=== PATIENT | female | born 1950 | race Caucasian/White ===

== ENCOUNTER → 2017-09-02 07:46 | Outpatient (CLI) | payer MEDICARE, OTHER, SELFPAY ==
[2017-09-02 08:44] LABS: AST(SGOT) 27 U/L (15-37); Alanine Aminotransfer ALT/SGPT 44 U/L (13-56); Albumin, Serum 3.9 g/dL (3.2-5.0); Alkaline Phosphatase 143 U/L (45-117); Bilirubin, Direct 0.14 mg/dL (0.00-0.30); Cholesterol 149 mg/dL (200); Globulin 3.9 g/dL (2.2-4.2); High Density Lipoprotein 41 mg/dL; Protein, Total 7.8 g/dL (6.4-8.2); Triglycerides 133 mg/dL; Very Low Density Lipoprotein 27 mg/dL (5-40)
== END ==
PROVIDERS: Family Provider Family Medicine Geriatric Medicine; PCP Family Medicine Geriatric Medicine; Visit Provider Physician Assistant Medical
DX: I25.10 Atherosclerotic heart disease of native coronary artery without angina pectoris (principal); E78.00 Pure hypercholesterolemia, unspecified
CPT/HCPCS: 36415; 80061; 80076

== ENCOUNTER → 2017-11-13 11:20 | Outpatient (CLI) | payer MEDICARE, OTHER, SELFPAY ==
[2017-11-13 12:46] LABS: Absolute Lymphocyte Count 1.56 X10^3/ul (0.83-4.51); Absolute Neutrophil Count 2.7 X10^3/uL (2.0-7.7); Basophil# 0.06 X10^3/uL; Basophil% 1.2 % (0-1); Eosinophil# 0.16 X10^3/uL; Eosinophils% 3.3 % (0-5); Hematocrit 42.6 % (37-47); Hemoglobin 14.1 g/dl (12.0-15.0); Lymphocyte # 1.56 X10^3/ul (4.0); Lymphocyte % 31.8 % (19-41); Mean Corp Hgb Conc 33.1 g/gl (32-36); Mean Corpuscular Hgb 29.9 pg (27.0-32.0); Mean Corpuscular Volume 90.3 fL (81-99); Mean Platelet Vol. 9.4 fl (6.2-12.0); Monocyte# 0.45 X10^3/uL; Monocyte% 9.2 % (0-10); Neutrophil # 2.67 X10^3/uL (2.7-7.7); Neutrophil % 54.5 % (47-70); Platelet Count 241 K/mm3 (150-450); RBC Distribution Width CV 13.5 % (11.6-14.6); RBC Distribution Width SD 44.4 fl (35.1-43.9); Red Blood Count 4.72 M/mm3 (4.2-5.4); White Blood Count 4.9 K/mm3 (4.4-11.0)
[2017-11-13 12:51] LABS: POSITIVE COUNT NO; POSITIVE DIFFERENTIAL NO; POSITIVE MORPHOLOGY NO
[2017-11-13 12:59] LABS: Vitamin D,25 Hydroxy 40.6 ng/mL (29.95-100.01)
[2017-11-13 13:03] LABS: ALB/GLOB Ratio 1.1 RATIO (0.9-2.4); AST(SGOT) 31 U/L (15-37); Alanine Aminotransfer ALT/SGPT 52 U/L (13-56); Alkaline Phosphatase 132 U/L (45-117); Anion Gap 8 (5-15); BUN 17 mg/dL (7-18); BUN/Creat Ratio 19.1 RATIO (10-20); Calcium,Total 8.8 mg/dL (8.5-10.1); Chloride 103 mmol/L (98-107); Creatinine, Serum 0.89 mg/dL (0.55-1.02); EST Glomerular Filtration Rate 68 mL/min (>60); Est Glom Filt Rate - Afr Amer 82 mL/min (>60); Globulin 3.8 g/dL (2.2-4.2); Glucose 92 mg/dL (74-106); Protein, Total 7.8 g/dL (6.4-8.2); Sodium Level 142 mmol/L (136-145); Thyroid Stim Hormone (TSH) 0.48 uIU/mL (0.358-3.74)
[2017-11-14 08:10] LABS: Hep C Antibodies <0.1 s/co ratio (0.0-0.9)
== END ==
PROVIDERS: Family Provider Family Medicine Geriatric Medicine; PCP Family Medicine Geriatric Medicine; Visit Provider Family Medicine Geriatric Medicine
DX: I10 Essential (primary) hypertension (principal); E55.9 Vitamin D deficiency, unspecified; Z13.89 Encounter for screening for other disorder
CPT/HCPCS: 36415; 80053; 82306; 84443; 85025; 86803

== ENCOUNTER → 2018-03-04 08:24 | Outpatient (CLI) | payer MEDICARE, OTHER, SELFPAY ==
[2018-03-04 09:17] LABS: AST(SGOT) 28 U/L (15-37); Alanine Aminotransfer ALT/SGPT 57 U/L (13-56); Alkaline Phosphatase 142 U/L (45-117); Bilirubin, Direct 0.23 mg/dL (0.00-0.30); Cholesterol 152 mg/dL (200); Globulin 3.7 g/dL (2.2-4.2); High Density Lipoprotein 55 mg/dL; Protein, Total 7.7 g/dL (6.4-8.2); Triglycerides 89 mg/dL; Very Low Density Lipoprotein 18 mg/dL (5-40)
== END ==
PROVIDERS: Family Provider Family Medicine Geriatric Medicine; PCP Family Medicine Geriatric Medicine; Referring Provider Physician Assistant Medical; Visit Provider Physician Assistant Medical
DX: E78.5 Hyperlipidemia, unspecified (principal); Z79.899 Other long term (current) drug therapy
CPT/HCPCS: 36415; 80061; 80076

== ENCOUNTER → 2018-05-14 09:43 | Outpatient (CLI) | payer MEDICARE, OTHER, SELFPAY ==
[2018-04-03 09:50] VITALS: BMI 31.4
[2018-05-14 11:12] LABS: Absolute Lymphocyte Count 1.51 X10^3/ul (0.83-4.51); Absolute Neutrophil Count 4.9 X10^3/uL (2.0-7.7); Basophil# 0.05 X10^3/uL; Basophil% 0.7 % (0-1); Eosinophil# 0.15 X10^3/uL; Eosinophils% 2.1 % (0-5); Hematocrit 42.9 % (37-47); Hemoglobin 14.2 g/dl (12.0-15.0); Lymphocyte # 1.51 X10^3/ul (4.0); Lymphocyte % 20.7 % (19-41); Mean Corp Hgb Conc 33.1 g/gl (32-36); Mean Corpuscular Hgb 30.3 pg (27.0-32.0); Mean Corpuscular Volume 91.7 fL (81-99); Mean Platelet Vol. 9.5 fl (6.2-12.0); Monocyte# 0.68 X10^3/uL; Monocyte% 9.3 % (0-10); Neutrophil # 4.89 X10^3/uL (2.7-7.7); Neutrophil % 66.9 % (47-70); Platelet Count 246 K/mm3 (150-450); RBC Distribution Width CV 13.8 % (11.6-14.6); RBC Distribution Width SD 46.2 fl (35.1-43.9); Red Blood Count 4.68 M/mm3 (4.2-5.4); White Blood Count 7.3 K/mm3 (4.4-11.0)
[2018-05-14 11:15] LABS: POSITIVE COUNT NO; POSITIVE DIFFERENTIAL NO; POSITIVE MORPHOLOGY NO
[2018-05-14 11:45] LABS: ALB/GLOB Ratio 0.9 RATIO (0.9-2.4); AST(SGOT) 18 U/L (15-37); Alanine Aminotransfer ALT/SGPT 46 U/L (13-56); Albumin, Serum 3.6 g/dL (3.2-5.0); Alkaline Phosphatase 157 U/L (45-117); Anion Gap 9 (5-15); BUN 15 mg/dL (7-18); BUN/Creat Ratio 17.7 RATIO (10-20); Chloride 103 mmol/L (98-107); Creatinine, Serum 0.85 mg/dL (0.55-1.02); EST Glomerular Filtration Rate 71 mL/min (>60); Est Glom Filt Rate - Afr Amer 86 mL/min (>60); Glucose 61 mg/dL (74-106); Potassium 3.2 mmol/L (3.5-5.1); Protein, Total 7.6 g/dL (6.4-8.2); Sodium Level 142 mmol/L (136-145)
== END ==
PROVIDERS: Family Provider Family Medicine Geriatric Medicine; PCP Family Medicine Geriatric Medicine; Referring Provider Family Medicine Geriatric Medicine; Visit Provider Family Medicine Geriatric Medicine
DX: I10 Essential (primary) hypertension (principal); E55.9 Vitamin D deficiency, unspecified; R69 Illness, unspecified
CPT/HCPCS: 36415; 80053; 82306; 84443; 85025; 87633

== ENCOUNTER → 2018-05-30 09:15 | Outpatient (CLI) | payer MEDICARE, OTHER, SELFPAY ==
[2018-04-03 09:50] VITALS: BMI 31.4
[2018-05-30 13:09] LABS: Anion Gap 8 (5-15); BUN 19 mg/dL (7-18); BUN/Creat Ratio 20.8 RATIO (10-20); Calcium,Total 8.8 mg/dL (8.5-10.1); Chloride 104 mmol/L (98-107); Creatinine, Serum 0.92 mg/dL (0.55-1.02); EST Glomerular Filtration Rate 65 mL/min (>60); Est Glom Filt Rate - Afr Amer 79 mL/min (>60); Glucose 92 mg/dL (74-106); Sodium Level 139 mmol/L (136-145)
== END ==
PROVIDERS: Family Provider Family Medicine Geriatric Medicine; PCP Family Medicine Geriatric Medicine; Visit Provider Family Medicine Geriatric Medicine
DX: E87.6 Hypokalemia (principal)
CPT/HCPCS: 36415; 80048

== ENCOUNTER → 2018-06-27 10:05 | Outpatient (CLI) | payer MEDICARE, OTHER, SELFPAY ==
[2018-04-03 09:50] VITALS: BMI 31.4
[2018-06-27 12:22] LABS: BUN 17 mg/dL (7-18); Creatinine, Serum 0.82 mg/dL (0.55-1.02); EST Glomerular Filtration Rate 74 mL/min (>60); Est Glom Filt Rate - Afr Amer 90 mL/min (>60)
== END ==
PROVIDERS: Family Provider Family Medicine Geriatric Medicine; PCP Family Medicine Geriatric Medicine; Referring Provider Urology; Visit Provider Urology
DX: R31.0 Gross hematuria (principal)
CPT/HCPCS: 36415; 82565; 84520

== ENCOUNTER → 2018-07-01 06:24 | Outpatient (CLI) | payer MEDICARE, OTHER, SELFPAY ==
[2018-04-03 09:50] VITALS: BMI 31.4
--- NOTE | 2018-07-01 06:29 | CT_ITS ---
STUDY: CT ABDOMEN AND PELVIS WITH AND WITHOUT CONTRAST REASON FOR EXAM: Female, 68 years old. Gross hematuria RADIATION DOSAGE (If Supplied By Facility): CTDIvol = ( 25.09 ) mGy, DLP = ( 2885.35 ) mGycm TECHNIQUE: Transaxial images were obtained from the dome of the diaphragm to the symphysis pubis without oral contrast. Isovue 300 100CC IV was administered. Sagittal and coronal images were reconstructed. Individualized dose optimization techniques were used for this CT. COMPARISON: None. FINDINGS: The lung bases are clear. Fatty infiltration of the liver. No dilated intrahepatic biliary radicles. Previous cholecystectomy. The spleen is normal. The pancreas is normal. Both adrenals are normal. There is a small cyst in the anterior aspect of the right kidney. It is 1.9 cm in size. There is no right-sided hydronephrosis and no calcifications in the right kidneys. A 3.3 cm cyst is in the upper pole of the left kidney and a 2.8 cm cyst from the lower pole of the left kidney. No left-sided hydronephrosis and no calculi in the left kidney The stomach is normal. There is no bowel distention, acute appendicitis or diverticulitis. No constricting lesions are seen in large bowel. The abdominal wall is intact with no hernias. There is no ascites or any free intraperitoneal air. No indication of epiploic appendagitis The vascular structures in the retroperitoneum are normal. There is no retrocrural, retroperitoneal or mesenteric adenopathy. The bones and joints are normal. The urinary bladder is normal.--Previous hysterectomy. There is no inguinal or pelvic adenopathy. There is no inguinal hernia. . . CT/CT Abd/Pelvis W/WO Contrast IMPRESSION: Bilateral benign renal cysts. No hydronephrosis. No calyceal calculi No acute appendicitis or diverticulitis Electronically Signed: Emeka Hendricks MD at 7:58 EST Tel , Service support ,
== END ==
PROVIDERS: Family Provider Family Medicine Geriatric Medicine; PCP Family Medicine Geriatric Medicine; Referring Provider Urology; Visit Provider Urology
DX: R31.0 Gross hematuria (principal)
CPT/HCPCS: 74178; Q9967

== ENCOUNTER → 2018-07-02 11:53 | Outpatient (CLI) | payer MEDICARE, OTHER, SELFPAY ==
[2018-04-03 09:50] VITALS: BMI 31.4
== END ==
PROVIDERS: Family Provider Family Medicine Geriatric Medicine; PCP Family Medicine Geriatric Medicine; Referring Provider Family Medicine Geriatric Medicine; Visit Provider Family Medicine Geriatric Medicine
DX: R68.83 Chills (without fever) (principal)
CPT/HCPCS: 87633

== ENCOUNTER → 2018-09-05 | Outpatient (CLI) | payer MEDICARE, OTHER, SELFPAY ==
[2018-04-03 09:50] VITALS: BMI 31.4
[2018-09-05 09:26] LABS: AST(SGOT) 29 U/L (15-37); Alanine Aminotransfer ALT/SGPT 59 U/L (13-56); Alkaline Phosphatase 128 U/L (45-117); Cholesterol 170 mg/dL (200); Globulin 3.2 g/dL (2.2-4.2); High Density Lipoprotein 51 mg/dL; Protein, Total 7.2 g/dL (6.4-8.2); Triglycerides 109 mg/dL; Very Low Density Lipoprotein 22 mg/dL (5-40)
== END | disposition home or self-care (01) ==
PROVIDERS: Family Provider Family Medicine Geriatric Medicine; PCP Family Medicine Geriatric Medicine; Referring Provider Physician Assistant Medical; Visit Provider Physician Assistant Medical
DX: E78.5 Hyperlipidemia, unspecified (principal)
CPT/HCPCS: 36415; 80061; 80076

== ENCOUNTER → 2018-11-18 | Outpatient (CLI) | payer MEDICARE, OTHER, SELFPAY ==
[2018-04-03 09:50] VITALS: BMI 31.4
[2018-11-18 12:49] LABS: Absolute Lymphocyte Count 1.12 X10^3/uL (0.83-4.51); Absolute Neutrophil Count 3.6 X10^3/uL (2.0-7.7); Basophil# 0.07 X10^3/uL; Basophil% 1.3 % (0-1); Eosinophil# 0.13 X10^3/uL; Eosinophils% 2.5 % (0-5); Hemoglobin 13.9 g/dL (12.0-15.0); Lymphocyte # 1.12 X10^3/ul (4.0); Lymphocyte % 21.2 % (19-41); Mean Corp Hgb Conc 33.9 g/dL (32-36); Mean Corpuscular Hgb 31.4 pg (27.0-32.0); Mean Corpuscular Volume 92.8 fL (81-99); Mean Platelet Vol. 9.7 fl (6.2-12.0); Monocyte# 0.37 X10^3/uL; NRBC Flagged by Analyzer 0 % (0-5); Neutrophil # 3.58 X10^3/uL (2.7-7.7); Neutrophil % 67.8 % (47-70); Platelet Count 258 K/mm3 (150-450); RBC Distribution Width SD 43.9 fl (35.1-43.9); Red Blood Count 4.42 M/mm3 (4.2-5.4); White Blood Count 5.3 K/mm3 (4.4-11.0)
[2018-11-18 13:09] LABS: Vitamin D,25 Hydroxy 45.1 ng/mL (29.95-100.01)
[2018-11-18 13:25] LABS: ALB/GLOB Ratio 1.1 RATIO (0.9-2.4); AST(SGOT) 29 U/L (15-37); Alanine Aminotransfer ALT/SGPT 64 U/L (13-56); Albumin, Serum 3.8 g/dL (3.2-5.0); Alkaline Phosphatase 150 U/L (45-117); Anion Gap 9 (5-15); BUN 17 mg/dL (7-18); BUN/Creat Ratio 19.1 RATIO (10-20); Calcium,Total 8.8 mg/dL (8.5-10.1); Chloride 105 mmol/L (98-107); Creatinine, Serum 0.89 mg/dL (0.55-1.02); EST Glomerular Filtration Rate 67 mL/min (>60); Est Glom Filt Rate - Afr Amer 81 mL/min (>60); Globulin 3.5 g/dL (2.2-4.2); Glucose 87 mg/dL (74-106); Potassium 3.4 mmol/L (3.5-5.1); Protein, Total 7.3 g/dL (6.4-8.2); Sodium Level 141 mmol/L (136-145); Thyroid Stim Hormone (TSH) 1.95 uIU/mL (0.358-3.74)
== END | disposition home or self-care (01) ==
LOC: POLAB3 08:57
PROVIDERS: Family Provider Family Medicine Geriatric Medicine; PCP Family Medicine Geriatric Medicine; Visit Provider Family Medicine Geriatric Medicine
DX: I10 Essential (primary) hypertension (principal); E55.9 Vitamin D deficiency, unspecified
CPT/HCPCS: 36415; 80053; 82306; 84443; 85025

== ENCOUNTER → 2018-11-26 09:03 | Outpatient (CLI) | payer MEDICARE, OTHER, SELFPAY ==
[2018-04-03 09:50] VITALS: BMI 31.4
[2018-11-26 11:40] LABS: Anion Gap 8 (5-15); BUN 20 mg/dL (7-18); BUN/Creat Ratio 19.8 RATIO (10-20); Calcium,Total 9.2 mg/dL (8.5-10.1); Chloride 104 mmol/L (98-107); Creatinine, Serum 1.01 mg/dL (0.55-1.02); EST Glomerular Filtration Rate 58 mL/min (>60); Est Glom Filt Rate - Afr Amer 70 mL/min (>60); Glucose 77 mg/dL (74-106); Potassium 3.5 mmol/L (3.5-5.1); Sodium Level 140 mmol/L (136-145)
== END ==
PROVIDERS: Family Provider Family Medicine Geriatric Medicine; PCP Family Medicine Geriatric Medicine; Visit Provider Family Medicine Geriatric Medicine
DX: E87.6 Hypokalemia (principal)
CPT/HCPCS: 36415; 80048

== ENCOUNTER → 2018-12-18 | Outpatient (CLI) | payer MEDICARE, OTHER, SELFPAY ==
[2018-04-03 09:50] VITALS: BMI 31.4
--- NOTE | 2018-12-18 12:11 | BI_ITS ---
MAMMOGRAPHY - BILATERAL SCREENING REASON FOR EXAM: Female, 68 years old. Routine annual screening examination. PERTINENT HISTORY: Non-contributory. TECHNIQUE: Digital bilateral breast katerina (3D mammographic acquisition) in the CC and MLO projections. 2-D mediolateral oblique (MLO) and craniocaudad (CC) views of both breasts were obtained. CAD: Full Field Digital Mammography with Computer Added Detection was performed. COMPARISON: Comparison is made with prior study dated November 21, 2016 and March 01, 2015. FINDINGS: Breast Composition: There are scattered areas of fibroglandular density. There are no dominant masses or suspicious calcifications. The previously seen nodular density in the inferior medial portion right breast has decreased in size. The previously seen small nodular density in the inferior medial portion of the left breast has decreased in size as well. Stable benign-appearing bilateral axillary No other significant abnormalities are identified. BI/SCREEN MAMM (CAD) W/KATERINA BILAT IMPRESSION: Stable bilateral screening mammogram. Interval decrease in size of the small bilateral nodular densities. Yearly follow-up mammogram recommended. (A) ASSESSMENT CATEGORY: BIRADS Category 2: Benign. A letter regarding these results will be sent to the patient by the facility within 30 days. Approximately 10% of breast cancers are not detected by mammography. A normal mammogram should not delay biopsy of a clinically suspicious abnormality. [id number] Electronically Signed: Moshe Gaffney, at 13:43 EDT , Service support ,
--- NOTE | 2018-12-18 12:15 | BD_ITS ---
STUDY: DUAL ENERGY X-RAY ABSORPTIOMETRY / DXA REASON FOR EXAM: Female, 68 years old. The patient is postmenopausal. Loss of height. TECHNIQUE: Bone Mineral Density (BMD) measurements of lumbar spine and bilateral hips were obtained. COMPARISON: Comparison is made with prior examination dated January 06, 2014. FINDINGS: Lumbar Spine (L1-L4): g/cm2 (1.006) / T-score (-1.4) / Z-score (0.3) Findings are suggestive of osteopenia with a low fracture risk. Left Femur Total: g/cm2 (1.063) / T-score (0.4) / Z-score (1.8) Left Femoral Neck: g/cm2 (0.972) / T-score (-0.5) / Z-score (1.1) Right Femur Total: g/cm2 (1.052) / T-score (0.4) / Z-score (1.7) Right Femoral Neck: g/cm2 (0.951) / T-score (-0.6) / Z-score (0.9) The T-Scores on the most recent prior examination were: Lumbar Spine (L1-L4): There has been worsening of bone density since the previous examination. Left Femur Total: which represents a worsening of 0.4%. Right Femur Total: which represents an improvement of 0.3%. BD/Dexa Bone Density Study IMPRESSION: The patient is considered osteopenic as outlined below according to World Wallace Organization (WHO) criteria with a low fracture risk. There has been worsening of bone density since the previous examination. Reference Information: The T-score is the number of standard deviations above or below the standard which is normal for young adults at their peak bone mineral density. The World Health Organization (WHO) interprets the T-scores as follows: Above -1 Normal bone density Between -1 and -2.5 Osteopenia Equal to / or below -2.5 Osteoporosis As a practical clinical guideline, osteopenia may be graded as follows: Mild -1 through -1.5 Moderate -1.6 through -2.0 Severe -2.1 through -2.4 The Z-score is the number of standard deviations above or below age-matched controls. A Z-score of less than -1.5 would be considered abnormal. References: 1. NIH Osteoporosis and Related Bone Diseases http://www.osteo.org 2. International Society for Clinical Densitometry http://www.iscd.org 3. National Osteoporosis Foundation http://www.nof.org Electronically Signed: Moshe Gaffney, at 14:57 EDT , Service support ,
== END | disposition home or self-care (01) ==
LOC: OPBD 12:08
PROVIDERS: Family Provider Family Medicine Geriatric Medicine; PCP Family Medicine Geriatric Medicine; Referring Provider Family Medicine Geriatric Medicine; Visit Provider Family Medicine Geriatric Medicine
DX: Z78.0 Asymptomatic menopausal state (principal); Z12.31 Encounter for screening mammogram for malignant neoplasm of breast
CPT/HCPCS: 77063; 77067; 77080

== ENCOUNTER → 2019-05-19 11:47 | Outpatient (CLI) | payer MEDICARE, OTHER, SELFPAY ==
[2019-04-09 09:17] VITALS: BMI 31.8
[2019-05-19 12:51] LABS: Absolute Lymphocyte Count 1.75 X10^3/uL (0.83-4.51); Absolute Neutrophil Count 5.6 X10^3/uL (2.0-7.7); Basophil# 0.06 X10^3/uL; Basophil% 0.7 % (0-1); Eosinophil# 0.15 X10^3/uL; Eosinophils% 1.8 % (0-5); Lymphocyte # 1.75 X10^3/ul (4.0); Lymphocyte % 20.8 % (19-41); Mean Corp Hgb Conc 33.3 g/dL (32-36); Mean Corpuscular Hgb 30.2 pg (27.0-32.0); Mean Corpuscular Volume 90.5 fL (81-99); Mean Platelet Vol. 9.4 fl (6.2-12.0); Monocyte# 0.79 X10^3/uL; Monocyte% 9.4 % (0-10); NRBC Flagged by Analyzer 0 % (0-5); Neutrophil # 5.64 X10^3/uL (2.7-7.7); Neutrophil % 67.1 % (47-70); Platelet Count 274 K/mm3 (150-450); RBC Distribution Width CV 13.4 % (11.6-14.6); RBC Distribution Width SD 44.8 fl (35.1-43.9); Red Blood Count 4.97 M/mm3 (4.2-5.4); White Blood Count 8.4 K/mm3 (4.4-11.0)
[2019-05-19 13:00] LABS: Vitamin D,25 Hydroxy 46.2 ng/mL (29.95-100.01)
[2019-05-19 13:01] LABS: ALB/GLOB Ratio 1.1 RATIO (0.9-2.4); AST(SGOT) 41 U/L (15-37); Alanine Aminotransfer ALT/SGPT 125 U/L (13-56); Albumin, Serum 3.9 g/dL (3.2-5.0); Alkaline Phosphatase 149 U/L (45-117); Anion Gap 3 (5-15); BUN 15 mg/dL (7-18); BUN/Creat Ratio 16.3 RATIO (10-20); Calcium,Total 9.2 mg/dL (8.5-10.1); Chloride 102 mmol/L (98-107); Creatinine, Serum 0.92 mg/dL (0.55-1.02); EST Glomerular Filtration Rate 65 mL/min (>60); Est Glom Filt Rate - Afr Amer 78 mL/min (>60); Globulin 3.7 g/dL (2.2-4.2); Glucose 66 mg/dL (74-106); Potassium 3.3 mmol/L (3.5-5.1); Protein, Total 7.6 g/dL (6.4-8.2); Sodium Level 137 mmol/L (136-145); Thyroid Stim Hormone (TSH) 4.48 uIU/mL (0.358-3.74)
== END ==
PROVIDERS: Family Provider Family Medicine Geriatric Medicine; PCP Family Medicine Geriatric Medicine; Visit Provider Family Medicine Geriatric Medicine
DX: I10 Essential (primary) hypertension (principal); E55.9 Vitamin D deficiency, unspecified
CPT/HCPCS: 36415; 80053; 82306; 84443; 85025

== ENCOUNTER → 2019-05-26 10:22 | Outpatient (CLI) | payer MEDICARE, OTHER, SELFPAY ==
[2019-04-09 09:17] VITALS: BMI 31.8
[2019-05-26 12:51] LABS: ALB/GLOB Ratio 1.1 RATIO (0.9-2.4); AST(SGOT) 56 U/L (15-37); Alanine Aminotransfer ALT/SGPT 123 U/L (13-56); Albumin, Serum 3.9 g/dL (3.2-5.0); Alkaline Phosphatase 122 U/L (45-117); Anion Gap 5 (5-15); BUN 17 mg/dL (7-18); BUN/Creat Ratio 17.7 RATIO (10-20); Calcium,Total 8.9 mg/dL (8.5-10.1); Chloride 105 mmol/L (98-107); Creatinine, Serum 0.96 mg/dL (0.55-1.02); EST Glomerular Filtration Rate 62 mL/min (>60); Est Glom Filt Rate - Afr Amer 74 mL/min (>60); Globulin 3.7 g/dL (2.2-4.2); Glucose 87 mg/dL (74-106); Potassium 3.7 mmol/L (3.5-5.1); Protein, Total 7.6 g/dL (6.4-8.2); Sodium Level 137 mmol/L (136-145)
== END ==
PROVIDERS: PCP Family Medicine Geriatric Medicine; Visit Provider Family Medicine Geriatric Medicine
DX: E87.6 Hypokalemia (principal)
CPT/HCPCS: 36415; 80053

== ENCOUNTER → 2019-06-16 08:55 | Outpatient (CLI) | payer MEDICARE, OTHER, SELFPAY ==
[2019-04-09 09:17] VITALS: BMI 31.8
--- NOTE | 2019-06-16 09:04 | US_ITS ---
STUDY: ABDOMINAL ULTRASOUND - RIGHT UPPER QUADRANT REASON FOR VISIT: Female, 68 years old RUQ PAIN TECHNIQUE: Ultrasound evaluation of the right upper quadrant was performed with real-time and static lucia-scale imaging. TECHNICAL QUALITY: Adequate. COMPARISON: CT abdomen and pelvis with IV contrast July 01, 2018 FINDINGS: Liver: The liver measures 18.2 cm. There is increased echogenicity consistent with fatty infiltration. The bile ducts are within normal limits. There is hepatic color flow. The direction of portal flow is hepatopetal. There is no demonstrated mass lesion. Gallbladder: The patient is status post cholecystectomy. Common Bile Duct (C.B.D.): The common bile duct measures 6.7 mm. Pancreas: Normal size of the visualized head, body and tail of the pancreas. There is borderline increased echogenicity of the pancreas. There is no demonstrated pancreatic mass or cyst. Right Kidney: Normal size of the right kidney. The right kidney measures 10.6 x 6.3 x 4.2 cm. Normal renal cortex. The right cortex measures 1.1 cm. Well-defined, mildly lobulated 2.2 x 1.9 x 1.7 cm cortical cyst noted in the anterior midpole. A 9 x 11 x 9 mm cortical cyst is also seen at the upper pole. There is no right hydronephrosis. US/Abdomen Limited IMPRESSION: 1. Prior cholecystectomy. 2. Mild hepatomegaly with steatosis. 3. Two cortical cysts of the right kidney, as described. No hydronephrosis. Electronically Signed: Partha Fallon MD at 19:53 EST , Service support ,
== END ==
PROVIDERS: PCP Family Medicine Geriatric Medicine; Referring Provider Family Medicine Geriatric Medicine; Visit Provider Family Medicine Geriatric Medicine
DX: R10.11 Right upper quadrant pain (principal)
CPT/HCPCS: 76705

== ENCOUNTER → 2019-07-03 10:21 | Outpatient (CLI) | payer MEDICARE, OTHER, SELFPAY ==
[2019-04-09 09:17] VITALS: BMI 31.8
== END ==
PROVIDERS: PCP Family Medicine Geriatric Medicine; Referring Provider Family Medicine Geriatric Medicine; Visit Provider Family Medicine Geriatric Medicine
DX: E03.9 Hypothyroidism, unspecified (principal)
CPT/HCPCS: 36415; 84443

== ENCOUNTER → 2019-08-24 12:58 | Outpatient (CLI) | payer MEDICARE, OTHER, SELFPAY ==
[2019-04-09 09:17] VITALS: BMI 31.8
[2019-08-24 15:16] LABS: Thyroid Stim Hormone (TSH) 0.03 uIU/mL (0.358-3.74)
== END ==
PROVIDERS: PCP Family Medicine Geriatric Medicine; Referring Provider Family Medicine Geriatric Medicine; Visit Provider Family Medicine Geriatric Medicine
DX: E03.9 Hypothyroidism, unspecified (principal)
CPT/HCPCS: 36415; 84443

== ENCOUNTER → 2019-10-06 10:04 | Outpatient (CLI) | payer MEDICARE, OTHER, SELFPAY ==
[2019-04-09 09:17] VITALS: BMI 31.8
[2019-10-06 12:12] LABS: Thyroid Stim Hormone (TSH) 0.44 uIU/mL (0.358-3.74)
== END ==
PROVIDERS: PCP Family Medicine Geriatric Medicine; Visit Provider Family Medicine Geriatric Medicine
DX: E03.9 Hypothyroidism, unspecified (principal)
CPT/HCPCS: 36415; 84443

== ENCOUNTER → 2019-10-28 | Outpatient (CLI) | payer MEDICARE, OTHER, SELFPAY ==
[2019-04-09 09:17] VITALS: BMI 31.8
[2019-10-28 13:00] LABS: AST(SGOT) 18 U/L (15-37); Alanine Aminotransfer ALT/SGPT 37 U/L (13-56); Albumin, Serum 3.7 g/dL (3.2-5.0); Alkaline Phosphatase 126 U/L (45-117); Bilirubin, Direct 0.18 mg/dL (0.00-0.30); GGTP 14 U/L (5-55); Globulin 3.5 g/dL (2.2-4.2); Protein, Total 7.2 g/dL (6.4-8.2)
== END | disposition home or self-care (01) ==
LOC: MTLAB 10:07
PROVIDERS: PCP Family Medicine Geriatric Medicine; Referring Provider Internal Medicine Gastroenterology; Visit Provider Internal Medicine Gastroenterology
DX: K75.9 Inflammatory liver disease, unspecified (principal)
CPT/HCPCS: 36415; 80076; 82977

== ENCOUNTER → 2019-11-24 11:16 | Outpatient (CLI) | payer MEDICARE, OTHER, SELFPAY ==
[2019-04-09 09:17] VITALS: BMI 31.8
[2019-11-24 12:40] LABS: Absolute Neutrophil Count 3.5 X10^3/uL (2.0-7.7); Basophil# 0.05 X10^3/uL; Basophil% 0.9 % (0-1); Eosinophil# 0.16 X10^3/uL; Eosinophils% 2.9 % (0-5); Hematocrit 42.1 % (37-47); Hemoglobin 14.1 g/dL (12.0-15.0); Lymphocyte % 23.6 % (19-41); Mean Corp Hgb Conc 33.5 g/dL (32-36); Mean Corpuscular Hgb 31.6 pg (27.0-32.0); Mean Corpuscular Volume 94.4 fL (81-99); Mean Platelet Vol. 9.9 fl (6.2-12.0); Monocyte# 0.52 X10^3/uL; Monocyte% 9.4 % (0-10); NRBC Flagged by Analyzer 0 % (0-5); Neutrophil # 3.48 X10^3/uL (2.7-7.7); Platelet Count 244 K/mm3 (150-450); RBC Distribution Width CV 12.9 % (11.6-14.6); RBC Distribution Width SD 43.6 fl (35.1-43.9); Red Blood Count 4.46 M/mm3 (4.2-5.4); White Blood Count 5.5 K/mm3 (4.4-11.0)
[2019-11-24 13:04] LABS: ALB/GLOB Ratio 1.1 RATIO (0.9-2.4); AST(SGOT) 18 U/L (15-37); Alanine Aminotransfer ALT/SGPT 28 U/L (13-56); Albumin, Serum 3.8 g/dL (3.2-5.0); Alkaline Phosphatase 121 U/L (45-117); Anion Gap 3 (5-15); BUN 14 mg/dL (7-18); BUN/Creat Ratio 15.7 RATIO (10-20); Calcium,Total 8.6 mg/dL (8.5-10.1); Chloride 103 mmol/L (98-107); Creatinine, Serum 0.89 mg/dL (0.55-1.02); EST Glomerular Filtration Rate 67 mL/min (>60); Est Glom Filt Rate - Afr Amer 81 mL/min (>60); Globulin 3.4 g/dL (2.2-4.2); Glucose 63 mg/dL (74-106); Potassium 3.8 mmol/L (3.5-5.1); Protein, Total 7.2 g/dL (6.4-8.2); Sodium Level 137 mmol/L (136-145); Thyroid Stim Hormone (TSH) 1.95 uIU/mL (0.358-3.74)
[2019-11-25 13:39] LABS: Vitamin D,25 Hydroxy 48.1 ng/mL
== END ==
PROVIDERS: PCP Family Medicine Geriatric Medicine; Visit Provider Family Medicine Geriatric Medicine
DX: E55.9 Vitamin D deficiency, unspecified (principal); I10 Essential (primary) hypertension
CPT/HCPCS: 36415; 80053; 82306; 84443; 85025

== ENCOUNTER → 2020-04-12 11:08 | Outpatient (CLI) | payer MEDICARE, OTHER, SELFPAY ==
[2020-04-12 08:02] VITALS: BMI 33.2
[2020-04-12 12:06] LABS: AST(SGOT) 15 U/L (15-37); Alanine Aminotransfer ALT/SGPT 35 U/L (13-56); Albumin, Serum 4.1 g/dL (3.2-5.0); Alkaline Phosphatase 140 U/L (45-117); Bilirubin, Direct 0.19 mg/dL (0.00-0.30); Cholesterol 148 mg/dL (200); Globulin 3.6 g/dL (2.2-4.2); High Density Lipoprotein 52 mg/dL; Protein, Total 7.7 g/dL (6.4-8.2); Triglycerides 187 mg/dL; Very Low Density Lipoprotein 37 mg/dL (5-40)
== END ==
PROVIDERS: PCP Family Medicine Geriatric Medicine; Visit Provider Internal Medicine Cardiovascular Disease
DX: E78.00 Pure hypercholesterolemia, unspecified (principal)
CPT/HCPCS: 36415; 80061; 80076

== ENCOUNTER → 2020-04-14 05:32 | Outpatient (CLI) | payer MEDICARE, OTHER, SELFPAY ==
[2020-04-12 08:02] VITALS: BMI 33.2
--- NOTE | 2020-04-14 05:34 | ECHOD_ITS ---
Reason For Study: CAD Procedure This was a 2D Doppler, Color Flow transthoracic echocardiogram. Exam performed in department. Left Ventricle Normal LV size. The estimated ejection fraction is 45 %. Mild segmental systolic dysfunction (see wall motion). Mid-Inferior: Severely Hypokinetic. Posterior-Basal: Hypokinetic. [place] : Hypokinetic. Mid-anteroseptal : Hypokinetic. Basal inferoseptal: Akinetic. The rest of the wall segments are normal. Anterior [place] : Hypokinetic. Right Ventricle Normal RV size. Normal systolic function. Atria Normal left atrium. Normal right atrium. Mitral Valve Normal mitral valve. Mild (1+) eccentric mitral valve insufficiency. Tricuspid Valve Normal tricuspid valve. Mild tricuspid valve insufficiency. Aortic Valve Trisinus/trileaflet aortic valve. Mild (1+) aortic valve insufficiency. Great Vessels Normal aortic root. The pulmonary artery is normal size. Normal inferior vena cava. Pericardium/Pleural No pericardial effusion. MMode/2D Measurements & Calculations LVIDd: 3.8 cm IVSd: 1.4 cm Ao root diam: 3.2 cm LVIDs: 2.3 cm LVPWd: 1.3 cm RVDd: 2.8 cm FS: 38.1 % LAV(MOD-bp): 28.2 ml LVAd ap4: 26.4 cm2 SV(MOD-sp4): 37.0 ml LAV(MOD-bp) Indexed: 15.2 ml/m2 EDV(MOD-sp4): 73.0 ml LAV(MOD-sp2): 29.8 ml EDV(sp4-el): 71.4 ml LAV(MOD-sp4): 25.8 ml LVAs ap4: 17.2 cm2 ESV(MOD-sp4): 36.0 ml ESV(sp4-el): 35.6 ml EF(MOD-sp4): 50.7 % EF(sp4-el): 50.1 % SV(sp4-el): 35.8 ml LA dimension(2D): 3.5 cm LA A4 area: 11.8 cm2 RA A4 area: 11.7 cm2 Doppler Measurements & Calculations MV E max robin: 64.8 cm/sec Lat Peak E' Robin: 8.5 cm/sec Med Peak E' Robin: 5.8 cm/sec MV A max robin: 93.6 cm/sec E/E' lat: 7.6 E/E' med: 11.3 MV E/A: 0.69 Ao V2 max: 98.9 cm/sec AI max robin: 373.3 cm/sec LV V1 max: 68.5 cm/sec Ao max P.9 mmHg AI max P.8 mmHg LV V1 max P.9 mmHg AI dec slope: 216.3 cm/sec2 AI P1/2t: 505.6 msec PA V2 max: 64.1 cm/sec Interpretation Summary Normal LV size. The estimated ejection fraction is 45 %. Mild segmental systolic dysfunction (see wall motion). Mild (1+) eccentric mitral valve insufficiency. Mild tricuspid valve insufficiency. Compared to the previous the wall motion abnormalities are new. Ordering Physician: Kodi Nance Referring Physician: Rao Delgado Chi Performed By: Sulema Hoyt RDCS
--- NOTE | 2020-04-14 12:31 | STRESSREP_ITS ---
Stress Test Report Exercise myocardial perfusion stress test. 69-year-old lady with a history of coronary artery disease previous angioplasty and stents. Stress protocol: Resting EKG demonstrates normal sinus rhythm with a rate of 72 bpm left bundle branch block is noted. Resting blood pressure is 1 and 36/80 2 mmHg. The patient exercised according to regular Adrian protocol for total duration of 8 minutes. Patient completed 2 minutes into stage III of the Adrian protocol. The maximum heart rate attained was 148 bpm which was 97% of max impacted heart rate the maximum workload was 10.1 metabolic equivalents. At rest there were no ST or T wave changes noted to suggest ischemia. The patient maintained a left bundle branch block pattern throughout the exercise. The test was terminated due to the target heart rate being achieved. No EKG changes were noted suggest ischemia. The peak blood pressure was 170/70 mmHg rate-pressure/24,400. During recovery the blood pressure dropped with some dizziness noted. Myocardial perfusion protocol. 11.8 mCi of technetium 99m sestamibi was injected at rest. The patient exercised for 8 minutes and at peak exercise 31.7 mCi of technetium 99m sestamibi was injected stress images were obtained stress and rest images were reconstructed and compared in the short axis vertical long and horizontal long a xis. Gated images were also obtained Perfusion SPECT analysis. Review of the stress images demonstrate a medium size area in the mid to distal anterior wall with reduced perfusion. This also involves the apex. Similar flattening is noted on the resting images. The above is suggestive of either a previous infarct or attenuation. No obvious improvement is noted to suggest ischemia. The other mitchell appear to be normally perfused. Gated SPECT analysis: The gated ejection fraction is 58%. Conclusion: Exercise myocardial perfusion stress test with no obvious ischemia noted at a high workload. Distal anterior infarct cannot be excluded. Left bundle branch block pattern could account for some of these findings. Preserved ejection fraction. Good functional capacity.
== END ==
PROVIDERS: PCP Family Medicine Geriatric Medicine; Referring Provider Internal Medicine Cardiovascular Disease; Visit Provider Internal Medicine Cardiovascular Disease
DX: I25.10 Atherosclerotic heart disease of native coronary artery without angina pectoris (principal); Z95.5 Presence of coronary angioplasty implant and graft
CPT/HCPCS: 78452; 93017; 93306; A9500; A4216

== ENCOUNTER → 2020-04-25 14:40 | Outpatient (CLI) | payer MEDICARE, OTHER, SELFPAY ==
[2020-04-12 08:02] VITALS: BMI 33.2
[2020-04-27 16:20] LABS: Anti-Smooth Muscle ABS 8 Units (0-19)
[2020-04-27 16:21] LABS: ANTINUCLEAR ANTIBODIES DIRECT Negative (Negative); Anti-Mitochondrial AB <20.0 Units (0.0-20.0)
== END ==
PROVIDERS: PCP Family Medicine Geriatric Medicine; Referring Provider Internal Medicine Gastroenterology; Visit Provider Internal Medicine Gastroenterology
DX: K75.9 Inflammatory liver disease, unspecified (principal)
CPT/HCPCS: 36415; 83516; 86038

== ENCOUNTER → 2020-05-04 08:48 | Outpatient (CLI) | payer MEDICARE, OTHER, SELFPAY ==
[2020-04-12 08:02] VITALS: BMI 33.2
--- NOTE | 2020-05-04 08:49 | US_ITS ---
STUDY: ABDOMINAL ULTRASOUND - RIGHT UPPER QUADRANT REASON FOR VISIT: Female, 69 years old FATTY LIVER TECHNIQUE: Ultrasound evaluation of the right upper quadrant was performed with real-time and static lucia-scale imaging. TECHNICAL QUALITY: Adequate. COMPARISON: Comparison is made with prior ultrasound examination dated 06/16/2019. FINDINGS: Liver: The liver is mildly enlarged and measures 18.2 cm. There is increased echogenicity consistent with fatty infiltration. The bile ducts are within normal limits. There is hepatic color flow. The direction of portal flow is hepatopetal. There is no demonstrated mass lesion. Gallbladder: The patient is status post cholecystectomy. Common Bile Duct (C.B.D.): The common bile duct measures 6.2 mm. Pancreas: Normal size of the head, body and tail of the pancreas. There is increased echogenicity of the pancreas. There is no demonstrated pancreatic mass or cyst. Right Kidney: Normal size of the right kidney. The right kidney measures 11.4 cm x 6.3 cm x 4.3 cm. Normal renal cortex. The right cortex measures 1.5 cm. 2 renal cysts are seen. The larger measures 2.6 cm by 2.2 cm by 1.7 cm. There is no right hydronephrosis. IMPRESSION: Mild hepatomegaly and fatty infiltration of the liver. Renal cysts. Electronically Signed: Moshe Gaffney, at 8:50 EST , Service support , STUDY: ABDOMINAL ULTRASOUND - ELASTOGRAPHY REASON FOR VISIT: Female, 69 years old. Fatty infiltration of the liver. TECHNIQUE: Liver stiffness measurements were obtained on a Qire 85 ultrasound machine using a CA 1-7 probe following the SRU guidelines. 3 measurements were obtained using a 2-D-SWE method. The IQR/M was 22% suggesting a quality data set. TECHNICAL QUALITY: Adequate. COMPARISON: None. FINDINGS: Liver: Fatty infiltration of the liver. Median liver stiffness measured 5 kPa. US/Elastography Parenchyma/Organ IMPRESSION: Liver stiffness measures 5 kPa compatible with F0 -- F1 Metavir score. Electronically Signed: Moshe Gaffney, at 8:55 EST , Service support ,
--- NOTE | 2020-05-04 08:49 | US_ITS ---
STUDY: ABDOMINAL ULTRASOUND - RIGHT UPPER QUADRANT REASON FOR VISIT: Female, 69 years old FATTY LIVER TECHNIQUE: Ultrasound evaluation of the right upper quadrant was performed with real-time and static lucia-scale imaging. TECHNICAL QUALITY: Adequate. COMPARISON: Comparison is made with prior ultrasound examination dated 06/16/2019. FINDINGS: Liver: The liver is mildly enlarged and measures 18.2 cm. There is increased echogenicity consistent with fatty infiltration. The bile ducts are within normal limits. There is hepatic color flow. The direction of portal flow is hepatopetal. There is no demonstrated mass lesion. Gallbladder: The patient is status post cholecystectomy. Common Bile Duct (C.B.D.): The common bile duct measures 6.2 mm. Pancreas: Normal size of the head, body and tail of the pancreas. There is increased echogenicity of the pancreas. There is no demonstrated pancreatic mass or cyst. Right Kidney: Normal size of the right kidney. The right kidney measures 11.4 cm x 6.3 cm x 4.3 cm. Normal renal cortex. The right cortex measures 1.5 cm. 2 renal cysts are seen. The larger measures 2.6 cm by 2.2 cm by 1.7 cm. There is no right hydronephrosis. IMPRESSION: Mild hepatomegaly and fatty infiltration of the liver. Renal cysts. Electronically Signed: Moshe Gaffney, at 8:50 EST , Service support , STUDY: ABDOMINAL ULTRASOUND - ELASTOGRAPHY REASON FOR VISIT: Female, 69 years old. Fatty infiltration of the liver. TECHNIQUE: Liver stiffness measurements were obtained on a Nexx Studio 85 ultrasound machine using a CA 1-7 probe following the SRU guidelines. 3 measurements were obtained using a 2-D-SWE method. The IQR/M was 22% suggesting a quality data set. TECHNICAL QUALITY: Adequate. COMPARISON: None. FINDINGS: Liver: Fatty infiltration of the liver. Median liver stiffness measured 5 kPa. US/Abdomen Limited IMPRESSION: Liver stiffness measures 5 kPa compatible with F0 -- F1 Metavir score. Electronically Signed: Moshe Gaffney, at 8:55 EST , Service support ,
== END ==
PROVIDERS: PCP Family Medicine Geriatric Medicine; Referring Provider Internal Medicine Gastroenterology; Visit Provider Internal Medicine Gastroenterology
DX: K76.0 Fatty (change of) liver, not elsewhere classified (principal)
CPT/HCPCS: 76705; 76981

== ENCOUNTER 2020-05-12 06:39 | Day surgery (SDC) | payer MEDICARE, OTHER, SELFPAY ==
[2020-04-12 08:02] VITALS: BMI 33.2
--- NOTE | 2020-04-18 09:56 | RAD_ITS ---
STUDY: X-RAY CHEST REASON FOR EXAM: Female, 69 years old. Coronary artery disease. Abnormal stress test. Hypertension. TECHNIQUE: PA and lateral views of the chest. COMPARISON: 09/30/2012. FINDINGS: The lungs are clear and expanded. There is no demonstrated pleural abnormality. Normal size heart. Normal mediastinum and sisi. Normal visualized pulmonary arteries. There is atherosclerotic calcification of the aortic arch with tortuosity. There are mild degenerative changes of the thoracic spine. Normal visualized ribs, clavicles, and shoulders. There is no demonstrated abnormality of the visualized soft tissue structures of the upper abdomen. RAD/Chest PA and Lateral IMPRESSION: No acute cardiopulmonary disease or major interval change. Electronically Signed: Shaq Feliz DO at 22:42 EST Tel [phone], Service support ,
[2020-04-18 10:10] LABS: Absolute Lymphocyte Count 1.38 X10^3/uL (0.83-4.51); Absolute Neutrophil Count 3.2 X10^3/uL (2.0-7.7); Basophil# 0.06 X10^3/uL; Basophil% 1.1 % (0-1); Eosinophil# 0.22 X10^3/uL; Eosinophils% 4.2 % (0-5); Hematocrit 44.1 % (37-47); Lymphocyte # 1.38 X10^3/ul (4.0); Lymphocyte % 26.4 % (19-41); Mean Corpuscular Hgb 31.1 pg (27.0-32.0); Mean Corpuscular Volume 91.3 fL (81-99); Mean Platelet Vol. 9.4 fl (6.2-12.0); Monocyte# 0.32 X10^3/uL; Monocyte% 6.1 % (0-10); NRBC Flagged by Analyzer 0 % (0-5); Neutrophil # 3.23 X10^3/uL (2.7-7.7); Platelet Count 265 K/mm3 (150-450); RBC Distribution Width CV 12.6 % (11.6-14.6); RBC Distribution Width SD 41.7 fl (35.1-43.9); Red Blood Count 4.83 M/mm3 (4.2-5.4); White Blood Count 5.2 K/mm3 (4.4-11.0)
[2020-04-18 10:35] LABS: Anion Gap 5 (5-15); BUN 16 mg/dL (7-18); BUN/Creat Ratio 16.8 RATIO (10-20); Calcium,Total 9.1 mg/dL (8.5-10.1); Chloride 104 mmol/L (98-107); Creatinine, Serum 0.95 mg/dL (0.55-1.02); EST Glomerular Filtration Rate 62 mL/min (>60); Est Glom Filt Rate - Afr Amer 75 mL/min (>60); Glucose 73 mg/dL (74-106); Potassium 3.8 mmol/L (3.5-5.1); Sodium Level 139 mmol/L (136-145)
[2020-05-11 08:12] VITALS: BMI 33.2
[2020-05-12] VITALS (20 sets, daily range): BP systolic 69–138; BP diastolic 30–75; PULSE 50–95; RESP 14–18; TEMP 36.4–36.6; O2SAT 94–99; BMI 33.2
--- NOTE | 2020-05-12 07:27 | HP_ITS ---
HPI HPI History of Present Illness Details: ILAN CANELA, is a 69 F who presents to the office today for a follow-up visit. She is a lady with a history of coronary artery disease status post previous inferior wall myocardial infarction with angioplasty and stenting to her right coronary artery. She returns for routine follow-up visit. She denies any chest pain or shortness breath or paroxysmal nocturnal dyspnea or pedal edema. She has had no neck arm or jaw discomfort to suggest angina. She has been compliant with her medications. You do remember she was taken off the higher dose of statin due to a fatty liver. She tells me that she did increase the dose of her Crestor. Her physical exam today demonstrates clear lung francois regular rate and rhythm and no pedal edema. Her blood pressure is under excellent control. Intake Vital Signs 04/12/20 Height 5 ft 04/12/20 Weight: 170 lb 04/12/20 BMI 33.2 04/12/20 BP 135/81 H 04/12/20 Respiration 16 04/12/20 Pulse 86 04/12/20 Pulse Oximetry (%) 96 Intake Visit Reasons: 1 Y FU Allergies naproxen sodium [From Aleve] Allergy (Verified 04/12/20 08:03) Itching oseltamivir [From Tamiflu] Adverse Reaction (Verified 04/12/20 08:03) Vomitting Medications Aspirin [Aspirin, Baby] 81 mg PO DAILY@0800 02/07/14 [History Confirmed 04/12/20] Nitroglycerin (INPATIENT USE) [Nitrostat] 0.4 mg SUBLINGUAL Q5M PRN 02/07/14 [History Confirmed 04/12/20] ascorbic acid (vitamin C) 500 mg tablet 500 mg PO QDAY 08/20/17 [History Confirmed 04/12/20] cholecalciferol (vitamin D3) 50 mcg (2,000 unit) tablet 2,000 unit PO .3 days a week tab 08/20/17 [History Confirmed 04/12/20] cyanocobalamin (vitamin B-12) 1,000 mcg tablet 1,000 mcg PO QDAY 08/20/17 [History Confirmed 04/12/20] Saccharomyces boulardii 250 mg capsule 250 mg PO QDAY cap 08/22/17 [History Confirmed 04/09/19] calcium citrate 1,000 mg PO QDAY tab 08/22/17 [History Confirmed 04/12/20] folic acid 1 mg tablet 1 mg PO QDAY 08/22/17 [History Confirmed 04/12/20] amlodipine 5 mg tablet 5 mg PO DAILY #90 tab 04/09/19 [Rx Confirmed 04/12/20] cranberry 500 mg capsule 500 mg PO DAILY cap 04/09/19 [History Confirmed 04/12/20] metoprolol succinate 50 mg tablet,extended release 24 hr 50 mg PO QDAY #90 tab 07/02/19 [Rx Confirmed 04/12/20] hydrochlorothiazide 12.5 mg tablet 12.5 mg PO QDAY #90 tab 03/22/20 [Rx Confirmed 04/12/20] losartan 100 mg tablet 100 mg PO DAILY #90 tab 03/22/20 [Rx Confirmed 04/12/20] rosuvastatin 10 mg tablet 10 mg PO DAILY #90 tab 03/22/20 [Rx Confirmed 04/12/20] levothyroxine 75 mcg tablet 75 mcg PO DAILY tab 04/12/20 [History Confirmed 04/12/20] magnesium oxide 500 mg capsule 500 mg PO DAILY 04/12/20 [History Confirmed 04/12/20] omega-3 fatty acids 1,000 mg capsule 1,000 mg PO BID 04/12/20 [History Confirmed 04/12/20] potassium chloride 20 mEq tablet,extended release(part/cryst) 20 meq PO DAILY tab 04/12/20 [History Confirmed 04/12/20] vitamin B complex 1 cap PO DAILY 04/12/20 [History Confirmed 04/12/20] zinc 50 mg tablet 50 mg PO DAILY 04/12/20 [History Confirmed 04/12/20] Ejection fraction %: 55 to 59 [facility] Medical History Atherosclerosis of coronary artery of [place] heart without angina pectoris (Chronic) 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) Left bundle branch block (Chronic) Essential (primary) hypertension (Chronic) Hyperlipidemia (Chronic) Hypothyroidism (Chronic) Obesity (Chronic) Blood in urine (Resolved) Cystitis (Resolved) Surgical History History of coronary artery stent placement (Resolved 03/01/00) H/O: hysterectomy (Resolved) History of left heart catheterization (Resolved 02/13/08) History of thyroidectomy (Resolved) Hx of cholecystectomy (Resolved) Family History (System 07/29/19 @ 11:08 by Amirah Dubon) Brother CAD (coronary artery disease) Sister CAD (coronary artery disease) Father CAD (coronary artery disease) Mother CAD (coronary artery disease) Other CVA (cerebral vascular accident) Social History (Updated 04/12/20 @ 10:[address] Kodi Nance MD) Smoking Status: Never smoker alcohol intake: never substance use type: does not use caffeine: Yes Type: tea Number of servings: 1 what type of physical activity do you participate in: none seatbelt use: always do you feel safe at home: Yes ROS Const Const: Negative for fatigue, weakness, headache(s), frequent falls, difficulty sleeping or excessive sweating Eyes Eyes: Negative for loss of peripheral vision, transient loss of vision, blurry vision, double vision or tunnel vision ENT ENT: Negative for headache(s), dizziness, Nosebleed/epistaxis or balance problems Cardio Chest Pain: No Palpitations: No Edema: None Muscle aches with walking: None Resp Respiratory: Negative for SOB with activity, SOB at rest, SOB orthopnea\SOB lying down, Cough or paroxysmal nocturnal dyspnea GI GI: Negative nausea, vomiting, heartburn or black,tarry stools : Negative for hematuria Musc Musc: Negative for muscle aches/ myalgia, muscle weakness, joint pain or balance problems Skin Skin: Negative non-healing lesions, rash or unusual bruising Neuro Neuro: Negative for dizziness, lightheadedness, near syncope, syncope, orthostatic symptoms, frequent falls, headache(s), weakness, blurry vision, double vision or lack of coordination Rui Hematologic/Lymphatic: Negative for easy bleeding or easy bruising Endo Endo: Negative for fatigue, excessive sweating or increased thirst/drinking Psych Psych: Negative for anxiety or depression Allergy Allergy/Immunology: Negative for hives, Negative for rash Cardiology Exam Const Appearance: cooperative, healthy appearing, no acute distress, well developed and well groomed Nutritional Appearance: average body habitus and well nourished Orientation: alert, awake and oriented x3 Head Head: normal to inspection, normocephalic and atraumatic Ears: hearing grossly normal bilaterally and external ears normal Nose: external nose normal, nares normal, nasal mucous membranes and turbinates normal, septum normal, no nasal discharge Face and Sinus: face symmetric Mouth: oral mucosae normal, tongue normal, oropharynx normal and moist mucous membranes Teeth and gingiva: dentition normal Throat: posterior oropharynx normal, tonsils normal and uvula midline Eyes General: appearance normal, both eyes and all related structures Eyelids: eyelids normal Conjunctivae: conjunctivae normal Pupils: PERRL, normal by confrontation and accommodation normal EOM: EOM intact bilaterally Neck Neck: normal visual inspection, trachea midline and no JVD JVD: +5 Carotids: normal carotid upstroke and bounding pulses Chest Chest inspection: normal inspection of the chest, symmetric chest movement and normal respiratory effort Auscultation: Bilateral: Clear to Auscultation Cardio Palpation: normal PMI Rate: regular rate Rhythm: regular rhythm Heart sounds: S1 normal, S2 normal and normal, physiologic split S2; negative rub, gallop or murmur GI GI: normal to inspection, soft, no hepatosplenomegaly and bowel sounds present Neuro General: alert, awake, oriented x3, gait normal, moves all extremities and no focal sensory deficit Skin Skin: no rashes or lesions noted Extremities Pulses: Normal: Right Femoral Pulse, Left Femoral Pulse, Right Dorsalis Pedis Pulse, Left Dorsalis Pedis Pulse, Right Posterior Tibial Pulse, Left Posterior Tibial Pulse, Right Radial Pulse, Left Radial Pulse Lower Extremity Edema: None: Bilateral Musculoskel Musculoskeletal: No joint tenderness Psych Psychological: normal affect Assessment & Plan 1. History of coronary artery stent placement Z95.5 CNZ-Tnxuge-Dif and Prox LCx w/ 3.0 x 9 mm and 3.0 x 15 mm S760 Stents ; HJL-Zvukwu-Dog and Prox RCA w/ 3.0 x 24 mm, 3.0 x 9 mm and 3.0 x 9 mm S760 Stents 02/27/2000 Plan She is status post previous angioplasty and stenting remotely of her right coronary artery. Her last stress test was 5 years ago. I would like us to obtain an exercise myocardial perfusion stress test and depending on the findings further recommendations will be made. An echocardiogram should also be performed to assess her ventricular function. Orders Orders: Nuclear Stress Test - Treadmil Today 2. Essential (primary) hypertension I10 Plan Her blood pressure appears to be under good control at this particular time I would not suggest that we make any changes. 3. Pure hypercholesterolemia E78.00 Plan She does have a history of hyperlipidemia. She did have a mildly elevated liver function test. I will like us to repeat this and depending on the findings further recommendations will be made. 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
--- NOTE | 2020-05-12 09:24 | CL.D_ITS ---
Patient Name: ILAN CANELA Study Date: 05/12/2020 Performing: Kodi Nance MD Ht: 59.84 inches 152 cm : 1950 Wt: 169.76 lbs 77 kg Age: 69 Gender: female BSA: 1.74 PROCEDURE(S) PERFORMED GN08-AQU/COR [id number], CORONARY OR GRAFT, INITIAL VESSEL CLINICAL PROFILE AND INDICATIONS Indications: Suspected CAD Heart Failure: None Stress/Imaging Date: 04/16/2020Stress Test with SPECT MPI: Positive Low Risk CAD Presentations: No Sxs, no angina. CONCLUSIONS High grade RCA stenosis and moderate mid LAD. RECOMMENDATIONS Staged for FFR Referred for immediate PCI DESCRIPTION OF PROCEDURE The patient arrived to the procedure lab. The risks and benefits of the procedure as well as a full d escription of our services here and current unavailability of surgical backup were fully explained to the patient and/or their significant other prior to the catheterization. The Timeout was completed, verifying the correct patient and procedure. The patient's procedural site was prepped and draped in the usual fashion. Local anesthetic was given subcutaneously to right radial region with Lidocaine 2% . Using a modified Seldinger technique, arterial access was obtained via the right radial artery, a 6 Fr sheath was inserted. Left Coronary Artery selective angiography was performed in multiple views u sing a 5 Fr. 4.0 [place] catheter. Right Coronary Artery selective angiography was then performed in mu ltiple views using a 5 Fr. 4.0 [place] catheter. CORONARY ANGIOGRAPHY DOMINANCE: Right Dominant LEFT HEART ASSESSMENT Left Ventricular Ejection Fraction: by LV Gram 50 % Normal LV wall motion Normal Left Ventricular systolic function LEFT MAIN: Angiographically normal LEFT ANTERIOR DESCENDING ARTERY: MID LAD: Moderate calcification, Moderate luminal irregularities up to 70% RIGHT CORONARY ARTERY: MID RCA: Instent restenosis 90 % COMPLICATIONS PROCEDURE MEDICATIONS Fentanyl 50 mcg IV Versed 1 mg IV Versed 1 mg IV Fentanyl 25 mcg IV Versed 1 mg IV Oxygen: 2 L/min via nasal cannula Heparin diluted in 23cc Heparinized saline. Patient given 10cc IA of this solution. 05/12/2020 08:10:0 3 Heparin 5300 unit(s) IV 05/12/2020 08:33:38 Heparin 2000 unit(s) IV 05/12/2020 08:45:33 Heparin 5000 unit(s) IV 05/12/2020 09:00:17 Heparin 2000unit(s) IV 05/12/2020 09:12:57 Nitro 100 mcg IC 05/12/2020 08:46:38 Verapamil 2.5mg, Ntg 100mcgs, 2000 units of Heparin diluted in 23cc Heparinized saline. Patient give n 10cc IA of this solution. 05/12/2020 08:10:03 SUMMARY OF HEMODYNAMIC DATA Time AIR REST ECG 07:07:50 AO 123/65 (89) SA 08:14:36 AO 151/74 (105) 08:41:55 Signed By Kodi Nance MD On 05/12/2020 09:23:45 Kodi Nance MD
--- NOTE | 2020-05-12 10:15 | EKG12_ITS ---
Test Reason : CHEST PAIN Blood Pressure : / mmHG Vent. Rate : 071 BPM Atrial Rate : 071 BPM P-R Int : 266 ms QRS Dur : 138 ms QT Int : 482 ms P-R-T Axes : 061 -50 052 degrees QTc Int : 523 ms Sinus rhythm with 1st degree A-V block Left axis deviation Non-specific intra-ventricular conduction block Abnormal ECG Confirmed by JAKOB HORTON, DAIANA ([id number]), editorial project manager MARIANNA DANIELSON ([id number]) on 05/16/2020 10:02:38 AM Referred By: Kodi Nance Confirmed By:DAIANA ROBERT MD
--- NOTE | 2020-05-12 10:15 | CL.PCI_ITS ---
PCI Cardiac Cath Report PCI Report: Procedure: IFR of the left anterior descending, IFR of the mid right coronary artery and stenting of the proximal to mid left anterior descending Clinical history: 69-year-old Y female with history of multivessel angioplasty and stenting as well as abnormal nuclear stress test in the territory of the left anterior descending Indication: As stated above Heart failure: None Stress/imaging: Moderate reversibility in the territory of the left anterior descending CAD presentation: Multivessel angioplasty and stenting with abnormal nuclear stress test Summary: #1 successful stenting of the proximal to mid left anterior descending which was heavily calcified. Type C lesion. Pre-PCI stenosis with 70%, post PCI stenosis was 0%. REYNALDO-3 flow was maintained. IFR of the left anterior descending was 0.84 suggestive of hemodynamically significant stenosis #2 IFR of the mid right coronary artery stent with a value of 0.93 suggestive of hemodynamically insignificant stenoses #3 patient will continue aspirin, Plavix, statin, beta-zia and KEM inhibitor Procedure Details The risks, benefits, complications, treatment options, and expected outcomes were discussed with the patient. The patient and/or family concurred with the proposed plan, giving informed consent. Patient was brought to the labor relations consultant after IV hydration . Patient was further sedated with IV conscious sedation. Subject was prepped and draped in the usual manner. Using the modified Seldinger access technique, a 6 [place] sheath was placed in the right radial. Standard diagnostic catheters were used. Exchanges were performed over J-wire. At the end of the procedures, all catheters and sheaths were removed and bleeding was stopped with closure device using TR band Findings: Moderate Sedation: Conscious sedation was administered under my supervision with cardiorespiratory monitoring performed by independent and qualified nursing personnel. Medications and dosages are recorded separately in the electronic medical record. Hemodynamics: BP 150/90 LVEDP HR 70/min Coronary Anatomy: Right dominance Left Main : Normal LAD: Left anterior descending was sized vessel and wraps around the apex for short distance. It was heavily calcified from proximal to the mid segment. There was a long tubular stenosis of the mid left anterior descending measuring 70%. IFR was performed and the value was 0.84 suggestive of hemodynamically significant stenosis Diagonals : Diagonal branches were small tortuous and free of significant disease Right Coronary Artery: Right coronary artery was a large-caliber vessel. There was a mid right coronary artery stent with 30 to 40% short segment in-stent restenosis. Otherwise it was free of significant disease. iFR was performed and the value was 0.93 suggestive of hemodynamically insignificant stenoses IFR was performed in the left anterior descending and the right coronary artery. Resolved was stated as above Intervention Lesion: Stenting of the proximal to mid calcified left anterior descending stenosis Guiding Catheter used 6 [place] left XB 3.5, Guide Wire used: Run-through balloon used: Emerge: 2.5x15, NC 2.75x20, [place] Cutting Balloon: 2.5x10 stents Used: Synergy: 3.0x16, 3.0x12 Procedure in detail: The guidewire had no difficulty passing down the distal left anterior descending. The cutting balloon was used to dilate the mid left anterior descending at 18 roslyn. The 2.5 balloon was then used to dilate at 28 roslyn. This was followed by the 2.75 NC balloon at 20 roslyn. The stent 3.0x16 was then able to deployed at the midportion. Inflated to 16 roslyn. The shorter stent was then deployed proximal to the mid left anterior descending stent at 18 roslyn. Residual stenosis was 0%. REYNALDO-3 flow was maintained. Estimated Blood Loss: Minimal} Complications: None Disposition condition: Stable
--- NOTE | 2020-05-12 11:43 | CRPHASE1_ITS ---
Patient Communication Former Patient:: Phase I, Phase II PHII Cardiac Rehab Discussed with Patient:: Yes Guide to Cardiac Rehab Given to Patient:: Yes Cardiac Rehab Facility Choice List Given to Patient:: Yes Choice Program [facility] PHII:: Communication Given to CR Sales Correspondence Clerk:: Kodi Nance Phase II Cardiac Rehab:: Yes Sessions:: 36 sessions - 3 days/wk, 12 weeks Risk Factors/Lifestyle Smoking Status: Never smoker Second-Hand Smoke:: No Hx Hypertension: Yes Hx Diabetes Mellitus Type 1: No Hx Diabetes Mellitus Type 2: No Hx Metabolic Disorders: No Hx Dyslipidemia: Yes Hx Obesity: No Post-Menopausal: No Stress: Long-standing ETOH: No Caffeine: No Substance Abuse: No Risk Factor for Sedentary Lifestyle: Moderate Risk Family History: Family History (This Medical Record has been edited. Action required.) Brother CAD (coronary artery disease) Sister CAD (coronary artery disease) Father CAD (coronary artery disease) Mother CAD (coronary artery disease) Other CVA (cerebral vascular accident) Past Cardiac Illness: LV Dysfunction, CHF, Coronary Artery Disease, Myocardial Infarction, Previous PCI w/Stent Phase I Education Given On:: Kimberly, Nutrition, Antiplatelet medication Issues Affecting Care:: None Knowledge of Condition:: Yes Learning Preferences: Verbal Cardiac Rehabilitation Info Cardiac Rehabilitation Program Information: Cardiac Rehabilitation is important for patients like you who are recovering from a heart problem. Cardiac rehabilitation programs are recognized as integral to the continued care of the patient with coronary heart disease. The cardiac rehabilitation program is designed to optimize a patient's physical, psychological, and social functioning. Health body care manager work in cardiac rehabilitation programs and assist you with getting the treatments you need to get stronger and healthier - like exercise, healthy eating habits, and medications. Cardiac rehabilitation has been show to help people with heart problems live longer and have better life enjoyment than people who do not go to cardiac rehabilitation. Please contact the Cardiac Rehabilitation Program at [facility] at in two weeks if you have not heard from them.
--- NOTE | 2020-05-12 11:45 | CRPH1.INSTRU ---
General Education CAD and cardiac anatomy and function:: Patient communicates acknowledgment, Needs reinforcement Explanation of diagnoses and procedures:: Patient communicates acknowledgment, Needs reinforcement Sign/Symptoms of RI:: Patient communicates acknowledgment, Needs reinforcement Antiplatelet therapy: Patient communicates acknowledgment, Needs reinforcement Proper use of NTG-SL: Patient communicates acknowledgment, Needs reinforcement Emergency procedures and activation of EMS: Patient communicates acknowledgment, Needs reinforcement Compliance of all prescribed medications: Patient communicates acknowledgment, Needs reinforcement Smoking Patient Nicotine/Smoking Risk Factors Are:: Never smoked Dyslipidemia Patient Dyslipidemia Risk Factors Are:: Total Cholesterol, Triglycerides, HDL, LDL Recommendations Include:: Lipid profile not available, Reviewed NCEP/ATP guidelines, Therapeutic Lifestyle Change dietary guidelines Dyslipidemia Response Code:: Patient communicates acknowledgment Overweight/Obesity Patient Overweight/Obesity Risk Factors Are:: Obesity - > or = 30 Recommendations Include:: Weight loss of 5-10%, Reduced calorie diet, Exercise 5-7 times/week Overweight/Obesity:: Patient communicates acknowledgment, Needs reinforcement Hypertension Recommendations Include:: Maintain BP <130/85, DASH dietary guidelines, Decrease/maintain normal body weight, Moderation of ETOH Hypertension:: Patient communicates acknowledgment, Needs reinforcement Heart Disease Patient Heart Disease Risk Factors Are:: Previous cardiac event Recommendations Include:: Educated family members of their risk, Educated family members of importance of prevention of heart disease Heart Disease Response Code:: Patient communicates acknowledgment, Needs reinforcement Sedentary Patient Sedentary Risk Factors Are:: Lack of regular exercise Recommendations Include:: Aerobic exercise 5-7 times/week for 20-30 minutes continuously, Benefits of regular exercise, Discussed home walking program, Monitored Outpatient Cardiac Rehab Sedentary Response Code:: Patient communicates acknowledgment, Needs reinforcement Stress Patient Stress Risk Factors Are:: Patient denies stress as a risk factor Recommendations Include:: Identification of stressors, and assessment of coping skills, Stress management techniques Stress Response Code:: Patient communicates acknowledgment
--- NOTE | 2020-05-12 12:24 | NURSING ---
This RN called to this room at this time due to patient feeling faint and nauseous while eating. Pt pale and diaphoretic. Placed supine and on right side. VS obtained. Right radial site remains soft.
[2020-05-12] MEDS: 0.9% Normal Saline 500 ML IV.SOLN. IV (12:30)
--- NOTE | 2020-05-12 12:30 | NURSING ---
pt placed in Trendelenburg and started NS @ 999 ml.hr/
--- NOTE | 2020-05-12 12:40 | EKG12_ITS ---
Test Reason : POST PCI Blood Pressure : / mmHG Vent. Rate : 070 BPM Atrial Rate : 070 BPM P-R Int : 262 ms QRS Dur : 142 ms QT Int : 466 ms P-R-T Axes : 064 -73 047 degrees QTc Int : 503 ms Sinus rhythm with 1st degree A-V block Left axis deviation Left bundle branch block Abnormal ECG Confirmed by JAKOB HORTON, DAIANA ([id number]), senior editor MARIANNA DANIELSON ([id number]) on 05/16/2020 10:02:50 AM Referred By: Kodi Nance Confirmed By:DAIANA ROBERT MD
--- NOTE | 2020-05-12 13:30 | NURSING ---
Dr Nance called this RN and updated that patient bradycardic and hypotensive. Orders to continue IVF, and will be up to see patient soon.
[2020-05-12] MEDS: Atorvastatin Calcium 20 MG Tablet PO (21:33)
[2020-05-13] VITALS (7 sets, daily range): BP systolic 113–130; BP diastolic 63–66; PULSE 67–98; RESP 14–18; TEMP 36.4–37.1; O2SAT 94–99
[2020-05-13 06:36] LABS: Hematocrit 40.6 % (37-47); Hemoglobin 13.6 g/dL (12.0-15.0); Mean Corp Hgb Conc 33.5 g/dL (32-36); Mean Corpuscular Hgb 30.1 pg (27.0-32.0); Mean Corpuscular Volume 89.8 fL (81-99); Mean Platelet Vol. 9.4 fl (6.2-12.0); Platelet Count 228 K/mm3 (150-450); RBC Distribution Width CV 12.8 % (11.6-14.6); Red Blood Count 4.52 M/mm3 (4.2-5.4); White Blood Count 4.5 K/mm3 (4.4-11.0)
[2020-05-13 06:59] LABS: ALB/GLOB Ratio 1.1 RATIO (0.9-2.4); AST(SGOT) 34 U/L (15-37); Alanine Aminotransfer ALT/SGPT 38 U/L (13-56); Albumin, Serum 3.7 g/dL (3.2-5.0); Alkaline Phosphatase 120 U/L (45-117); Anion Gap 7 (5-15); BUN 11 mg/dL (7-18); BUN/Creat Ratio 12.5 RATIO (10-20); Calcium,Total 8.4 mg/dL (8.5-10.1); Chloride 107 mmol/L (98-107); Creatinine, Serum 0.88 mg/dL (0.55-1.02); EST Glomerular Filtration Rate 68 mL/min (>60); Est Glom Filt Rate - Afr Amer 82 mL/min (>60); Estimated Creatinine Clearance 43.95 ml/min; Globulin 3.3 g/dL (2.2-4.2); Glucose 94 mg/dL (74-106); Potassium 3.8 mmol/L (3.5-5.1); Sodium Level 139 mmol/L (136-145)
--- NOTE | 2020-05-13 07:48 | PCM.PN.CARD ---
Subjectve: Patient seen and evaluated. Objective: Vital Signs Temp Pulse Resp BP Pulse Ox 97.6 F L 87 14 115/63 94 05/13/20 03:41 05/13/20 07:37 05/13/20 03:41 05/13/20 03:41 05/13/20 03:41 Oxygen Delivery Method Room Air Weight: 169 lb 12.095 oz Body Mass Index (BMI) 33.2 Intake and Output for Last 24 Hours 05/11/20 05/12/20 05/13/20 23:59 23:59 23:59 Intake Total 1100 / 1100 Balance 1100 / 1100 General: Awake, Alert, Oriented x 3 HEENT: PERRL, EOMI, Sclera Non Icteric Neck: Supple, Good ROM, No Lymph Node Enlargement Lungs: Clear to auscultation Cardiovascular: Regular Rhythm, Normal S1, Normal S2, No Murmurs, No Rubs, No Gallops 05/13/20 06:00: WBC 4.5, RBC 4.52, Hgb 13.6, Hct 40.6, MCV 89.8, MCH 30.1, MCHC 33.5, Plt Count 228, MPV 9.4 05/13/20 06:00: Sodium 139, Potassium 3.8, Chloride 107, Carbon Dioxide 25.0, Anion Gap 7, BUN 11, Creatinine 0.88, Est GFR (MDRD) Af Amer 82, Est GFR (MDRD) Non-Af 68, BUN/Creatinine Ratio 12.5, Glucose 94, Calcium 8.4 L, Total Bilirubin 0.80 Rhythm: EKG: ECHO: Stress Test: Cardiac Cath: PCI: CT Surgery: Holter monitor: EPS: PPM: CXR: Chest CT Scan: Medical Necessity - Tobacco Use Smoking Status: Never smoker Assessment/Plan 1. Status post cardiac catheterization with evidence of LAD stenosis as well as right coronary artery stenosis. Patient underwent angioplasty and stenting of the LAD. The right coronary artery was evaluated with IFR and was noted to be nonsignificant. At this time will discharge patient for outpatient evaluation. I would consider bringing him back in 2 months and reperforming a stress test to see the significance of the in-stent stenosis in the right coronary artery. Above discussed with patient who is agreeable. Thank you for allowing me to participate in the care of your patient. Please don't hesitate to call if any issues arise.
--- NOTE | 2020-05-13 07:49 | DCINST_ITS ---
Discharge Diet: Low fat/ Low Cholesterol Lifting Restrictions: 10 pounds and also avoid any pushing or pulling for 3 days after your test. Additional Activity Instructions:: You must have someone drive you home. Do not drive until instructed by your doctor. You must have someone stay with you all night after your test. Rest in bed or on the couch until the next morning. Limit the number of times you go up and down stairs the day of your test. Apply pressure to the puncture site if you sneeze or cough. Call your doctor if your incision/area has: Increased Pain/ Swelling, Increased Redness, Foul Smelling Discharge, Swelling at the incision site Call your doctor if you observe: Fever of 101 or Higher Additional Dressing/Incision Instructions:: Keep the dressing (bandage) on until the next morning. You may then shower, but do not take a tub bath for 5 days after your test. It is normal to have some tenderness and discomfort at the puncture site. Sometimes bruising also occurs. However, if pain, numbness, or coldness occurs below the puncture site (in your leg, toes, arms or fingers) call your doctor at once. You may have a small, marble sized knot at the puncture site. This is normal. Do not rub it. It will go away in 4-6 weeks. Bleeding can occur from the area where the puncture was done. Blood may spurt or drip from the site. If blood spurts, apply pressure right away to stop bleeding and call 911. Although rare, bleeding into the tissue (hematoma) can also occur. If this happens, a large, firm area goose egg under the skin will appear. If any of these occur, lie down as flat as you can and have someone apply firm pressure to the cath site with a gauze pad or a clean washcloth for 10-15 minutes. Call 911 or go to the Emergency Department. Allergies/Adverse Reactions: Allergies naproxen sodium [From Aleve] Allergy (Verified 04/12/20 08:03) Itching oseltamivir [From Tamiflu] Adverse Reaction (Verified 04/12/20 08:03) Vomitting Medications to take at Discharge Aspirin [Aspirin, Baby] 81 mg PO DAILY@0800 02/07/14 Nitroglycerin (INPATIENT USE) [Nitrostat] 0.4 mg SUBLINGUAL Q5M PRN 02/07/14 ascorbic acid (vitamin C) 500 mg tablet 500 mg PO QDAY 08/20/17 cholecalciferol (vitamin D3) 50 mcg (2,000 unit) tablet 2,000 unit PO .3 days a week tab 08/20/17 cyanocobalamin (vitamin B-12) 1,000 mcg tablet 1,000 mcg PO QDAY 08/20/17 Saccharomyces boulardii 250 mg capsule 250 mg PO QDAY cap 08/22/17 calcium citrate 1,000 mg PO QDAY tab 08/22/17 folic acid 1 mg tablet 1 mg PO QDAY 08/22/17 amlodipine 5 mg tablet 5 mg PO DAILY #90 tab 04/09/19 cranberry 500 mg capsule 500 mg PO DAILY cap 04/09/19 metoprolol succinate 50 mg tablet,extended release 24 hr 50 mg PO QDAY #90 tab 07/02/19 hydrochlorothiazide 12.5 mg tablet 12.5 mg PO QDAY #90 tab 03/22/20 losartan 100 mg tablet 100 mg PO DAILY #90 tab 03/22/20 rosuvastatin 10 mg tablet 10 mg PO DAILY #90 tab 03/22/20 levothyroxine 75 mcg tablet 75 mcg PO DAILY tab 04/12/20 magnesium oxide 500 mg capsule 500 mg PO DAILY 04/12/20 omega-3 fatty acids 1,000 mg capsule 1,000 mg PO BID 04/12/20 potassium chloride 20 mEq tablet,extended release(part/cryst) 20 meq PO DAILY tab 04/12/20 vitamin B complex 1 cap PO DAILY 04/12/20 zinc 50 mg tablet 50 mg PO DAILY 04/12/20 clopidogrel 75 mg tablet 75 mg PO DAILY #30 tab 04/18/20 Orders to be completed after discharge: Phase II, Outpatient Cardiac Rehab Location: None Selected Primary Care Physician: Rao Delgado Chi, MD [Primary Care Provider] - Test Results: Test results from this visit will be discussed in further detail at your follow- up appointment, if applicable. major will be called to your pharmacy When: trena Proposed Discharge Date: 05/13/20 Cardiac Rehabilitation Info Cardiac Rehabilitation Program Information: Cardiac Rehabilitation is important for patients like you who are recovering from a heart problem. Cardiac rehabilitation programs are recognized as integral to the continued care of the patient with coronary heart disease. The cardiac rehabilitation program is designed to optimize a patient's physical, psychological, and social functioning. Health director of patient care work in cardiac rehabilitation programs and assist you with getting the treatments you need to get stronger and healthier - like exercise, healthy eating habits, and medications. Cardiac rehabilitation has been show to help people with heart problems live longer and have better life enjoyment than people who do not go to cardiac rehabilitation. Please contact the Cardiac Rehabilitation Program at [facility] at in two weeks if you have not heard from them.
[2020-05-13] MEDS: Aspirin E.C. 81 MG Tablet PO (08:43)
[2020-05-13] MEDS: hydroCHLOROthiazide 12.5mg 12.5 MG PO (08:43)
[2020-05-13] MEDS: amLODIPine 5 MG Tablet PO (08:43)
[2020-05-13] MEDS: Clopidogrel Bisulfate 75 MG Tablet PO (08:43)
[2020-05-13] MEDS: Losartan Potassium 100 MG Tablet PO (08:43)
[2020-05-13] MEDS: Metoprolol(XL)Succ 50 MG Tablet PO (08:44)
--- NOTE | 2020-05-13 11:10 | NURSING ---
Pt discharged home. DC meds sent to [facility] pharmacy. IV dcd and pressure held. NADN VSS. Pt taken off floor to discharge area via wheelchair by [facility] staff.
--- NOTE | 2020-05-13 12:32 | NURSING ---
Pt discharged into the care of family. IV and heart monitor d/cd patient given discharge paperwork and rx sent to [facility] pharmacy. ELIZA at this time. Pt taken to discharge area via wheelchair.
== END 2020-05-13 07:52 | disposition home or self-care (01) ==
LOC: CLSP 06:42 → PCU 12:34
PROVIDERS: Internal Medicine Cardiovascular Disease; PCP Family Medicine Geriatric Medicine; Referring Provider Internal Medicine Cardiovascular Disease; Visit Provider Internal Medicine Cardiovascular Disease
DX: T82.855A Stenosis of coronary artery stent, initial encounter (principal); I25.10 Atherosclerotic heart disease of native coronary artery without angina pectoris; I25.2 Old myocardial infarction; K76.0 Fatty (change of) liver, not elsewhere classified; Z23 Encounter for immunization; E78.5 Hyperlipidemia, unspecified; E03.9 Hypothyroidism, unspecified; E66.9 Obesity, unspecified; Z68.33 Body mass index [BMI] 33.0-33.9, adult; I10 Essential (primary) hypertension; Z95.5 Presence of coronary angioplasty implant and graft; Z79.899 Other long term (current) drug therapy; Z79.82 Long term (current) use of aspirin; Z79.02 Long term (current) use of antithrombotics/antiplatelets; Y71.8 Miscellaneous cardiovascular devices associated with adverse incidents, not elsewhere classified
CPT/HCPCS: 36415; 71046; 80048; 80053; 85025; 85027; 92928; 93005; 93454; 93571; 99152; 99153; C1725; G0008; J0153; J7030; J7040; Q9967; 90686; C1769; C1874; C1887; C1894; C9600

== ENCOUNTER → 2020-05-18 12:54 | Outpatient (CLI) | payer MEDICARE, OTHER, SELFPAY ==
[2020-05-12 10:33] VITALS: BMI 33.2
--- NOTE | 2020-05-18 13:06 | CR.ITP_ITS ---
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 Personal Learning Style:: Audio/Visual, Written Barriers to Learning: Vision Impairment Stage of change r/t lifestyle modifications:: Action Gave educational material for:: Treating Heart Disease, Emotions & Heart Disease, Stress Management & Relaxation, Sleep Disorders & Heart Disease, How The Heart Works, What it means to have Heart Disease, How Coronary Artery Disease is Diagnosed, Heart Procedures, What Heart Medications Do, Risk Factors & Modifications, Living an Active Life, Nutrition - Education/Goals Individual Counseling: Initial Assessment: Abnormal Cholesterol Levels, High Blood Pressure, Overweight/Obesity Cardiac Rehabilitation Goals: 1. Maintain the individual as the primary focus of care. 2. To improve the patient's quality of life. 3. Identification of cardiac risk factors and provide cardiac risk factor management. 4. Enhance the psychosocial status of the patient. 5. Reconditioning enough to allow the patient to resume customary activities. 6. Control symptoms of cardiac disease Personal Goals: Initial Assessment: Improve energy level, Participate in home exercise program, Get back to work, or to resume activities faster, Improve knowledge of cardiac disease, Improve muscle strength and endurance, Improve diet and eating habits (eat healthier), Control risk factors (learn risk factor modification) Scale for measuring improvement of personal goals: Enter appropriate number in Comments. 2 = Unchanged. 3 = Slightly Better. 4 = Moderate Improvement. 5 = Met my Goal - Diagnosis & Disease Process Outcomes/Goals: Pt IDs own risk factors & lifestyle modifications by Session 10, Verbalizes symptoms of angina & response by session 3., Pt independently manages Plan/Interventions: Assist Pt to ID & engage in lifestyle modification to reduce CVD risk, Instruct on individual risk factors, Review symptoms of angina & emergency actions, Review secondary diagnosis & identify educational needs. - Safety Referral to Physical Therapy: No Referral to [facility] Case Management: No Fall Risk Assessed:: Yes Assistive Devices:: None Exercise - Initial Assessment - Visit Date of Eval: 05/18/20 Session #:: 0 - pre-cardiac rehab Mets: Pre-: >7 METS for 30 minutes by discharge - Physician Prescribed Exercise Modalities: Treadmill, Airdyne, NuStep Frequency: 3x/week for 12 weeks [36 sessions] Intensity: 60-80% of age predicted maximum heart rate reserve Current METSs:: 4.5 Target Heart Rate:: 98-129 Maximum Excercise HR:: 144 Resting Blood Pressure: 136/82 Maximum Exercise Blood Pressure: 170/74 EKG Type: NSR w/ left bundle branch block - Outcomes & Goals Goals:: Verbalizes understanding of THR, RPE & goal METS by session 6, Documents in home exercise log/reports 30 min aerobic 5 day/wk by DC, Demonstrates accurate pulse taking by DC - Intervention & Plan Exercise Program Goals: Instruct on personal THR & RPE, Instruct on MET level & personal MET goal, Show patient to take own pulse /validate performance until accurate, Instruct on home exercise - Physical Activity Home Exercise Physical Activity - Home Exercise: Safe Exercise, Warm-up, Self-monitoring, Cool-Down, Home Exercise > 30 min Daily, Sitting Time <3 hours/daily - Outcomes & Goals Outcomes/Goals: Demonstrates correct Warm-up/exercise Cool-Down (S3) if = 2.5 METs, Verbalizes symptoms of exercise intolerance by Session 3 (S3), Demonstrate safe equipment use (S3) & follows exercise prescrition (6) - Intervention & Plan Plan/Intervention: Instruct warm-up & cool-down if exercising at > 2 METs, Inst ruct on symptoms of exercise intolerance & actions to take, Instruct & monitor on saf, Assess intial functional capacity & safety risk Nutrition - Initial Assessment - Program Goals Nutrition Program Goals: LDL <100 optimal. 100 - 129 Near optimal. 130 - 159 Borderline High. 160 - 189 High. Total Cholesterol <200 desirable. 200 - 239 Borderline High. >/= 240 High. HDL < 40 Low >/=60 High. Triglycerides <150 desirable. <199 optimal. VlDL 5 - 40. HgbA1C <7%. BMI <25 Patient has diagnosis of Hyperlipidemia (ICD E78)?: Yes - Visit Date of Assessment:: 05/18/20 Session #:: 0 - Pre-cardiac rehab evaluation - Cholesterol/Lipids Triglycerides (mg/dL): 187 - 04/12/2020 Total Cholesterol (mg/dL): 148 LDL Cholesterol (mg/dL): 59 HDL Cholesterol (mg/dL): 52 Determine presence & major risk factors that modify LDL goal: Hypertension or hypertensive medication, Family history of premature CHD in Male < 55 years: female <65 yearsFa, Age men > 45 years; women >/= 55 years Outcomes/Goals: Pt IDs own risk factors & lifestyle modifications by Session 10, Verbalizes symptoms of angina & response by session 3., Pt independently manages Intervention/Plan: Instruct on personal lipid levels & lipid goals/NCEP guidelines, Instruct on cholesterol Referral to dietitian:: Yes - Medical Nutrition Therapy - Diabetes (Other Core Measures) Diabetes Type: Not Applicable - Weight Mgt (Other Care) Not Applicable: No Height: 5 ft 5 in Weight:: 170 lb BMI: 28.3 Diagnosis Overweight/Obesity BMI> 30% ICD-10 E66: No Diagnosis High BMI/Morbid Obesity BMI> 35% ICD-10 Z68: No Outcomes/Goals: Pt sets, maintains & shows weight loss goal & trend during rehab Intervention/Plan: Instruct on ideal BMI & set weight loss goal w/patient, Assist pt to ID & incorporate diet changes for weight loss by S9 - Healthy Eating Habits Will attend diet classes:: Yes Outcomes/Goals:: Consume diet rich in vegs,fruits,whole grain/high fiber,fish,lean meat, Limit sat/trans fats,cholesterol & added salts & sugars Intervention/Plan:: Assess current eating habits Medical - Initial Assessment - Visit Date of Eval: 05/18/20 Session #:: 0 - pre-cardiac rehab evaluation - Medication Compliance Preventative Medication(s):: Aspirin, Clopidogrel/P2Y12 inhibit, Statin/lipid, Beta zia H/O mental health issues: depression, anxiety, or addiction?: No Doesn?t believe in the benefits of treatment?: No Believes medications are unnecessary or harmful?: No Has a concern about medication side effects?: No Expresses concern over the cost of medications?: No Outcomes/Goals: Verbalizes medications,desired effect & common side effects @ DC, Pt self-reports following medication regimen, Keeps card in wallet w/medications listed by DC Interventions/plans: Instruct on medication effects & side effects, Review medication list w/patient every two weeks, Instruct importance of taking meds as ordered & assist problem solving - Tobacco Use Tobacco Use: Non-smoker - Hypertension Hypertension Diagnosis:: Hypertension ICD-10 I10 Resting Blood Pressure:: 136/80 [place] [employer] Hypertension Guidelines: [place] [employer] Hypertension Guidelines. Normal BP Less than 120/80. Elevated BP 120/80. Hypertension Stage 1: BP 130-139/80-89. Hypertesnion Stage 2: BP 140 or higher/90 or higher. Hypertension Crisis: BP higher than 180/120 Peak Exercise Blood Pressure:: 170/74 - stress test Outcomes/Goals: Able to verbalize/achieve optimal blood pressure <130/80, Incorporates diet changes & exercise for blood pressure control by DC Interventions/plan: Instruct on optimal blood pressure, hypertension & medications, Instruct on effects of sodium, alcohol, stress, exercise &hypertension - Tobacco Cessation Referral Smoking Cessation Referral:: No Individual Education/Counseling:: No Education Schedule Given:: Yes Psychosocial - Initial Assess - VIsit Date of Eval: 05/18/20 Session #:: 0 - pre-cardiac rehab evaluation Not Applicable: Yes History of previous Mental disease:: No - Target Goals Target Goals: Assess presence or absence of depression. Using a valid screening tool, maximizes coping skills. Positive support system - Psychosocial Test Tool Used:: Da Sawyer QOL Cardiac, PHQ-9 Questionnaire phq-9 Severity: Severity. 1-4 Minimal Depression. 5-9 Mild Depression. 10-14 Moderate Depression. 15-19 Moderately Sever Depression. 20-27 Severe Depression. Rule: - Referral to Behavioral Health PS - Interventions: Yes Attend Stress Management Classes, No Referral to Behavioral Health if PHQ-9 score >9:, No Referral to [facility], No Referral to Physician if PHQ-9 if score is 5-9: - Outcomes/Goals: See list Psychosocial Outcomes/Goals:: ID's personal stressors & 2 strategies to manage stress by discharge - Intervention/Plan: See List Interventions/Plan:: Assess stressors,coping strategies & signs of derpression on admission, Instruct/assist pt to develop coping & personal stress Mgt strategies, Instruct patient to recognize signs & symptoms of depression, Instruct patient to recog Patient Health Questionnaire Initial Assessment 1. Little interest or pleasure in doing things: Not at all 2. Feeling down, depressed, or hopeless: Several days 3. Trouble falling or staying asleep, or sleeping too much: Several days 4. Feeling tired or having little energy: Several days 5. Poor appetite or overeating: Several days 6. Feeling bad about yourself -- or that you are a failure or have let yourself or your family down: Not at all 7. Trouble concentrating on things, such as reading the newspaper or watching television: Not at all 8. Moving or speaking so slowly that other people could have noticed. Or the opposite - being so fidgety or restless that you have been moving around a lot more than usual: Not at all 9. Thoughts that you would be better off , or of hurting yourself in some way: Not at all How difficult have these problems made it for you to do your work, take care of things at home, or get along with other people?: Not difficult at all Total Score: 4 MARIE-Q SV Test - Statements CAD is a disease of the arteries in the heart: False Examples of risk factors for heart disease: True Angina is chest pain or discomfort: True The benefits of resistance training include: True Eating more meat and dairy products: False Anti-platelet medications such as aspirin are important: True The only effective way to manage stress: I Don't Know An exercise warm-up slowly increases heart rate: True Prepared, processed foods usually have high sodium: True Depression is common after a heart attack: True The statin medications lower cholesterol: True To control blood pressure, lower the amount of sodium: True If someone gets chest discomfort during walking: False Transfats are partially hydrogenated vegetable oils: True Sleep apnea that is not treated increases the risk: False To control cholesterol, one should become a vegetarian: I Don't Know Someone knows if he/she is exercising at the right level: True Diabetes cannot be prevented with exercise & health eating: I Don't Know Stress is a large risk for heart attack: True A diet that can help lower blood pressure is rich in: True - Total Score Total Correct Responses: 17 Self-Efficacy Initial Assessment We would like to know how confident you are in doing certain activities. Please select your confidence level for:: Select your confidence level for the following using the scale 1-10 where 1 is not at all confident and 10 is totally confident. Your score is the average of all 6 responses. Fatigue: How confident are you that you can keep the fatigue caused by your disease from interfering with the things you want to do? Select Number: 9 Physical Discomfort or Pain: How confident are you that you can keep the physical discomfort or pain of your disease from interfering with the things you want to do? Select Number: 9 Emotional Distress: How confident are you that you can keep the emotional distress caused by your disease from interfering with the things you want to do? Select Number: 8 Other Symptoms or Health Problems: How confident are you that you can keep other symptoms or health problems from interfering with the things you want to do? Select Number: 8 Different Tasks and Activities: How confident are you that you can do the different tasks and activities needed to manage your health condition so as to reduce your need to see a doctor? Select Number: 7 Medication: How confident are you that you can do things other than just taking medication to reduce how much your illness affects your everyday life? Select Number: 7 Total Score:: 8 Nutrition Survey - Nutrition Survey Instructions Scoring Instructions: Scoring is as follows: Yes = 1 points. No = 0 point. Patient score that is >/=12 is considered to be at potential nutritional risk and could benefit from a referral to a registered dietitian. - Nutrition Survey Initial Have you lost >10 lbs over the past 2 months without trying?: No Are you following a special diet at home for diabetes, low fat, or low salt?: No Are you interested in meeting with a dietitian for help understanding your diet?: Yes Do you eat less than 3 meals a day?: No Do you eat fatty meats (ackerman, sausage, ribs, etc), fried foods, desserts, large amounts of salad dressings, margarine, butter, or cheese most days?: Yes Do you have food allergies? [Enter types in comment field]: Yes - Milk/dairy Do you eat in restaurants more than 3 times a week?: No Do you season food with salt, seasoning salt, or garlic salt?: Yes - very little Do you used canned, boxed, frozen meals, or soups, seasoning packets?: No - not much Total Score:: 4
--- NOTE | 2020-05-18 13:07 | PCM.CR.HP2 ---
CR - History & Physical - General Arrival date:: 05/18/20 Arrival time:: 13:07 Date of Referral:: 05/12/20 Date of CR Evaluation:: 05/18/20 Referring Physician: Dr. Nance Primary Diagnosis: PCI w/coronary stenting - History of Present Cardiac Event Onset Date: Enter Onset Date of cardiac illnesses in Comment field below Acute Myocardial Infarction within 12 months:: Yes - 1999 PTCA or coronary stenting:: Yes - 05/12/2020; 1999 @ [facility] Type of Symptoms:: found during routine cardiac testing follow-up. It had been 5 years since the last stress test so Dr. Nance wanted to take a look. Were there any complications?: None - Medications Home Medications: Ambulatory Orders Medication Instructions Recorded Aspirin [Aspirin, Baby] 81 mg PO DAILY@0800 02/07/14 ascorbic acid (vitamin C) 500 mg 500 mg PO QDAY 08/20/17 tablet cholecalciferol (vitamin D3) 50 2,000 unit PO .3 days a week tab 08/20/17 mcg (2,000 unit) tablet cyanocobalamin (vitamin B-12) 1,000 mcg PO QDAY 08/20/17 1,000 mcg tablet Saccharomyces boulardii 250 mg 250 mg PO QDAY cap 08/22/17 capsule calcium citrate 1,000 mg PO QDAY tab 08/22/17 folic acid 1 mg tablet 1 mg PO QDAY 08/22/17 amlodipine 5 mg tablet 5 mg PO DAILY #90 tab 04/09/19 cranberry 500 mg capsule 500 mg PO DAILY cap 04/09/19 metoprolol succinate 50 mg 50 mg PO QDAY #90 tab 07/02/19 tablet,extended release 24 hr hydrochlorothiazide 12.5 mg tablet 12.5 mg PO QDAY #90 tab 03/22/20 losartan 100 mg tablet 100 mg PO DAILY #90 tab 03/22/20 rosuvastatin 10 mg tablet 10 mg PO DAILY #90 tab 03/22/20 levothyroxine 75 mcg tablet 75 mcg PO DAILY tab 04/12/20 magnesium oxide 500 mg capsule 500 mg PO DAILY 04/12/20 omega-3 fatty acids 1,000 mg 1,000 mg PO BID 04/12/20 capsule potassium chloride 20 mEq 20 meq PO DAILY tab 04/12/20 tablet,extended release(part/cryst) vitamin B complex 1 cap PO DAILY 04/12/20 zinc 50 mg tablet 50 mg PO DAILY 04/12/20 clopidogrel 75 mg tablet 75 mg PO DAILY #30 tab 04/18/20 nitroglycerin 0.4 mg sublingual 0.4 mg SUBLINGUAL Q5M PRN #25 tab 05/13/20 tablet - Allergies Allergies/Adverse Reactions: Allergies naproxen sodium [From Aleve] Allergy (Verified 04/12/20 08:03) Itching oseltamivir [From Tamiflu] Adverse Reaction (Verified 04/12/20 08:03) Vomitting - Sleep Disorder Evaluation Hx of Sleep Apnea: Yes Do you snore loudly (louder than talking or can be heard through closed doors)?: No Do you often feel tired/ fatigued/ sleepy during daytime?: Yes - sometimes, not routinley Has anyone observed you stop breathing during sleep?: No History of Hypertension (for STOP score): Yes STOP Results: Positive Advanced Directives - Advanced Directives Power of Clip Wrapper: Yes Living Will: Yes Advance Directives Information Provided: No Advance Directives on File: Yes DNR Order?:: No - MOLST See MOLST form: No Past Medical History - Covid-19 Screening Fever: No Unexplained muscle aches: No Current respiratory symptoms: No Upper respiratory infections symptoms: No Gastro-intestinal symptoms: No Gtj-Jidb-Rkucou symptoms: No Has tested positive for COVID-19 in last 30 days: No Had contact w/person w/symptoms or Covid-19 (+) last 14 days: No Has High Risk Exposures ID'd by Health dept/Inf Control team: No 65 years or older:: Yes Lives in Assisted Living facility:: No Has a chronic lung disease or moderate to severe asthma:: No Has a serious heart condition:: Yes Immunocompromised:: Yes Severely obese (Body Mass Index of 40 or higher):: No Diabetic:: No Has chronic kidney disease undergoing dialysis:: No Has liver disease:: No - Past Medical Illness Medical History: Past Medical History (Last Reviewed 04/12/20 @ 10:[address] Kodi Nance MD) Atherosclerosis of coronary artery of [place] heart without angina pectoris (Chronic) I25.10 Old inferior wall myocardial infarction (Chronic) Onset Date: 02/2000 I25.2 Left bundle branch block (Chronic) I44.7 Essential (primary) hypertension (Chronic) I10 Hyperlipidemia (Chronic) E78.5 Hypothyroidism E03.9 Obesity E66.9 Blood in urine R31.9 Cystitis N30.90 - Past Surgical History Surgical History: Past Surgical History (Last Updated 05/12/20 @ 12:43 by Kassidy Lo) History of coronary artery stent placement (Resolved) Onset Date: 05/12/20 Z95.5 SBM-Jewnnm-Uwn and Prox LCx w/ 3.0 x 9 mm and 3.0 x 15 mm S760 Stents ; JZU-Qhzena-Gvv and Prox RCA w/ 3.0 x 24 mm, 3.0 x 9 mm and 3.0 x 9 mm S760 Stents 02/27/2000; PCI-MARIO-Mid LAD w/ 3.0 x 16 mm Synergy Stent and Prox LAD w/ 3.0 x 12 mm Synergy Stent 05/12/2020 H/O: hysterectomy Z90.710 History of left heart catheterization Onset Date: 02/13/08 Z98.890 History of thyroidectomy E89.0 Hx of cholecystectomy Z90.49 - Family History Summary Family History: Family History (This Medical Record has been edited. Action required.) Brother CAD (coronary artery disease) Sister CAD (coronary artery disease) Father CAD (coronary artery disease) Mother CAD (coronary artery disease) Other CVA (cerebral vascular accident) Social History - Smoking History Smoking Status: Never smoker - Alcohol Use Alcohol Usage: No - Substance Abuse Hx Substance Use: No - Occupation Occupation (List type of work in comments):: Retired - Hobbies, Recreation, Social Activities Hobbies: Sports - Golfing, Sewing, Walking - walking outside, Other Recreational Activities: I am able to engage in all my recreational activities Social Environment - Status Marital Status: - Current Living Arrangements Living Environment:: Alone - Children How many children do you have?: [address] [place] [address] and [place], [place]. Do any of your children live nearby?: Yes - Safety Do you feel safe in your surroundings?: Yes - Assistance Do you need any assistance at home?: None Review of Systems - Review of Systems Hints: Right click = Denies ([place]). Left click = Reports ([place]) Review of Present Symptoms: Reports: Fatigue - sometimes not frequently, Heart Arrhythmia/Irregularities - left bundle branch block, Appetite - Normal - over active, Appetite - Special Diet - low-fatr low sodium diet, no milk or dairy products., Sleep - Normal. Denies: Shortness of Breath at Rest, Shortness of Breath with Exertion, Angina, Dizziness/Lightheadedness, Sexual Changes - Pain Is Patient Pain Free?: Yes Pain Location: none Pain Level: 0/10 Risk Factor Assessment - Chief Complaint Chief Complaint: Lakeshia is a very pleasant [address] Nance who presentst o cardiac rehab today following recent PCI w/coronary stenting. SHe has previous cardiac history and was in for routine follow-up and testing where they found issues and subsequently lead to her recent stent. - Vital Signs Temperature: 97.3 F Respiratory Rate: 14 Pulse Ox: 96 Blood Pressure: 135/80 - Pulse Pulse Rate: 86 Pulse Rhythm: Regular - Hypertension Blood Pressure Sitting - Left Arm: 135/80 - Blood Cholesterol/Lipids Total Cholesterol (mg/dL) Goal = less than 200 mg/dL: 148 - 04/12/2020 HDL Cholesterol (mg/dL) Goal = less than 40 mg/dL: 52 LDL Cholesterol (mg/dL) Goal = less than 70 mg/dL: 59 Triglycerides (mg/dL) Goal = less than 150 mg/dL: 187 - Diabetes Nutrition Referral for Diabetes: No - Obesity Height: 5 ft 5 in Weight:: 170 lb Weight in Pounds: 170.0 lbs Weight Source: Standing Scale Body Mass Index (BMI): 28.3 Nutritional Referral for Obesity: No - Physical Inactivity Physical Inactivity: Reg Exercise 30 min/day, Recreational activity - walking golf - Risk Stratification Risk Guidelines: Lowest Risk: Risk Factor for Smoking, Risk Factor for Dyslipidemia, Risk Factor for Diabetes, Risk Factor for Sedentary Lifestyle, Risk Factor for Depression, Moderate Risk: Risk Factor for Obesity, Risk Factor for Hypertension - For Smoking Smoking Risk Guidelines: Smoking Low Risk: None or quit greater than 6 months ago. Smoking Moderate Risk: Smoker or quit 6 months or less ago. Smoking High Risk: Smoker - For Dyslipidemia Dyslipidemia Risk Guidelines: Low Risk: Moderate Risk: High Risk: 15-25% fat 25.1-29% fat >/= 30% fat. <7% sat fat 7-9% sat fat >9% sat fat. <150 mg chol 150-299 mg chol >/= 300 mg chol. LDL <100 LDL 100-129 LDL >/= 130. Chol/HDL ratio <5.0 Chol/HDL ratio 5.0-6.0 Chol/HDL ratio >6.0. Triglycerides <100 Triglycerides 100-149 Triglycerides >/= 150 - For Diabetes Mellitus Diabetes Risk Guidelines: Diabetes Low Risk: HgA1c <6.5% and/or FBG <120. Diabetes Moderate Risk: HgA1c 6.6-7.9% and/or FBG 120-180. Diabetes High Risk: HgA1c >/= 8% and/or FBG >180 - For Obesity/Overweight Obesity/Overweight Risk Guidelines: Obesity Low Risk: BMI <25.0. Obesity Moderate Risk: BMI 25-29.9. Obesity High Risk: BMI >/= 30.0 - For Hypertension Hypertension Risk Guidelines: Hypertension Low Risk: Systolic <120 and Diastolic <80. Hypertension Moderate Risk: Systolic 120-139 and Diastolic 80-89. Hypertension High Risk: Systolic >/= 140 and Diastolic >/= 90 - For Sedentary Lifestyle Sedentary Lifestyle Risk Guidelines: Sedentary Lifestyle Low Risk: >/= 1,500 kcal/week. Sedentary Lifestyle Moderate Risk: 700-1,499 kcal/week. Sedentary Lifestyle High Risk: < 700 kcal/week - For Depression Depression Risk Guidelines: Depression Low Risk: Not clinically depressed. Depression Moderate Risk: Mildly depressed. Depression High Risk: Clinically depressed - Family History Family History: Family History (This Medical Record has been edited. Action required.) Brother CAD (coronary artery disease) Sister CAD (coronary artery disease) Father CAD (coronary artery disease) Mother CAD (coronary artery disease) Other CVA (cerebral vascular accident) Motivation - Motivation to Participate On a scale of 1 to 10, how prepared are you to commit to attending program?: 7 - hate to exercise, but know the benefits of the CR. What do you see as barriers to successfully being able to complete the program?: wekness in lower back What do you see as the benefits of succesfully completing the program? In other words, what do you hope to get out of participating in the program?: strenghtening and increase energy Are there issues you are dealing with that will interfere with completing the program?: none Do you have a spouse or signficant other, family or friends who will help support you to complete the program?: Yes
[2020-05-18 13:25] VITALS: BP 136/80; BP 136/82; BP 170/74; BMI 28.3
[2020-05-18 13:36] VITALS: BP 135/80; PULSE 86; RESP 14; TEMP 36.3; O2SAT 96; BMI 28.3
== END ==
PROVIDERS: PCP Family Medicine Geriatric Medicine; Referring Provider Internal Medicine Cardiovascular Disease; Visit Provider Internal Medicine Cardiovascular Disease
DX: I10 Essential (primary) hypertension (principal); E78.5 Hyperlipidemia, unspecified; E03.9 Hypothyroidism, unspecified; E66.9 Obesity, unspecified

== ENCOUNTER → 2020-05-26 10:13 | Outpatient (CLI) | payer MEDICARE, OTHER, SELFPAY ==
[2020-05-18 13:25] VITALS: BMI 28.3
[2020-05-18 13:36] VITALS: BMI 28.3
[2020-05-26 12:12] LABS: Absolute Lymphocyte Count 1.24 X10^3/uL (0.83-4.51); Absolute Neutrophil Count 2.7 X10^3/uL (2.0-7.7); Basophil# 0.07 X10^3/uL; Basophil% 1.5 % (0-1); Eosinophils% 4.2 % (0-5); Hematocrit 39.8 % (37-47); Hemoglobin 13.2 g/dL (12.0-15.0); Lymphocyte # 1.24 X10^3/ul (4.0); Lymphocyte % 26.1 % (19-41); Mean Corp Hgb Conc 33.2 g/dL (32-36); Mean Corpuscular Hgb 30.3 pg (27.0-32.0); Mean Corpuscular Volume 91.3 fL (81-99); Mean Platelet Vol. 9.5 fl (6.2-12.0); Monocyte# 0.51 X10^3/uL; Monocyte% 10.7 % (0-10); NRBC Flagged by Analyzer 0 % (0-5); Neutrophil # 2.73 X10^3/uL (2.7-7.7); Neutrophil % 57.3 % (47-70); Platelet Count 275 K/mm3 (150-450); RBC Distribution Width SD 43.8 fl (35.1-43.9); Red Blood Count 4.36 M/mm3 (4.2-5.4); White Blood Count 4.8 K/mm3 (4.4-11.0)
[2020-05-26 12:27] LABS: Vitamin D,25 Hydroxy 50.9 ng/mL
[2020-05-26 12:38] LABS: ALB/GLOB Ratio 1.2 RATIO (0.9-2.4); AST(SGOT) 16 U/L (15-37); Alanine Aminotransfer ALT/SGPT 33 U/L (13-56); Albumin, Serum 3.8 g/dL (3.2-5.0); Alkaline Phosphatase 143 U/L (45-117); Anion Gap 5 (5-15); BUN 14 mg/dL (7-18); BUN/Creat Ratio 14.5 RATIO (10-20); Calcium,Total 8.5 mg/dL (8.5-10.1); Chloride 104 mmol/L (98-107); Creatinine, Serum 0.97 mg/dL (0.55-1.02); EST Glomerular Filtration Rate 61 mL/min (>60); Est Glom Filt Rate - Afr Amer 73 mL/min (>60); Globulin 3.2 g/dL (2.2-4.2); Glucose 76 mg/dL (74-106); Potassium 3.9 mmol/L (3.5-5.1); Sodium Level 138 mmol/L (136-145)
== END ==
PROVIDERS: PCP Family Medicine Geriatric Medicine; Visit Provider Family Medicine Geriatric Medicine
DX: E55.9 Vitamin D deficiency, unspecified (principal); I10 Essential (primary) hypertension
CPT/HCPCS: 36415; 80053; 82306; 84443; 85025

== ENCOUNTER 2020-06-03 10:15 | Outpatient (RCR) | payer MEDICARE, OTHER, SELFPAY ==
[2020-05-18 13:25] VITALS: BMI 28.3
[2020-05-18 13:36] VITALS: BMI 28.3
== END 2020-06-05 23:59 ==
LOC: CR 10:15
PROVIDERS: PCP Family Medicine Geriatric Medicine; Referring Provider Internal Medicine Cardiovascular Disease; Visit Provider Internal Medicine Cardiovascular Disease
DX: I25.10 Atherosclerotic heart disease of native coronary artery without angina pectoris (principal); I44.7 Left bundle-branch block, unspecified; I25.2 Old myocardial infarction; I10 Essential (primary) hypertension; E78.5 Hyperlipidemia, unspecified; Z95.5 Presence of coronary angioplasty implant and graft
CPT/HCPCS: 93798

== ENCOUNTER 2020-07-01 10:15 | Outpatient (RCR) | payer MEDICARE, OTHER, SELFPAY ==
[2020-05-18 13:25] VITALS: BMI 28.3
[2020-05-18 13:36] VITALS: BMI 28.3
--- NOTE | 2020-06-16 05:48 | PCM.CR.ITP ---
Exercise - 30-day Assessment - Visit Date of Eval: 06/16/20 Session #:: 12 - 100% compliance to date - Physician Prescribed Exercise Modalities: Treadmill, Rower, NuStep Intensity: 60-80% of age predicted maximum heart rate reserve Current METSs:: 4.5 increased from 3.5 Target Heart Rate:: 98-129 Current RPE:: 11-14 Maximum Excercise HR:: 129 Resting Blood Pressure: 114/70 - well controlled Maximum Exercise Blood Pressure: 146/84 EKG Type: NSR to sinus tach with rare PVCs - Outcomes & Goals Goals:: Verbalizes understanding of THR, RPE & goal METS by session 6, Documents in home exercise log/reports 30 min aerobic 5 day/wk by DC, Demonstrates accurate pulse taking by DC - Intervention & Plan Exercise Program Goals: Instruct on personal THR & RPE, Instruct on MET level & personal MET goal, Show patient to take own pulse /validate performance until accurate, Instruct on home exercise - 30-day Reassessments 30 day Reassessments:: Progressing - Physical Activity Home Exercise Physical Activity - Home Exercise: Safe Exercise, Warm-up, Self-monitoring, Cool-Down, Home Exercise > 30 min Daily, Sitting Time <3 hours/daily - Outcomes & Goals Outcomes/Goals: Demonstrates correct Warm-up/exercise Cool-Down (S3) if = 2.5 METs, Verbalizes symptoms of exercise intolerance by Session 3 (S3), Demonstrate safe equipment use (S3) & follows exercise prescrition (6) - Intervention & Plan Plan/Intervention: Instruct warm-up & cool-down if exercising at > 2 METs, Instruct on symptoms of exercise intolerance & actions to take, Instruct & monitor on saf, Assess intial functional capacity & safety risk - 30-day Reassessments 30 day Reassessments:: Progressing Nutrition - 30-Day Assessment - Program Goals Nutrition Program Goals: LDL <100 optimal. 100 - 129 Near optimal. 130 - 159 Borderline High. 160 - 189 High. Total Cholesterol <200 desirable. 200 - 239 Borderline High. >/= 240 High. HDL < 40 Low >/=60 High. Triglycerides <150 desirable. <199 optimal. VlDL 5 - 40. HgbA1C <7%. BMI <25 Patient has diagnosis of Hyperlipidemia (ICD E78)?: Yes - Visit Date of Assessment:: 06/16/20 Session #:: 12 - Cholesterol/Lipids Determine presence & major risk factors that modify LDL goal: Hypertension or hypertensive medication, Age men > 45 years; women >/= 55 years Outcomes/Goals: Pt IDs own risk factors & lifestyle modifications by Session 10, Verbalizes symptoms of angina & response by session 3., Pt independently manages Intervention/Plan: Instruct on personal lipid levels & lipid goals/NCEP guidelines, Instruct on cholesterol Referral to dietitian:: Yes - Medical Nutrition Therapy 30-day Reassessments:: Progressing - Diabetes (Other Core Measures) Diabetes Type: Not Applicable - Weight Mgt (Other Care) Not Applicable: Yes Height: 5 ft 5 in Weight:: 174 lb BMI: 28.9 Diagnosis Overweight/Obesity BMI> 30% ICD-10 E66: No Diagnosis High BMI/Morbid Obesity BMI> 35% ICD-10 Z68: No Outcomes/Goals: Pt sets, maintains & shows weight loss goal & trend during rehab Intervention/Plan: Instruct on ideal BMI & set weight loss goal w/patient, Assist pt to ID & incorporate diet changes for weight loss by S9, Encourage goal of using 250-300dcal per session for weight loss 30 day Reassessments:: Met - Healthy Eating Habits Will attend diet classes:: Yes Outcomes/Goals:: Consume diet rich in vegs,fruits,whole grain/high fiber,fish,lean meat, Limit sat/trans fats,cholesterol & added salts & sugars Intervention/Plan:: Assess current eating habits 30-day Reassessments:: Progressing Medical- 30-Day Assessment - Visit Date of Eval: 06/16/20 Session #:: 12 - Medication Compliance Preventative Medication(s):: Aspirin, Clopidogrel/P2Y12 inhibit, Statin/lipid, Beta zia H/O mental health issues: depression, anxiety, or addiction?: No Doesn?t believe in the benefits of treatment?: No Believes medications are unnecessary or harmful?: No Has a concern about medication side effects?: No Expresses concern over the cost of medications?: No Outcomes/Goals: Verbalizes medications,desired effect & common side effects @ DC, Pt self-reports following medication regimen, Keeps card in wallet w/medications listed by DC Interventions/plans: Instruct on medication effects & side effects, Review medication list w/patient every two weeks, Instruct importance of taking meds as ordered & assist problem solving 30-day Reassessments:: Progressing - Tobacco Use Tobacco Use: Non-smoker - Hypertension Hypertension Diagnosis:: Hypertension ICD-10 I10 Resting Blood Pressure:: 114/70 [employer] [employer] Hypertension Guidelines: [place] [employer] Hypertension Guidelines. Normal BP Less than 120/80. Elevated BP 120/80. Hypertension Stage 1: BP 130-139/80-89. Hypertesnion Stage 2: BP 140 or higher/90 or higher. Hypertension Crisis: BP higher than 180/120 Peak Exercise Blood Pressure:: 146/84 Outcomes/Goals: Able to verbalize/achieve optimal blood pressure <130/80, Incorporates diet changes & exercise for blood pressure control by DC Interventions/plan: Instruct on optimal blood pressure, hypertension & medications, Instruct on effects of sodium, alcohol, stress, exercise &hypertension 30 day Reassessments:: Progressing - Tobacco Cessation Referral Smoking Cessation Referral:: No Individual Education/Counseling:: No Education Schedule Given:: Yes Psychosocial - 30-Day Assess - VIsit Date of Eval: 06/16/20 Session #:: 12 Not Applicable: Yes History of previous Mental disease:: No - Target Goals Target Goals: Assess presence or absence of depression. Using a valid screening tool, maximizes coping skills. Positive support system - Psychosocial Test Tool Used:: PHQ-9 Questionnaire phq-9 Severity: Severity. 1-4 Minimal Depression. 5-9 Mild Depression. 10-14 Moderate Depression. 15-19 Moderately Sever Depression. 20-27 Severe Depression. Rule: - Referral to Behavioral Health PS - Interventions: Yes Attend Stress Management Classes, No Referral to Behavioral Health if PHQ-9 score >9:, No Referral to [facility] [place] [facility], No Referral to Physician if PHQ-9 if score is 5-9: - Outcomes/Goals: See list Psychosocial Outcomes/Goals:: ID's personal stressors & 2 strategies to manage stress by discharge - Intervention/Plan: See List Interventions/Plan:: Assess stressors,coping strategies & signs of derpression on admission, Instruct/assist pt to develop coping & personal stress Mgt strategies, Instruct patient to recognize signs & symptoms of depression, Instruct patient to recog - 30-day Reassessments: 30 day Reassessments:: Progressing Patient Health Questionnaire 30-Day Re-eval Assessment 1. Little interest or pleasure in doing things: Not at all 2. Feeling down, depressed, or hopeless: Not at all 3. Trouble falling or staying asleep, or sleeping too much: Not at all 4. Feeling tired or having little energy: Not at all 5. Poor appetite or overeating: Not at all 6. Feeling bad about yourself -- or that you are a failure or have let yourself or your family down: Not at all 7. Trouble concentrating on things, such as reading the newspaper or watching television: Not at all 8. Moving or speaking so slowly that other people could have noticed. Or the opposite - being so fidgety or restless that you have been moving around a lot more than usual: Not at all 9. Thoughts that you would be better off , or of hurting yourself in some way: Not at all How difficult have these problems made it for you to do your work, take care of things at home, or get along with other people?: Not difficult at all Total Score: 0 Self-Efficacy 30-Day Re-eval Assessment We would like to know how confident you are in doing certain activities. Please select your confidence level for:: Select your confidence level for the following using the scale 1-10 where 1 is not at all confident and 10 is totally confident. Your score is the average of all 6 responses. Fatigue: How confident are you that you can keep the fatigue caused by your disease from interfering with the things you want to do? Select Number: 10 Physical Discomfort or Pain: How confident are you that you can keep the physical discomfort or pain of your disease from interfering with the things you want to do? Select Number: 10 Emotional Distress: How confident are you that you can keep the emotional distress caused by your disease from interfering with the things you want to do? Select Number: 9 Other Symptoms or Health Problems: How confident are you that you can keep other symptoms or health problems from interfering with the things you want to do? Select Number: 9 Different Tasks and Activities: How confident are you that you can do the different tasks and activities needed to manage your health condition so as to reduce your need to see a doctor? Select Number: 9 Medication: How confident are you that you can do things other than just taking medication to reduce how much your illness affects your everyday life? Select Number: 9 Total Score:: 9
[2020-06-16 05:54] VITALS: BP 114/70; BP 146/84; BMI 28.9
== END 2020-07-03 23:59 ==
LOC: CR 10:15
PROVIDERS: PCP Family Medicine Geriatric Medicine; Referring Provider Internal Medicine Cardiovascular Disease; Visit Provider Internal Medicine Cardiovascular Disease
DX: I25.10 Atherosclerotic heart disease of native coronary artery without angina pectoris (principal); I44.7 Left bundle-branch block, unspecified; I25.2 Old myocardial infarction; I10 Essential (primary) hypertension; E78.5 Hyperlipidemia, unspecified; Z95.5 Presence of coronary angioplasty implant and graft
CPT/HCPCS: 93798

== ENCOUNTER 2020-08-03 10:15 | Outpatient (RCR) | payer MEDICARE, OTHER, SELFPAY ==
[2020-06-10 14:21] VITALS: BMI 28.6
[2020-06-16 05:54] VITALS: BMI 28.9
[2020-07-04 00:32] VITALS: BP 114/70; BP 146/84
[2020-07-04 13:14] LABS: ALB/GLOB Ratio 1.1 RATIO (0.9-2.4); AST(SGOT) 22 U/L (15-37); Alanine Aminotransfer ALT/SGPT 37 U/L (13-56); Alkaline Phosphatase 123 U/L (45-117); Anion Gap 9 (5-15); BUN 17 mg/dL (7-18); BUN/Creat Ratio 17.9 RATIO (10-20); Calcium,Total 8.9 mg/dL (8.5-10.1); Chloride 105 mmol/L (98-107); Creatinine, Serum 0.95 mg/dL (0.55-1.02); EST Glomerular Filtration Rate 62 mL/min (>60); Est Glom Filt Rate - Afr Amer 75 mL/min (>60); Estimated Creatinine Clearance 50.29 ml/min; Globulin 3.5 g/dL (2.2-4.2); Glucose 93 mg/dL (74-106); Potassium 3.7 mmol/L (3.5-5.1); Protein, Total 7.5 g/dL (6.4-8.2); Sodium Level 138 mmol/L (136-145); Thyroid Stim Hormone (TSH) 2.25 uIU/mL (0.358-3.74)
--- NOTE | 2020-07-15 07:20 | CR.ITP_ITS ---
Exercise - 60-day Assessment - Visit Date of Eval: 07/15/20 Session #:: 24 - Physician Prescribed Exercise Modalities: Treadmill, Rower, NuStep Frequency: 3x/week for 12 weeks [36 sessions] Intensity: 60-80% of age predicted maximum heart rate reserve Current METSs:: 4.5 Target Heart Rate:: 98-129 Current RPE:: 12-13 Maximum Excercise HR:: 141 Resting Blood Pressure: 118/60 Maximum Exercise Blood Pressure: 168/82 EKG Type: NSR to sinus tachy - Outcomes & Goals Goals:: Verbalizes understanding of THR, RPE & goal METS by session 6, Documents in home exercise log/reports 30 min aerobic 5 day/wk by DC, Demonstrates accurate pulse taking by DC, Other additional outcome/goals: see below - Intervention & Plan Exercise Program Goals: Instruct on personal THR & RPE, Instruct on MET level & personal MET goal, Show patient to take own pulse /validate performance until accurate, Instruct on home exercise, Other additional plan/int - 30-day Reassessments 30 day Reassessments:: Progressing - Physical Activity Home Exercise Physical Activity - Home Exercise: Safe Exercise, Warm-up, Self-monitoring, Cool-Down, Home Exercise > 30 min Daily, Sitting Time <3 hours/daily - Outcomes & Goals Outcomes/Goals: Demonstrates correct Warm-up/exercise Cool-Down (S3) if = 2.5 METs, Verbalizes symptoms of exercise intolerance by Session 3 (S3), Demonstrate safe equipment use (S3) & follows exercise prescrition (6), Other: See below - Intervention & Plan Plan/Intervention: Instruct warm-up & cool-down if exercising at > 2 METs, Instruct on symptoms of exercise intolerance & actions to take, Instruct & monitor on saf, Assess intial functional capacity & safety risk, Other See below - 30-day Reassessments 30 day Reassessments:: Progressing Nutrition - 60-Day Assessment - Program Goals Nutrition Program Goals: LDL <100 optimal. 100 - 129 Near optimal. 130 - 159 Borderline High. 160 - 189 High. Total Cholesterol <200 desirable. 200 - 239 Borderline High. >/= 240 High. HDL < 40 Low >/=60 High. Triglycerides <150 desirable. <199 optimal. VlDL 5 - 40. HgbA1C <7%. BMI <25 Patient has diagnosis of Hyperlipidemia (ICD E78)?: Yes - Visit Date of Assessment:: 07/15/20 Session #:: 24 - Cholesterol/Lipids Determine presence & major risk factors that modify LDL goal: Hypertension or hypertensive medication, Family history of premature CHD in Male < 55 years: female <65 yearsFa, Age men > 45 years; women >/= 55 years Outcomes/Goals: Pt IDs own risk factors & lifestyle modifications by Session 10, Verbalizes symptoms of angina & response by session 3., Pt independently manages, Other Additional Outcomes/Goals: Intervention/Plan: Advocate for lipid panel cholesterol medication if applicable, Instruct on personal lipid levels & lipid goals/NCEP guidelines, Instruct on cholesterol, Other additional plan/int Referral to dietitian:: Yes 30-day Reassessments:: Progressing - Weight Mgt (Other Care) Height: 5 ft 5 in Weight:: 79.379 kg BMI: 29.1 Diagnosis Overweight/Obesity BMI> 30% ICD-10 E66: No Diagnosis High BMI/Morbid Obesity BMI> 35% ICD-10 Z68: No Outcomes/Goals: Pt sets, maintains & shows weight loss goal & trend during rehab, Other additional outcomes/goals Intervention/Plan: Instruct on ideal BMI & set weight loss goal w/patient, Assist pt to ID & incorporate diet changes for weight loss by S9, Refer to Structured Weight Loss program as appropriate, Encourage goal of using 250- 300dcal per session for weight loss, Other additional plan/interventions 30 day Reassessments:: Progressing - Healthy Eating Habits Will attend diet classes:: Yes Outcomes/Goals:: Consume diet rich in vegs,fruits,whole grain/high fiber,fish,lean meat, Limit sat/trans fats,cholesterol & added salts & sugars, Other additional outcome/goals: Intervention/Plan:: Assess current eating habits, Other Additional plan/interventions 30-day Reassessments:: Progressing - Education Gave educational materials for:: Signs & symptoms of hypoglycemia, Signs & symptoms of hyperglycemia, Relate diabetes to coronary artery disease, Healthy eating Medical- 60-Day Assessment - Visit Date of Eval: 07/15/20 Session #:: 24 - Medication Compliance Preventative Medication(s):: Aspirin, Clopidogrel/P2Y12 inhibit, Statin/lipid, Beta zia H/O mental health issues: depression, anxiety, or addiction?: No Doesn?t believe in the benefits of treatment?: No Believes medications are unnecessary or harmful?: No Has a concern about medication side effects?: No Expresses concern over the cost of medications?: No Outcomes/Goals: Verbalizes medications,desired effect & common side effects @ DC, Pt self-reports following medication regimen, Keeps card in wallet w/medications listed by DC, Other additional outcome/goals: Interventions/plans: Instruct on medication effects & side effects, Review medication list w/patient every two weeks, Instruct importance of taking meds as ordered & assist problem solving, Other additional 30-day Reassessments:: Progressing - Tobacco Use Tobacco Use: Non-smoker Do you use smokeless tobacco?: No - Hypertension Hypertension Diagnosis:: Hypertension ICD-10 I10 Resting Blood Pressure:: 118/60 [place] [employer] Hypertension Guidelines: [place] [employer] Hypertension Guidelines. Normal BP Less than 120/80. Elevated BP 120/80. Hypertension Stage 1: BP 130-139/80-89. Hypertesnion Stage 2: BP 140 or higher/90 or higher. Hypertension Crisis: BP higher than 180/120 Peak Exercise Blood Pressure:: 168/82 Outcomes/Goals: Able to verbalize/achieve optimal blood pressure <130/80, Incorporates diet changes & exercise for blood pressure control by DC, Other additional outcomes/goals Interventions/plan: Instruct on optimal blood pressure, hypertension & medications, Instruct on effects of sodium, alcohol, stress, exercise &hypertension, Other additional plan/interventions 30 day Reassessments:: Progressing - Tobacco Cessation Referral Smoking Cessation Referral:: No Individual Education/Counseling:: No Education Schedule Given:: Yes Psychosocial - 60-Day Assess - VIsit Date of Eval: 07/15/20 Session #:: 24 History of previous Mental disease:: No - Target Goals Target Goals: Assess presence or absence of depression. Using a valid screening tool, maximizes coping skills. Positive support system - Psychosocial Test phq-9 Severity: Severity. 1-4 Minimal Depression. 5-9 Mild Depression. 10-14 Moderate Depression. 15-19 Moderately Sever Depression. 20-27 Severe Depressio n. Rule: - Outcomes/Goals: See list Psychosocial Outcomes/Goals:: ID's personal stressors & 2 strategies to manage stress by discharge, Other Additional outcome/goals: - Intervention/Plan: See List Interventions/Plan:: Assess stressors,coping strategies & signs of derpression on admission, Instruct/assist pt to develop coping & personal stress Mgt strategies, Refer to Behavioral Health if appropriate, Refer to Physician if appropriate, Instruct patient to recognize signs & symptoms of depression, Instruct patient to recog, Other additional plan/intervention - 30-day Reassessments: 30 day Reassessments:: Progressing Patient Health Questionnaire 60-Day Re-eval Assessment 1. Little interest or pleasure in doing things: Not at all 2. Feeling down, depressed, or hopeless: Not at all 3. Trouble falling or staying asleep, or sleeping too much: Not at all 4. Feeling tired or having little energy: Not at all 5. Poor appetite or overeating: Not at all 6. Feeling bad about yourself -- or that you are a failure or have let yourself or your family down: Not at all 7. Trouble concentrating on things, such as reading the newspaper or watching television: Not at all 8. Moving or speaking so slowly that other people could have noticed. Or the opposite - being so fidgety or restless that you have been moving around a lot more than usual: Not at all 9. Thoughts that you would be better off , or of hurting yourself in some way: Not at all How difficult have these problems made it for you to do your work, take care of things at home, or get along with other people?: Not difficult at all Total Score: 0 Self-Efficacy 60-Day Re-eval Assessment We would like to know how confident you are in doing certain activities. Please select your confidence level for:: Select your confidence level for the following using the scale 1-10 where 1 is not at all confident and 10 is totally confident. Your score is the average of all 6 responses. Fatigue: How confident are you that you can keep the fatigue caused by your disease from interfering with the things you want to do? Select Number: 10 Physical Discomfort or Pain: How confident are you that you can keep the physical discomfort or pain of your disease from interfering with the things you want to do? Select Number: 10 Emotional Distress: How confident are you that you can keep the emotional distress caused by your disease from interfering with the things you want to do? Select Number: 9 Other Symptoms or Health Problems: How confident are you that you can keep other symptoms or health problems from interfering with the things you want to do? Select Number: 9 Different Tasks and Activities: How confident are you that you can do the different tasks and activities needed to manage your health condition so as to reduce your need to see a doctor? Select Number: 9 Medication: How confident are you that you can do things other than just taking medication to reduce how much your illness affects your everyday life? Select Number: 9 Total Score:: 9
[2020-07-15 07:26] VITALS: BP 118/60; BP 168/82; BMI 29.1
== END 2020-08-03 23:59 ==
LOC: CR 10:15
PROVIDERS: PCP Family Medicine Geriatric Medicine; Referring Provider Internal Medicine Cardiovascular Disease; Visit Provider Internal Medicine Cardiovascular Disease
DX: I25.10 Atherosclerotic heart disease of native coronary artery without angina pectoris (principal); I44.7 Left bundle-branch block, unspecified; I25.2 Old myocardial infarction; I10 Essential (primary) hypertension; E78.5 Hyperlipidemia, unspecified; Z95.5 Presence of coronary angioplasty implant and graft
CPT/HCPCS: 36415; 80053; 84443; 93798

== ENCOUNTER 2020-08-10 10:15 | Outpatient (RCR) | payer MEDICARE, OTHER, SELFPAY ==
[2020-07-04 14:43] VITALS: BMI 28.6
[2020-07-15 07:26] VITALS: BMI 29.1
[2020-08-04 00:41] VITALS: BP 118/60; BP 168/82
== END 2020-09-02 23:59 ==
LOC: CR 10:15
PROVIDERS: PCP Family Medicine Geriatric Medicine; Referring Provider Internal Medicine Cardiovascular Disease; Visit Provider Internal Medicine Cardiovascular Disease
DX: I25.10 Atherosclerotic heart disease of native coronary artery without angina pectoris (principal); I25.2 Old myocardial infarction; Z95.5 Presence of coronary angioplasty implant and graft; I44.7 Left bundle-branch block, unspecified; I10 Essential (primary) hypertension; E78.5 Hyperlipidemia, unspecified
CPT/HCPCS: 93798

== ENCOUNTER → 2020-09-07 16:33 | Outpatient (CLI) | payer MEDICARE, OTHER, SELFPAY ==
[2020-07-04 14:43] VITALS: BMI 28.6
[2020-07-15 07:26] VITALS: BMI 29.1
--- NOTE | 2020-09-07 16:43 | RAD_ITS ---
INDICATION: LOW BACK PAIN EXAMINATION/TECHNIQUE: X-RAY - XR Spine Lumbar 2 or 3 Views COMPARISON: None. FINDINGS: VERTEBRAE: Preserved vertebral body height. No fracture. Slight left convex curvature of the lumbar spine. 5 mm anterolisthesis L3 on L4. Preservation of the normal lumbar lordosis. Severe multilevel facet arthropathy. DISCS: Moderate multilevel degenerative disc disease and spondylosis. INCLUDED ABDOMEN: Included bowel gas pattern is non-obstructive. Vascular calcifications. RAD/Lumbar Spine 2 or 3 Views IMPRESSION: Grade 1 anterolisthesis L3 on L4. Moderate multilevel degenerative disc disease and spondylosis of the lumbar spine. Electronically Signed: Juan Gambino MD at 23:33 EDT Tel , Service support ,
== END ==
PROVIDERS: PCP Family Medicine Geriatric Medicine; Referring Provider Family Medicine Geriatric Medicine; Visit Provider Family Medicine Geriatric Medicine
DX: M54.5 Low back pain (principal)
CPT/HCPCS: 72100

== ENCOUNTER → 2020-10-11 07:33 | Outpatient (CLI) | payer MEDICARE, OTHER, SELFPAY ==
[2020-07-04 14:43] VITALS: BMI 28.6
[2020-07-15 07:26] VITALS: BMI 29.1
[2020-10-11 08:13] LABS: AST(SGOT) 13 U/L (15-37); Alanine Aminotransfer ALT/SGPT 24 U/L (13-56); Albumin, Serum 3.8 g/dL (3.2-5.0); Alkaline Phosphatase 133 U/L (45-117); Bilirubin, Direct 0.17 mg/dL (0.00-0.30); Cholesterol 160 mg/dL (200); Globulin 3.2 g/dL (2.2-4.2); High Density Lipoprotein 57 mg/dL; Triglycerides 95 mg/dL; Very Low Density Lipoprotein 19 mg/dL (5-40)
== END ==
PROVIDERS: PCP Family Medicine Geriatric Medicine; Referring Provider Internal Medicine Cardiovascular Disease; Visit Provider Internal Medicine Cardiovascular Disease
DX: E78.00 Pure hypercholesterolemia, unspecified (principal); E78.5 Hyperlipidemia, unspecified
CPT/HCPCS: 36415; 80061; 80076

== ENCOUNTER → 2020-11-24 08:54 | Outpatient (CLI) | payer MEDICARE, OTHER, SELFPAY ==
[2020-07-15 07:26] VITALS: BMI 29.1
[2020-11-18 12:57] VITALS: BMI 28.6
[2020-11-24 12:39] LABS: Absolute Lymphocyte Count 1.16 X10^3/uL (0.83-4.51); Absolute Neutrophil Count 3.3 X10^3/uL (2.0-7.7); Basophil# 0.07 X10^3/uL; Basophil% 1.4 % (0-1); Eosinophil# 0.12 X10^3/uL; Eosinophils% 2.3 % (0-5); Hematocrit 43.6 % (37-47); Hemoglobin 14.3 g/dL (12.0-15.0); Lymphocyte # 1.16 X10^3/ul (0.83-4.51); Lymphocyte % 22.4 % (19-41); Mean Corp Hgb Conc 32.8 g/dL (32-36); Mean Corpuscular Volume 91.6 fL (81-99); Mean Platelet Vol. 9.5 fl (6.2-12.0); Monocyte# 0.52 X10^3/uL; Monocyte% 10.1 % (0-10); NRBC Flagged by Analyzer 0 % (0-5); Neutrophil # 3.29 X10^3/uL (2.7-7.7); Neutrophil % 63.6 % (47-70); Platelet Count 266 K/mm3 (150-450); RBC Distribution Width CV 13.3 % (11.6-14.6); RBC Distribution Width SD 45.1 fl (35.1-43.9); Red Blood Count 4.76 M/mm3 (4.2-5.4); White Blood Count 5.2 K/mm3 (4.4-11.0)
[2020-11-24 13:07] LABS: ALB/GLOB Ratio 1.2 RATIO (0.9-2.4); AST(SGOT) 17 U/L (15-37); Alanine Aminotransfer ALT/SGPT 33 U/L (13-56); Alkaline Phosphatase 143 U/L (45-117); Anion Gap 6 (5-15); BUN 19 mg/dL (7-18); BUN/Creat Ratio 23.2 RATIO (10-20); Calcium,Total 8.5 mg/dL (8.5-10.1); Chloride 103 mmol/L (98-107); Creatinine, Serum 0.82 mg/dL (0.55-1.02); EST Glomerular Filtration Rate 74 mL/min (>60); Est Glom Filt Rate - Afr Amer 89 mL/min (>60); Globulin 3.4 g/dL (2.2-4.2); Glucose 68 mg/dL (74-106); Potassium 3.7 mmol/L (3.5-5.1); Protein, Total 7.4 g/dL (6.4-8.2); Sodium Level 139 mmol/L (136-145); Thyroid Stim Hormone (TSH) 4.09 uIU/mL (0.358-3.74)
[2020-11-24 21:36] LABS: Vitamin D,25 Hydroxy 36.6 ng/mL
== END ==
PROVIDERS: PCP Family Medicine Geriatric Medicine; Visit Provider Family Medicine Geriatric Medicine
DX: E55.9 Vitamin D deficiency, unspecified (principal); I10 Essential (primary) hypertension
CPT/HCPCS: 36415; 80053; 82306; 84443; 85025

== ENCOUNTER → 2020-12-13 11:50 | Outpatient (CLI) | payer MEDICARE, OTHER, SELFPAY ==
[2020-07-15 07:26] VITALS: BMI 29.1
[2020-11-18 12:57] VITALS: BMI 28.6
--- NOTE | 2020-12-13 11:53 | BI_ITS ---
MAMMOGRAPHY - BILATERAL SCREENING REASON FOR EXAM: Female, 70 years old. Routine annual screening examination. PERTINENT HISTORY: Non-contributory. TECHNIQUE: Digital bilateral breast katerina (3D mammographic acquisition) in the CC and MLO projections. 2-D mediolateral oblique (MLO) and craniocaudad (CC) views of both breasts were obtained. CAD: Full Field Digital Mammography with Computer Added Detection was performed. COMPARISON: Comparison is made with prior study dated 12/18/2018 and 11/21/2016. FINDINGS: Breast Composition: There are scattered areas of fibroglandular density. There are no dominant masses or suspicious calcifications. Stable benign-appearing bilateral axillary lymph node. No other significant abnormalities are identified. There has been no significant change since the prior study. BI/SCRN MAMM (CAD)W/KATERINA BILAT IMPRESSION: Stable bilateral screening mammogram. Yearly follow-up mammogram recommended. (A) ASSESSMENT CATEGORY: BIRADS Category 2: Benign. A letter regarding these results will be sent to the patient by the facility within 30 days. Approximately 10% of breast cancers are not detected by mammography. A normal mammogram should not delay biopsy of a clinically suspicious abnormality. [id number] Electronically Signed: Moshe Gaffney MD at 13:02 EDT , Service support ,
== END ==
PROVIDERS: PCP Family Medicine Geriatric Medicine; Referring Provider Family Medicine Geriatric Medicine; Visit Provider Family Medicine Geriatric Medicine
DX: Z12.31 Encounter for screening mammogram for malignant neoplasm of breast (principal)
CPT/HCPCS: 77063; 77067

== ENCOUNTER → 2020-12-30 12:13 | Outpatient (CLI) | payer MEDICARE, OTHER, SELFPAY ==
[2020-07-15 07:26] VITALS: BMI 29.1
== END ==
PROVIDERS: PCP Family Medicine Geriatric Medicine; Referring Provider Family Medicine Geriatric Medicine; Visit Provider Family Medicine Geriatric Medicine
DX: R68.83 Chills (without fever) (principal)
CPT/HCPCS: 87635; 87804; 87807; C9803; U0005; U0003

== ENCOUNTER 2021-01-03 16:48 | Outpatient (CLI) | payer MEDICARE, OTHER, SELFPAY ==
[2020-07-15 07:26] VITALS: BMI 29.1
[2021-01-03 17:05] VITALS: BP 112/64; PULSE 86; RESP 16; TEMP 36.9; O2SAT 95; BMI 28.4
[2021-01-03 17:56] VITALS: BP 125/62; PULSE 84; RESP 16; TEMP 37.7; O2SAT 96
[2021-01-03 18:56] VITALS: BP 123/65; PULSE 77; RESP 16; TEMP 37.4; O2SAT 96
== END 2021-01-03 19:00 | disposition home or self-care (01) ==
LOC: ICUOUT 16:48 → MS2 16:49
PROVIDERS: PCP Family Medicine Geriatric Medicine; Referring Provider Nurse Practitioner Acute Care; Visit Provider Nurse Practitioner Acute Care
DX: Z23 Encounter for immunization (principal); U07.1 COVID-19
CPT/HCPCS: J7050; M0243; Q0244

== ENCOUNTER → 2021-01-18 14:13 | Outpatient (CLI) | payer MEDICARE, OTHER, SELFPAY ==
[2020-07-15 07:26] VITALS: BMI 29.1
[2020-11-18 12:57] VITALS: BMI 28.6
[2021-01-18 16:31] LABS: Thyroid Stim Hormone (TSH) 7.78 uIU/mL (0.358-3.74)
== END ==
PROVIDERS: PCP Family Medicine Geriatric Medicine; Visit Provider Family Medicine Geriatric Medicine
DX: E03.9 Hypothyroidism, unspecified (principal)
CPT/HCPCS: 36415; 84443

== ENCOUNTER → 2021-03-27 09:39 | Outpatient (CLI) | payer MEDICARE, OTHER, SELFPAY ==
[2020-07-15 07:26] VITALS: BMI 29.1
[2021-03-27 12:59] LABS: Thyroid Stim Hormone (TSH) 0.06 uIU/mL (0.358-3.74)
== END ==
PROVIDERS: PCP Family Medicine Geriatric Medicine; Visit Provider Family Medicine Geriatric Medicine
DX: E03.9 Hypothyroidism, unspecified (principal)
CPT/HCPCS: 36415; 84443

== ENCOUNTER → 2021-04-06 08:56 | Outpatient (CLI) | payer MEDICARE, OTHER, SELFPAY ==
[2020-07-15 07:26] VITALS: BMI 29.1
[2021-04-06 10:06] LABS: AST(SGOT) 17 U/L (15-37); Alanine Aminotransfer ALT/SGPT 30 U/L (13-56); Albumin, Serum 3.9 g/dL (3.2-5.0); Alkaline Phosphatase 124 U/L (45-117); Cholesterol 168 mg/dL (200); Globulin 3.5 g/dL (2.2-4.2); High Density Lipoprotein 53 mg/dL; Protein, Total 7.4 g/dL (6.4-8.2); Triglycerides 97 mg/dL; Very Low Density Lipoprotein 19 mg/dL (5-40)
== END ==
PROVIDERS: PCP Family Medicine Geriatric Medicine; Referring Provider Nurse Practitioner Family; Visit Provider Nurse Practitioner Family
DX: E78.00 Pure hypercholesterolemia, unspecified (principal)
CPT/HCPCS: 36415; 80061; 80076

== ENCOUNTER → 2021-04-20 09:35 | Outpatient (CLI) | payer MEDICARE, OTHER, SELFPAY ==
[2020-07-15 07:26] VITALS: BMI 29.1
--- NOTE | 2021-04-20 09:41 | ECHOD_ITS ---
Reason For Study: CAD, LBBB Procedure This was a 2D Doppler, Color Flow transthoracic echocardiogram. Exam performed in department. Left Ventricle Normal LV size. The estimated ejection fraction is 40 %. Mild to moderate segmental systolic dysfunction (see wall motion). Mid-Inferior: Hypokinetic. Infero-Basal: Akinetic. Basal inferoseptal: Akinetic. Mid-Anterior : Hypokinetic. Anterior [place] : Hypokinetic. Right Ventricle Normal RV size. Normal systolic function. Atria Normal left atrium. Normal right atrium. Mitral Valve Normal mitral valve. Mild (1+) mitral valve insufficiency. Tricuspid Valve Normal tricuspid valve. Aortic Valve Trisinus/trileaflet aortic valve. Mild (1+) eccentric aortic valve insufficiency. Pulmonic Valve Normal pulmonic valve. Great Vessels Normal aortic root. The pulmonary artery is normal size. Normal inferior vena cava. Pericardium/Pleural No pericardial effusion. MMode/2D Measurements & Calculations LVIDd: 3.7 cm IVSd: 1.5 cm Ao root diam: 2.6 cm LVIDs: 1.9 cm LVPWd: 1.00 cm RVDd: 2.2 cm FS: 48.0 % LAV(MOD-bp): 29.8 ml LVAd ap4: 31.8 cm2 LVAd ap2: 26.2 cm2 LAV(MOD-bp) Indexed: 16.2 ml/m2 LVLd ap4: 8.7 cm LVLd ap2: 8.3 cm LAV(MOD-sp2): 33.1 ml EDV(MOD-sp4): 99.4 ml EDV(MOD-sp2): 71.1 ml LAV(MOD-sp4): 24.8 ml EDV(sp4-el): 99.2 ml EDV(sp2-el): 70.5 ml LVAs ap4: 22.7 cm2 LVAs ap2: 19.1 cm2 LVLs ap4: 7.8 cm LVLs ap2: 7.6 cm ESV(MOD-sp4): 54.8 ml ESV(MOD-sp2): 40.1 ml ESV(sp4-el): 56.0 ml ESV(sp2-el): 40.5 ml EF(MOD-sp4): 44.9 % EF(MOD-sp2): 43.6 % EF(sp4-el): 43.5 % SV(MOD-sp4): 44.6 ml SV(MOD-sp2): 31.0 ml SV(sp4-el): 43.1 ml LA dimension(2D): 3.2 cm LA A4 area: 11.6 cm2 RA A4 area: 9.1 cm2 Doppler Measurements & Calculations MV E max robin: 106.1 cm/sec Lat Peak E' Robin: 9.6 cm/sec Med Peak E' Robin: 9.6 cm/sec E/E' lat: 11.1 E/E' med: 11.0 Ao V2 max: 130.5 cm/sec AI max robin: 376.3 cm/sec LV V1 max: 69.8 cm/sec Ao max P.8 mmHg AI max P.6 mmHg LV V1 max P.9 mmHg AI dec slope: 209.8 cm/sec2 AI P1/2t: 525.3 msec PA V2 max: 80.7 cm/sec ECHO/Echo Complete Interpretation Summary Normal LV size. The estimated ejection fraction is 40 %. Mild (1+) eccentric aortic valve insufficiency. Mild to moderate segmental systolic dysfunction (see wall motion). Compared to previous study, the left ventricular systolic function is the same. . Ordering Physician: Kodi Nance Referring Physician: Rao Delgado Chi Performed By: Sulema Hoyt RDCS
== END ==
PROVIDERS: PCP Family Medicine Geriatric Medicine; Referring Provider Internal Medicine Cardiovascular Disease; Visit Provider Internal Medicine Cardiovascular Disease
DX: I44.7 Left bundle-branch block, unspecified (principal); I25.10 Atherosclerotic heart disease of native coronary artery without angina pectoris
CPT/HCPCS: 93306

== ENCOUNTER 2021-05-25 10:28 | Outpatient (CLI) | payer MEDICARE, OTHER, SELFPAY ==
[2020-07-15 07:26] VITALS: BMI 29.1
[2021-05-25 12:42] LABS: Absolute Lymphocyte Count 1.09 X10^3/uL (0.83-4.51); Absolute Neutrophil Count 3.7 X10^3/uL (2.0-7.7); Basophil# 0.05 X10^3/uL; Basophil% 0.9 % (0-1); Eosinophil# 0.11 X10^3/uL; Hematocrit 42.6 % (37-47); Hemoglobin 14.1 g/dL (12.0-15.0); Lymphocyte # 1.09 X10^3/ul (0.83-4.51); Lymphocyte % 20.1 % (19-41); Mean Corp Hgb Conc 33.1 g/dL (32-36); Mean Corpuscular Hgb 29.7 pg (27.0-32.0); Mean Corpuscular Volume 89.7 fL (81-99); Mean Platelet Vol. 9.6 fl (6.2-12.0); Monocyte# 0.48 X10^3/uL; Monocyte% 8.9 % (0-10); NRBC Flagged by Analyzer 0 % (0-5); Neutrophil # 3.67 X10^3/uL (2.7-7.7); Neutrophil % 67.9 % (47-70); Platelet Count 272 K/mm3 (150-450); RBC Distribution Width CV 12.4 % (11.6-14.6); Red Blood Count 4.75 M/mm3 (4.2-5.4); White Blood Count 5.4 K/mm3 (4.4-11.0)
[2021-05-25 12:52] LABS: Vitamin D,25 Hydroxy 47.9 ng/mL
[2021-05-25 13:05] LABS: ALB/GLOB Ratio 1.1 RATIO (0.9-2.4); AST(SGOT) 17 U/L (15-37); Alanine Aminotransfer ALT/SGPT 38 U/L (13-56); Albumin, Serum 3.7 g/dL (3.2-5.0); Alkaline Phosphatase 123 U/L (45-117); Anion Gap 5 (5-15); BUN 12 mg/dL (7-18); BUN/Creat Ratio 13.5 RATIO (10-20); Calcium,Total 8.7 mg/dL (8.5-10.1); Chloride 104 mmol/L (98-107); Creatinine, Serum 0.89 mg/dL (0.55-1.02); EST Glomerular Filtration Rate 67 mL/min (>60); Est Glom Filt Rate - Afr Amer 81 mL/min (>60); Globulin 3.4 g/dL (2.2-4.2); Glucose 83 mg/dL (74-106); Potassium 3.7 mmol/L (3.5-5.1); Protein, Total 7.1 g/dL (6.4-8.2); Sodium Level 138 mmol/L (136-145); Thyroid Stim Hormone (TSH) 0.01 uIU/mL (0.358-3.74)
== END 2021-05-25 23:59 | disposition short-term general hospital (02) ==
LOC: POLAB3 10:29
PROVIDERS: PCP Family Medicine Geriatric Medicine; Visit Provider Family Medicine Geriatric Medicine
DX: E55.9 Vitamin D deficiency, unspecified (principal); I10 Essential (primary) hypertension
CPT/HCPCS: 36415; 80053; 82306; 84443; 85025

== ENCOUNTER 2021-06-09 10:32 | Outpatient (CLI) | payer MEDICARE, OTHER, SELFPAY ==
[2020-07-15 07:26] VITALS: BMI 29.1
--- NOTE | 2021-06-09 10:36 | CDU_ITS ---
Reason For Study: Bilateral Carotid Stenosis Rt. Velocities/BP Lt. Velocities/BP Prox CCA 49/13 cm/sec. Prox CCA 68/20 cm/sec. Mid CCA 57/15 cm/sec. Mid CCA 86/26 cm/sec. Dist CCA 70/20 cm/sec. Dist CCA 64/18 cm/sec. Prox ICA 59/16 cm/sec. Prox ICA 179/45 cm/sec. Mid ICA 78/29 cm/sec. Mid ICA 69/26 cm/sec. Dist ICA 65/23 cm/sec. Dist ICA 59/22 cm/sec. Rt. ICA/CCA = 1.4. Lt. ICA/CCA = 2.08. Prox ECA 63/8 cm/sec. Prox ECA 75/13 cm/sec. Rt. Vert. 49/18 cm/sec. Lt. Vert. 33/11 cm/sec. Right Extracranial There is heterogeneous, irregular atherosclerotic plaque noted in the right common carotid artery. There is heterogeneous, irregular atherosclerotic plaque noted in the right internal carotid artery. There is intimal thickening but no significant atherosclerotic plaque noted in the right external carotid artery. Antegrade flow is noted in the right vertebral artery. Left Extracranial There is heterogeneous, irregular atherosclerotic plaque noted in the left common carotid artery. There is heterogeneous, irregular atherosclerotic plaque noted in the left internal carotid artery. There is heterogeneous, irregular atherosclerotic plaque noted in the left external carotid artery. Antegrade flow is noted in the left vertebral artery. Procedure Carotid Duplex [id number]. This is a Carotid Duplex examination using B-mode, color flow and specral Doppler. Exam performed in department. VL/Carotid Duplex Ultrasound Interpretation Summary Irregular calcific plaque at the proximal right internal carotid artery with le ss than 50% stenosis Less than 50% stenosis right external carotid artery Irregular calcific plaque with shadowing at the proximal left internal carotid artery with 50 to 69% stenosis Less than 50% stenosis left external carotid artery Patent antegrade vertebral arteries bilaterally Findings suggest progression of left internal carotid artery stenosis from Octo 2014 Ordering Physician: Christ Galindo Referring Physician: Rao Delgado Chi Performed By: Kristin Marie, RUTH, RVT
== END 2021-06-09 23:59 | disposition short-term general hospital (02) ==
LOC: CVS 10:35
PROVIDERS: PCP Family Medicine Geriatric Medicine; Referring Provider Surgery; Visit Provider Surgery
DX: I65.23 Occlusion and stenosis of bilateral carotid arteries (principal)
CPT/HCPCS: 93880

== ENCOUNTER → 2021-10-05 | Outpatient (CLI) | payer MEDICARE, OTHER, SELFPAY ==
[2020-07-15 07:26] VITALS: BMI 29.1
[2021-10-05 10:02] LABS: AST(SGOT) 21 U/L (15-37); Alanine Aminotransfer ALT/SGPT 39 U/L (13-56); Albumin, Serum 3.7 g/dL (3.2-5.0); Alkaline Phosphatase 114 U/L (45-117); Bilirubin, Direct 0.16 mg/dL (0.00-0.30); Cholesterol 162 mg/dL (200); Globulin 3.2 g/dL (2.2-4.2); High Density Lipoprotein 49 mg/dL; Protein, Total 6.9 g/dL (6.4-8.2); Triglycerides 132 mg/dL; Very Low Density Lipoprotein 26 mg/dL (5-40)
== END | disposition home or self-care (01) ==
LOC: LAB 07:55
PROVIDERS: PCP Family Medicine; Referring Provider Nurse Practitioner Family; Visit Provider Nurse Practitioner Family
DX: E78.00 Pure hypercholesterolemia, unspecified (principal)
CPT/HCPCS: 36415; 80061; 80076

== ENCOUNTER → 2021-11-28 | Outpatient (CLI) | payer MEDICARE, OTHER, SELFPAY ==
[2020-07-15 07:26] VITALS: BMI 29.1
[2021-11-28 15:13] LABS: Absolute Lymphocyte Count 1.52 X10^3/uL (0.83-4.51); Basophil# 0.07 X10^3/uL; Basophil% 1.1 % (0-1); Eosinophil# 0.16 X10^3/uL; Eosinophils% 2.5 % (0-5); Hematocrit 43.6 % (37-47); Hemoglobin 14.9 g/dL (12.0-15.0); Lymphocyte # 1.52 X10^3/ul (0.83-4.51); Lymphocyte % 23.7 % (19-41); Mean Corp Hgb Conc 34.2 g/dL (32-36); Mean Corpuscular Hgb 30.7 pg (27.0-32.0); Mean Corpuscular Volume 89.7 fL (81-99); Mean Platelet Vol. 9.4 fl (6.2-12.0); Monocyte# 0.64 X10^3/uL; NRBC Flagged by Analyzer 0 % (0-5); Neutrophil # 4.01 X10^3/uL (2.7-7.7); Neutrophil % 62.5 % (47-70); Platelet Count 252 K/mm3 (150-450); RBC Distribution Width CV 12.8 % (11.6-14.6); RBC Distribution Width SD 41.7 fl (35.1-43.9); Red Blood Count 4.86 M/mm3 (4.2-5.4); White Blood Count 6.4 K/mm3 (4.4-11.0)
[2021-11-28 15:56] LABS: ALB/GLOB Ratio 1.2 RATIO (0.9-2.4); AST(SGOT) 23 U/L (15-37); Alanine Aminotransfer ALT/SGPT 45 U/L (13-56); Albumin, Serum 3.9 g/dL (3.2-5.0); Alkaline Phosphatase 140 U/L (45-117); Anion Gap 5 (5-15); BUN 18 mg/dL (7-18); BUN/Creat Ratio 20.9 RATIO (10-20); Chloride 106 mmol/L (98-107); Creatinine, Serum 0.86 mg/dL (0.55-1.02); EST Glomerular Filtration Rate 69 mL/min (>60); Est Glom Filt Rate - Afr Amer 84 mL/min (>60); Globulin 3.3 g/dL (2.2-4.2); Glucose 99 mg/dL (74-106); Potassium 3.8 mmol/L (3.5-5.1); Protein, Total 7.2 g/dL (6.4-8.2); Sodium Level 137 mmol/L (136-145); T4 Free Direct 1.47 ng/dL (0.76-1.46); Thyroid Stim Hormone (TSH) 0.01 uIU/mL (0.358-3.74)
== END | disposition home or self-care (01) ==
LOC: LAB 14:42
PROVIDERS: PCP Family Medicine; Referring Provider Family Medicine; Visit Provider Family Medicine
DX: E03.9 Hypothyroidism, unspecified (principal); I25.10 Atherosclerotic heart disease of native coronary artery without angina pectoris; I10 Essential (primary) hypertension
CPT/HCPCS: 36415; 80053; 84439; 84443; 85025

== ENCOUNTER → 2021-12-15 | Outpatient (CLI) | payer MEDICARE, OTHER, SELFPAY ==
[2020-07-15 07:26] VITALS: BMI 29.1
--- NOTE | 2021-12-15 09:55 | BI_ITS ---
MAMMOGRAPHY - BILATERAL SCREENING REASON FOR EXAM: Female, 71 years old. Routine annual screening examination. PERTINENT HISTORY: Non-contributory. TECHNIQUE: Digital bilateral breast katerina (3D mammographic acquisition) in the CC and MLO projections. 2-D mediolateral oblique (MLO) and craniocaudad (CC) views of both breasts were obtained. CAD: Full Field Digital Mammography with Computer Added Detection was performed. COMPARISON: Screening mammogram from 12/13/2020, 12/18/2018, 11/21/2016. FINDINGS: Breast Composition: There are scattered areas of fibroglandular density. There are no dominant masses or suspicious calcifications. Stable benign-appearing bilateral axillary nodes and scattered benign-appearing calcifications. No other significant abnormalities are identified. There has been no significant change since the prior study. BI/SCRN MAMM (CAD)W/KATERINA BILAT IMPRESSION: Stable bilateral screening mammogram. Yearly follow-up mammogram recommended. (A) ASSESSMENT CATEGORY: BIRADS Category 2: Benign. A letter regarding these results will be sent to the patient by the facility within 30 days. Approximately 10% of breast cancers are not detected by mammography. A normal mammogram should not delay biopsy of a clinically suspicious abnormality. Electronically Signed: Viral Burgess, at 14:24 EDT ,
== END | disposition home or self-care (01) ==
LOC: OPBI 09:54
PROVIDERS: PCP Family Medicine; Referring Provider Family Medicine; Visit Provider Family Medicine
DX: Z12.31 Encounter for screening mammogram for malignant neoplasm of breast (principal)
CPT/HCPCS: 77063; 77067

== ENCOUNTER → 2022-04-06 | Outpatient (CLI) | payer MEDICARE, OTHER, SELFPAY ==
[2020-07-15 07:26] VITALS: BMI 29.1
--- NOTE | 2022-04-06 09:34 | CDU_ITS ---
Reason For Study: Carotid Stenosis Rt. Velocities/BP Lt. Velocities/BP Prox CCA 54/14 cm/sec. Prox CCA 67/20 cm/sec. Mid CCA 59/16 cm/sec. Mid CCA 86/29 cm/sec. Dist CCA 66/19 cm/sec. Dist CCA 64/20 cm/sec. Prox ICA 75/28 cm/sec. Prox ICA 192/47 cm/sec. Mid ICA 104/30 cm/sec. Mid ICA 83/28 cm/sec. Dist ICA 103/20 cm/sec. Dist ICA 69/25 cm/sec. Rt. ICA/CCA = 1.8. Lt. ICA/CCA = 2.2. Prox ECA 80/11 cm/sec. Prox ECA 88/20 cm/sec. Rt. Vert. 39/14 cm/sec. Lt. Vert. 36/11 cm/sec. Right Extracranial There is heterogeneous, irregular atherosclerotic plaque noted in the right common carotid artery. There is heterogeneous, irregular atherosclerotic plaque noted in the right internal carotid artery. There is heterogeneous, irregular atherosclerotic plaque noted in the right external carotid artery. Antegrade flow is noted in the right vertebral artery. Left Extracranial There is heterogeneous, irregular atherosclerotic plaque noted in the left common carotid artery. There is heterogeneous, irregular atherosclerotic plaque noted in the left internal carotid artery. There is heterogeneous, irregular atherosclerotic plaque noted in the left external carotid artery. Antegrade flow is noted in the left vertebral artery. Procedure Carotid Duplex [id number]. This is a Carotid Duplex examination using B-mode, color flow and specral Doppler. Exam performed in department. VL/Carotid Duplex Ultrasound Interpretation Summary Irregular calcific plaque with shadowing at the proximal right internal carotid artery with less than 50% stenosis Less than 50% stenosis right external carotid artery Irregular calcific plaque with shadowing at the proximal left internal carotid artery with 50 to 69% stenosis of the left internal carotid artery Less than 50% stenosis left external carotid artery Patent, antegrade vertebrals bilaterally Ordering Physician: Christ Galindo Physician: Cece Aleman Performed By: Kristin Marie, RUTH, RVT
== END | disposition home or self-care (01) ==
PROVIDERS: PCP Family Medicine; Referring Provider Surgery; Visit Provider Surgery
DX: I65.23 Occlusion and stenosis of bilateral carotid arteries (principal)
CPT/HCPCS: 93880

== ENCOUNTER → 2022-04-10 | Outpatient (CLI) | payer MEDICARE, OTHER, SELFPAY ==
[2020-07-15 07:26] VITALS: BMI 29.1
[2022-04-10 11:48] LABS: AST(SGOT) 30 U/L (15-37); Alanine Aminotransfer ALT/SGPT 60 U/L (13-56); Albumin, Serum 3.9 g/dL (3.2-5.0); Alkaline Phosphatase 143 U/L (45-117); Cholesterol 154 mg/dL (200); Globulin 3.4 g/dL (2.2-4.2); High Density Lipoprotein 42 mg/dL; Protein, Total 7.3 g/dL (6.4-8.2); Triglycerides 88 mg/dL; Very Low Density Lipoprotein 18 mg/dL (5-40)
== END | disposition home or self-care (01) ==
LOC: LAB 10:12
PROVIDERS: PCP Family Medicine; Referring Provider Nurse Practitioner Family; Visit Provider Nurse Practitioner Family
DX: E78.5 Hyperlipidemia, unspecified (principal)
CPT/HCPCS: 36415; 80061; 80076

== ENCOUNTER → 2022-05-21 | Outpatient (CLI) | payer MEDICARE, OTHER, SELFPAY ==
[2020-07-15 07:26] VITALS: BMI 29.1
[2022-05-21 10:57] LABS: T4 Free Direct 1.27 ng/dL (0.76-1.46); Thyroid Stim Hormone (TSH) 0.07 uIU/mL (0.358-3.74)
== END | disposition home or self-care (01) ==
LOC: LAB 10:01
PROVIDERS: PCP Family Medicine; Visit Provider Family Medicine
DX: E03.9 Hypothyroidism, unspecified (principal)
CPT/HCPCS: 36415; 84439; 84443

== ENCOUNTER → 2022-11-05 | Outpatient (CLI) | payer MEDICARE, OTHER, SELFPAY ==
[2020-07-15 07:26] VITALS: BMI 29.1
[2022-11-05 09:22] LABS: AST(SGOT) 39 U/L (15-37); Alanine Aminotransfer ALT/SGPT 72 U/L (13-56); Albumin, Serum 3.6 g/dL (3.2-5.0); Alkaline Phosphatase 172 U/L (45-117); Bilirubin, Direct 0.15 mg/dL (0.00-0.30); Cholesterol 162 mg/dL (200); Globulin 3.3 g/dL (2.2-4.2); High Density Lipoprotein 43 mg/dL; Protein, Total 6.9 g/dL (6.4-8.2); Triglycerides 118 mg/dL; Very Low Density Lipoprotein 24 mg/dL (5-40)
== END | disposition home or self-care (01) ==
LOC: LAB 08:12
PROVIDERS: PCP Family Medicine; Referring Provider Nurse Practitioner Family; Visit Provider Nurse Practitioner Family
DX: E78.00 Pure hypercholesterolemia, unspecified (principal)
CPT/HCPCS: 36415; 80061; 80076

== ENCOUNTER → 2022-11-23 | Outpatient (CLI) | payer MEDICARE, OTHER, SELFPAY ==
[2020-07-15 07:26] VITALS: BMI 29.1
--- NOTE | 2022-11-23 06:25 | ECHOD_ITS ---
Reason For Study: OLD MS Procedure This was a 2D Doppler, Color Flow transthoracic echocardiogram. Exam performed in department. Left Ventricle Normal LV size. Mild concentric left ventricular hypertrophy. Mild to moderate segmental systolic dysfunction (see wall motion). The left ventricular ejection fraction is 45 %. Basal inferoseptal: Akinetic. Infero-Basal: Hypokinetic. Inferior [place] : Hypokinetic. Mid-Anterior : Mildly hypokinetic. Mid-Posterior: Normal. Mid-inferoseptal : Hypokinetic. Right Ventricle Normal RV size. Normal systolic function. Atria Normal left atrium. Normal right atrium. Mitral Valve Normal mitral valve. Mild (1+) eccentric mitral valve insufficiency. Tricuspid Valve Normal tricuspid valve. Aortic Valve Trisinus/trileaflet aortic valve. Mild focal aortic valve calcification. Pulmonic Valve Normal pulmonic valve. Great Vessels Normal aortic root. The pulmonary artery is normal size. Normal inferior vena cava. Pericardium/Pleural No pericardial effusion. MMode/2D Measurements & Calculations LVIDd: 5.4 cm IVSd: 1.2 cm Ao root diam: 3.2 cm LVIDs: 4.3 cm LVPWd: 1.2 cm FS: 20.6 % LAV(MOD-bp): 40.4 ml LVAd ap4: 28.1 cm2 SV(MOD-sp4): 30.9 ml LAV(MOD-bp) Indexed: 21.2 ml/m2 LVLd ap4: 8.5 cm LAV(MOD-sp2): 43.4 ml EDV(MOD-sp4): 78.5 ml LAV(MOD-sp4): 28.0 ml EDV(sp4-el): 79.3 ml LVAs ap4: 21.0 cm2 LVLs ap4: 7.9 cm ESV(MOD-sp4): 47.6 ml ESV(sp4-el): 47.4 ml EF(MOD-sp4): 39.4 % EF(sp4-el): 40.3 % SV(sp4-el): 31.9 ml LA A4 area: 11.4 cm2 LA dimension(2D): 3.8 cm RA A4 area: 10.5 cm2 TAPSE: 2.7 cm Doppler Measurements & Calculations MV E max michaela: 116.9 cm/sec MV V2 max: 123.3 cm/sec Ao V2 max: 109.6 cm/sec MV max P.1 mmHg Ao max P.8 mmHg MV V2 mean: 61.7 cm/sec Ao V2 mean: 75.9 cm/sec MV mean P.1 mmHg Ao mean P.7 mmHg MV V2 VTI: 26.5 cm Ao V2 VTI: 24.5 cm AV (velocity ratio): 0.81 LV V1 max: 95.6 cm/sec MR max michaela: 521.9 cm/sec PA V2 max: 63.8 cm/sec LV V1 max P.7 mmHg MR max P.9 mmHg PA V2 mean: 48.4 cm/sec LV V1 mean P.0 mmHg LV V1 mean: 65.5 cm/sec LV V1 VTI: 19.8 cm ECHO/Echo Complete Interpretation Summary Normal LV size. Mild to moderate segmental systolic dysfunction (see wall motion). The left ventricular ejection fraction is 45 %. Mild concentric left ventricular hypertrophy. Compared to previous study, the left ventricular systolic function is the same. . Ordering Physician: Kodi Nance Referring Physician: Kodi Nance Performed By: Tali Kendall RCS
--- NOTE | 2022-11-23 16:05 | STRESSREP ---
Stress Test Report Pharmacologic myocardial perfusion stress test. 72-year-old lady with a history of coronary artery disease Resting EKG demonstrates sinus rhythm with a rate of 70 bpm. Resting blood pressure is 132/80 mmHg. 0.4 mg of regadenoson was infused per usual protocol followed by rapid intravenous saline flush injection. Continuous EKG monitoring was performed. The maximum heart rate was 112 bpm which was 75% of max impacted heart rate the maximum workload was 1 metabolic equivalent. At rest there were no ST or T wave changes noted to suggest ischemia and at peak infusion nonspecific ST changes were noted which did not meet the criteria for ischemia. Left bundle branch block pattern is noted. No clinical angina is noted. The final blood pressure was 134/80 mmHg. Myocardial perfusion protocol. 11.5 mCi of technetium 99m sestamibi was injected at rest. 0.4 mg of regadenoson was infused per usual protocol. At peak infusion 33.7 mCi of technetium 99m sestamibi was injected stress images were obtained stress and rest images were reconstructed and compared in the short axis vertical long and horizontal long axis. Gated images were also obtained. Perfusion SPECT analysis: Review of the stress images demonstrate normal uptake of tracer noted in all areas of the myocardium but there is mild reduction of uptake noted in the anterior septal wall. The resting images similar demonstrated normal uptake of tracer noted in all areas of the myocardium except for the anterior septal wall with reduced perfusion.. No areas of reversibility are noted to suggest ischemia and no previous infarct is noted. Gated SPECT analysis: The gated ejection fraction is 47%. Conclusion: Normal pharmacologic myocardial perfusion stress test. Low normal ejection fraction.
== END | disposition home or self-care (01) ==
PROVIDERS: PCP Family Medicine; Referring Provider Internal Medicine Cardiovascular Disease; Visit Provider Internal Medicine Cardiovascular Disease
DX: I25.2 Old myocardial infarction (principal)
CPT/HCPCS: 78452; 93017; 93306; A9500; A4216; J2785

== ENCOUNTER → 2022-11-29 | Outpatient (CLI) | payer MEDICARE, OTHER, SELFPAY ==
[2020-07-15 07:26] VITALS: BMI 29.1
[2022-11-29 12:02] LABS: Absolute Lymphocyte Count 1.23 X10^3/uL (0.83-4.51); Absolute Neutrophil Count 3.2 X10^3/uL (2.0-7.7); Basophil# 0.06 X10^3/uL; Basophil% 1.2 % (0-1); Eosinophil# 0.15 X10^3/uL; Eosinophils% 2.9 % (0-5); Hematocrit 42.6 % (37-47); Hemoglobin 14.6 g/dL (12.0-15.0); Lymphocyte # 1.23 X10^3/ul (0.83-4.51); Lymphocyte % 23.9 % (19-41); Mean Corp Hgb Conc 34.3 g/dL (32-36); Mean Corpuscular Hgb 31.3 pg (27.0-32.0); Mean Corpuscular Volume 91.4 fL (81-99); Mean Platelet Vol. 9.9 fl (6.2-12.0); Monocyte# 0.53 X10^3/uL; Monocyte% 10.3 % (0-10); NRBC Flagged by Analyzer 0 % (0-5); Neutrophil # 3.16 X10^3/uL (2.7-7.7); Neutrophil % 61.5 % (47-70); Platelet Count 235 K/mm3 (150-450); RBC Distribution Width SD 43.3 fl (35.1-43.9); Red Blood Count 4.66 M/mm3 (4.2-5.4); White Blood Count 5.1 K/mm3 (4.4-11.0)
[2022-11-29 12:23] LABS: ALB/GLOB Ratio 1.1 RATIO (0.9-2.4); AST(SGOT) 60 U/L (15-37); Alanine Aminotransfer ALT/SGPT 130 U/L (13-56); Albumin, Serum 3.7 g/dL (3.2-5.0); Alkaline Phosphatase 172 U/L (45-117); Anion Gap 7 (5-15); BUN 20 mg/dL (7-18); BUN/Creat Ratio 23.3 RATIO (10-20); Calcium,Total 8.8 mg/dL (8.5-10.1); Chloride 106 mmol/L (98-107); Creatinine, Serum 0.86 mg/dL (0.55-1.02); EST Glomerular Filtration Rate 69 mL/min (>60); Est Glom Filt Rate - Afr Amer 84 mL/min (>60); Globulin 3.4 g/dL (2.2-4.2); Glucose 85 mg/dL (74-106); Potassium 3.6 mmol/L (3.5-5.1); Protein, Total 7.1 g/dL (6.4-8.2); Sodium Level 140 mmol/L (136-145); T4 Free Direct 1.18 ng/dL (0.76-1.46); Thyroid Stim Hormone (TSH) 0.12 uIU/mL (0.358-3.74)
== END | disposition home or self-care (01) ==
LOC: BFHLAB 09:12
PROVIDERS: PCP Family Medicine; Referring Provider Family Medicine; Visit Provider Family Medicine
DX: E03.9 Hypothyroidism, unspecified (principal); I10 Essential (primary) hypertension; I25.10 Atherosclerotic heart disease of native coronary artery without angina pectoris; K76.0 Fatty (change of) liver, not elsewhere classified
CPT/HCPCS: 36415; 80053; 84439; 84443; 85025

== ENCOUNTER → 2022-12-17 | Outpatient (CLI) | payer MEDICARE, OTHER, SELFPAY ==
[2020-07-15 07:26] VITALS: BMI 29.1
--- NOTE | 2022-12-17 07:23 | US_ITS ---
STUDY: ABDOMINAL ULTRASOUND - RIGHT UPPER QUADRANT; ELASTOGRAPHY REASON FOR VISIT: Female, 72 years old. Fatty infiltration of the liver. Elevated liver function tests. TECHNIQUE: Ultrasound evaluation of the right upper quadrant was performed with real-time and static lucia-scale imaging. Point quantification shear wave elastography was performed ([place]). TECHNICAL QUALITY: Adequate. COMPARISON: Comparison is made with prior study dated May 04, 2020. FINDINGS: Liver: The liver is enlarged and measures 19 cm. There is increased echogenicity consistent with fatty infiltration. The bile ducts are within normal limits. There is hepatic color flow. The direction of portal flow is hepatopetal. There is no demonstrated mass lesion. Median liver stiffness measured 8.2 kPa. Gallbladder: The patient is status post cholecystectomy. Common Bile Duct (C.B.D.): The common bile duct measures 6.6 mm. Pancreas: There is increased echogenicity of the pancreas. There is no demonstrated pancreatic mass or cyst. Right Kidney: Normal size of the right kidney. The right kidney measures 11.3 cm x 5.4 cm x 4.2 cm. Normal renal cortex. The right cortex measures 1.3 cm. There is no demonstrated renal mass or cyst. There is no right hydronephrosis. US/ABD Limited w/ Elastography IMPRESSION: 1. 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 2. Fatty infiltration of the liver and hepatomegaly. Electronically Signed: Moshe Gaffney MD at 13:30 EDT ,
== END | disposition home or self-care (01) ==
PROVIDERS: PCP Family Medicine; Referring Provider Family Medicine; Visit Provider Family Medicine
DX: K76.0 Fatty (change of) liver, not elsewhere classified (principal)
CPT/HCPCS: 76705; 76981

== ENCOUNTER → 2022-12-18 | Outpatient (CLI) | payer MEDICARE, OTHER, SELFPAY ==
[2020-07-15 07:26] VITALS: BMI 29.1
--- NOTE | 2022-12-18 08:17 | BI_ITS ---
MAMMOGRAPHY - BILATERAL SCREENING REASON FOR EXAM: Female, 72 years old. Routine annual screening examination. PERTINENT HISTORY: Non-contributory. TECHNIQUE: Digital bilateral breast katerina (3D mammographic acquisition) in the CC and MLO projections. 2-D mediolateral oblique (MLO) and craniocaudad (CC) views of both breasts were obtained. CAD: Full Field Digital Mammography with Computer Added Detection was performed. COMPARISON: Comparison is made with prior study December 15, 2021 and December 13, 2020. FINDINGS: Breast Composition: There are scattered areas of fibroglandular density. There are no dominant masses or suspicious calcifications. Stable small benign-appearing bilateral axillary lymph nodes. No other significant abnormalities are identified. There has been no significant change since the prior study. BI/SCRN MAMM (CAD)W/KATERINA BILAT IMPRESSION: Stable bilateral screening mammogram. Yearly follow-up mammogram recommended. (A) ASSESSMENT CATEGORY: BIRADS Category 2: Benign. A letter regarding these results will be sent to the patient by the facility within 30 days. Approximately 10% of breast cancers are not detected by mammography. A normal mammogram should not delay biopsy of a clinically suspicious abnormality. [id number] Electronically Signed: Moshe Gaffney MD at 10:27 EDT ,
== END | disposition home or self-care (01) ==
LOC: OPBI 08:16
PROVIDERS: PCP Family Medicine; Referring Provider Family Medicine; Visit Provider Family Medicine
DX: Z12.31 Encounter for screening mammogram for malignant neoplasm of breast (principal)
CPT/HCPCS: 77063; 77067

== ENCOUNTER 2023-03-20 15:26 | Outpatient (CLI) | payer MEDICARE, OTHER, SELFPAY ==
[2020-07-15 07:26] VITALS: BMI 29.1
[2023-03-20 16:27] LABS: AST(SGOT) 25 U/L (15-37); Alanine Aminotransfer ALT/SGPT 58 U/L (13-56); Albumin, Serum 3.7 g/dL (3.2-5.0); Alkaline Phosphatase 177 U/L (45-117); Bilirubin, Direct 0.12 mg/dL (0.00-0.30); Globulin 3.3 g/dL (2.2-4.2)
[2023-03-22 08:13] LABS: AFP, Tumor Marker 2.6 ng/mL (0.0-9.2)
== END 2023-03-20 23:59 | disposition home or self-care (01) ==
LOC: LAB 15:27
PROVIDERS: PCP Family Medicine; Visit Provider Family Medicine
DX: K76.0 Fatty (change of) liver, not elsewhere classified (principal)
CPT/HCPCS: 36415; 80076; 82105

== ENCOUNTER → 2023-04-23 | Outpatient (CLI) | payer MEDICARE, OTHER, SELFPAY ==
[2020-07-15 07:26] VITALS: BMI 29.1
--- NOTE | 2023-04-23 07:31 | CDU_ITS ---
Reason For Study: Carotid stenosis Rt. Velocities/BP Lt. Velocities/BP Prox CCA 57/12.6 cm/sec. Prox CCA 81.5/23 cm/sec. Mid CCA 60.7/17.3 cm/sec. Mid CCA 100.3/26.7 cm/sec. Dist CCA 67.4/18.2 cm/sec. Dist CCA 89.4/23.4 cm/sec. Prox ICA 82.5/27.7 cm/sec. Prox ICA 157.2/36.4 cm/sec. Mid ICA 63.6/15.4 cm/sec. Mid ICA 71.6/26.2 cm/sec. Dist ICA 58.9/17.3 cm/sec. Dist ICA 75.3/24.9 cm/sec. Rt. ICA/CCA = 1.34. Lt. ICA/CCA = 1.76. Prox ECA 58.9/9.7 cm/sec. Prox ECA 93.8/17.9 cm/sec. Rt. Vert. 43.7/11.6 cm/sec. Lt. Vert. 32.2/8 cm/sec. Right Extracranial There is heterogeneous, irregular atherosclerotic plaque noted in the right common carotid artery. There is heterogeneous, irregular atherosclerotic plaque noted in the right internal carotid artery. There is heterogeneous, irregular atherosclerotic plaque noted in the right external carotid artery. Antegrade flow is noted in the right vertebral artery. Left Extracranial There is heterogeneous, irregular atherosclerotic plaque noted in the left common carotid artery. There is heterogeneous, irregular atherosclerotic plaque noted in the left internal carotid artery. There is heterogeneous, irregular atherosclerotic plaque noted in the left external carotid artery. Antegrade flow is noted in the left vertebral artery. Procedure Carotid Duplex [id number]. This is a Carotid Duplex examination using B-mode, color flow and specral Doppler. Exam performed in department. VL/Carotid Duplex Ultrasound Interpretation Summary Calcific plaque with shadowing at the proximal right internal carotid artery wi th less than 50% stenosis Less than 50% stenosis right external carotid artery Irregular calcific plaque at the proximal left internal carotid artery with 50 to 69% stenosis Less than 50% stenosis left external carotid artery Patent and antegrade vertebral arteries bilaterally No change from the previous examination of April 06, 2022 Ordering Physician: Christ Galindo Referring Physician: Cece Aleman Performed By: Carine Mitchell RVT
== END | disposition home or self-care (01) ==
LOC: CVS 07:30
PROVIDERS: PCP Family Medicine; Referring Provider Surgery; Visit Provider Surgery
DX: I65.22 Occlusion and stenosis of left carotid artery (principal)
CPT/HCPCS: 93880

== ENCOUNTER → 2023-11-18 | Outpatient (CLI) | payer MEDICARE, OTHER, SELFPAY ==
[2020-07-15 07:26] VITALS: BMI 29.1
[2023-11-18 07:50] LABS: Absolute Lymphocyte Count 1.48 X10^3/uL (0.83-4.51); Absolute Neutrophil Count 2.2 X10^3/uL (2.0-7.7); Basophil# 0.07 X10^3/uL; Basophil% 1.5 % (0-1); Eosinophil# 0.33 X10^3/uL; Eosinophils% 7.3 % (0-5); Hematocrit 41.2 % (37-47); Hemoglobin 13.6 g/dL (12.0-15.0); Lymphocyte # 1.48 X10^3/ul (0.83-4.51); Lymphocyte % 32.7 % (19-41); Mean Corpuscular Hgb 29.9 pg (27.0-32.0); Mean Corpuscular Volume 90.5 fL (81-99); Mean Platelet Vol. 9.3 fl (6.2-12.0); Monocyte# 0.43 X10^3/uL; Monocyte% 9.5 % (0-10); NRBC Flagged by Analyzer 0 % (0-5); Neutrophil % 48.8 % (47-70); Platelet Count 233 K/mm3 (150-450); RBC Distribution Width CV 12.4 % (11.6-14.6); Red Blood Count 4.55 M/mm3 (4.2-5.4); White Blood Count 4.5 K/mm3 (4.4-11.0)
[2023-11-18 08:25] LABS: ALB/GLOB Ratio 1.2 RATIO (0.9-2.4); AST(SGOT) 27 U/L (15-37); Alanine Aminotransfer ALT/SGPT 43 U/L (13-56); Albumin, Serum 3.6 g/dL (3.2-5.0); Alkaline Phosphatase 187 U/L (45-117); Anion Gap 3 (5-15); BUN 21 mg/dL (7-18); BUN/Creat Ratio 23.5 RATIO (10-20); Calcium,Total 8.9 mg/dL (8.5-10.1); Chloride 107 mmol/L (98-107); Cholesterol 160 mg/dL (200); Creatinine, Serum 0.89 mg/dL (0.55-1.02); EST Glomerular Filtration Rate 66 mL/min (>60); Est Glom Filt Rate - Afr Amer 80 mL/min (>60); Globulin 3.1 g/dL (2.2-4.2); Glucose 99 mg/dL (74-106); High Density Lipoprotein 42 mg/dL; Potassium 4.3 mmol/L (3.5-5.1); Protein, Total 6.7 g/dL (6.4-8.2); Sodium Level 138 mmol/L (136-145); T4 Free Direct 1.02 ng/dL (0.76-1.46); Thyroid Stim Hormone (TSH) 0.24 uIU/mL (0.358-3.74); Triglycerides 137 mg/dL; Very Low Density Lipoprotein 27 mg/dL (5-40)
== END | disposition home or self-care (01) ==
PROVIDERS: PCP Family Medicine; Referring Provider Family Medicine; Visit Provider Family Medicine
DX: E03.9 Hypothyroidism, unspecified (principal); I10 Essential (primary) hypertension; I25.10 Atherosclerotic heart disease of native coronary artery without angina pectoris; K76.0 Fatty (change of) liver, not elsewhere classified
CPT/HCPCS: 36415; 80053; 80061; 84439; 84443; 85025

== ENCOUNTER → 2023-12-10 | Outpatient (CLI) | payer MEDICARE, OTHER, SELFPAY ==
[2020-07-15 07:26] VITALS: BMI 29.1
[2023-12-10 10:47] LABS: Mucous, Urine 0 SEEN /hpf (<or=2+)
[2023-12-10 10:58] LABS: Color, Urine Yellow (Yellow); Glucose, Dipstick Normal (Normal); Ketone-Dipstick Negative (Negative); Leukocyte Esterase-Dipstick 500 /ul (Negative); Nitrite-Dipstick Negative (Negative); Occult Blood-Urine 250 /ul (Negative); Protein-Dipstick 30 mg/dl (Negative); Urine Bilirubin Dipstick Negative (Negative); Urine Clarity Cloudy (Clear); Urine Urobilinogen Normal (Normal); Urine pH 6.5 (5.0 - 8.0)
[2023-12-10 11:06] LABS: Bacteria 2+ /hpf (None Seen); Red Blood Cells-Urine > 100 SEEN /hpf (0-5); Renal Epithelial Cells 0-5 SEEN /hpf (0-5); Squamous Epithelial Cells - UA 0-5 SEEN /hpf (5-10); Transitional Epithelial - Ur 0-5 SEEN /hpf (0-5); White Blood Cells >100 SEEN /hpf (0-5)
== END | disposition home or self-care (01) ==
LOC: LABSPEC 10:38
PROVIDERS: PCP Family Medicine; Referring Provider Physician Assistant; Visit Provider Physician Assistant
DX: R30.0 Dysuria (principal)
CPT/HCPCS: 81001; 87086; 87088

== ENCOUNTER → 2023-12-23 | Outpatient (CLI) | payer MEDICARE, OTHER, SELFPAY ==
[2020-07-15 07:26] VITALS: BMI 29.1
--- NOTE | 2023-12-23 10:46 | BI_ITS ---
MAMMOGRAPHY - BILATERAL SCREENING REASON FOR EXAM: Female, 73 years old. Routine annual screening examination. PERTINENT HISTORY: Non-contributory. TECHNIQUE: Digital bilateral breast katerina (3D mammographic acquisition) in the CC and MLO projections. 2-D mediolateral oblique (MLO) and craniocaudad (CC) views of both breasts were obtained. CAD: Full Field Digital Mammography with Computer Added Detection was performed. COMPARISON: Comparison is made with prior study December 18, 2022 December 15, 2021. FINDINGS: Breast Composition: There are scattered areas of fibroglandular density. There are no dominant masses or suspicious calcifications. Stable bilateral fat containing axillary lymph nodes. No other significant abnormalities are identified. There has been no significant change since the prior study. BI/SCRN MAMM (CAD)W/KATERINA BILAT IMPRESSION: Stable bilateral screening mammogram. Yearly follow-up mammogram recommended. (A) ASSESSMENT CATEGORY: BIRADS Category 2: Benign. A letter regarding these results will be sent to the patient by the facility within 30 days. Approximately 10% of breast cancers are not detected by mammography. A normal mammogram should not delay biopsy of a clinically suspicious abnormality. [id number] Electronically Signed: Moshe Gaffney MD at 12:41 EDT ,
== END | disposition home or self-care (01) ==
LOC: OPBI 10:45
PROVIDERS: PCP Family Medicine; Referring Provider Family Medicine; Visit Provider Family Medicine
DX: Z12.31 Encounter for screening mammogram for malignant neoplasm of breast (principal)
CPT/HCPCS: 77063; 77067

== ENCOUNTER → 2024-02-28 | Outpatient (CLI) | payer MEDICARE, OTHER, SELFPAY ==
[2020-07-15 07:26] VITALS: BMI 29.1
--- NOTE | 2024-02-28 09:44 | CDU_ITS ---
Reason For Study: Carotid stenosis Rt. Velocities/BP Lt. Velocities/BP Prox CCA 48.5/9.7 cm/sec. Prox CCA 74.9/23.9 cm/sec. Mid CCA 64.5/17.3 cm/sec. Mid CCA 82.5/21.1 cm/sec. Dist CCA 51.3/10.7 cm/sec. Dist CCA 84.4/24.8 cm/sec. Prox ICA 65.5/20.1 cm/sec. Prox ICA 159.5/44.4 cm/sec. Mid ICA 65.5/15.4 cm/sec. Mid ICA 95.5/26.1 cm/sec. Dist ICA 59.8/16.3 cm/sec. Dist ICA 70.2/23 cm/sec. Rt. ICA/CCA = 1.02. Lt. ICA/CCA = 1.93. Prox ECA 73/10.7 cm/sec. Prox ECA 87.2/19.2 cm/sec. Rt. Vert. 52.2/13.5 cm/sec. Lt. Vert. 29.4/7.7 cm/sec. Right Extracranial There is homogeneous, smooth atherosclerotic plaque noted in the right common carotid artery. There is heterogeneous, irregular atherosclerotic plaque noted in the right internal carotid artery. There is heterogeneous, irregular atherosclerotic plaque noted in the right external carotid artery. Antegrade flow is noted in the right vertebral artery. Left Extracranial There is heterogeneous, irregular atherosclerotic plaque noted in the left common carotid artery. There is heterogeneous, irregular atherosclerotic plaque noted in the left internal carotid artery. There is heterogeneous, irregular atherosclerotic plaque noted in the left external carotid artery. Antegrade flow is noted in the left vertebral artery. Procedure Carotid Duplex [id number]. This is a Carotid Duplex examination using B-mode, color flow and specral Doppler. Exam performed in department. VL/Carotid Duplex Ultrasound Interpretation Summary Mild (<50%) stenosis right extracranial internal carotid. Moderate (50-69%) stenosis left extracranial internal carotid. Patent and antegrade vertebrals bilaterally. Ordering Physician: Denver Carlisle Referring Physician: Cece Aleman Performed By: Carine Mitchell RVT
== END | disposition home or self-care (01) ==
LOC: CVS 09:44
PROVIDERS: PCP Family Medicine; Referring Provider Surgery Trauma Surgery; Visit Provider Surgery Trauma Surgery
DX: I65.22 Occlusion and stenosis of left carotid artery (principal)
CPT/HCPCS: 93880

== ENCOUNTER → 2024-06-05 | Outpatient (CLI) | payer MEDICARE, OTHER, SELFPAY ==
[2020-07-15 07:26] VITALS: BMI 29.1
[2024-06-05 14:08] LABS: ALB/GLOB Ratio 1.1 RATIO (0.9-2.4); AST(SGOT) 43 U/L (15-37); Alanine Aminotransfer ALT/SGPT 80 U/L (13-56); Albumin, Serum 3.7 g/dL (3.2-5.0); Alkaline Phosphatase 198 U/L (45-117); Anion Gap 7 (5-15); BUN 14 mg/dL (7-18); BUN/Creat Ratio 18.5 RATIO (10-20); Calcium,Total 8.8 mg/dL (8.5-10.1); Chloride 109 mmol/L (98-107); Creatinine, Serum 0.76 mg/dL (0.55-1.02); EST Glomerular Filtration Rate 80 mL/min (>60); Est Glom Filt Rate - Afr Amer 96 mL/min (>60); Globulin 3.5 g/dL (2.2-4.2); Glucose 87 mg/dL (74-106); Potassium 4.1 mmol/L (3.5-5.1); Protein, Total 7.2 g/dL (6.4-8.2); Sodium Level 140 mmol/L (136-145); T4 Free Direct 1.18 ng/dL (0.76-1.46)
[2024-06-06 08:11] LABS: AFP, Tumor Marker 2.9 ng/mL (0.0-9.2)
== END | disposition home or self-care (01) ==
LOC: BFHLAB 09:35
PROVIDERS: PCP Family Medicine; Visit Provider Family Medicine
DX: K76.0 Fatty (change of) liver, not elsewhere classified (principal); K74.60 Unspecified cirrhosis of liver; E03.2 Hypothyroidism due to medicaments and other exogenous substances; I10 Essential (primary) hypertension
CPT/HCPCS: 36415; 80053; 82105; 84439; 84443

== ENCOUNTER → 2024-06-23 | Outpatient (CLI) | payer MEDICARE, OTHER, SELFPAY ==
[2020-07-15 07:26] VITALS: BMI 29.1
--- NOTE | 2024-06-23 09:24 | US_ITS ---
PROCEDURE: ABD LIMITED W/ ELASTOGRAPHY REASON FOR EXAM: Fatty liver. COMPARISON: December 17, 2022. TECHNIQUE: Right upper quadrant abdominal ultrasound. [employer] Platform ElastQ Imaging shear wave elastography for non-invasive assessment of liver tissue stiffness. Hina EPIQ Elite. FINDINGS: LIVER: Size: Borderline. Length: 17.6 cm Echotexture: Diffusely echogenic suggesting fatty infiltration Contour: Normal Lesions: None identified Elastography: EQI Med: 7.1 kPa EQI Med Robin: 1.5 m/s IQR/Med: 14 %* GALLBLADDER: Surgically absent. COMMON BILE DUCT: Normal it measures 3.1 cm. PANCREAS: Normal Visualized portions of the right kidney are unremarkable. 1.4 cm x 1.7 cm x 1 cm cyst in the midpole of the right kidney. No right upper quadrant ascites. US/ABD Limited w/ Elastography IMPRESSION: NO TO MILD HEPATIC FIBROSIS Reference Values: SRU <1.37 m/s (5.7kPa): No to mild fibrosis 1.37 m/s - 2.2 m/s: Moderate to severe fibrosis >2.2 m/s (15kPa): Significant fibrosis / cirrhosis METAVIR Score F2 or higher: 1.34 m/s (5.7kPa) F3 or higher: 1.55 m/s (7.3kPa) F4: 1.80 m/s (10kPa) * If the IQR/Med is >30%, the variance in the measurements is a large and the a ccuracy of the measurement may be in question. Reading Location: [place] [id number]
== END | disposition home or self-care (01) ==
LOC: US 09:22
PROVIDERS: PCP Family Medicine; Referring Provider Family Medicine; Visit Provider Family Medicine
DX: K76.0 Fatty (change of) liver, not elsewhere classified (principal)
CPT/HCPCS: 76705; 76981

== ENCOUNTER → 2024-12-04 | Outpatient (CLI) | payer MEDICARE, OTHER, SELFPAY ==
[2020-07-15 07:26] VITALS: BMI 29.1
[2024-12-04 12:26] LABS: Hematocrit 42.9 % (37-47); Hemoglobin 14.5 g/dL (12.0-15.0); Immature Granulocytes Count 0.010 X10^3/uL (0.0-0.0); Mean Corp Hgb Conc 33.8 g/dL (32-36); Mean Corpuscular Volume 89.6 fL (81-99); Mean Platelet Vol. 9.8 fl (6.2-12.0); NRBC Flagged by Analyzer 0 % (0-5); Platelet Count 247 K/mm3 (150-450); RBC Distribution Width CV 13.1 % (11.6-14.6); RBC Distribution Width SD 43.0 fl (35.1-43.9); Red Blood Count 4.79 M/mm3 (4.2-5.4); White Blood Count 5.6 K/mm3 (4.4-11.0)
[2024-12-04 12:59] LABS: AST(SGOT) 45 U/L (<=31); Alanine Aminotransfer ALT/SGPT 68 U/L (<=34); Albumin, Serum 4.4 g/dL (3.4-4.8); Alkaline Phosphatase 168 U/L (35-104); Anion Gap 12 (5-15); BUN 15 mg/dL (4-19); BUN/Creat Ratio 18.9 RATIO (10-20); Calcium,Total 9.5 mg/dL (7.6-11.0); Carbon Dioxide 23.7 mmol/L (21.0-32.0); Chloride 105 mmol/L (98-108); Cholesterol 160 mg/dL (<=200); Globulin 2.8 g/dL (2.2-4.2); Glucose 91 mg/dL (70-99); Low Density Lipoprotein Calc. 90 mg/dL; Potassium 4.5 mmol/L (3.3-5.1); Triglycerides 154 mg/dL; Very Low Density Lipoprotein 31 mg/dL (5-40); cholesterol:hdl ratio screen 4.09
== END | disposition home or self-care (01) ==
LOC: BFHLAB 09:37
PROVIDERS: PCP Family Medicine; Visit Provider Family Medicine
DX: E03.9 Hypothyroidism, unspecified (principal); I10 Essential (primary) hypertension; I25.10 Atherosclerotic heart disease of native coronary artery without angina pectoris; K76.0 Fatty (change of) liver, not elsewhere classified
CPT/HCPCS: 36415; 80053; 80061; 84439; 84443; 85025

== ENCOUNTER → 2024-12-23 | Outpatient (CLI) | payer MEDICARE, OTHER, SELFPAY ==
[2020-07-15 07:26] VITALS: BMI 29.1
--- NOTE | 2024-12-23 07:06 | BI_ITS ---
EXAM: SCRN MAMM (CAD)W/KATERINA BILAT DATE: 12/23/2024 CLINICAL HISTORY: F, Age 74 y/o , SCREENING No family history. TECHNIQUE: SCRN MAMM (CAD)W/KATERINA BILAT COMPARISON: Prior exam(s) dated December 23, 2023.. FINDINGS: TISSUE DENSITY: There are scattered areas of fibroglandular density. Bilateral Breast Mammographic Findings: No significant masses, calcifications or other abnormalities are identified. Stable bilateral fat containing axillary lymph nodes. No suspicious masses, areas of developing architectural distortion, or suspicious calcifications. There has been no significant interval change. BI/SCRN MAMM (CAD)W/KATERINA BILAT IMPRESSION: Stable examination. OVERALL FINAL ASSESSMENT BI-RADS 2: BENIGN RECOMMENDATION: Routine annual follow-up in 1 Year A letter with findings and recommendations will be mailed to the patient. Reading Location: [id number]
--- OUTSIDE RECORDS SUMMARY | 2024-12-23 07:09 | XMS RPT_ITS | CCD ---
Author Organization [facility] Inform ion Partnership [facility] Care Team Providers Care Biofuels Processing Technician Name Role Phone Tio Ye Unavailable DeFinis, Harumi Y Unavailable Unavailable DeFinis, Harumi Y Unavailable Unavailable Rita Smith Unavailable MD Lee Ann, [place] S Unavailable ERIC RITCHIE MD Attending Unavailable ERIC RITCHIE MD Primary Care Unavailable ERIC RITCHIE MD Admitting Unavailable Fast DO, Shikha A Unavailable Dr. Ronnie Peterson Unavailable Diboll, Fernanda Unavailable Unavailable Manchak FILTER PRESS PUMPER, Leonora Unavailable Unavailable Unavailable Unavailable Dr. Christ Galindo Attending Provider Dr. Christ Galindo Referring Provider Dr. Cece Aleman Primary Care Provider Dr. Rao Delgado Chi Referring Provider Roof CELL CLEANER, CELL CLEANER-Grazyna Velasquez Attending Provider Dr. Cece Aleman Primary Care Provider Dr. Cece Aleman Primary Care Provider Dr. Cece Aleman Referring Provider NESTOR Camargo Attending Provider Frank CELL CLEANER, LOCO Velasquez Attending Provider Dr. Christ Galindo Attending Provider [phone] Christ Galindo Referring Provider Dr. Cece Aleman Primary Care Provider [phone] Dr. Cece Aleman Referring Provider [phone] Kodi Nance Attending Provider [phone] Dr. Kodi Nance Referring Provider [phone] Sunil COURTNEY, LOCO Brody Attending Provider Dr. Cece Aleman Primary Care Provider [phone] Dr. Christ Galindo Attending Provider [phone] Dr. Cece Aleman MD Primary Care Provider Dr. Cece Aleman MD Attending Provider [phone] Cece Aleman Attending Unavailable Love, Cece Primary Care Unavailable Cece Aleman Attending Unavailable Cece Aleman Referring Unavailable Cajen, [place] Primary Care Unavailable Mijen Cece Attending Unavailable Love Cece Referring Unavailable Love, Cece Primary Care Unavailable Denver Carlisle Referring Unavailable Love, Cece Primary Care Unavailable Denver Carlisle Attending Unavailable Ashley Yan Attending Unavailable Calauro, [place] Primary Care Unavailable LeannbuRemy Beard Referring Unavailable Amador Smart Attending Unavailable Cece Aleman Referring Unavailable Love Cece Primary Care Unavailable Cece Aleman Attending Unavailable Love, [place] Primary Care Unavailable Orestes, Denver Attending Unavailable Orestes Denver Referring Unavailable Love, Cece Primary Care Unavailable Allergies Allergy Classification Reported Allergen(s) Allergy Type Date of Onset Reaction(s) Facility (5 sources) chlorpheniramine Drug Allergy 09-15-19 11 Muscle weakness [facility] Work Phone: (5 sources) phenylpropanolamine Drug Allergy 09-15-19 11 Muscle weakness [facility] Work Phone: (5 sources) NAPROSYN SODIUM drug allergy 09-15-19 11 Intolerance, puritis [facility] Work Phone: (1 source) Naproxen Drug Allergy [facility] (1 source) Oseltamivir Drug Allergy [facility] (1 source) Hydrocortisone; Translations: [Anusol-HC *ANORECTAL AGENTS*] Drug Allergy [facility] Work Phone: Comment on above: severely (1 source) Naproxen; Translations: [Aleve *ANALGESICS - ANTI-INFLAMMATORY*] Drug Allergy [facility]; [facility] Work Phone: Comment on above: ITCH (11 sources) Fluconazole Drug Allergy 06-13-19 22 Rash [facility] (12 sources) Naproxen; Translations: [naproxen sodium] Drug Allergy 06-13-19 22 Itching [facility] (11 sources) Oseltamivir Drug Allergy 06-13-19 22 Vomitting [facility] (1 source) Fluconazole Drug Allergy 04-10-20 24 [facility] (1 source) Oseltamivir Drug Allergy 04-10-20 24 [facility] Medications Current Medications Medication Drug Class(es) Dates Sig (Normalized) Sig (Original) amLODIPine 10 mg oral tablet (20 sources) Dihydropyridine Calcium Channel Denzel Start: 01-14-2023 End: 11-30-2024 take 1 tablet by mouth once daily Amlodipine 10 mg tablet Active 10 mg PO DAILY 90 3 November 30, 2024 7:01am Start: 06-02-2013 End: 01-14-2023 take 1 tablet by mouth once daily Amlodipine 5 mg tablet Discontinued 5 mg PO DAILY 90 June 26, 2022 5:15pm January 14, 2023 11:29am Start: 09-14-2010 take 1 tablet by ellis th once daily NORVASC 10 MG TABS One half tablet by mouth daily AMLODIPINE BESYLATE [id number] Kodi Nance MD ascorbic acid 500 mg oral tablet (17 sources) Start: 08-20-2017 take 1 tablet by mouth once daily Ascorbic Acid (Vitamin C) 500 mg tablet Active 500 mg PO daily August 20, 2017 12:00am Start: 05-02-2012 take 1 tablet by ellis th once daily VITAMIN C 500 MG TABS One tablet by mouth daily ASCORBIC ACID [id number] Kodi Nance MD End: 08-27-2007 VITAMIN C, 100MG (Oral Table t Chewable) for 0 days Refills: 0 Ordered: 12-Sep-2007 Arabella Santiago LPN End : 27-Aug-2007 Discontinued aspirin 81 mg chewable tablet (20 sources) Nonsteroidal Anti-inflammatory Drug Start: 02-07-2014 take 1 tablet by mouth once daily Aspirin 81 MG tablet,chewable Active 81 mg PO DAILY@0800 February 07, 2014 12:00am Start: 09-14-2010 take 1 tablet by ellis th once daily ASPIRIN 81 MG TABS One tablet by mouth daily ASPIRIN [id number] Jade Mcdaniel Start: 09-14-2010 take 1 tablet by ellis th once daily ASPIRIN EC 81 MG TBEC One tablet by mouth daily ASPIRIN [id number] Jenna Moss cholecalciferol 0.125 mg oral tablet (20 sources) Vitamin D Start: 06-10-2020 take 1 tablet by mouth once daily Cholecalciferol (Vitamin D3) 125 mcg (5,000 unit) tablet Active 125 ug PO DAILY June 10, 2020 1:00am Start: 08-20-2017 End: 06-10-2020 Cholecalciferol (Vitamin D3) 2,000 unit tablet Discontinued 2000 U PO .3 days a week August 20, 2017 12:00am June 10, 2020 3:39pm Start: 06-02-2013 VITAMIN D 2000 UNIT TABS 5000 IU by mouth 3 days a week CHOLECALCIFEROL [id number] Kodi Nance MD take 1 capsule by mo [facility] once daily VITAMIN D3, 1000UNIT (Oral Capsule) 1 cap qd (1000 UNIT) Active clopidogrel 75 mg oral tablet (20 sources) [id number] Platelet Inhibitor Start: 04-16-2020 End: 04-06-2024 take 1 tablet by mouth once daily Clopidogrel 75 mg tablet Active 75 mg PO DAILY April 06, 2024 12:28pm Take 1 tablet by mouth once daily Cranberry Extract (20 sources) Non-Standardized Food Allergenic Extract, Non-Standardized Plant Allergenic Extract Start: 10-11-2021 take 1 capsule by mouth once daily Cranberry Extract 425 mg capsule Active 850 mg PO DAILY October 11, 2021 12:00am administer with a meal Start: 10-11-2021 take 850 mg by mouth once jaison y Cranberry Extract Active 850 MG PO DAILY October 10, 2021 11:00pm administer with a meal Start: 10-11-2021 take 850 mg by mouth once jaison y Cranberry Extract Active 850 MG PO DAILY October 11, 2021 12:00am administer with a meal Start: 06-10-2020 End: 10-11-2021 take 1 capsule by mouth once daily Cranberry 500 mg capsule Discontinued 1000 mg PO DAILY June 10, 2020 3:40pm October 11, 2021 10:28am Start: 06-10-2020 End: 10-11-2021 take 1000 mg by mouth once daily Cranberry Discontinued 1000 MG PO DAILY June 10, 2020 2:40pm October 11, 2021 9:28am Start: 06-10-2020 End: 10-11-2021 take 1000 mg by mouth once daily Cranberry Discontinued 1000 MG PO DAILY June 10, 2020 3:40pm October 11, 2021 10:28am Start: 06-10-2020 take 1000 mg by mout h once daily Cranberry Active 1000 MG PO DAILY June 10, 2020 3:40pm Start: 04-09-2019 End: 06-10-2020 take 500 mg by mouth once daily Cranberry Discontinued 500 MG PO DAILY April 09, 2019 11:04am June 10, 2020 3:42pm Start: 04-09-2019 End: 06-10-2020 take 1 capsule by mouth once daily Cranberry 500 mg capsule Discontinued 500 mg PO DAILY April 09, 2019 1:00am June 10, 2020 3:42pm Start: 04-09-2019 End: 06-10-2020 take 500 mg by mouth once daily Cranberry Discontinued 500 MG PO DAILY April 09, 2019 12:00am June 10, 2020 2:42pm Start: 04-09-2019 End: 06-10-2020 take 500 mg by mouth once daily Cranberry Discontinued 500 MG PO DAILY April 09, 2019 1:00am June 10, 2020 3:42pm folic acid 0.8 mg oral tablet (20 sources) Start: 06-10-2020 take 0.8 mg by mouth once daily Folic Acid 800 mcg tablet Active 0.8 mg PO DAILY June 10, 2020 1:00am Start: 06-10-2020 take 0.8 mg by mouth once jaison y Folic Acid Active 0.8 MG PO DAILY June 10, 2020 12:00am Start: 08-22-2017 End: 06-10-2020 take 1 tablet by mouth once daily Folic Acid 1 mg tablet Discontinued 1 mg PO daily August 22, 2017 12:00am June 10, 2020 3:38pm Start: 09-14-2010 take 1 mg by mouth once daily FOLIC ACID 400 MCG TABS (0.4mg) One tablet by mouth daily FOLIC ACID [id number] Jade Mcdaniel take 1 tablet by ellis once daily FOLIC ACID, 800MCG (Oral Tablet) 1 qd for 0 days Refills: 0 Ordered: 15-Feb-2009 Rosalinda Roberts Active losartan potassium 100 mg oral tablet (20 sources) Angiotensin 2 Receptor Denzel Start: 12-04-2022 End: 11-02-2024 take 1 tablet by mouth once daily Losartan 100 mg tablet Active 100 mg PO DAILY 90 November 02, 2024 12:01pm Start: 04-03-2018 End: 11-23-2022 take 1 tablet by mouth once daily Losartan 100 mg tablet Discontinued 100 mg PO DAILY 90 March 12, 2022 1:57pm November 23, 2022 1:09pm magnesium oxide 500 mg oral capsule (11 sources) Start: 04-12-2020 take 1 capsule by mouth once daily Magnesium Oxide 500 mg capsule Active 500 mg PO DAILY April 12, 2020 1:00am 24 hr metoprolol succinate 50 mg extended release oral tablet (20 sources) beta-Adrenergic Denzel Start: 08-22-2017 End: 08-25-2024 take 1 tablet by mouth once daily Metoprolol Succinate 50 mg tablet extended release 24 hr Active 50 mg PO DAILY 90 August 25, 2024 8:06am Start: 06-02-2013 End: 06-04-2014 take 2 tablets by mouth every twenty-four hours in the morning, then take 1 tablet by mouth in the evening TOPROL XL, 25MG (Oral Tablet Extended Release 24 Hour) 2 (two) Tablet ER 24HR am 1 pm for 90 days Quantity: 270 {Tablet} Refills: 3 Ordered: 04-Jun-2014 Rosalinda Roberts Start : 25-May-2014 End : 04-Jun-2014 Discontinued Start: 06-02-2013 METOPROLOL TAR TRATE 25 MG TABS two tablets in the am and 1 tablet in the evening METOPROLOL TARTRATE [id number] Kodi Nance MD Start: 06-02-2013 take 1 tablet by mouth once da saul METOPROLOL SUCCINATE ER 50 MG [id number] One tablet by mouth daily METOPROLOL SUCCINATE [id number] Kodi Nance MD Start: 09-14-2010 End: 08-22-2017 take 1 tablet by mouth twice daily Metoprolol Tartrate 25 MG tablet Discontinued 25 mg PO TWICE A DAY February 07, 2014 12:00am August 22, 2017 10:21am Mk0-Dyt-Fnu-Aty-Uxzq-Dkcx-E (4 sources) Start: 11-13-2022 Xn0-Psc-Okz-Al k-Vqxt-Mgnz-E Active CAP PO November 12, 2022 11:00pm Start: 11-13-2022 Jb5-Cgr-Uah-Al v-Pzfi-Vzmo-E Active CAP PO November 13, 2022 12:00am Af7-Yfw-Zwd-Isd-Otql-Cvjo-E 700-320 mg capsule,delayed release(DR/EC) (2 sources) Start: 11-12-2023 Lq5-Pau-Jwo-Ack-Wvdc-Ffyc-E 700-320 mg capsule,delayed release(DR/EC) Active 1 NMA PO DAILY November 12, 2023 8:41am Start: 11-13-2022 End: 11-12-2023 Mt3-Ftg-Gxl-Ggw-Cslr-Axdz-E 700-320 mg capsule,delayed release(DR/EC) Discontinued NMA PO November 13, 2022 12:00am November 12, 2023 8:42am microencapsulated potassium chloride 20 meq extended release oral tablet (20 sources) Start: 04-12-2020 take 1 tablet by mouth once daily Potassium Chloride 20 mEq tablet,ER particles/crystals Active 20 meq PO DAILY April 12, 2020 1:00am Start: 03-30-2019 End: 04-09-2019 take 1 tablet by mouth once daily Potassium Chloride 20 mEq tablet extended release Discontinued 20 meq PO DAILY 90 3 March 30, 2019 10:27am April 09, 2019 11:21am Start: 02-11-2018 End: 04-03-2018 Potassium Chloride (Klor-Con M20) 20 mEq tablet,ER particles/crystals Discontinued 20 meq PO DAILY 90 3 February 11, 2018 12:00am April 03, 2018 11:33am Start: 05-02-2012 End: 02-19-2017 take 1 tablet by mouth once daily KLOR-CON M20 20 MEQ CR-TABS One tablet by mouth daily POTASSIUM CHLORIDE ERROL CR [id number] Kodi Nance MD Start: 05-02-2012 take 1 tablet by ellis th once daily KLOR-CON M20 20 MEQ CR-TABS One tablet by mouth daily POTASSIUM CHLORIDE ERROL CR [id number] Kodi Nance MD Start: 05-02-2012 End: 02-19-2017 take 1 tablet by mouth once daily KLOR-CON M20 20 MEQ CR-TABS One tablet by mouth daily POTASSIUM CHLORIDE ERROL CR [id number] Kodi Nance MD rosuvastatin calcium 10 mg oral tablet (20 sources) HMG-CoA Reductase Inhibitor Start: 04-09-2019 End: 04-09-2019 take 1 tablet by mouth once daily Rosuvastatin 20 mg tablet Discontinued 20 mg PO DAILY April 09, 2019 1:00am April 09, 2019 11:21am Start: 06-02-2013 End: 04-06-2024 take 1 tablet by mouth once daily Rosuvastatin 10 mg tablet Active 10 mg PO DAILY 90 April 06, 2024 10:15am Start: 09-14-2010 End: 10-28-2012 take 1 tablet by mouth once daily CRESTOR 20 MG TABS One tablet by mouth daily ROSUVASTATIN CALCIUM [id number] Tyra Sears PA-C saccharomyces boulardii 250 mg oral capsule (11 sources) Start: 08-22-2017 take 1 capsule by mouth once daily Saccharomyces Boulardii (Digest Probiotic (S.Boulardii)) 250 mg capsule Active 250 mg PO daily August 22, 2017 12:00am levothyroxine sodium 0.1 mg oral tablet (20 sources) l-Thyrox ine Start: 05-10-2023 Levothyroxine 100 mc g tablet Active 100 ug PO May 10, 2023 1:00am Start: 04-23-2022 End: 05-10-2023 Levothyroxine 112 mcg tablet Discontinued 100 ug PO DAILY April 23, 2022 9:29am May 10, 2023 8:56am Start: 04-23-2022 take 100 ug by mouth once jaison y Levothyroxine Active 100 MCG PO DAILY April 23, 2022 8:29am Start: 10-11-2021 End: 04-23-2022 take 1 tablet by mouth once daily Levothyroxine 112 mcg tablet Discontinued 112 ug PO DAILY October 11, 2021 12:00am April 23, 2022 9:29am Start: 04-11-2021 End: 10-11-2021 take 1 capsule by mouth once daily Levothyroxine 112 mcg capsule Discontinued 112 ug PO DAILY April 11, 2021 1:00am October 11, 2021 10:22am Start: 01-03-2021 End: 04-11-2021 take 1 tablet by mouth once daily Levothyroxine 100 mcg Tablet Discontinued 100 ug PO DAILY January 03, 2021 12:00am April 11, 2021 11:40am Start: 04-12-2020 End: 06-10-2020 take 1 tablet by mouth once daily Levothyroxine 75 mcg tablet Discontinued 75 ug PO DAILY April 12, 2020 1:00am June 10, 2020 3:37pm Start: 05-02-2012 End: 01-03-2021 Levothyroxine 88 mcg tablet Discontinued 88 ug PO .COMPLEX 96 3 July 29, 2018 8:19am April 12, 2020 11:30am 88 mcg PO one tablet by mouth daily except one and one half tablet on Saturday Start: 05-02-2012 take 1 tablet by ellis th once daily, then take 1 tablet by mouth, then take 0.5 tablet by mouth LEVOTHROID 88 MCG TABS One tablet by mouth daily except 1 and 1/2 tablets on Sundays LEVOTHYROXINE SODIUM [place] Edward Nance MD Start: 09-14-2010 take 1 tablet by ellis th once daily LEVOTHROID 88 MCG TABS One tablet by mouth daily LEVOTHYROXINE SODIUM [id number] Jadeabdi Mcdaniel Comment on above: 2 sat and saturday vitamin b12 0.25 mg oral tablet (20 sources) Vitamin B12 Start: 06-10-2020 take 1 tablet by mouth once daily Cyanocobalamin (Vitamin B-12) (Vitamin B-12) 250 mcg tablet Active 250 ug PO DAILY June 10, 2020 1:00am Start: 08-20-2017 End: 06-10-2020 take 1 tablet by mouth once daily Cyanocobalamin (Vitamin B-12) 1,000 mcg tablet Discontinued 1000 ug PO daily August 20, 2017 12:00am June 10, 2020 3:40pm Start: 06-01-2014 take 1 tablet by ellis once daily VITAMIN B-12 1000 MCG TABS One tablet by mouth daily CYANOCOBALAMIN [id number] Kodi Nance MD End: 08-27-2007 take 1 tablet by mouth once daily VITAMIN B 12, 50MCG (PO Tab) 1 tab qd for 0 days Refills: 0 Ordered: 12-Sep-2007 Arabella Santiago LPN End : 27-Aug-2007 Discontinued Vitamin B Complex (10 sources) Start: 04-12-2020 take 1 capsule by mo ut once daily Vitamin B Complex Active 1 CAP PO DAILY April 12, 2020 11:34am Start: 04-12-2020 take 1 capsule by mo ut once daily Vitamin B Complex Active 1 CAP PO DAILY April 12, 2020 12:00am Start: 04-12-2020 take 1 capsule by mo ut once daily Vitamin B Complex Active 1 CAP PO DAILY April 12, 2020 1:00am Vitamin B Complex capsule (1 source) Start: 04-12-2020 Vitamin B Comp carmen capsule Active 1 NMA PO DAILY April 12, 2020 1:00am vitamin e 180 mg oral capsule (16 sources) Start: 11-13-2022 take 1 capsule by mouth once daily Vitamin E 268 mg (400 unit) capsule Active 268 mg PO DAILY November 13, 2022 12:00am Start: 06-10-2020 End: 10-11-2021 Vitamin E (Dl, Acetate) 400 unit capsule Discontinued 400 U PO DAILY June 10, 2020 1:00am October 11, 2021 10:27am Zinc (11 sources) Start: 04-12-2020 take 50 mg by mouth once daily Zinc Active 50 MG PO DAILY April 12, 2020 11:36am Start: 04-12-2020 take 1 tablet by mouth once da saul Zinc 50 mg tablet Active 50 mg PO DAILY April 12, 2020 1:00am Start: 04-12-2020 take 50 mg by mouth once daily Zinc Active 50 MG PO DAILY April 12, 2020 12:00am Start: 04-12-2020 take 50 mg by mouth once daily Zinc Active 50 MG PO DAILY April 12, 2020 1:00am Completed/Discontinued Medications Medication Drug Class(es) Dates Sig (Normalized) Sig (Original) acetaminophen 325 mg / oxyCODONE hydrochloride 5 mg oral tablet (11 sources) Opioid Agonist Start: 02-07-2014 End: 08-22-2017 Oxycodone-Acetamino phen 1 TABLET tablet Discontinued 1 {tbl} PO EVERY 6 HOURS NEEDED as needed for Pain 16 February 07, 2014 12:00am August 22, 2017 10:24am Start: 02-07-2014 End: 08-22-2017 take 1 tablet by mouth every six hours as needed Oxycodone-Acetaminophen Discontinued 1 TABLET PO EVERY 6 HOURS NEEDED February 06, 2014 11:00pm August 22, 2017 9:24am amoxicillin 500 mg oral capsule (9 sources) Penicillin-class Antibacterial Start: 02-05-2022 End: 02-15-2022 take 2 capsules by mouth twice daily Amoxicillin 500 mg capsule Discontinued 1000 mg PO TWICE A DAY 40 10 February 05, 2022 12:00am February 14, 2022 12:00am February 15, 2022 12:04am do not start until 02/09/22, and only if still symptomatic at that time Start: 02-05-2022 End: 02-15-2022 take 1000 mg by mouth twice daily Amoxicillin Discontinued 1000 MG PO TWICE A DAY 40 February 04, 2022 11:00pm February 14, 2022 11:04pm do not start until 02/09/22, and only if still symptomatic at that time amoxicillin 875 mg / clavulanate 125 mg oral tablet (2 sources) Penicillin-class Antibacterial Start: 07-18-2024 End: 07-25-2024 Amoxicillin-Pot Clavulanate 875-125 mg tablet Discontinued 1 {tbl} PO TWICE A DAY 14 7 0 July 18, 2024 12:00am July 24, 2024 12:00am July 25, 2024 12:26am Start: 11-11-2013 End: 05-25-2015 take 1 tablet by mouth twice daily AMOXICILLIN-POT CLAVULANATE, 875-125MG (Oral Tablet) 1 (one) Tablet Tablet bid for 0 days Quantity: 28 {Tablet} Refills: 0 Ordered: 25-May-2015 Leonora Machado CMA Start : 11-Nov-2013 End : 25-May-2015 Inactive azithromycin 250 mg oral tablet (1 source) Macrolide Antimicrobial Start: 09-02-2012 End: 09-30-2012 ZITHROMAX Z-ANAI, 250MG (Oral Tablet) 1 Tablet TAD for 0 days Quantity: 1 {Package(s)} Refills: 0 Ordered: 30-Sep-2012 Jeannette DUANELeonora Start : 02-Sep-2012 End : 30-Sep-2012 Inactive B-C/FOLIC ACID PLUS (PO Tab) (1 source) End: 08-27-2007 take 1 tablet by mouth once daily B-C/FOLIC ACID PLUS (PO Tab) 1 tab qd for 0 days Refills: 0 Ordered: 12-Sep-2007 Arabella Santiago LPN End : 27-Aug-2007 Discontinued benzonatate 200 mg oral capsule (9 sources) Non-narcotic Antitussive Start: 02-10-2022 End: 11-13-2022 take 1 capsule by mouth at bedtime as needed for cough Benzonatate 200 mg capsule Discontinued 200 mg PO AT BEDTIME as needed for cough 10 0 February 10, 2022 12:00am November 13, 2022 10:37am betamethasone 0.5 mg/ml / clotrimazole 10 mg/ml topical cream (2 sources) Azole Antifungal, Corticosteroid Start: 06-10-2012 End: 07-17-2013 CLOTRIMAZOLE-BETA METHASONE, 1-0.05% (External Cream) apply Cream to affected areas bid, prn for 0 days Quantity: 30 {Cream} Refills: 1 Ordered: 17-Jul-2013 PRICILA Lara LPN Start : 10-Jun-2012 End : 17-Jul-2013 Inactive Start: 12-01-2010 End: 04-23-2011 LOTRISONE, 1-0.05% (External Cream) apply to affected area Cream bid for 0 days Quantity: 30 {Gram(s)} Refills: 1 Ordered: 23-Apr-2011 Rosalinda Roberts Start : 01-Dec-2010 End : 23-Apr-2011 Inactive calcium citrate 1040 mg oral tablet (20 sources) Start: 11-13-2022 End: 11-12-2023 take 2 tablets by mouth once daily Calcium Citrate 250 mg calcium tablet Discontinued 500 mg PO DAILY November 13, 2022 12:00am November 12, 2023 8:41am Start: 11-13-2022 take 500 mg by mouth once jaison y Calcium Citrate Active 500 MG PO DAILY November 12, 2022 11:00pm Start: 08-22-2017 End: 10-11-2021 take 4 tablets by mouth once daily Calcium Citrate 250 mg calcium tablet Discontinued 1000 mg PO daily August 22, 2017 12:00am October 11, 2021 10:27am Start: 05-02-2012 take 1 tablet by ellis once daily CALCIUM CITRATE 250 MG TABS One tablet by mouth daily CALCIUM CITRATE [id number] Kodi Nance MD calcium citrate 1500 mg / cholecalciferol 200 unt oral tablet (1 source) Vitamin D CALCIUM CITRATE + D, [id number] 1 qd for 0 days Refills: 0 Ordered: 09-Oct-2010 Rosalinda Roberts Active ciprofloxacin 500 mg oral tablet (3 sources) Quinolone Antimicrobial Start: 013 End: 013 take 1 tablet by mouth twice daily CIPROFLOXACIN HCL, 500MG (Oral Tablet) 1 Tablet bid for 7 days Quantity: 14 {Tablet} Refills: 0 Ordered: 28-May-2012 Gina Zambrano MD Start : 28-May-2012 End : 04-Jun-2012 Inactive Start: 05-24-2009 End: 05-31-2009 take 1 tablet by mouth twice daily CIPRO, 500MG (Oral Tablet) 1 Tablet BID for 7 days Quantity: 14 {Tablet} Refills: 0 Ordered: 24-May-2009 Start : 24-May-2009 End : 31-May-2009 Inactive Start: 03-19-2007 End: 09-12-2007 take 1 tablet by mouth twice daily CIPRO, 500MG (Oral Tablet) 1 (one) Tablet bid for 0 days Quantity: 20 {Tablet} Refills: 0 Ordered: 12-Sep-2007 TarynRosalinda hassan Start : 19-Mar-2007 End : 12-Sep-2007 Discontinued COENZYME Q10 (10 sources) Start: 06-01-2014 End: 07-31-2016 take 1 tablet by mouth once daily CO Q-10 100 MG CAPS One tablet by mouth daily COENZYME Q10 [id number] Kodi Nance MD Start: 06-01-2014 End: 07-31-2016 take 1 tablet by mouth once daily CO Q-10 100 MG CAPS One tablet by mouth daily COENZYME Q10 [id number] Tyra Sears PA-C Start: 06-01-2014 take 1 tablet by ellis th once daily CO Q-10 100 MG CAPS One tablet by mouth daily COENZYME Q10 [id number] Kodi Nance MD DAILY COMBO MULTI VITAMINS (Oral Tablet) (1 source) End: 08-27-2007 take 9 tablets by mouth once daily DAILY COMBO MULTI VITAMINS (Oral Tablet) for 0 days Refills: 0 Ordered: 12-Sep-2007 Jack HOLGUIN Arabella End : 27-Aug-2007 Discontinued dextromethorphan hydrobromide 2 mg/ml / guaiFENesin 20 mg/ml oral suspension (1 source) Uncompetitive I-qtqoum-Z-asparta te Receptor Antagonist, Sigma-1 Agonist Start: 10-31-2012 End: 10-31-2012 ROBITUSSIN DM, 100-10MG/5ML (Oral Syrup) 1 Syrup [id number] for 0 days Quantity: 6 {Syrup} Refills: 0 Ordered: 31-Oct-2012 Fast DO, Shikha A Fast DO, Shikha A Start : 31-Oct-2012 End : 31-Oct-2012 Discontinued diphenhydrAMINE hydrochloride 25 mg oral capsule (1 source) Histamine-1 Receptor Antagonist Start: 01-01-2011 End: 01-08-2011 take 1 capsule by mouth once daily at bedtime as needed BENADRYL ALLERGY, 25MG (Oral Capsule) 1 Capsule qhs prn for 7 days Quantity: 7 {Capsule} Refills: 0 Ordered: 16-Jan-2011 Khushi Joseph Start : 01-Jan-2011 End : 08-Jan-2011 Inactive docosahexaenoic acid 120 mg / eicosapentaenoic acid 180 mg oral capsule (1 source) take 1 capsule by mouth once daily FISH OIL CONCENTRATE, 1000MG (Oral Capsule) 1 cap qd (1000 MG) Inactive econazole nitrate 10 mg/ml topical cream (1 source) Azole Antifungal End: 04-23-2011 SPECTAZOLE, 1% (External Cream) apply to affected area Cream qd/prn for 0 days Quantity: 1 {Cream} Refills: 3 Ordered: 21-Nov-2009 Rosalinda Roberts End : 23-Apr-2011 Discontinued Comments: This order discontinued per [facility]. Comment on above: This order discontin ued per [facility]. escitalopram 10 mg oral tablet (1 source) Serotonin Reuptake Inhibitor Start: 05-25-2015 take 1 tablet by mouth once daily at bedtime ESCITALOPRAM OXALATE, 10MG (Oral Tablet) 1 (one) Tablet qhs for 0 days Quantity: 30 {Tablet} Refills: 2 Ordered: 25-May-2015 Fast DO, Shikha A Fast DO, Shikha A Start : 25-May-2015 Active 24 hr etodolac 400 mg extended release oral tablet (1 source) Nonsteroidal Anti-inflammatory Drug Start: 01-11-2012 End: 01-11-2012 take 2 tablets by mouth once daily at mealtime ETODOLAC CR, 400MG (Oral Tablet Extended Release 24 Hour) 2 (two) Tablet ER 24HR qd with food for 0 days Quantity: 60 {Tablet_ER_24HR} Refills: 0 Ordered: 11-Jan-2012 Rosalinda Roberts Start : 11-Jan-2012 End : 11-Jan-2012 Discontinued ezetimibe 10 mg oral tablet (1 source) Dietary Cholesterol Absorption Inhibitor End: 06-26-2006 take 1 tablet by mouth once daily ZETIA, 10MG (Oral Tablet) 1 Daily for 0 days Refills: 0 Ordered: 12-Sep-2007 Arabella Santiago LPN End : 26-Jun-2006 Discontinued ezetimibe 10 mg / simvastatin 20 mg oral tablet (1 source) HMG-CoA Reductase Inhibitor, Dietary Cholesterol Absorption Inhibitor End: 08-27-2007 take 1 tablet by mouth once daily VYTORIN, 10-20MG (Oral Tablet) 1 tab qd for 0 days Refills: 0 Ordered: 12-Sep-2007 Jack GARIBAYArabella Vora End : 27-Aug-2007 Discontinued famotidine 20 mg oral tablet (1 source) Histamine-2 Receptor Antagonist Start: 01-01-2011 End: 01-08-2011 take 1 tablet by mouth twice daily PEPCID, 20MG (Oral Tablet) 1 Tablet bid for 7 days Quantity: 14 {Tablet} Refills: 0 Ordered: 16-Jan-2011 Khushi Joseph Start : 01-Jan-2011 End : 08-Jan-2011 Inactive fish oil (10 sources) Start: 05-02-2012 take 1 tablet by mouth once daily FISH OIL CAPS One tablet by mouth daily OMEGA-3 FATTY ACIDS CAPS [id number] Kodi Nance MD Start: 05-02-2012 End: 06-02-2013 take 1 tablet by mouth once daily FISH OIL CAPS One tablet by mouth daily OMEGA-3 FATTY ACIDS CAPS [id number] Kodi Nance MD hydroCHLOROthiazide 12.5 mg oral tablet (20 sources) Thiazide Diuretic Start: 04-09-2019 End: 01-14-2023 take 1 tablet by mouth once daily Hydrochlorothiazide 12.5 mg tablet Discontinued 12.5 mg PO daily 90 March 20, 2022 3:08pm January 14, 2023 11:31am Start: 08-20-2017 End: 04-09-2019 take 1 tablet by mouth once daily Hydrochlorothiazide 25 mg tablet Discontinued 25 mg PO daily 90 March 10, 2019 1:30pm April 09, 2019 11:23am Start: 06-28-2015 take 1 tablet by ellis once daily HYDROCHLOROTHIAZIDE 25 MG TABS One tablet by mouth daily HYDROCHLOROTHIAZIDE [id number] Kodi Nance MD hydrocortisone acetate 25 mg rectal suppository (1 source) Corticosteroid Start: 05-25-2014 ANUSOL-HC, 25MG (Rectal Suppository) 1 (one) Suppository Suppository qhs prn for 0 days Quantity: 30 {Suppository} Refills: 0 Ordered: 19-Jan-2015 Rosalinda Roberts Start : 25-May-2014 Active 24 hr isosorbide mononitrate 60 mg extended release oral tablet (1 source) Nitrate Vasodilator End: 01-16-2011 take 1 tablet by mouth once daily ISOSORBIDE MONONITRATE, 60MG (Oral Tablet Extended Release 24 Hour) 1 tab qd for 0 days Refills: 0 Ordered: 16-Jan-2011 Charlotte Mathur RN End : 16-Jan-2011 Discontinued Comments: This order discontinued per [facility]. Comment on above: This order discontin ued per [facility]. lactobacillus acidophilus (5 sources) Start: 06-01-2014 take 1 tablet by mouth once daily ACIDOPHILUS 90-25 MG CHEW One tablet by mouth daily PROBIOTIC PRODUCT [id number] Kodi Nance MD levoFLOXacin 500 mg oral tablet (1 source) Quinolone Antimicrobial Start: 10-31-2012 End: 10-31-2012 take 1 tablet by mouth once daily LEVAQUIN, 500MG (Oral Tablet) 1 Tablet daily for 0 days Quantity: 14 {Tablet} Refills: 0 Ordered: 31-Oct-2012 Fast DO, Shikha A Fast DO, Shikha A Start : 31-Oct-2012 End : 31-Oct-2012 Discontinued linseed oil 1000 mg oral capsule (11 sources) Start: 06-10-2020 End: 10-11-2021 take 1 capsule by mouth once daily Flaxseed Oil 1,000 mg capsule Discontinued 1000 mg PO DAILY June 10, 2020 1:00am October 11, 2021 10:28am administer with a meal loratadine 5 mg disintegrating oral tablet (1 source) Start: 01-01-2011 End: 01-08-2011 take 1 tablet by mouth once daily CLARITIN REDITABS, 5MG (Oral Tablet Dispersible) 1 Tablet Disperse daily for 7 days Quantity: 7 {Tablet_Disperse} Refills: 0 Ordered: 16-Jan-2011 Makaylajaun Khushi Start : 01-Jan-2011 End : 08-Jan-2011 Inactive LORazepam 0.5 mg oral tablet (18 sources) Benzodiazepine Start: 04-09-2019 End: 04-12-2020 Lorazepam 0.5 mg tablet Discontinued 0.5 mg PO 1 to 2 times per day as needed April 09, 2019 1:00am April 12, 2020 11:33am Start: 02-13-2013 End: 04-05-2017 take 1 tablet by mouth once daily as needed LORAZEPAM 0.5 MG TABS One tablet by mouth daily as needed LORAZEPAM [id number] Tio BAEZ Comment on above: ten magnesium gluconate 500 mg oral tablet (6 sources) Start: 09-14-2010 take 1 tablet by mouth twice daily MAGNESIUM GLUCONATE 500 MG TABS One tablet by mouth twice daily MAGNESIUM GLUCONATE [id number] Jade Mcdaniel take 1 tablet by mouth once jaison y MAGNESIUM GLUCONATE, 250MG (Oral Tablet) 1 qd for 0 days Refills: 0 Ordered: 15-Feb-2009 Rosalinda Roberts Active methylsulfonylmethane 1000 mg oral tablet (20 sources) Start: 06-01-2014 End: 02-19-2017 take 1 tablet by mouth once daily EQL MSM 1000 MG TABS One tablet by mouth daily METHYLSULFONYLMETHANE [id number] Kodi Nance MD Start: 05-02-2012 End: 12-02-2013 take 1 tablet by mouth once daily MSM 500 MG CAPS One tablet by mouth jaison y METHYLSULFONYLMETHANE [id number] GEORGIA HernandezC 24 hr niacin 500 mg extended release oral tablet (1 source) Nicotinic Acid End: 08-27-2007 take 1 tablet by mouth once at bedtime NIASPAN, 500MG (Oral Tablet Extended Release) 1 Q HS for 0 days Refills: 0 Ordered: 12-Sep-2007 Arabella Santiago LPN End : 27-Aug-2007 Discontinued nitrofurantoin, macrocrystals 25 mg / nitrofurantoin, monohydrate 75 mg oral capsule (1 source) Nitrofuran Antibacterial Start: 12-10-2023 End: 12-15-2023 take 1 capsule by mouth every twelve hours at mealtime Nitrofurantoin Monohyd/M-Cryst (Macrobid) 100 mg capsule Discontinued 100 mg PO Q12H 10 5 0 December 10, 2023 12:00am December 14, 2023 12:00am December 15, 2023 12:04am must administer with a meal/food nitroglycerin 0.4 mg sublingual tablet (20 sources) Nitrate Vasodilator Start: 09-14-2010 End: 11-21-2022 Nitroglycerin 0.4 mg tablet, sublingual Discontinued 0.4 mg SL Q5M as needed for Chest Pain 25 4 May 13, 2020 9:02am November 21, 2022 9:29pm Start: 09-14-2010 NITROGLYCERIN 0.4 MG/HR PT24 1 tablet under tongue every 5 min up to 3 X NITROGLYCERIN [id number] Temo Toscano MD End: 08-27-2007 NITROGLYCERIN, 50MG (Injecti on Kit) for 0 days Refills: 0 Ordered: 12-Sep-2007 Heron Santiago LPNsie End : 27-Aug-2007 Discontinued olopatadine 2 mg/ml ophthalmic solution (1 source) Histamine-1 Receptor Inhibitor Start: 07-17-2013 PATADAY, 0.2% (Ophthalmic Solution) 1 (one) Solution Solution one gtt in affected eyes daily for 0 days Quantity: 1 {Container} Refills: 2 Ordered: 19-Jan-2015 Rosalinda Roberts Start : 17-Jul-2013 Active Lysite-3 Fatty Acids (10 sources) Start: 04-12-2020 End: 04-11-2021 take 1000 mg by mouth once daily Lysite-3 Fatty Acids Discontinued 1000 MG PO DAILY April 12, 2020 11:35am April 11, 2021 11:41am Start: 04-12-2020 End: 04-11-2021 take 1000 mg by mouth once daily Lysite-3 Fatty Acids Discontinued 1000 MG PO DAILY April 12, 2020 12:00am April 11, 2021 10:41am Start: 04-12-2020 End: 04-11-2021 take 1000 mg by mouth once daily Lysite-3 Fatty Acids Discontinued 1000 MG PO DAILY April 12, 2020 1:00am April 11, 2021 11:41am Lysite-3 Fatty Acids 1,000 mg capsule (1 source) Start: 04-12-2020 End: 04-11-2021 take 1 capsule by mouth once daily Lysite-3 Fatty Acids 1,000 mg capsule Discontinued 1000 mg PO DAILY April 12, 2020 1:00am April 11, 2021 11:41am potassium,chelated 99 mg oral tablet (5 sources) Start: 05-02-2012 take 1 tablet by mouth once daily POTASSIUM 99 MG TABS One tablet by mouth daily POTASSIUM [id number] Kodi Nance MD predniSONE 10 mg oral tablet (13 sources) Start: 07-08-2023 End: 11-12-2023 take 4 tablets by mouth once daily, then take 3 tablets by mouth once daily, then take 2 tablets by mouth once daily, then take 1 tablet by mouth once daily Prednisone 10 mg tablet Discontinued 10 mg PO DAILY 30 0 July 08, 2023 1:00am July 08, 2023 6:33pm 4 tablets daily x3 days, then 3 tablets daily x3 days, then 2 tablets daily x3 days, then 1 tablet daily x3 days Start: 02-07-2014 End: 08-22-2017 take 2 tablets by mouth once daily Prednisone 20 MG tablet Discontinued 40 mg PO DAILY 8 February 07, 2014 12:00am August 22, 2017 10:24am Start: 02-07-2014 End: 08-22-2017 take 40 mg by mouth once daily Prednisone Discontinued 40 MG PO DAILY February 06, 2014 11:00pm August 22, 2017 9:24am ramipril 10 mg oral capsule (20 sources) Angiotensin Converting Enzyme Inhibitor Start: 06-02-2013 End: 04-03-2018 take 1 capsule by mouth twice daily Ramipril 10 MG capsule Discontinued 10 mg PO TWICE A DAY February 07, 2014 12:00am April 03, 2018 11:32am Start: 09-11-2011 take 1 tablet by ellis th once daily ALTACE 10 MG CAPS One tablet by mouth daily RAMIPRIL [id number] Kodi Nance MD Start: 09-14-2010 take 1 tablet by ellis once daily ALTACE 2.5 MG CAPS One tablet by mouth daily RAMIPRIL [id number] [facility] [place] risedronate sodium 35 mg oral tablet (17 sources) Bisphosphonate Start: 09-11-2011 End: 07-31-2016 take 1 tablet by mouth every week ATELVIA, 35MG (Oral Tablet Delayed Release) 1 (one) Tablet DR once a week for 90 days Quantity: 12 {Tablet} Refills: 3 Ordered: 19-Jan-2015 Rosalinda Roberts Start : 08-Jun-2013 Active Start: 09-14-2010 End: 04-23-2011 ACTONEL, 150MG (Oral Tablet) 1 tab Tablet q month for 90 days Quantity: 3 {Tablet} Refills: 3 Ordered: 23-Apr-2011 Fast DO, Shikha A Fast DO, Shikha A Start : 23-Apr-2011 End : 23-Apr-2011 Discontinued sacubitril 49 mg / valsartan 51 mg oral tablet (10 sources) Angiotensin 2 Receptor Denzel Start: 11-23-2022 End: 12-04-2022 Sacubitril-Valsartan (Entresto) 49-51 mg tablet Discontinued 1 {tbl} PO TWICE A DAY 60 November 23, 2022 1:15pm December 04, 2022 1:45pm sertraline 50 mg oral tablet (20 sources) Serotonin Reuptake Inhibitor Start: 08-20-2017 End: 04-09-2019 take 1 tablet by mouth once daily Sertraline 50 mg tablet Discontinued 50 mg PO daily August 20, 2017 12:00am April 09, 2019 11:04am Start: 01-31-2016 ZOLOFT 50 MG T ABS as directed SERTRALINE HCL [id number] Tio BAEZ sulfamethoxazole 800 mg / trimethoprim 160 mg oral tablet (1 source) Dihydrofolate Reductase Inhibitor Antibacterial, Sulfonamide Antimicrobial Start: 04-05-2017 End: 04-10-2017 SULFAMETHOXAZOLE-TRIMETHOPRI M 800-160 MG TABS Take 1 tablet every 12 hours SULFAMETHOXAZOLE-TRIMETHOPRIM [id number] Tio BAEZ UBIQUINOL CAPS (10 sources) Start: 05-02-2012 End: 06-02-2013 take 1 tablet by mouth once daily UBIQUINOL CAPS One tablet by mouth daily UBIQUINOL CAPS [id number] Letty Faulkner RN Start: 05-02-2012 take 1 tablet by ellis th once daily UBIQUINOL CAPS One tablet by mouth daily UBIQUINOL CAPS [id number] Kodi Nance MD vitamin b6 50 mg oral capsule (17 sources) Start: 08-22-2017 End: 04-12-2020 take 1 capsule by mouth once daily Pyridoxine (Vitamin B6) (Vitamin B-6) 50 mg capsule Discontinued 50 mg PO daily August 22, 2017 12:00am April 12, 2020 11:33am Start: 06-02-2013 take 1 tablet by ellis th once daily VITAMIN B-6 100 MG TABS One tablet by mouth daily PYRIDOXINE HCL [id number] Kodi Nance MD End: 08-27-2007 take 1 tablet by mouth once daily VITAMIN B-6, 50MG (Oral Tablet) 1 tab qd for 0 days Refills: 0 Ordered: 12-Sep-2007 Arabella Santiago LPN End : 27-Aug-2007 Discontinued Problems Active Problems Problem Classification Problem Date Documented Da te Episodic/Chronic Acute myocardial infarction (5 sources) Subsequent ST elevation (STEMI) myocardial infarction of inferior wall; Translations: [Subsequent ST elevation (STEMI) myocardial infarction of inferior wall] Onset: 09-14-2010 09-14-2010 Chronic Allergic reactions (1 source) Allergic disorder of skin; Translations: [Allergic contact dermatitis, unspecified cause] 07-08-2023 Episodic Anxiety disorders (5 sources) Anxiety; Translations: [Anxiety] 05-25-2015 Chronic Biliary tract disease (3 sources) Gallstone; Translations: [Gallstones (Renamed from Calculus of gallbladder)] Resolved: 10-31-2012 10-31-2012 Episodic Cancer of thyroid (12 sources) Malignant tumor of thyroid gland; Translations: [Malignant neoplasm of thyroid gland] 06-01-2015 Chronic Conduction disorders (20 sources) Left bundle branch block; Translations: [Left bundle-branch block] Onset: 12-13-2014 12-13-2014 Chronic Coronary atherosclerosis and other heart disease (20 sources) Coronary arteriosclerosis; Translations: [Coronary atherosclerosis] Onset: 02-04-2000 09-14-2010 Chronic Diabetes mellitus without complication (15 sources) Impaired fasting glycemia; Translations: [Impaired fasting glucose (Renamed from Elevated fasting blood sugar)] 05-25-2015 Episodic Comment on above: chronic stable-ina nue present regimen Disorders of lipid metabolism (20 sources) Hyperlipidemia; Translations: [Hypercholesterolemi a] Onset: 06-02-2013 03-09-2016 Chronic Comment on above: diet and ex Essential hypertension (20 sources) Benign hypertension; Translations: [Essential (primary) hypertension] Onset: 06-28-2015 Resolved: 11-21-2009 06-28-2015 Chronic Comment on above: htn Genitourinary symptoms and ill-defined conditions (7 sources) Hematuria syndrome; Translations: [Blood in urine] Onset: 04-05-2017 Resolved: 10-12-2008 04-05-2017 Episodic Comment on above: urine looks like UTI . had MRI 2011 kidney and benign lesion. no pain like kidney stone. Headache; including migraine (3 sources) Headache; Translations: [Headache] 05-25-2015 Episodic Comment on above: improving think mult ifactorial Heart valve disorders (1 source) Mitral and aortic incompetence; Translations: [Mitral valve insufficiency and aortic valve insufficiency] 06-01-2015 Chronic Heart valve disorders (1 source) Heart murmur; Translations: [Heart murmur (Renamed from Cardiac murmur)] 05-25-2015 Episodic Hemorrhoids (2 sources) Hemorrhoids; Translations: [Hemorrhoids, unspecified hemorrhoid type] 05-25-2015 Episodic Immunizations and screening for infectious disease (14 sources) Needs influenza immunization; Translations: [Need for prophylactic vaccination and inoculation against influenza] Resolved: 06-10-2012 02-08-2015 Episodic Inflammation; infection of eye (except that caused by tuberculosis or sexually transmitteddisease) (2 sources) Conjunctivitis; Translations: [Conjunctivitis] Resolved: 02-11-2014 02-11-2014 Episodic Comment on above: seems allergic could be viral mild. antihistamine help will continue add patanol eye drop. if vison change or worsen all. Malaise and fatigue (10 sources) Fatigue; Translations: [Other fatigue] Episodic Menopausal disorders (1 source) Menopausal flushing; Translations: [Hot flashes] 05-25-2015 Chronic Comment on above: she tried amberin an d helped she will continue and let me know how goes Mycoses (1 source) Candidiasis of skin and nails; Translations: [Candidiasis, skin or nails] 06-01-2015 Episodic Nonmalignant breast conditions (2 sources) Breast signs and symptoms; Translations: [Other signs and symptoms in breast] 05-25-2015 Episodic Comment on above: left breast pain Occlusion or stenosis of precerebral arteries (20 sources) Bilateral stenosis of carotid arteries; Translations: [Bilateral carotid artery stenosis] Onset: 04-10-2024 05-26-2015 Chronic Comment on above: chronic stable-ina nue present regimen Other aftercare (1 source) [employer] wireman (current) use of aspirin; Translations: [x ray [employer] wireman (current) use of aspirin] Onset: 01-05-2021 Episodic Other aftercare (11 sources) Long-term current use of drug therapy; Translations: [Other intermediate (current) drug therapy] 04-08-2019 Episodic Other and unspecified benign neoplasm (1 source) Polyp of colon; Translations: [Colon polyp] 05-25-2015 Episodic Other and unspecified benign neoplasm (1 source) Lipoma of skin and subcutaneous tissue of face; Translations: [Lipoma of skin, face] 05-25-2015 Episodic Other bone disease and musculoskeletal deformities (16 sources) Osteopenia; Translations: [Osteopenia] 05-25-2015 Episodic Other connective tissue disease (1 source) Muscle pain; Translations: [Myalgia and myositis] 05-25-2015 Episodic Other connective tissue disease (2 sources) Pain in limb; Translations: [Pain in limb (Renamed from Extremity pain)] 05-25-2015 Episodic Other liver diseases (2 sources) Steatosis of liver; Translations: [Fatty liver] 05-26-2015 Chronic Comment on above: chronic stable-ina nue present regimen Other liver diseases (15 sources) Fatty liver Chronic Other liver diseases (1 source) Fatty (change of) liver, not elsewhere classified; Translations: [Fatty (change of) liver, not elsewhere classified] Onset: 07-04-2024 Chronic Other lower respiratory disease (2 sources) Cough; Translations: [Cough] Onset: 01-05-2021 Episodic Other lower respiratory disease (2 sources) Wheezing; Translations: [Wheezing (Renamed from Asthmatic breathing)] 05-25-2015 Episodic Other lower respiratory disease (15 sources) Cough; Translations: [Cough] Resolved: 10-31-2012 10-31-2012 Episodic Comment on above: think von bentley for PE low will check cxr. and leaquin. if worsen to ER Other non-traumatic joint disorders (1 source) Pain in unspecified knee; Translations: [Knee pain (Renamed from Arthralgia of knee)] 05-25-2015 Episodic Other non-traumatic joint disorders (3 sources) Knee pain Episodic Other nutritional; endocrine; and metabolic disorders (1 source) Body mass index (BMI) 31.0-31.9, adult; Translations: [Body mass index (BMI) 31.0-31.9, adult] Onset: 09-14-2010 06-28-2015 Chronic Other screening for suspected conditions (not mental disorders or infectious disease) (3 sources) Other specified abnormal findings of blood chemistry; Translations: [Elevated LFTs] Onset: 01-11-2012 Resolved: 06-12-2010 05-25-2015 Episodic Other skin disorders (1 source) Sebaceous cyst of skin; Translations: [Sebaceous cyst] 05-25-2015 Episodic Other skin disorders (1 source) Sebaceous cyst Episodic Other upper respiratory infections (1 source) Sinusitis; Translations: [Chronic sinusitis, unspecified] 07-18-2024 Chronic Pneumonia (except that caused by tuberculosis or sexually transmitted disease) (1 source) Pneumonia (except that caused by tuberculosis or sexually transmitted disease); Translations: [PNEUMONIA DUE TO CORONAVIRUS DISEASE 2018] Onset: 01-05-2021 Spondylosis; intervertebral disc disorders; other back problems (3 sources) Low back pain; Translations: [Low back pain potentially associated with radiculopathy] Resolved: 02-14-2009 05-25-2015 Episodic Comment on above: improving with chiro practic treatments Thyroid disorders (11 sources) Hypothyroidism, unspecified; Translations: [Acquired hypothyroidism] Onset: 01-05-2021 05-25-2015 Chronic Unclassified (14 sources) Body mass index (BMI) 30.0-30.9, adult; Translations: [Body mass index (BMI) 31.0-31.9, adult] Onset: 09-14-2010 Resolved: 06-28-2015 06-02-2013 Chronic Unclassified (10 sources) Long-term drug therapy; Translations: [Long-term (current) use of other medications] Onset: 09-08-2013 09-08-2013 Unclassified (3 sources) cyst on kidney with possible nodule right kidney 05-25-2015 Unclassified (3 sources) hyperdense cyst on kidney and adrenal nodule -- followup october 12 05-25-2015 Comment on above: just had full body s can -get results to see if need to still followup adrenal Unclassified (14 sources) screening Resolved: 02-11-2014 05-25-2015 Unclassified (3 sources) abnormal bone scan Resolved: 01-02-2008 01-05-2008 Unclassified (20 sources) Unclassified (1 source) Bilateral carotid artery stenosis Unclassified (1 source) Colon polyp Unclassified (20 sources) Carotid stenosis (433.10) Unclassified (10 sources) Elevated LFT (790.6) Unclassified (1 source) BRONCHITIS, NOT SPECIFIED ACUTE OR CHRONIC (490.) Unclassified (4 sources) CANDIDIASIS, SKIN/NAILS (112.3) Unclassified (1 source) LOW BACK PAIN WITH RADICULOPATHY (724.4) Unclassified (1 source) Hot Flashes (782.62) Unclassified (4 sources) Colon polyp (211.3) Unclassified (2 sources) LEUKOPENIA, NOS (288.0) Unclassified (1 source) NONSPECIFIC FINDINGS ON EXAMINATION OF BLOOD, OTHER NONSPECIFIC ABNORMAL SERUM ENZYME LEVELS Unclassified (2 sources) Abnormal CT of Abdomen(794.9) Unclassified (3 sources) Urinary Urge Incontinence (788.31) Unclassified (2 sources) NONSPECIFIC FINDINGS ON EXAMINATION OF BLOOD, OTHER NONSPECIFIC ABNORMAL SERUM ENZYME LEVELS (790.5) Unclassified (1 source) Cerumen impaction (380.4) Urinary tract infections (2 sources) Urinary tract infections Varicose veins of lower extremity (1 source) Varicose veins of lower extremity with inflammation; Translations: [Varicose veins of lower extremities with inflammation] 06-01-2015 Episodic Viral infection (1 source) COVID-19; Translations: [COVID-19] Onset: 01-05-2021 Past or Other Problems Problem Classification Problem Date Documented Da te Episodic/Chronic Chronic obstructive pulmonary disease and bronchiectasis (1 source) Bronchitis; Translations: [Bronchitis] Resolved: 10-31-2012 02-08-2015 Episodic Coronary atherosclerosis and other heart disease (10 sources) Coronary angioplasty status; Translations: [Presence of coronary angioplasty implant and graft] Onset: 09-14-2010 09-14-2010 Episodic Diseases of white blood cells (1 source) Leukopenia; Translations: [Leukopenia] Resolved: 06-12-2010 06-16-2015 Chronic Genitourinary symptoms and ill-defined conditions (1 source) Urge incontinence of urine; Translations: [Sensory urge incontinence] Resolved: 01-02-2008 03-29-2015 Chronic Nonspecific chest pain (5 sources) Chest pain, unspecified; Translations: [Chest pain, unspecified] Onset: 09-14-2010 09-14-2010 Episodic Other ear and sense organ disorders (1 source) Impacted cerumen; Translations: [Cerumen impaction] Resolved: 10-12-2008 02-08-2015 Episodic Other liver diseases (1 source) Other nonspecific abnormal serum enzyme levels; Translations: [NONSPECIFIC FINDINGS ON EXAMINATION OF BLOOD, OTHER NONSPECIFIC ABNORMAL SERUM ENZYME LEVELS] Resolved: 06-12-2010 06-12-2010 Episodic Other skin disorders (1 source) Eruption; Translations: [Rash (Renamed from Cutaneous eruption)] Resolved: 02-14-2009 02-14-2009 Episodic Comment on above: yeast under breast Other upper respiratory infections (15 sources) Acute sinusitis; Translations: [Acute Sinusitis (Renamed from Acute infection of nasal sinus)] Onset: 07-18-2024 Resolved: 02-11-2014 02-11-2014 Episodic Residual codes; unclassified (1 source) Family history of stroke; Translations: [Family history of stroke] 12-13-2014 Episodic Superficial injury; contusion (1 source) Insect bite to arm - nonvenomous; Translations: [Nonvenomous insect bite to arm] Resolved: 01-22-2014 06-16-2015 Episodic Comment on above: right Unclassified (9 sources) Body mass index (BMI) 28.0-28.9, adult; Translations: [Family history of stroke] Onset: 09-14-2010 07-31-2016 Episodic Unclassified (1 source) CAROTID STENOSIS 05-25-2015 Unclassified (1 source) COLON POLYPS 05-25-2015 Unclassified (1 source) Total hysterectomy; Translations: [Hysterectomy, Total] 05-25-2015 Comment on above: -LAINGE Unclassified (1 source) Pregnancies (); Translations: [Pregnancies ()] 05-25-2015 Comment on above: 0. Unclassified (2 sources) Thyroidectomy; Total; Translations: [Thyroidectomy; Total] 05-25-2015 Unclassified (2 sources) Lipoma of skin, face (214.0) Unclassified (1 source) VARICOSE VEIN, LWR EXTREMITIES W/INFLAMMATION (454.1) Unclassified (1 source) Insect bite, nonvenomous of elbow, forearm, and wrist, without mention of infection (913.4) Unclassified (1 source) Rash (782.1) Unclassified (1 source) Myalgia and myositis, unspecified (729.1) Unclassified (1 source) SYMPTOMS INVOLVING URINARY SYSTEM; URGENCY OF URINATION (788.63) Unclassified (1 source) Well Woman Exam (V72.31) (Pap,Mammo,Routine Female) Urinary tract infections (2 sources) Cystitis; Translations: [Urinary tract infectious disease] Onset: 04-05-2017 Resolved: 02-11-2014 04-05-2017 Episodic Viral infection (20 sources) COVID-19; Translations: [Severe acute respiratory syndrome coronavirus 2 (SARS-CoV-2) detected] Onset: 12-30-2020 04-10-2021 Episodic Results Test Name Value Interpretation Reference Range Facility Absolute lymphocyte countOrd ered By: Cece Aleman on 12-04-2024 Lymphocytes Auto (Unsp spec) [#/Vol] 1.32 10*3/uL 0.83-4.51 [facility] Absolute neutrophil countOrd ered By: Cece Aleman on 12-04-2024 Neutrophils (Bld) [#/Vol] 3.4 10*3/uL 2.0-7.7 [facility] Anion gap in Serum or Plasma Ordered By: Cece Aleman on 12-04-2024 Anion gap [Moles/Vol] 12 mmol/L 5-15 [facility] Automated lymphocyte count a s percentage of total leukocytesOrdered By: Cece Aleman on 12-04-2024 Lymphocytes/100 WBC Auto (Unsp spec) 23.7 % 19-41 [facility] BUN/creatinine ratioOrdered By: Cece Aleman on 12-04-2024 Urea nitrogen/Creatinine [Mass ratio] 18.9 mg/mg 10-20 [facility] Basophil percentageOrdered B y: Cece Aleman on 12-04-2024 Basophils/100 WBC (Bld) 1.4 % High 0-1 [facility] Bilirubin, totalOrdered By: Cece Aleman on 12-04-2024 Bilirubin [Mass/Vol] 0.82 mg/dL 0.00-1.30 [facility] CBC W/Diff, Automatedon Absolute Lymph 1.32 X10 3/uL Normal 0.83-4.51 [facility] Comment on above: Performed By: #### L 506.0400, L501.9520, L100.0100, L500.4050, L500.4100 #### [facility] [address] [place], [address] Absolute Neut 3.4 X10 3/uL Normal 2.0-7.7 [facility] Comment on above: Performed By: #### L 506.0400, L501.9520, L100.0100, L500.4050, L500.4100 #### [facility] [address] [place], [address] Basophils/100 WBC (Bld) 1.4 % High 0-1 [facility] Comment on above: Performed By: #### L 506.0400, L501.9520, L100.0100, L500.4050, L500.4100 #### [facility] [address] [place], [address] Eosinophils/100 WBC (Bld) 3.8 % Normal 0-5 [facility] Comment on above: Performed By: #### L 506.0400, L501.9520, L100.0100, L500.4050, L500.4100 #### [facility] [address] [place], [address] Erythrocyte distribution width (RBC) [Ratio] 13.1 % Normal 11.6-14.6 [facility] Comment on above: Performed By: #### L 506.0400, L501.9520, L100.0100, L500.4050, L500.4100 #### [facility] [address] [place], [address] Hematocrit (Bld) [Volume fraction] 42.9 % Normal 37-47 [facility] Comment on above: Performed By: #### L 506.0400, L501.9520, L100.0100, L500.4050, L500.4100 #### [facility] [address] [place], [address] Hemoglobin (Bld) [Mass/Vol] 14.5 g/dL Normal 12.0-15.0 [facility] Comment on above: Performed By: #### L 506.0400, L501.9520, L100.0100, L500.4050, L500.4100 #### [facility] [address] [place], [address] IG% 0.200 Normal 0.0-0.9 [facility] Comment on above: Result Comment: IG% - Immature Granulocytes (promyelocytes, myelocytes and metamyelocytes) > 1% indicates that a LEFT SHIFT is Present. Performed By: #### L 506.0400, L501.9520, L100.0100, L500.4050, L500.4100 #### [facility] [address] [place], [address] Lymphocytes/100 WBC (Bld) 23.7 % Normal 19-41 [facility] Comment on above: Performed By: #### L 506.0400, L501.9520, L100.0100, L500.4050, L500.4100 #### [facility] [address] [place], [address] MCH (RBC) [Entitic mass] 30.3 pg Normal 27.0-32.0 [facility] Comment on above: Performed By: #### L 506.0400, L501.9520, L100.0100, L500.4050, L500.4100 #### [facility] [address] [place], [address] MCHC (RBC) [Mass/Vol] 33.8 g/dL Normal 32-36 [facility] Comment on above: Performed By: #### L 506.0400, L501.9520, L100.0100, L500.4050, L500.4100 #### [facility] [address] [place], [address] MCV (RBC) [Entitic vol] 89.6 fL Normal 81-99 [facility] Comment on above: Performed By: #### L 506.0400, L501.9520, L100.0100, L500.4050, L500.4100 #### [facility] [address] [place], [address] Monocytes/100 WBC (Bld) 9.4 % Normal 0-10 [facility] Comment on above: Performed By: #### L 506.0400, L501.9520, L100.0100, L500.4050, L500.4100 #### [facility] [address] [place], [address] Neutrophils/100 WBC (Bld) 61.5 % Normal 47-70 [facility] Comment on above: Performed By: #### L 506.0400, L501.9520, L100.0100, L500.4050, L500.4100 #### [facility] [address] [place], [address] Nucleated RBC (Bld) [#/Vol] 0 10*3/uL Normal 0-5 [facility] Comment on above: Performed By: #### L 506.0400, L501.9520, L100.0100, L500.4050, L500.4100 #### [facility] [address] [place], [address] Platelet mean volume (Bld) [Entitic vol] 9.8 fL Normal 6.2-12.0 [facility] Comment on above: Performed By: #### L 506.0400, L501.9520, L100.0100, L500.4050, L500.4100 #### [facility] [address] [place], [address] Platelets (Bld) [#/Vol] 247 10*3/uL Normal 150-450 [facility] Comment on above: Performed By: #### L 506.0400, L501.9520, L100.0100, L500.4050, L500.4100 #### [facility] [address] [place], [address] RBC (Bld) [#/Vol] 4.79 10*6/uL Normal 4.2-5.4 [facility] Comment on above: Performed By: #### L 506.0400, L501.9520, L100.0100, L500.4050, L500.4100 #### [facility] [address] [place], [address] RDW SD 43.0 fl Normal 35.1-43.9 [facility] Comment on above: Performed By: #### L 506.0400, L501.9520, L100.0100, L500.4050, L500.4100 #### [facility] [address] [place], [address] WBC (Bld) [#/Vol] 5.6 10*3/uL Normal 4.4-11.0 [facility] Comment on above: Performed By: #### L 506.0400, L501.9520, L100.0100, L500.4050, L500.4100 #### [facility] [address] [place], [address] Calculated very low density lipoprotein (VLDL) cholesterol measurementOrdered By: Cece Aleman on 12-04-2024 Calculated very low density lipoprotein (VLDL) cholesterol measurement 31 mg/dL 5-40 [facility] Carbon dioxide, total [Moles /volume] in Central venous bloodOrdered By: Cece Aleman on 12-04-2024 CO2 [Moles/Vol] 23.7 mmol/L 21.0-32.0 [facility] Chloride assayOrdered By: Kostas Aleman on 12-04-2024 Chloride [Moles/Vol] 105 mmol/L 98-108 [facility] Comprehensive Metabolic Prof ilon 12-04-2024 Albumin [Mass/Vol] 4.4 g/dL Normal 3.4-4.8 [facility] Comment on above: Performed By: #### L 506.0400, L501.9520, L100.0100, L500.4050, L500.4100 #### [facility] [address] [place], [address] Albumin/Globulin [Mass ratio] 1.6 {ratio} Normal 0.9-2.4 [facility] Comment on above: Performed By: #### L 506.0400, L501.9520, L100.0100, L500.4050, L500.4100 #### [facility] [address] [place], [address] ALK PHOS 168 U/L High 35-104 [facility] Comment on above: Performed By: #### L 506.0400, L501.9520, L100.0100, L500.4050, L500.4100 #### [facility] [address] [place], [address] ALT [Catalytic activity/Vol] 68 U/L High <=34 [facility] Comment on above: Performed By: #### L 506.0400, L501.9520, L100.0100, L500.4050, L500.4100 #### [facility] [address] [place], [address] AST [Catalytic activity/Vol] 45 U/L High <=31 [facility] Comment on above: Performed By: #### L 506.0400, L501.9520, L100.0100, L500.4050, L500.4100 #### [facility] [address] [place], [address] Bilirubin [Mass/Vol] 0.82 mg/dL Normal 0.00-1.30 [facility] Comment on above: Performed By: #### L 506.0400, L501.9520, L100.0100, L500.4050, L500.4100 #### [facility] [address] [place], [address] BUN/CRE 18.9 RATIO Normal 10-20 [facility] Comment on above: Performed By: #### L 506.0400, L501.9520, L100.0100, L500.4050, L500.4100 #### [facility] [address] [place], [address] Calcium [Mass/Vol] 9.5 mg/dL Normal 7.6-11.0 [facility] Comment on above: Performed By: #### L 506.0400, L501.9520, L100.0100, L500.4050, L500.4100 #### [facility] [address] [place], [address] Chloride [Moles/Vol] 105 mmol/L Normal 98-108 [facility] Comment on above: Performed By: #### L 506.0400, L501.9520, L100.0100, L500.4050, L500.4100 #### [facility] [address] [place], [address] CO2 [Moles/Vol] 23.7 mmol/L Normal 21.0-32.0 [facility] Comment on above: Performed By: #### L 506.0400, L501.9520, L100.0100, L500.4050, L500.4100 #### [facility] [address] [place], [address] Creatinine [Mass/Vol] 0.81 mg/dL Normal 0.70-1.20 [facility] Comment on above: Performed By: #### L 506.0400, L501.9520, L100.0100, L500.4050, L500.4100 #### [facility] [address] [place], [address] GAP 12 Normal 5-15 [facility] Comment on above: Performed By: #### L 506.0400, L501.9520, L100.0100, L500.4050, L500.4100 #### [facility] [address] [place], [address] GFR/1.73 sq M.predicted among non-blacks MDRD (S/P/Bld) [Vol rate/Area] 76 mL/min/{1.73_m2} Normal >60 [facility] Comment on above: Result Comment: mL/m in/1.73m2 CKD-EPI Creatinine Equation (2020) Performed By: #### L 506.0400, L501.9520, L100.0100, L500.4050, L500.4100 #### [facility] [address] [place], [address] Globulin (S) [Mass/Vol] 2.8 g/dL Normal 2.2-4.2 [facility] Comment on above: Performed By: #### L 506.0400, L501.9520, L100.0100, L500.4050, L500.4100 #### [facility] [address] [place], [address] Glucose [Mass/Vol] 91 mg/dL Normal 70-99 [facility] Comment on above: Performed By: #### L 506.0400, L501.9520, L100.0100, L500.4050, L500.4100 #### [facility] [address] [place], [address] Potassium [Moles/Vol] 4.5 mmol/L Normal 3.3-5.1 [facility] Comment on above: Performed By: #### L 506.0400, L501.9520, L100.0100, L500.4050, L500.4100 #### [facility] [address] [place], [address] Sodium [Moles/Vol] 140 mmol/L Normal 133-145 [facility] Comment on above: Performed By: #### L 506.0400, L501.9520, L100.0100, L500.4050, L500.4100 #### [facility] [address] [place], [address] T PROT 7.2 g/dL Normal 5.9-8.4 [facility] Comment on above: Performed By: #### L 506.0400, L501.9520, L100.0100, L500.4050, L500.4100 #### [facility] [address] [place], [address] Urea nitrogen [Mass/Vol] 15 mg/dL Normal 4-19 [facility] Comment on above: Performed By: #### L 506.0400, L501.9520, L100.0100, L500.4050, L500.4100 #### [facility] [address] [place], [address] Eosinophil percentageOrdered By: Cece Aleman on 12-04-2024 Eosinophils/100 WBC (Bld) 3.8 % 0-5 [facility] Erythrocyte distribution wid th ratioOrdered By: Cece Aleman on 12-04-2024 Erythrocyte distribution width (RBC) [Ratio] 13.1 % 11.6-14.6 [facility] Erythrocyte distribution wid th standard deviationOrdered By: Cece Aleman on 12-04-2024 Erythrocyte distribution width (RBC) [Ratio] 43.0 fl 35.1-43.9 [facility] Glomerular filtration rate ( GFR) estimation/1.73 sq m using serum, plasma, or whole bOrdered By: Cece Aleman on 12-04-2024 GFR/1.73 sq M.predicted among non-blacks MDRD (S/P/Bld) [Vol rate/Area] 76 mL/min/{1.73_m2} >60 [facility] Comment on above: mL/min/1.73m2 CKD-EP I Creatinine Equation (2020) Hematocrit Auto (Bld) [Volum e fraction]Ordered By: Cece Aleman on 12-04-2024 Hematocrit (Bld) [Volume fraction] 42.9 % 37-47 [facility] Hemoglobin measurementOrdere d By: Cece Aleman on 12-04-2024 Hemoglobin (Bld) [Mass/Vol] 14.5 g/dL 12.0-15.0 [facility] Immature granulocytes/100 WB C Auto (Bld)Ordered By: Cece Aleman on 12-04-2024 Immature granulocytes/100 WBC (Bld) 0.200 % 0.0-0.9 [facility] Comment on above: IG% - Immature Granu locytes (promyelocytes, myelocytes and metamyelocytes) > 1% indicates that a LEFT SHIFT is Present. LDL calc ser/plasOrdered By: Cece Aleman on 12-04-2024 Cholesterol in LDL [Mass/Vol] 90 mg/dL [facility] Comment on above: Pxyjuxlmrt=751-601 m g/dL & Higher Uqnk=632 mg/dL or greaterFriedwald Equation for LDL-C Laboratory - Chemistry and C hemistry - challengeOrdered By: Cece Aleman on 12-04-2024 AST [Catalytic activity/Vol] 45 U/L High <32 [facility] Lipid Profileon 12-04-2024 CHOL:HDL 4.09 Normal [facility] Comment on above: Performed By: #### L 506.0400, L501.9520, L100.0100, L500.4050, L500.4100 #### [facility] [place], [address] Cholesterol [Mass/Vol] 160 mg/dL Normal <=200 [facility] Comment on above: Result Comment: Chol esterol level, Desirable <200 mg/dL Borderline high cholesterol 200-239 mg/dL High cholesterol >=240 mg/dL Recommendations of the NCEP Adult Treatment Panel for the following risk-cutoff thresholds for the [place] population. Performed By: #### L 506.0400, L501.9520, L100.0100, L500.4050, L500.4100 #### [facility] [address] [place], [address] Cholesterol in HDL [Mass/Vol] 39 mg/dL Low [facility] Comment on above: Result Comment: [place] onal Cholesterol Education Program (NCEP) guidelines: <40 mg/dL: Low HDL-cholesterol (major risk factor for CHD) >= 60 mg/dL: High HDL-cholesterol (negative risk factor for CHD) HDL-cholesterol is affected by a number of factors, e.g. smoking, exercise, hormones, sex and age. Performed By: #### L 506.0400, L501.9520, L100.0100, L500.4050, L500.4100 #### [facility] [address] [place], [address] Cholesterol in LDL [Mass/Vol] 90 mg/dL Normal [facility] Comment on above: Result Comment: Bord uqxxuu=843-512 mg/dL Higher Akxe=642 mg/dL or greater Friedwald Equation for LDL-C Performed By: #### L 506.0400, L501.9520, L100.0100, L500.4050, L500.4100 #### [facility] [address] [place], [address] Cholesterol in VLDL [Mass/Vol] 31 mg/dL Normal 5-40 [facility] Comment on above: Performed By: #### L 506.0400, L501.9520, L100.0100, L500.4050, L500.4100 #### [facility] [address] [place], [address] Triglyceride [Mass/Vol] 154 mg/dL Normal [facility] Comment on above: Result Comment: The drugs N-Acetylcysteine and Metamizole may falsely depress this assay. Normal range: <150 mg/dL Borderline High: 150-199 mg/dL High: 200-499 mg/dL Very High: >500 mg/dL Performed By: #### L 506.0400, L501.9520, L100.0100, L500.4050, L500.4100 #### [facility] [address] [place], [address] MCV (mean corpuscular volume ) determinationOrdered By: Cece Aleman on 12-04-2024 MCV (RBC) [Entitic vol] 89.6 fL 81-99 [facility] Mean corpuscular hemoglobin (MCH) determinationOrdered By: Cece Aleman on 12-04-2024 MCH (RBC) [Entitic mass] 30.3 pg 27.0-32.0 [facility] Mean corpuscular hemoglobin concentration (MCHC) determinationOrdered By: Cece Aleman on 12-04-2024 MCHC (RBC) [Mass/Vol] 33.8 g/dL 32-36 [facility] Mean platelet volume determi nationOrdered By: Cece Aleman on 12-04-2024 Platelet mean volume (Bld) [Entitic vol] 9.8 fL 6.2-12.0 [facility] Monocyte percentageOrdered B y: Cece Aleman on 12-04-2024 Monocytes/100 WBC (Bld) 9.4 % 0-10 [facility] Neutrophil percentageOrdered By: Cece Aleman on 12-04-2024 Neutrophils/100 WBC (Bld) 61.5 % 47-70 [facility] Nucleated red blood cell per centageOrdered By: Cece Aleman on 12-04-2024 Nucleated RBC/100 WBC (Bld) [Ratio] 0 % 0-5 [facility] Platelet countOrdered By: Kostas Aleman on 12-04-2024 Platelets (Bld) [#/Vol] 247 10*3/uL 150-450 [facility] Potassium measurement (mass/ volume)Ordered By: Cece Aleman on 12-04-2024 Potassium (Unsp spec) [Mass/Vol] 4.5 mmol/L 3.3-5.1 [facility] RBC Auto (Bld) [#/Vol]Ordere d By: Cece Aleman on 12-04-2024 RBC (Bld) [#/Vol] 4.79 10*6/uL 4.2-5.4 [facility] Screening total cholesterol/ high density lipoprotein (HDL) cholesterol ratioOrdered By: Cece Aleman on 12-04-2024 Cholesterol.total/Cho lesterol in HDL [Mass ratio] 4.09 {ratio} [facility] Serum creatinine measurement (mass/volume)Ordered By: Cece Aleman on 12-04-2024 Creatinine [Mass/Vol] 0.81 mg/dL 0.70-1.20 [facility] Serum globulin measurementOr dered By: Cece Aleman on 12-04-2024 Globulin (S) [Mass/Vol] 2.8 g/dL 2.2-4.2 [facility] Serum glucose measurement (m ass/volume)Ordered By: Cece Aleman on 12-04-2024 Glucose [Mass/Vol] 91 mg/dL 70-99 [facility] Serum or plasma alanine jiang otransferase (ALT) measurementOrdered By: Cece Aleman on 12-04-2024 ALT [Catalytic activity/Vol] 68 U/L High <35 [facility] Serum or plasma albumin pablo urement (mass/volume)Ordered By: Cece Aleman on 12-04-2024 Albumin [Mass/Vol] 4.4 g/dL 3.4-4.8 [facility] Serum or plasma albumin/glob ulin mass ratioOrdered By: Cece Aleman on 12-04-2024 Albumin/Globulin [Mass ratio] 1.6 {ratio} 0.9-2.4 [facility] Serum or plasma alkaline tatyana sphatase measurementOrdered By: Cece Aleman on 12-04-2024 ALP [Catalytic activity/Vol] 168 U/L High 35-104 [facility] Serum or plasma calcium pablo urement (mass/volume)Ordered By: Cece Aleman on 12-04-2024 Calcium [Mass/Vol] 9.5 mg/dL 7.6-11.0 [facility] Serum or plasma cholesterol in HDL measurement (mass/volume)Ordered By: Cece Aleman on 12-04-2024 Cholesterol in HDL [Mass/Vol] 39 mg/dL Low >40 [facility] Comment on above: National Cholesterol Education Program (NCEP) guidelines:<40 mg/dL: Low HDL-cholesterol (major risk factor for CHD)>= 60 mg/dL: High HDL-cholesterol (negative risk factor for CHD)HDL-cholesterol is affected by a number of factors, e.g. smoking, exercise, hormones, sex and age. Serum or plasma cholesterol measurement (mass/volume)Ordered By: Cece Aleman on 12-04-2024 Cholesterol [Mass/Vol] 160 mg/dL <201 [facility] Comment on above: Cholesterol level, D esirable <200 mg/dLBorderline high cholesterol 200-239 mg/dLHigh cholesterol >=240 mg/dLRecommendations of the NCEP Adult Treatment Panel for the following risk-cutoff thresholds for the [place] population. Serum or plasma urea nitroge n measurement (mass/volume)Ordered By: Cece lAeman on 12-04-2024 Urea nitrogen [Mass/Vol] 15 mg/dL 4-19 [facility] Sodium levelOrdered By: Kayleen Aleman on 12-04-2024 Sodium [Moles/Vol] 140 mmol/L 133-145 [facility] T4 Free Directon 12-04-2024 T4 FREE DIRECT 1.40 ng/dL Normal 0.76-1.46 [facility] Comment on above: Performed By: #### L 506.0400, L501.9520, L100.0100, L500.4050, L500.4100 #### [facility] [address] [place], [address] T4 freeOrdered By: Cece li on 12-04-2024 Free T4 [Mass/Vol] 1.40 ng/dL 0.76-1.46 [facility] TSH DL <= 0.005 mIU/L QnOrde red By: Cece Aleman on 12-04-2024 TSH Qn 0.202 uIU/mL Low 0.300-4.20 0 [facility] Thyroid Stim Hormone (TSH)on 12-04-2024 TSH 0.202 uIU/mL Low 0.300-4.20 0 [facility] Comment on above: Performed By: #### L 506.0400, L501.9520, L100.0100, L500.4050, L500.4100 #### [facility] [address] [place], [address] Total proteinOrdered By: Allen Aleman on 12-04-2024 Protein [Mass/Vol] 7.2 g/dL 5.9-8.4 [facility] Triglycerides measurementOrd ered By: Cece Aleman on 12-04-2024 Triglyceride [Mass/Vol] 154 mg/dL <199 [facility] Comment on above: The drugs N-Acetylcy steine and Metamizole may falsely depress this assay. Normal range: <150 mg/dLBorderline High: 150-199 mg/dLHigh: 200-499 mg/dLVery High: >500 mg/dL White blood cell (WBC) count Ordered By: Cece Aleman on 12-04-2024 WBC (Bld) [#/Vol] 5.6 10*3/uL 4.4-11.0 [facility] Urgent Care Visit Reporton 0 07-18-2024 Urgent Care Visit Report [facility] [address] , [address] [place] [address] OFFICE VISIT Date of Service: 07/18/24 MR#: [id number] Acct: [id number] Name: ILAN CANELA Rep #: [id number] : 1950 Provider: NESTOR Delcid Age/Sex: 74/F Location: [facility] Status: Signed Intake Vital Signs 12/10/23 09:30 07/18/24 09:24 Height 5 ft 4 in BP 128/88 H Position Sitting Pulse 87 Temp 97.8 F Temp Source Oral Pulse Oximetry (%) 97 Oxygen Delivery Method room air Intake Visit Reasons: SINUS PRES/COUGH/CONGESTION Accompanied by: Self Allergies fluconazole Allergy (Mild, Verified 04/10/24 09:09) Rash naproxen sodium (From Aleve) Allergy (Verified 04/10/24 09:09) Itching oseltamivir (From Tamiflu) Adverse Reaction (Verified 04/10/24 09:09) Vomitting Medications ???Medication ???Instructions ???Recorded ???Confirmed ???Type aspirin 81 mg chewable tablet 81 mg PO DAILY@0800 02/07/1407/18 History ascorbic acid (vitamin C) 500 mg 500 mg PO QDAY 08/20/17 07/18/24 H istory tablet Saccharomyces boulardii 250 mg 250 mg PO QDAY 08/22/17 07/18/24 H istory capsule (Digest Probiotic (S.boulardii)) magnesium oxide 500 mg capsule 500 mg PO DAILY 04/12/20 07/18/24 History potassium chloride 20 mEq 20 meq PO DAILY 04/12/20 07/18/24 History tablet,extended release(part/cryst) vitamin B complex 1 cap PO DAILY 04/12/20 07/18/24 H istory zinc 50 mg tablet 50 mg PO DAILY 04/12/20 07/18/24 H istory cholecalciferol (vitamin D3) 125 125 mcg PO DAILY 06/10/20 07/18/24 History mcg (5,000 unit) tablet cyanocobalamin (vitamin B-12) 250 250 mcg PO DAILY 06/10/20 5 History mcg tablet (Vitamin B-12) folic acid 800 mcg tablet 0.8 mg PO DAILY 06/10/20 07/18/24 History cranberry extract 425 mg capsule 850 mg PO DAILY 10/11/21 07/18/24 History vitamin E 268 mg (400 unit) capsule 268 mg PO DAILY 11/13/22 History nitroglycerin 0.4 mg sublingual 0.4 mg sublingual Q5M PRN Chest 07/18/24 Rx tablet Pain #25 tabs levothyroxine 100 mcg tablet 100 mcg PO 05/10/23 07/18/24 Histo ry metoprolol succinate 50 mg 50 mg PO DAILY #90 tabs 09/18/23 0 07/18/24 Rx tablet,extended release 24 hr omega-3 700 sy-tnp-ffv-ala-fish 1 cap PO DAILY 11/12/23 07/18/24 H istory oil-flaxseed 320 mg-vit E capsuleDR losartan 100 mg tablet 100 mg PO DAILY #90 TABLETS 07/18/24 Rx amlodipine 10 mg tablet 10 mg PO DAILY This is a dose 12/0507/18/24 Rx increase #90 tabs clopidogrel 75 mg tablet 75 mg PO DAILY #90 tabs 04/06/24 0 07/18/24 Rx rosuvastatin 10 mg tablet 10 mg PO DAILY #90 tabs 04/06/24 0 07/18/24 Rx amoxicillin 875 mg-potassium 1 tab PO BID 7 days #14 tabs 07/1807/18/24 Rx clavulanate 125 mg tablet Have you fallen in the past year?: No Nurse's Note: Patient has sinus pressure that has been going on for a week. Patient has cough, and congestion. Patient feels the left side is clogged. 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) Blood in urine Cystitis Hyperlipidemia Left bundle branch block Surgical History History of bilateral cataract extraction ( 10/2022) History of left heart catheterization (02/13/08) History of coronary artery stent placement (05/12/20) History of thyroidectomy Hx of cholecystectomy H/O: hysterectomy Family History Brother CAD (coronary artery disease) Sister CAD (coronary artery disease) Cancer Father CAD (coronary artery disease) Mother CAD (coronary artery disease) Other CVA (cerebral vascular accident) Social History Smoking Status: Never smoker alcohol intake: never substance use type: does not use caffeine: Yes Type: tea Number of servings: 1 what type of physical activity do you participate in: none seatbelt use: always do you feel safe at home: Yes HPI HPI Details: ILAN CANELA, is a 74 F who presents to the office today for evaluation of sinus congestion and cough present for greater than 1 week. Patient states that she frequently experiences difficulty with sinus congestion and recurrent sinusitis. She notes wor (more content not included)... Normal [facility] ABD Limited w/ Elastographyo n 06-23-2024 ABD Limited w/ Elastography [facility] [facility] Imaging Services [address] [place] [address] ABD Limited w/ Elastography MR#: [id number] Acct: [id number] Name: ILAN CANELA Rep #: [id number] : 1950 F 74 From: Moshe medrano MD PCP: Dr. Cece Aleman MD Status: [facility] CLI Study: ABD Limited w/ Elastography Date of Exam: 06/06 12/28 Exam# [id number] Ordering Dr: Cece Aleman MD PROCEDURE: ABD LIMITED W/ ELASTOGRAPHY REASON FOR EXAM: Fatty liver. COMPARISON: December 17, 2022. TECHNIQUE: Right upper quadrant abdominal ultrasound. Hina ElastQ Imaging shear wave elastography for non- invasive assessment of liver tissue stiffness. Hina EPIQ Elite. FINDINGS: LIVER: Size: Borderline. Length: 17.6 cm Echotexture: Diffusely echogenic suggesting fatty infiltration Contour: Normal Lesions: None identified Elastography: EQI Med: 7.1 kPa EQI Med Michaela: 1.5 m/s IQR/Med: 14 %* GALLBLADDER: Surgically absent. COMMON BILE DUCT: Normal it measures 3.1 cm. PANCREAS: Normal Visualized portions of the right kidney are unremarkable. 1.4 cm x 1.7 cm x 1 cm cyst in the midpole of the right kidney. No right upper quadrant ascites. US/ABD Limited w/ Elastography IMPRESSION: NO TO MILD HEPATIC FIBROSIS Reference Values: SRU <1.37 m/s (5.7kPa): No to mild fibrosis 1.37 m/s - 2.2 m/s: Moderate to severe fibrosis >2.2 m/s (15kPa): Significant fibrosis / cirrhosis METAVIR Score F2 or higher: 1.34 m/s (5.7kPa) F3 or higher: 1.55 m/s (7.3kPa) F4: 1.80 m/s (10kPa) * If the IQR/Med is >30%, the variance in the measurements is a large and the accuracy of the measurement may be in question. Reading Location: [place] [address] CC: Dr. Cece Aleman MD Automated Manufacturing Instructor: Signed [facility] AFP, Tumor Markeron 06-06-19 AFP TUMOR DENNISE 2.9 ng/mL Normal 0.0-9.2 [facility] Comment on above: Order Comment: N Result Comment: [facility] Electrochemiluminescence Immunoassay (ECLIA) Values obtained with different assay methods or kits cannot be used interchangeably. Results cannot be interpreted as absolute evidence of the presence or absence of malignant disease. This test is not interpretable in females. Performed at: [address] [id number] [employer] Crewmember: Ronnie Sal PhD, Phone: [phone] Performed By: #### L 3300.0700, L501.9520, L506.0400, L573.4058 ####[facility] [address] [place], [address] Comprehensive Metabolic Prof ilon 06-05-2024 Albumin [Mass/Vol] 3.7 g/dL Normal 3.2-5.0 [facility] Comment on above: Performed By: #### L 3300.0700, L501.9520, L506.0400, L500.405 #### [facility] [address] [place], [place], [id number] Albumin/Globulin [Mass ratio] 1.1 {ratio} Normal 0.9-2.4 [facility] Comment on above: Performed By: #### L 3300.0700, L501.9520, L506.0400, L500.4050 #### [facility] [address] [place], [address] ALK P 198 U/L High 45-117 [facility] Comment on above: Performed By: #### L 3300.0700, L501.9520, L506.0400, L500.4050 #### [facility] [address] [place], [address] ALT [Catalytic activity/Vol] 80 U/L High 13-56 [facility] Comment on above: Performed By: #### L 3300.0700, L501.9520, L506.0400, L500.4050 #### [facility] [address] [place], [address] AST [Catalytic activity/Vol] 43 U/L High 15-37 [facility] Comment on above: Performed By: #### L 3300.0700, L501.9520, L506.0400, L500.4050 #### [facility] [address] [place], [address] Bilirubin [Mass/Vol] 0.70 mg/dL Normal 0.20-1.00 [facility] Comment on above: Result Comment: For patients on eltrombopag therapy, use of Dimension [place] TBIL is not recommended. Performed By: #### L 3300.0700, L501.9520, L506.0400, L500.4050 #### [facility] [address] [place], [address] BUN/CRE 18.5 RATIO Normal 10-20 [facility] Comment on above: Performed By: #### L 3300.0700, L501.9520, L506.0400, L500.4050 #### [facility] [address] [place], [address] CA,Total 8.8 mg/dL Normal 8.5-10.1 [facility] Comment on above: Performed By: #### L 3300.0700, L501.9520, L506.0400, L500.4050 #### [facility] [address] [place], [address] Chloride [Moles/Vol] 109 mmol/L High 98-107 [facility] Comment on above: Performed By: #### L 3300.0700, L501.9520, L506.0400, L500.4050 #### [facility] [address] [place], [address] CO2 [Moles/Vol] 24.0 mmol/L Normal 21.0-32.0 [facility] Comment on above: Performed By: #### L 3300.0700, L501.9520, L506.0400, L500.4050 #### [facility] [address] [place], [address] Creatinine [Mass/Vol] 0.76 mg/dL Normal 0.55-1.02 [facility] Comment on above: Result Comment: The validity of the calculated GFR GFRAA in patients over 70 years has not been determined. Clinical correlation is essential. Performed By: #### L 3300.0700, L501.9520, L506.0400, L500.4050 #### [facility] [address] [place], [address] EST GFR - AA 96 mL/min Normal >60 [facility] Comment on above: Result Comment: Afri can Beninese GFR Calc Performed By: #### L 3300.0700, L501.9520, L506.0400, L500.4050 #### [facility] [address] [place], [address] GAP 7 Normal 5-15 [facility] Comment on above: Performed By: #### L 3300.0700, L501.9520, L506.0400, L500.4050 #### [facility] [address] [place], [address] GFR/1.73 sq M.predicted among non-blacks MDRD (S/P/Bld) [Vol rate/Area] 80 mL/min/{1.73_m2} Normal >60 [facility] Comment on above: Result Comment: Non- GFR Calc Performed By: #### L 3300.0700, L501.9520, L506.0400, L500.4050 #### [facility] [address] [place], [address] Globulin (S) [Mass/Vol] 3.5 g/dL Normal 2.2-4.2 [facility] Comment on above: Performed By: #### L 3300.0700, L501.9520, L506.0400, L500.4050 #### [facility] [address] [place], [address] Glucose [Mass/Vol] 87 mg/dL Normal 74-106 [facility] Comment on above: Performed By: #### L 3300.0700, L501.9520, L506.0400, L500.4050 #### [facility] [address] [place], [address] Potassium [Moles/Vol] 4.1 mmol/L Normal 3.5-5.1 [facility] Comment on above: Performed By: #### L 3300.0700, L501.9520, L506.0400, L500.4050 #### [facility] [address] [place], [address] Sodium [Moles/Vol] 140 mmol/L Normal 136-145 [facility] Comment on above: Performed By: #### L 3300.0700, L501.9520, L506.0400, L500.4050 #### [facility] [address] [place], [address] T PROT 7.2 g/dL Normal 6.4-8.2 [facility] Comment on above: Performed By: #### L 3300.0700, L501.9520, L506.0400, L500.4050 #### [facility] [address] [place], [address] Urea nitrogen [Mass/Vol] 14 mg/dL Normal 7-18 [facility] Comment on above: Performed By: #### L 3300.0700, L501.9520, L506.0400, L500.4050 #### [facility] [address] [place], [address] T4 Free Directon 06-05-2024 T4 FREE DIRECT 1.18 ng/dL Normal 0.76-1.46 [facility] Comment on above: Performed By: #### L 3300.0700, L501.9520, L506.0400, L500.4050 ####[facility] [address] [place], [address] Thyroid Stim Hormone (TSH)on 06-05-2024 TSH 2.880 uIU/mL Normal 0.358-3.74 0 [facility] Comment on above: Performed By: #### L 3300.0700, L501.9520, L506.0400, L500.4050 ####[facility] [address] [place], [address] /Juanita 04-10-2024 /RUCHI [facility] Vascular Surgery [address] [place] [address] OFFICE VISIT Date of Service: 04/10/24 MR#: [id number] Acct: [id number] Name: ILAN CANELA Rep #: [id number] : 1950 Provider: NESTOR Hubbard Age/Sex: 73/F Location: [facility] Status: Signed Intake Vital Signs 12/10/23 09:30 04/10/24 09:07 Height 5 ft 4 in Weight: 189 lb BP 137/80 H Blood Pressure Location Lt brachial Position Sitting Respiration 16 Pulse 96 Pulse Source Monitor Temp 98.2 F Temp Source Temporal Pulse Oximetry (%) 97 Oxygen Delivery Method room air Intake Visit Reasons: CAROTID ARTERY DISEASE Chief Complaint: ESTABLISH CARE Is patient in pain?: No Allergies fluconazole Allergy (Mild, Verified 04/10/24 09:09) Rash naproxen sodium (From Aleve) Allergy (Verified 04/10/24 09:09) Itching oseltamivir (From Tamiflu) Adverse Reaction (Verified 04/10/24 09:09) Vomitting Medications ???Medication ???Instructions ???Recorded ???Confirmed ???Type aspirin 81 mg chewable tablet 81 mg PO DAILY@0800 02/07/14 04/10/24 History ascorbic acid (vitamin C) 500 mg 500 mg PO QDAY 08/20/17 04/10/24 History tablet Saccharomyces boulardii 250 mg 250 mg PO QDAY 08/22/17 04/10/24 History capsule (Digest Probiotic (S.boulardii)) magnesium oxide 500 mg capsule 500 mg PO DAILY 04/12/20 04/10/24 History potassium chloride 20 mEq 20 meq PO DAILY 04/12/20 04/10/24 History tablet,extended release(part/cryst) vitamin B complex 1 cap PO DAILY 04/12/20 04/10/24 History zinc 50 mg tablet 50 mg PO DAILY 04/12/20 04/10/24 History cholecalciferol (vitamin D3) 125 125 mcg PO DAILY 06/10/20 04/10/24 History mcg (5,000 unit) tablet cyanocobalamin (vitamin B-12) 250 250 mcg PO DAILY 06/10/20 04/10/24 History mcg tablet (Vitamin B-12) folic acid 800 mcg tablet 0.8 mg PO DAILY 06/10/20 04/10/24 History cranberry extract 425 mg capsule 850 mg PO DAILY 10/11/21 04/10/24 History vitamin E 268 mg (400 unit) capsule 268 mg PO DAILY 11/13/22 04/10/24 History nitroglycerin 0.4 mg sublingual 0.4 mg sublingual Q5M PRN Chest 11/21/22 04/10/24 Rx tablet Pain #25 tabs levothyroxine 100 mcg tablet 100 mcg PO 05/10/23 04/10/24 History metoprolol succinate 50 mg 50 mg PO DAILY #90 tabs 09/18/23 04/10/24 Rx tablet,extended release 24 hr omega-3 700 wb-vsw-yqw-ala-fish 1 cap PO DAILY 11/12/23 04/10/24 History oil-flaxseed 320 mg-vit E capsule,DR losartan 100 mg tablet 100 mg PO DAILY #90 TABLETS 11/18/23 04/10/24 Rx amlodipine 10 mg tablet 10 mg PO DAILY This is a dose 12/25/23 04/10/24 Rx increase #90 tabs clopidogrel 75 mg tablet 75 mg PO DAILY #90 tabs 04/06/24 04/10/24 Rx rosuvastatin 10 mg tablet 10 mg PO DAILY #90 tabs 04/06/24 04/10/24 Rx Is last menstrual period known: No Post menopausal: Yes Patient : No Have you fallen in the past year?: No PFSH Medical History Allergic dermatitis Bilateral carotid artery stenosis Contact with and (suspected) exposure to other viral communicable diseases Acute maxillary sinusitis, unspecified Pneumonia due to 2019 novel coronavirus (01/05/21) COVID-19 virus detected (12/30/20) Carotid stenosis, left Obesity Hypothyroidism Essential (primary) hypertension Atherosclerosis of coronary artery of [place] heart without angina pectoris 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) Blood in urine Cystitis Hyperlipidemia Left bundle branch block Surgical History History of bilateral cataract extraction ( 10/2022) History of left heart catheterization (02/13/08) History of coronary artery stent placement (05/12/20) History of thyroidectomy Hx of cholecystectomy H/O: hysterectomy Family History Brother CAD (coronary artery disease) Sister CAD (coronary artery disease) Cancer Father CAD (coronary artery disease) Mother CAD (coronary artery disease) Other CVA (cerebral vascular accident) Social History Smoking Status: Never smoker alcohol intake: never substance use type: does not use caffeine: Yes Type: tea Number of servings: 1 what type of physical activity do you participate in: none seatbelt use: always do you feel safe at home: Yes HPI HPI HPI: ILAN CANELA, is a 73 F who presents to the office today to establish care for ongoing monitoring of her carotid artery disease. She was previously followed by Dr. Galindo. She has moderate L ICA stenosis which was initially identified on a blood flow screening. She does not have any history of prior carotid intervention, CVA, or TIA. She does take D (more content not included)... [facility] Carotid Duplex Ultrasoundon 02-28-2024 Carotid Duplex Ultrasound [facility] Cardiovascular Services [address] [place] [address] Carotid Duplex Ultrasound 02/28/24 0948 MR#: [id number] Acct: [id number] Name: ILAN CANELA Rep #: [id number] : 1950 73 From: Denver Carlisle MD Attending Dr: Dr. Denver Carlisle MD Status: MIQUEL LEE Ordering Dr: Denver Carlisle MD Date: 02/28/24 Location: [facility] Sex: F C Admitted: Reason For Study: Carotid stenosis Rt. Velocities/BP Lt. Velocities/BP Prox CCA 48.5/9.7 cm/sec. Prox CCA 74.9/23.9 cm/sec. Mid CCA 64.5/17.3 cm/sec. Mid CCA 82.5/21.1 cm/sec. Dist CCA 51.3/10.7 cm/sec. Dist CCA 84.4/24.8 cm/sec. Prox ICA 65.5/20.1 cm/sec. Prox ICA 159.5/44.4 cm/sec. Mid ICA 65.5/15.4 cm/sec. Mid ICA 95.5/26.1 cm/sec. Dist ICA 59.8/16.3 cm/sec. Dist ICA 70.2/23 cm/sec. Rt. ICA/CCA = 1.02. Lt. ICA/CCA = 1.93. Prox ECA 73/10.7 cm/sec. Prox ECA 87.2/19.2 cm/sec. Rt. Vert. 52.2/13.5 cm/sec. Lt. Vert. 29.4/7.7 cm/sec. Right Extracranial There is homogeneous, smooth atherosclerotic plaque noted in the right common carotid artery. There is heterogeneous, irregular atherosclerotic plaque noted in the right internal carotid artery. There is heterogeneous, irregular atherosclerotic plaque noted in the right external carotid artery. Antegrade flow is noted in the right vertebral artery. Left Extracranial There is heterogeneous, irregular atherosclerotic plaque noted in the left common carotid artery. There is heterogeneous, irregular atherosclerotic plaque noted in the left internal carotid artery. There is heterogeneous, irregular atherosclerotic plaque noted in the left external carotid artery. Antegrade flow is noted in the left vertebral artery. Procedure Carotid Duplex 53790. This is a Carotid Duplex examination using B-mode, color flow and specral Doppler. Exam performed in department. VL/Carotid Duplex Ultrasound Interpretation Summary Mild (<50%) stenosis right extracranial internal carotid. Moderate (50-69%) stenosis left extracranial internal carotid. Patent and antegrade vertebrals bilaterally. ___ Ordering Physician: Denver Carlisle Referring Physician: Cece Aleman Performed By: Carine Mitchell Judah 03/02/24 1303 Date Denver Carlisle MD CC: Dr. Denver Carlisle MD; Dr. Cece Aleman MD Date Dictated: 02/28/24 0948 Date Transcribed: 03/02/24 1303 [employer]ated [employer] Instructor: Signed [facility] percentageOrdered B y: Cece Aleman on 03-20-2023 Bilirubin [Mass/Vol] 0.50 mg/dL 0.20-1.00 [facility] Comment on above: For patients on eltr ombopag therapy, use of Dimension [place] TBIL is not recommended. Protein [Mass/Vol] 7.0 g/dL 6.4-8.2 [facility] Direct bilirubinOrdered By: Cece Aleman on 03-20-2023 Bilirubin.direct [Mass/Vol] 0.12 mg/dL 0.00-0.30 [facility] - Chemistry and C hemistry - challengeOrdered By: Cece Aleman on 03-20-2023 ALP [Catalytic activity/Vol] 177 U/L 45-117 [facility] ALT [Catalytic activity/Vol] 58 U/L 13-56 [facility] Globulin (S) [Mass/Vol] 3.3 g/dL 2.2-4.2 [facility] Serum or plasma albumin pablo urement (mass/volume)Ordered By: Cece Aleman on 03-20-2023 Albumin [Mass/Vol] 3.7 g/dL 3.2-5.0 [facility] Serum or plasma [id number] protein tumor marker measurement (units/volume)Ordered By: Cece Aleman on 03-20-2023 AFP.tumor marker Qn 2.6 ng/mL 0.0-9.2 [facility] Comment on above: [facility] El ectrochemiluminescence Immunoassay(ECLIA)Values obtained with different assay methods or kits cannotbe used interchangeably. Results cannot be interpreted asabsolute evidence of the presence or absence of malignantdisease.This test is not interpretable in females.Performed at: - [address] [id number] Director: Ronnie Sal PhD, Phone: [phone] Thin prep Papanicolaou smear with manual screeningOrdered By: Cece Aleman on 03-20-2023 Thin prep Papanicolaou smear with manual screening 25 U/L 15-37 [facility] Comment on above: Slight Hemolysis, Re sult may be falsely increased. Absolute lymphocyte countOrd ered By: Cece Aleman on 11-29-2022 Lymphocytes Auto (Unsp spec) [#/Vol] 1.23 10*3/uL 0.83-4.51 [facility] Basophil percentageOrdered B y: Cece Aleman on 11-29-2022 Basophils/100 WBC (Bld) 1.2 % 0-1 [facility] Bilirubin [Mass/Vol] 0.70 mg/dL 0.20-1.00 [facility] Comment on above: For patients on eltr ombopag therapy, use of Dimension [place] TBIL is not recommended. Chloride [Moles/Vol] 106 mmol/L 98-107 [facility] Eosinophils/100 WBC (Bld) 2.9 % 0-5 [facility] Glucose [Mass/Vol] 85 mg/dL 74-106 [facility] Neutrophils (Bld) [#/Vol] 3.2 10*3/uL 2.0-7.7 [facility] Neutrophils/100 WBC (Bld) 61.5 % 47-70 [facility] Potassium [Moles/Vol] 3.6 mmol/L 3.5-5.1 [facility] Protein [Mass/Vol] 7.1 g/dL 6.4-8.2 [facility] Sodium [Moles/Vol] 140 mmol/L 136-145 [facility] WBC (Bld) [#/Vol] 5.1 10*3/uL 4.4-11.0 [facility] Blood erythrocytes count (nu mber/volume)Ordered By: Cece Aleman on 11-29-2022 RBC (Bld) [#/Vol] 4.66 10*6/uL 4.2-5.4 [facility] Blood hemoglobin measurement (mass/volume)Ordered By: Cece Aleman on 11-29-2022 Hemoglobin (Bld) [Mass/Vol] 14.6 g/dL 12.0-15.0 [facility] Blood lymphocytes/100 leukoc ytesOrdered By: Cece Aleman on 11-29-2022 Lymphocytes/100 WBC (Bld) 23.9 % 19-41 [facility] Blood monocytes/100 leukocyt esOrdered By: Cece Aleman on 11-29-2022 Monocytes/100 WBC (Bld) 10.3 % 0-10 [facility] Blood platelet mean volumeOr dered By: Cece Aleman on 11-29-2022 Platelet mean volume (Bld) [Entitic vol] 9.9 fL 6.2-12.0 [facility] Determination of erythrocyte mean corpuscular volume (MCV)Ordered By: Cece Aleman on 11-29-2022 MCV (RBC) [Entitic vol] 91.4 fL 81-99 [facility] Hematocrit Auto (Bld) [Volum e fraction]Ordered By: [facility] on 11-29-2022 Hematocrit (Bld) [Volume fraction] 42.6 % 37-47 [facility] - Chemistry and C hemistry - challengeOrdered By: [facility] on 11-29-2022 ALP [Catalytic activity/Vol] 172 U/L 45-117 [facility] ALT [Catalytic activity/Vol] 130 U/L 13-56 [facility] CO2 [Moles/Vol] 27.0 mmol/L 21.0-32.0 [facility] Free T4 [Mass/Vol] 1.18 ng/dL 0.76-1.46 [facility] Globulin (S) [Mass/Vol] 3.4 g/dL 2.2-4.2 [facility] Urea nitrogen/Creatinine [Mass ratio] 23.3 mg/mg 10-20 [facility] - Hematology and Cell countsOrdered By: Cece Love on 11-29-2022 Erythrocyte distribution width (RBC) [Entitic vol] 43.3 fL 35.1-43.9 [facility] Erythrocyte distribution width (RBC) [Ratio] 13.0 % 11.6-14.6 [facility] Immature granulocytes/100 WBC (Bld) 0.200 % 0.0-0.9 [facility] Comment on above: IG% - Immature Granu locytes (promyelocytes, myelocytes and metamyelocytes) > 1% indicates that a LEFT SHIFT is Present. MCH (RBC) [Entitic mass] 31.3 pg 27.0-32.0 [facility] Nucleated RBC/100 WBC (Bld) [Ratio] 0 % 0-5 [facility] Auto (RBC) [Mass/Vol]Or dered By: Cece Aleman on 11-29-2022 MCHC (RBC) [Mass/Vol] 34.3 g/dL 32-36 [facility] No Panel InformationOrdered By: Cece Aleman on 11-29-2022 Estimated GFR (MDRD) Amer 84 mL/min >60 [facility] Comment on above: GFR Calc Estimated GFR (MDRD) Non-Af Amer 69 mL/min >60 [facility] Comment on above: Non- GFR Calc Thyroid Stimulating Hormone (TSH) 0.12 uIU/mL 0.358-3.74 [facility] Platelets bldOrdered By: Allen Aleman on 11-29-2022 Platelets (Bld) [#/Vol] 235 10*3/uL 150-450 [facility] Serum or plasma albumin pablo urement (mass/volume)Ordered By: Cece Aleman on 11-29-2022 Albumin [Mass/Vol] 3.7 g/dL 3.2-5.0 [facility] Serum or plasma albumin/glob ulin mass ratioOrdered By: Cece Aleman on 11-29-2022 Albumin/Globulin [Mass ratio] 1.1 {ratio} 0.9-2.4 [facility] Serum or plasma calcium pablo urement (mass/volume)Ordered By: Cece Aleman on 11-29-2022 Calcium [Mass/Vol] 8.8 mg/dL 8.5-10.1 [facility] Serum or plasma creatinine m easurement (mass/volume)Ordered By: Cece Aleman on 11-29-2022 Creatinine [Mass/Vol] 0.86 mg/dL 0.55-1.02 [facility] Comment on above: The validity of the calculated GFR & GFRAA in patients over 70 years has not been determined. Clinical correlation is essential. Serum or plasma urea nitroge n measurement (mass/volume)Ordered By: Cece Aleman on 11-29-2022 Urea nitrogen [Mass/Vol] 20 mg/dL 7-18 [facility] Thin prep Papanicolaou smear with manual screeningOrdered By: Cece Aleman on 11-29-2022 Thin prep Papanicolaou smear with manual screening 60 U/L 15-37 [facility] Thin prep Papanicolaou smear with manual screening 7 5-15 [facility] Basophil percentageOrdered B y: Benjamin Marie on 11-05-2022 Bilirubin [Mass/Vol] 0.60 mg/dL 0.20-1.00 [facility] Comment on above: For patients on eltr ombopag therapy, use of Dimension [place] TBIL is not recommended. Cholesterol [Mass/Vol] 162 mg/dL <200 [facility] Comment on above: <200 mg/dL Desirable 200-240 mg/dL Borderline >240 mg/dL High Risk Protein [Mass/Vol] 6.9 g/dL 6.4-8.2 [facility] Triglyceride [Mass/Vol] 118 mg/dL <199 [facility] Comment on above: The drugs N-Acetylcy steine and Metamizole may falsely depress this assay.Serum Triglycerides Reference Interval Normal <150 mg/dL Borderline high 150 - 199 mg/dL High 200 - 499 mg/dL Very High > or = 500 mg/dL Direct bilirubinOrdered By: Benjamin Marie on 11-05-2022 Bilirubin.direct [Mass/Vol] 0.15 mg/dL 0.00-0.30 [facility] - Chemistry and C hemistry - challengeOrdered By: Benjamin Marie on 11-05-2022 ALP [Catalytic activity/Vol] 172 U/L 45-117 [facility] ALT [Catalytic activity/Vol] 72 U/L 13-56 [facility] Globulin (S) [Mass/Vol] 3.3 g/dL 2.2-4.2 [facility] Serum or plasma albumin pablo urement (mass/volume)Ordered By: Benjamin Marie on 11-05-2022 Albumin [Mass/Vol] 3.6 g/dL 3.2-5.0 [facility] Serum or plasma cholesterol in HDL measurement (mass/volume)Ordered By: Benjamin Marie on 11-05-2022 Cholesterol in HDL [Mass/Vol] 43 mg/dL >40 [facility] Comment on above: The drugs N-Acetylcy steine and Metamizole may falsely depress this assay. Reference Range HDL <40 mg/dL Low HDL Cholesterol HDL >or= 60 mg/dL High HDL Cholesterol Serum or plasma cholesterol in VLDL measurement (mass/volume)Ordered By: Benjamin Marie on 11-05-2022 Cholesterol in VLDL [Mass/Vol] 24 mg/dL 5-40 [facility] Serum or plasma low density lipoprotein (LDL) cholesterol measurement (mass/volume)Ordered By: Benjamin Marie on 11-05-2022 Cholesterol in LDL [Mass/Vol] 95 mg/dL 0-130 [facility] Thin prep Papanicolaou smear with manual screeningOrdered By: Benjamin Marie on 11-05-2022 Thin prep Papanicolaou smear with manual screening 39 U/L 15-37 [facility] - Chemistry and C hemistry - challengeOrdered By: Dr. Aleman on 05-21-2022 Free T4 [Mass/Vol] 1.27 ng/dL 0.76-1.46 [facility] No Panel InformationOrdered By: Dr. Aleman on 05-21-2022 Thyroid Stimulating Hormone (TSH) 0.07 uIU/mL 0.358-3.74 [facility] Basophil percentageOrdered B y: Benjamin Marie on 04-10-2022 Bilirubin [Mass/Vol] 0.90 mg/dL 0.20-1.00 [facility] Comment on above: For patients on eltr ombopag therapy, use of Dimension [place] TBIL is not recommended. Cholesterol [Mass/Vol] 154 mg/dL <200 [facility] Comment on above: <200 mg/dL Desirable 200-240 mg/dL Borderline >240 mg/dL High Risk Protein [Mass/Vol] 7.3 g/dL 6.4-8.2 [facility] Triglyceride [Mass/Vol] 88 mg/dL <199 [facility] Comment on above: The drugs N-Acetylcy steine and Metamizole may falsely depress this assay.Serum Triglycerides Reference Interval Normal <150 mg/dL Borderline high 150 - 199 mg/dL High 200 - 499 mg/dL Very High > or = 500 mg/dL Direct bilirubinOrdered By: Benjamin Marie on 04-10-2022 Bilirubin.direct [Mass/Vol] 0.20 mg/dL 0.00-0.30 [facility] - Chemistry and C hemistry - challengeOrdered By: Benjamin Marie on 04-10-2022 ALP [Catalytic activity/Vol] 143 U/L 45-117 [facility] ALT [Catalytic activity/Vol] 60 U/L 13-56 [facility] Globulin (S) [Mass/Vol] 3.4 g/dL 2.2-4.2 [facility] Serum or plasma albumin pablo urement (mass/volume)Ordered By: Benjamin Marie on 04-10-2022 Albumin [Mass/Vol] 3.9 g/dL 3.2-5.0 [facility] Serum or plasma cholesterol in HDL measurement (mass/volume)Ordered By: Benjamin Marie on 04-10-2022 Cholesterol in HDL [Mass/Vol] 42 mg/dL >40 [facility] Comment on above: The drugs N-Acetylcy steine and Metamizole may falsely depress this assay. Reference Range HDL <40 mg/dL Low HDL Cholesterol HDL >or= 60 mg/dL High HDL Cholesterol Serum or plasma cholesterol in VLDL measurement (mass/volume)Ordered By: Benjamin Marie on 04-10-2022 Cholesterol in VLDL [Mass/Vol] 18 mg/dL 5-40 [facility] Serum or plasma low density lipoprotein (LDL) cholesterol measurement (mass/volume)Ordered By: Benjamin Marie on 04-10-2022 Cholesterol in LDL [Mass/Vol] 94 mg/dL 0-130 [facility] Thin prep Papanicolaou smear with manual screeningOrdered By: Benjamin Marie on 04-10-2022 Thin prep Papanicolaou smear with manual screening 30 U/L 15-37 [facility] - Microbiology an d Antimicrobial susceptibilityon 02-10-2022 SARS-CoV-2 (COVID-19) RNA SURJIT+probe Ql (Unsp spec) Not detected [facility] No Panel Informationon 02-10 Influenza Types A,B Rapid (Clinic) Not detected [facility] - Microbiology an d Antimicrobial susceptibilityon 02-05-2022 SARS-CoV-2 (COVID-19) RNA SURJIT+probe Ql (Unsp spec) Not detected [facility] No Panel Informationon 02-05 Influenza Types A,B Rapid (Clinic) Not detected [facility] Absolute lymphocyte counton 11-28-2021 Lymphocytes Auto (Unsp spec) [#/Vol] 1.52 10*3/uL 0.83-4.51 [facility] Work Phone: Basophil percentageon 2021 Basophils/100 WBC (Bld) 1.1 % 0-1 [facility] Work Phone: Bilirubin [Mass/Vol] 0.70 mg/dL 0.20-1.00 [facility] Work Phone: Comment on above: For patients on eltr ombopag therapy, use of Dimension [place] TBIL is not recommended. Chloride [Moles/Vol] 106 mmol/L 98-107 [facility] Work Phone: Eosinophils/100 WBC (Bld) 2.5 % 0-5 [facility] Work Phone: Glucose [Mass/Vol] 99 mg/dL 74-106 [facility] Work Phone: Neutrophils (Bld) [#/Vol] 4.0 10*3/uL 2.0-7.7 [facility] Work Phone: Neutrophils/100 WBC (Bld) 62.5 % 47-70 [facility] Work Phone: Potassium [Moles/Vol] 3.8 mmol/L 3.5-5.1 [facility] Work Phone: Protein [Mass/Vol] 7.2 g/dL 6.4-8.2 [facility] Work Phone: Sodium [Moles/Vol] 137 mmol/L 136-145 [facility] Work Phone: WBC (Bld) [#/Vol] 6.4 10*3/uL 4.4-11.0 [facility] Work Phone: Blood erythrocytes count (nu mber/volume)on 11-28-2021 RBC (Bld) [#/Vol] 4.86 10*6/uL 4.2-5.4 [facility] Work Phone: Blood hemoglobin measurement (mass/volume)on 11-28-2021 Hemoglobin (Bld) [Mass/Vol] 14.9 g/dL 12.0-15.0 [facility] Work Phone: Blood lymphocytes/100 leukoc yteson 11-28-2021 Lymphocytes/100 WBC (Bld) 23.7 % 19-41 [facility] Work Phone: Blood monocytes/100 leukocyt eson 11-28-2021 Monocytes/100 WBC (Bld) 10.0 % 0-10 [facility] Work Phone: Blood platelet mean volumeon 11-28-2021 Platelet mean volume (Bld) [Entitic vol] 9.4 fL 6.2-12.0 [facility] Work Phone: Determination of erythrocyte mean corpuscular volume (MCV)on 11-28-2021 MCV (RBC) [Entitic vol] 89.7 fL 81-99 [facility] Work Phone: Hematocrit Auto (Bld) [Volum e fraction]on 11-28-2021 Hematocrit (Bld) [Volume fraction] 43.6 % 37-47 [facility] Work Phone: Laboratory - Chemistry and C hemistry - challengeon 11-28-2021 ALP [Catalytic activity/Vol] 140 U/L 45-117 [facility] Work Phone: ALT [Catalytic activity/Vol] 45 U/L 13-56 [facility] Work Phone: CO2 [Moles/Vol] 26.0 mmol/L 21.0-32.0 [facility] Work Phone: Free T4 [Mass/Vol] 1.47 ng/dL 0.76-1.46 [facility] Work Phone: Globulin (S) [Mass/Vol] 3.3 g/dL 2.2-4.2 [facility] Work Phone: Urea nitrogen/Creatinine [Mass ratio] 20.9 mg/mg 10-20 [facility] Work Phone: Laboratory - Hematology and Cell countson 11-28-2021 Erythrocyte distribution width (RBC) [Entitic vol] 41.7 fL 35.1-43.9 [facility] Work Phone: Erythrocyte distribution width (RBC) [Ratio] 12.8 % 11.6-14.6 [facility] Work Phone: Immature granulocytes/100 WBC (Bld) 0.200 % 0.0-0.9 [facility] Work Phone: Comment on above: IG% - Immature Granu locytes (promyelocytes, myelocytes and metamyelocytes) > 1% indicates that a LEFT SHIFT is Present. MCH (RBC) [Entitic mass] 30.7 pg 27.0-32.0 [facility] Work Phone: Nucleated RBC/100 WBC (Bld) [Ratio] 0 % 0-5 [facility] Work Phone: MCHC Auto (RBC) [Mass/Vol]on 11-28-2021 MCHC (RBC) [Mass/Vol] 34.2 g/dL 32-36 [facility] Work Phone: No Panel Informationon 11-28 Estimated GFR (MDRD) Amer 84 mL/min >60 [facility] Work Phone: Comment on above: GFR Calc Estimated GFR (MDRD) Non-Af Amer 69 mL/min >60 [facility] Work Phone: Comment on above: Non- GFR Calc Thyroid Stimulating Hormone (TSH) 0.01 uIU/mL 0.358-3.74 [facility] Work Phone: Platelets bldon 11-28-2021 Platelets (Bld) [#/Vol] 252 10*3/uL 150-450 [facility] Work Phone: Serum or plasma albumin pablo urement (mass/volume)on 11-28-2021 Albumin [Mass/Vol] 3.9 g/dL 3.2-5.0 [facility] Work Phone: Serum or plasma albumin/glob ulin mass ratioon 11-28-2021 Albumin/Globulin [Mass ratio] 1.2 {ratio} 0.9-2.4 [facility] Work Phone: Serum or plasma calcium pablo urement (mass/volume)on 11-28-2021 Calcium [Mass/Vol] 9.0 mg/dL 8.5-10.1 [facility] Work Phone: Serum or plasma creatinine m easurement (mass/volume)on 11-28-2021 Creatinine [Mass/Vol] 0.86 mg/dL 0.55-1.02 [facility] Work Phone: Comment on above: The validity of the calculated GFR & GFRAA in patients over 70 years has not been determined. Clinical correlation is essential. Serum or plasma urea nitroge n measurement (mass/volume)on 11-28-2021 Urea nitrogen [Mass/Vol] 18 mg/dL 7-18 [facility] Work Phone: Thin prep Papanicolaou smear with manual screeningon 11-28-2021 Thin prep Papanicolaou smear with manual screening 23 U/L 15-37 [facility] Work Phone: Thin prep Papanicolaou smear with manual screening 5 5-15 [facility] Work Phone: Basophil percentageon 2021 Bilirubin [Mass/Vol] 0.90 mg/dL 0.20-1.00 [facility] Work Phone: Comment on above: For patients on eltr ombopag therapy, use of Dimension [place] TBIL is not recommended. Cholesterol [Mass/Vol] 162 mg/dL <200 [facility] Work Phone: Comment on above: <200 mg/dL Desirable 200-240 mg/dL Borderline >240 mg/dL High Risk Protein [Mass/Vol] 6.9 g/dL 6.4-8.2 [facility] Work Phone: Triglyceride [Mass/Vol] 132 mg/dL <199 [facility] Work Phone: Comment on above: The drugs N-Acetylcy steine and Metamizole may falsely depress this assay.Serum Triglycerides Reference Interval Normal <150 mg/dL Borderline high 150 - 199 mg/dL High 200 - 499 mg/dL Very High > or = 500 mg/dL Direct bilirubinon 2 Bilirubin.direct [Mass/Vol] 0.16 mg/dL 0.00-0.30 [facility] Work Phone: Laboratory - Chemistry and C hemistry - challengeon 10-05-2021 ALP [Catalytic activity/Vol] 114 U/L 45-117 [facility] Work Phone: ALT [Catalytic activity/Vol] 39 U/L 13-56 [facility] Work Phone: Globulin (S) [Mass/Vol] 3.2 g/dL 2.2-4.2 [facility] Work Phone: Serum or plasma albumin pablo urement (mass/volume)on 10-05-2021 Albumin [Mass/Vol] 3.7 g/dL 3.2-5.0 [facility] Work Phone: Serum or plasma cholesterol in HDL measurement (mass/volume)on 10-05-2021 Cholesterol in HDL [Mass/Vol] 49 mg/dL >40 [facility] Work Phone: Comment on above: The drugs N-Acetylcy steine and Metamizole may falsely depress this assay. Reference Range HDL <40 mg/dL Low HDL Cholesterol HDL >or= 60 mg/dL High HDL Cholesterol Serum or plasma cholesterol in VLDL measurement (mass/volume)on 10-05-2021 Cholesterol in VLDL [Mass/Vol] 26 mg/dL 5-40 [facility] Work Phone: Serum or plasma low density lipoprotein (LDL) cholesterol measurement (mass/volume)on 10-05-2021 Cholesterol in LDL [Mass/Vol] 87 mg/dL 0-130 [facility] Work Phone: Thin prep Papanicolaou smear with manual screeningon 10-05-2021 Thin prep Papanicolaou smear with manual screening 21 U/L 15-37 [facility] Work Phone: EMERGENCY REPORTon 1 EMERGENCY REPORT [facility] EMERGENCY ROOM REPORT NAME ACCOUNT SEX AGE ADMIT DISCHARGE PT MED. RECORD# NUMBER DATE DATE TYPE [facility] [id number] F 01/05/21 1 ILAN [id number] ROOM: 301MO DATE OF : 1950 DICTATING PHYSICIAN: Abhinav Dietrich CHIEF COMPLAINT: Weakness and cough. HISTORY OF PRESENT ILLNESS: The patient began with a headache, congestion, and generalized aching a week and a half ago. She had a swab positive for COVID a couple days after that. Basically, she has had increasing weakness, fatigue, and nausea with poor intake. She is having a little bit of cough and shortness of breath that seems to be gradually getting worse. She was seen at [facility], where she had an infusion of REGEN a couple days ago but states it is no better. She lives by herself at home and states that she can hardly get up to move around let alone eat or drink. She has been having loose stools as well. Dictated By: Abhinav Dietrich MD 01/05/21 19:01 JOB #: [id number] Transcribed By: darrel 01/06/21 14:30 Electronically signed by: ELIESER Dietrich M.D. 01/26/21 14:24 Page 1 of 1 [facility] Emergency Room Report [facility]AN Normal [facility] EMERGENCY REPORT [facility] EMERGENCY ROOM REPORT NAME ACCOUNT SEX AGE ADMIT DISCHARGE PT MED. RECORD# NUMBER DATE DATE TYPE [facility] [id number] Ash 01/05/21 01/09/21 1 ILAN [id number] ROOM: 301 DATE OF : 1950 DICTATING PHYSICIAN: Abhinav Dietrich ADDENDUM DIAGNOSTIC DATA: CBC showed a white count of 2900, normal differential, hemoglobin 13.8, and hematocrit 39.3. CMP showed a sodium of 132, potassium 3.7, BUN 24, and creatinine 0.82. CRP was 6.7. Lactate was normal. BNP was 234. Urinalysis was negative. I did proceed to get a chest CT, which showed significant bilateral infiltrates but no PE. EMERGENCY DEPARTMENT COURSE AND TREATMENT: I discussed with Dr. Arce, who will admit for further management. DIAGNOSIS: Severe COVID-19 pneumonia with increasing weakness and mild hypoxemia. Dictated By: Abhinav Dietrich MD 01/05/21 19:04 JOB #: [id number] Transcribed By: darrel 01/06/21 14:26 Electronically signed by: ELIESER Dietrich M.D. 01/26/21 14:24 Page 1 of 1 [facility], Emergency Room Report ILAN Normal [facility] APTT - DAILYon 01-09-2021 aPTT Coag (Bld) [Time] 23.4 s Low 25.4 - 38.4 [facility] Comment on above: Performed By: #### 2 [id number] #### [facility],[address] [place] [address] 74373 C-REACTIVE PROTEIN - DAILYon 01-09-2021 CRP [Mass/Vol] mg/L Normal 0.00 - 0.90 [facility] Comment on above: Performed By: #### 2 77015 #### [facility],[address] [place] [address] 43505 CBC DAILYon 01-09-2021 Baso # 0.00 x10EE3/UL Normal 0.00 - 0.10 [facility] Comment on above: Performed By: #### 2 66263 #### [facility],[address] [place] [address] 65346 Basophils/100 WBC (Bld) 0.3 % Normal 0.0 - 2.0 [facility] Comment on above: Performed By: #### 2 24152 #### [facility],[address] [place] [address] 26270 EO # 0.00 x10EE3/UL Normal 0.00 - 0.50 [facility] Comment on above: Performed By: #### 2 74741 #### [facility],[address] [place] [address] 68859 Eosinophils/100 WBC (Bld) 0.1 % Normal 0.0 - 7.0 [facility] Comment on above: Performed By: #### 2 04633 #### [facility],[address] [place] [address] 74484 Erythrocyte distribution width (RBC) [Ratio] 13.2 % Normal 12.0 - 15.6 [facility] Comment on above: Performed By: #### 2 86685 #### [facility],[address] [place] [address] Hematocrit (Bld) [Volume fraction] 39.8 % Normal 34.0 - 46.0 [facility] Comment on above: Performed By: #### 2 60024 #### [facility],[address] [place] [address] Hemoglobin (Bld) [Mass/Vol] 13.6 g/dL Normal 12.0 - 16.0 [facility] Comment on above: Performed By: #### 2 95152 #### [facility],[address] [place] [address] Lymph # 0.90 x10EE3/UL Normal 0.80 - 2.80 [facility] Comment on above: Performed By: #### 2 60080 #### [facility],[address] [place] [address] Lymphocytes/100 WBC (Bld) 14.6 % Low 20.0 - 45.0 [facility] Comment on above: Performed By: #### 2 20455 #### [facility],[address] [place] [address] MANUAL DIFF N/A Normal [facility] Comment on above: Performed By: #### 2 49802 #### [facility],[address] [place] [address] MCH (RBC) [Entitic mass] 30 pg Normal 27 - 33 [facility] Comment on above: Performed By: #### 2 12029 #### [facility],[address] [place] [address] MCHC 34 X10 3 Normal 32 - 36 [facility] Comment on above: Performed By: #### 2 53838 #### [facility],[address] [place], [place] [id number] MCV (RBC) [Entitic vol] 88 fL Normal 80 - 99 [facility] Comment on above: Performed By: #### 2 86911 #### [facility],[address] [place] [address] 29684 [place] # 0.50 x10EE3/UL Normal 0.20 - 1.00 [facility] Comment on above: Performed By: #### 2 41618 #### [facility],[address] [place] [address] 43486 MONOS % 8.7 % Normal 0.0 - 10.0 [facility] Comment on above: Performed By: #### 2 62299 #### [facility],[address] [place] [address] Morphology Adalid (Bld) [Interp] N/A Normal [facility] Comment on above: Result Comment: {CD] Performed By: #### 2 21142 #### [facility],[address] [place] [address] Neut # 4.60 x10EE3/UL Normal 1.50 - 7.10 [facility] Comment on above: Performed By: #### 2 93178 #### [facility],[address] [place] [address] Neutrophils/100 WBC (Bld) 76.3 % High 46.0 - 76.0 [facility] Comment on above: Performed By: #### 2 66500 #### [facility],[address] [place] [address] PLATELET 242 x10EE3/UL Normal 150 - 450 [facility] Comment on above: Performed By: #### 2 16978 #### [facility],[address] [place] [address] 89462 Platelet mean volume (Bld) [Entitic vol] 7.7 fL Normal 6.6 - 10.5 [facility] Comment on above: Result Comment: AUTO MATED DIFFERENTIAL Performed By: #### 2 80387 #### [facility],[address] [place] [address] 89823 RBC 4.52 x 10EE6/UL Normal 4.10 - 5.30 [facility] Comment on above: Performed By: #### 2 02151 #### [facility],[address] [place] [address] 53778 WBC 6.0 x 10EE3/UL Normal 4.5 - 10.[address] [facility] Comment on above: Performed By: #### 2 55119 #### [facility],[address] [place] [address] 28815 CMP with eGFR - DAILYon - AGE 70 years Normal [facility] Comment on above: Performed By: #### 2 57051 #### [facility],[address] [place] [address] 44070 Albumin [Mass/Vol] 3.1 g/dL Low 3.4 - 5.0 [facility] Comment on above: Performed By: #### 2 16677 #### [facility],[address] [place] [address] 84911 Albumin/Globulin [Mass ratio] 0.9 {ratio} Normal 0.9 - 1.6 [facility] Comment on above: Performed By: #### 2 47031 #### [facility],[address] [place] [address] 26661 ALK PHOS 82 U/L Normal 46 - 116 [facility] Comment on above: Performed By: #### 2 72270 #### [facility],[address] [place] [address] 93645 ALT [Catalytic activity/Vol] 27 U/L Normal 14 - 59 [facility] Comment on above: Performed By: #### 2 39391 #### [facility],[address] [place] [address] 55758 Anion gap [Moles/Vol] 13 mmol/L Normal 10 - 20 [facility] Comment on above: Performed By: #### 2 75290 #### [facility],[address] [place] [address] 70560 AST [Catalytic activity/Vol] 15 U/L Normal 13 - 39 [facility] Comment on above: Performed By: #### 2 06366 #### [facility],[address] [place] [address] 03635 B/C RATIO 24 ratio Normal 0 - 30 [facility] Comment on above: Performed By: #### 2 74812 #### [facility],[address] [place] [address] 62128 Bilirubin [Mass/Vol] 0.7 mg/dL Normal 0.2 - 1.0 [facility] Comment on above: Performed By: #### 2 65865 #### [facility],[address] [place] [address] 59302 Calcium [Mass/Vol] 8.4 mg/dL Low 8.5 - 10.1 [facility] Comment on above: Performed By: #### 2 31490 #### [facility],[address] [place] [address] 91904 Chloride [Moles/Vol] 101 mmol/L Normal 98 - 107 [facility] Comment on above: Performed By: #### 2 12199 #### [facility],[address] [place] [address] 45514 CMP with eGFR - DAILY Normal [facility] Comment on above: Result Comment: COMP REHENSIVE METABOLIC PANEL Performed By: #### 2 91954 #### [facility],[address] [place] [address] 51631 CO2 [Moles/Vol] 24.9 mmol/L Normal 21.0 - 32.0 [facility] Comment on above: Performed By: #### 2 39530 #### [facility],[address] [place] [address] 37880 Creatinine [Mass/Vol] 0.75 mg/dL Normal 0.55 - 1.02 [facility] Comment on above: Performed By: #### 2 76455 #### [facility],[address] [place] [address] 94046 GFR/1.73 sq M.predicted among non-blacks MDRD (S/P/Bld) [Vol rate/Area] mL/min/{1.73_m2} Normal 60 - 999 [facility] Comment on above: Performed By: #### 2 91121 #### [facility],[address] [place], [place] [address] Result Comment: ACCO RDING TO THE NATIONAL KIDNEY DISEASE EDUCATION PROGRAM(NKDE), A NORMAL eGFR IS A VALUE GREATER THAN OR EQUAL TO 60 ML/MIN/1.73 SQ METERS. CHRONIC KIDNEY DISEASE: <60mL/MIN/1.73 SQ METERS KIDNEY FAILURE: <15mL/MIN/1.73 SQ METERS Globulin (S) [Mass/Vol] 3.4 g/dL Normal 1.5 - 3.8 [facility] Comment on above: Performed By: #### 2 44478 #### [facility],[address] [place] [address] 08279 Glucose [Mass/Vol] 95 mg/dL Normal 74 - 106 [facility] Comment on above: Performed By: #### 2 04417 #### [facility],[address] [place] [address] 20756 Potassium [Moles/Vol] 3.4 mmol/L Low 3.5 - 5.1 [facility] Comment on above: Performed By: #### 2 42068 #### [facility],[address] [place] [address] 79794 Protein [Mass/Vol] 6.5 g/dL Normal 6.4 - 8.2 [facility] Comment on above: Performed By: #### 2 90176 #### [facility],[address] [place] [address] 12930 Sodium [Moles/Vol] 135 mmol/L Low 136 - 145 [facility] Comment on above: Performed By: #### 2 06394 #### [facility],[address] [place] [address] 97534 Urea nitrogen [Mass/Vol] 18 mg/dL Normal 7 - 18 [facility] Comment on above: Performed By: #### 2 94966 #### [facility],[address] [place] [address] 20629 CPK - DAILYon 01-09-2021 CPK 21 U/L Low 26 - 192 [facility] Comment on above: Performed By: #### 2 64046 #### [facility],[address] [place] [address] 71424 D-DIMER, QUANTITATIVE - JAISON Yon 01-09-2021 D-DIMER QUANT 236 ng/ml High 0 - 230 [facility] Comment on above: Performed By: #### 2 44705 #### [facility],[address] [place] [address] 09959 D-DIMER, QUANTITATIVE - DAILY Normal [facility] Comment on above: Result Comment: ISABEL T D-DIMER Performed By: #### 2 28797 #### [facility],[address] [place] [address] 49818 LDH - DAILYon 01-09-2021 LDH 272 U/L High 81 - 234 [facility] Comment on above: Performed By: #### 2 71145 #### [facility],[address] [place] [address] 81067 PT/INR DAILY PATIENT ON COUM ADINon 01-09-2021 INR Coag (PPP) [Relative time] 1.1 {INR} Normal 0.8 - 1.2 [facility] Comment on above: Result Comment: T HE HEMOSIL THROMBOPLASTIN REAGENT USED IN THE PROTHROMBIN TIME TEST INTERACTS WITH THE DRUG CUBICIN (DAPTOMYCIN) AND WILL RESULT IN FALSELY ELEVATED PT / INR RESULTS. INR INTERPRETATION INR INDICATION PREVENTION AND TREATMENT OF THROMBOEMBOLISM ASSOCIATED WITH: 2.0 - 3.0 ATRIAL FIBRILLATION, BIOPROSTHETIC HEART VALVES, PULMONARY EMBOLISM, VENOUS THROMBOSIS, SYSTEMIC EMBOLISM POST MYOCARDIAL INFARCTION 2.5 - 3.5 MECHANICAL HEART VALVES Performed By: #### 2 32501 #### [facility],[address] [place] [address] 22408 PT-COUMADIN 12.7 sec Normal 9.3 - 14.1 [facility] Comment on above: Performed By: #### 2 04184 #### [facility],[address] [place] [address] 79065 TROPONIN I, HIGH SENSITIVITY - DAILYon 01-09-2021 HS TROPONIN 6.6 pg/mL Normal 0.0 - 51.4 [facility] Comment on above: Performed By: #### 2 35332 #### [facility],[address] [place] [address] 14210 APTT - DAILYon 01-08-2021 aPTT Coag (Bld) [Time] 23.7 s Low 25.4 - 38.4 [facility] Comment on above: Performed By: #### 2 31453 #### [facility],[address] [place] [address] 76320 C-REACTIVE PROTEIN - DAILYon 01-08-2021 CRP 0.30 mg/dl Normal 0.00 - 0.90 [facility] Comment on above: Performed By: #### 2 47059 #### [facility],[address] [place] [address] 56037 CBC DAILYon 01-08-2021 Baso # 0.00 x10EE3/UL Normal 0.00 - 0.10 [facility] Comment on above: Performed By: #### 2 82012 #### [facility],[address] [place] [address] 95710 Basophils/100 WBC (Bld) 0.3 % Normal 0.0 - 2.0 [facility] Comment on above: Performed By: #### 2 12729 #### [facility],[address] [place] [address] 99691 EO # 0.00 x10EE3/UL Normal 0.00 - 0.50 [facility] Comment on above: Performed By: #### 2 58408 #### [facility],[address] [place], [place] [address] Eosinophils/100 WBC (Bld) 0.1 % Normal 0.0 - 7.0 [facility] Comment on above: Performed By: #### 2 76341 #### [facility],[address] [place] [address] Erythrocyte distribution width (RBC) [Ratio] 13.4 % Normal 12.0 - 15.6 [facility] Comment on above: Performed By: #### 2 62336 #### [facility],[address] [place] [address] Hematocrit (Bld) [Volume fraction] 37.9 % Normal 34.0 - 46.0 [facility] Comment on above: Performed By: #### 2 85491 #### [facility],[address] [place] [address] Hemoglobin (Bld) [Mass/Vol] 13.2 g/dL Normal 12.0 - 16.0 [facility] Comment on above: Performed By: #### 2 83088 #### [facility],[address] [place] [address] Lymph # 0.70 x10EE3/UL Low 0.80 - 2.80 [facility] Comment on above: Performed By: #### 2 63831 #### [facility],[address] [place], [place] [address] Lymphocytes/100 WBC (Bld) 18.5 % Low 20.0 - 45.0 [facility] Comment on above: Performed By: #### 2 61492 #### [facility] [facility] [place], [place] [address] MANUAL DIFF N/A Normal [facility] Comment on above: Performed By: #### 2 02429 #### [facility],[address] [place] [address] MCH (RBC) [Entitic mass] 30 pg Normal 27 - 33 [facility] Comment on above: Performed By: #### 2 80841 #### [facility],[address] [place] [address] MCHC 35 X10 3 Normal 32 - 36 [facility] Comment on above: Performed By: #### 2 73565 #### [facility],[address] [place] [address] MCV (RBC) [Entitic vol] 87 fL Normal 80 - 99 [facility] Comment on above: Performed By: #### 2 64808 #### [facility],[address] [place] [address] [place] # 0.40 x10EE3/UL Normal 0.20 - 1.00 [facility] Comment on above: Performed By: #### 2 81716 #### [facility],[address] [place] [address] MONOS % 9.1 % Normal 0.0 - 10.0 [facility] Comment on above: Performed By: #### 2 10087 #### [facility],[address] [place] [address] Morphology Adalid (Bld) [Interp] N/A Normal [facility] Comment on above: Result Comment: {CD] Performed By: #### 2 02574 #### [facility],[address] [place] [address] Neut # 2.80 x10EE3/UL Normal 1.50 - 7.10 [facility] Comment on above: Performed By: #### 2 58176 #### [place] [address] Neutrophils/100 WBC (Bld) 72.0 % Normal 46.0 - 76.0 [facility] Comment on above: Performed By: #### 2 06319 #### [facility],[address] [place] [address] 11479 PLATELET 239 x10EE3/UL Normal 150 - 450 [facility] Comment on above: Performed By: #### 2 99538 #### [facility],[address] [place] [address] 55192 Platelet mean volume (Bld) [Entitic vol] 7.7 fL Normal 6.6 - 10.5 [facility] Comment on above: Result Comment: AUTO MATED DIFFERENTIAL Performed By: #### 2 90246 #### [facility],[address] [place] [address] 03139 RBC 4.35 x 10EE6/UL Normal 4.10 - 5.30 [facility] Comment on above: Performed By: #### 2 46295 #### [facility],[address] [place] [address] 63842 WBC 3.9 x 10EE3/UL Low 4.5 - 10.[address] [facility] Comment on above: Performed By: #### 2 34966 #### [facility],[address] [place] [address] 55738 CMP with eGFR - DAILYon -0 -2020 AGE 70 years Normal [facility] Comment on above: Performed By: #### 2 51000 #### [facility],[address] [place] [address] 97074 Albumin [Mass/Vol] 3.0 g/dL Low 3.4 - 5.0 [facility] Comment on above: Performed By: #### 2 33174 #### [facility],[address] [place] [address] 02679 Albumin/Globulin [Mass ratio] 0.9 {ratio} Normal 0.9 - 1.6 [facility] Comment on above: Performed By: #### 2 02733 #### [facility],[address] [place] [address] 05943 ALK PHOS 80 U/L Normal 46 - 116 [facility] Comment on above: Performed By: #### 2 28953 #### [facility],[address] [place] [address] 31429 ALT [Catalytic activity/Vol] 28 U/L Normal 14 - 59 [facility] Comment on above: Performed By: #### 2 16193 #### [facility],[address] [place] [address] 05416 Anion gap [Moles/Vol] 12 mmol/L Normal 10 - 20 [facility] Comment on above: Performed By: #### 2 65135 #### [facility],[address] [place] [address] 68316 AST [Catalytic activity/Vol] 18 U/L Normal 13 - 39 [facility] Comment on above: Performed By: #### 2 51982 #### [facility],[address] [place] [address] 56551 B/C RATIO 24 ratio Normal 0 - 30 [facility] Comment on above: Performed By: #### 2 04593 #### [facility],[address] [place] [address] 23975 Bilirubin [Mass/Vol] 0.7 mg/dL Normal 0.2 - 1.0 [facility] Comment on above: Performed By: #### 2 14045 #### [facility],[address] [place] [address] 34796 Calcium [Mass/Vol] 8.3 mg/dL Low 8.5 - 10.1 [facility] Comment on above: Performed By: #### 2 85270 #### [facility],[address] [place] [address] 88594 Chloride [Moles/Vol] 101 mmol/L Normal 98 - 107 [facility] Comment on above: Performed By: #### 2 31054 #### [facility],[address] [place] [address] 25944 CMP with eGFR - DAILY Normal [facility] Comment on above: Result Comment: COMP REHENSIVE METABOLIC PANEL Performed By: #### 2 70556 #### [facility],[address] [place] [address] CO2 [Moles/Vol] 25.6 mmol/L Normal 21.0 - 32.0 [facility] Comment on above: Performed By: #### 2 21990 #### [facility],[address] [place] [address] Creatinine [Mass/Vol] 0.74 mg/dL Normal 0.55 - 1.02 [facility] Comment on above: Performed By: #### 2 16689 #### [facility],[address] [place], [place] [address] GFR/1.73 sq M.predicted among non-blacks MDRD (S/P/Bld) [Vol rate/Area] mL/min/{1.73_m2} Normal 60 - 999 [facility] Comment on above: Performed By: #### 2 54160 #### [facility],[address] [place] [address] Result Comment: ACCO RDING TO THE NATIONAL KIDNEY DISEASE EDUCATION PROGRAM(NKDE), A NORMAL eGFR IS A VALUE GREATER THAN OR EQUAL TO 60 ML/MIN/1.73 SQ METERS. CHRONIC KIDNEY DISEASE: <60mL/MIN/1.73 SQ METERS KIDNEY FAILURE: <15mL/MIN/1.73 SQ METERS Globulin (S) [Mass/Vol] 3.5 g/dL Normal 1.5 - 3.8 [facility] Comment on above: Performed By: #### 2 70439 #### [facility],[address] [place], [place] [address] Glucose [Mass/Vol] 103 mg/dL Normal 74 - 106 [facility] Comment on above: Performed By: #### 2 55057 #### [facility],[address] [place] [address] Potassium [Moles/Vol] 3.5 mmol/L Normal 3.5 - 5.1 [facility] Comment on above: Performed By: #### 2 57188 #### [place] [address],[place] [address] Protein [Mass/Vol] 6.5 g/dL Normal 6.4 - 8.2 [facility] Comment on above: Performed By: #### 2 75743 #### [facility],[address] [place] [address] 66333 Sodium [Moles/Vol] 135 mmol/L Low 136 - 145 [facility] Comment on above: Performed By: #### 2 41598 #### [facility],[address] [place] [address] 96920 Urea nitrogen [Mass/Vol] 18 mg/dL Normal 7 - 18 [facility] Comment on above: Performed By: #### 2 87780 #### [facility],[address] [place] [address] 15993 CPK - DAILYon 01-08-2021 CPK 26 U/L Normal 26 - 192 [facility] Comment on above: Performed By: #### 2 73327 #### [facility],[address] [place] [address] 30597 D-DIMER, QUANTITATIVE - JAISON Yon 01-08-2021 D-DIMER QUANT 254 ng/ml High 0 - 230 [facility] Comment on above: Performed By: #### 2 10582 #### [facility],[address] [place] [address] 81006 D-DIMER, QUANTITATIVE - DAILY Normal [facility] Comment on above: Result Comment: ISABEL T D-DIMER Performed By: #### 2 30879 #### [facility],[address] [place] [address] 17254 LDH - DAILYon 01-08-2021 LDH 261 U/L High 81 - 234 [facility] Comment on above: Performed By: #### 2 11250 #### [facility],[address] [place] [address] 79927 PT/INR DAILY PATIENT ON COUM ADINon 01-08-2021 INR Coag (PPP) [Relative time] 1.1 {INR} Normal 0.8 - 1.2 [facility] Comment on above: Result Comment: T HE HEMOSIL THROMBOPLASTIN REAGENT USED IN THE PROTHROMBIN TIME TEST INTERACTS WITH THE DRUG CUBICIN (DAPTOMYCIN) AND WILL RESULT IN FALSELY ELEVATED PT / INR RESULTS. INR INTERPRETATION INR INDICATION PREVENTION AND TREATMENT OF THROMBOEMBOLISM ASSOCIATED WITH: 2.0 - 3.0 ATRIAL FIBRILLATION, BIOPROSTHETIC HEART VALVES, PULMONARY EMBOLISM, VENOUS THROMBOSIS, SYSTEMIC EMBOLISM POST MYOCARDIAL INFARCTION 2.5 - 3.5 MECHANICAL HEART VALVES Performed By: #### 2 47803 #### [facility],[address] [place] [address] PT-COUMADIN 12.9 sec Normal 9.3 - 14.1 [facility] Comment on above: Performed By: #### 2 23539 #### [facility],[address] [place] [address] TROPONIN I, HIGH SENSITIVITY - DAILYon 01-08-2021 HS TROPONIN 6.7 pg/mL Normal 0.0 - 51.4 [facility] Comment on above: Performed By: #### 2 87176 #### [facility],[address] [place] [address] 45587 APTT - DAILYon 01-07-2021 aPTT Coag (Bld) [Time] 24.7 s Low 25.4 - 38.4 [facility] Comment on above: Performed By: #### 2 85870 #### [facility],[address] [place] [address] 23383 C-REACTIVE PROTEIN - DAILYon 01-07-2021 CRP 1.60 mg/dl High 0.00 - 0.90 [facility] Comment on above: Performed By: #### 2 63605 #### [facility],[address] [place] [address] 48075 CBC DAILYon 01-07-2021 Baso # 0.00 x10EE3/UL Normal 0.00 - 0.10 [facility] Comment on above: Performed By: #### 2 36575 #### [facility],[address] [place] [address] 92736 Basophils/100 WBC (Bld) 0.2 % Normal 0.0 - 2.0 [facility] Comment on above: Performed By: #### 2 44513 #### [facility],[address] [place] [address] 88961 EO # 0.00 x10EE3/UL Normal 0.00 - 0.50 [facility] Comment on above: Performed By: #### 2 60722 #### [facility],[address] [place] [address] 97361 Eosinophils/100 WBC (Bld) 0.0 % Normal 0.0 - 7.0 [facility] Comment on above: Performed By: #### 2 25948 #### [place] [address] Erythrocyte distribution width (RBC) [Ratio] 13.5 % Normal 12.0 - 15.6 [facility] Comment on above: Performed By: #### 2 21550 #### [facility],[address] [place], [place] [address] Hematocrit (Bld) [Volume fraction] 40.4 % Normal 34.0 - 46.0 [facility] Comment on above: Performed By: #### 2 40175 #### [facility],[address] [place] [address] 75614 Hemoglobin (Bld) [Mass/Vol] 14.3 g/dL Normal 12.0 - 16.0 [facility] Comment on above: Performed By: #### 2 39543 #### [address] [address] Lymph # 0.80 x10EE3/UL Normal 0.80 - 2.80 [facility] Comment on above: Performed By: #### 2 66005 #### [facility],[address] [place] [address] 69724 Lymphocytes/100 WBC (Bld) 22.6 % Normal 20.0 - 45.0 [facility] Comment on above: Performed By: #### 2 28625 #### [facility],[address] [place] [address] MANUAL DIFF N/A Normal [facility] Comment on above: Performed By: #### 2 30142 #### [facility],[address] [place] [address] MCH (RBC) [Entitic mass] 31 pg Normal 27 - 33 [facility] Comment on above: Performed By: #### 2 27667 #### [facility],[address] [place] [address] MCHC 35 X10 3 Normal 32 - 36 [facility] Comment on above: Performed By: #### 2 88881 #### [facility],[address] [place] [address] MCV (RBC) [Entitic vol] 86 fL Normal 80 - 99 [facility] Comment on above: Performed By: #### 2 19372 #### [facility],[address] [place] [address] [place] # 0.30 x10EE3/UL Normal 0.20 - 1.00 [facility] Comment on above: Performed By: #### 2 68601 #### [facility],[address] [place] [address] MONOS % 8.6 % Normal 0.0 - 10.0 [facility] Comment on above: Performed By: #### 2 35977 #### [facility],[address] [place] [address] Morphology Adalid (Bld) [Interp] N/A Normal [facility] Comment on above: Result Comment: {CD] Performed By: #### 2 31491 #### [facility],[address] [place] [address] Neut # 2.30 x10EE3/UL Normal 1.50 - 7.10 [facility] Comment on above: Performed By: #### 2 44714 #### [facility],[address] [place] [address] 46651 Neutrophils/100 WBC (Bld) 68.6 % Normal 46.0 - 76.0 [facility] Comment on above: Performed By: #### 2 87327 #### [facility],[address] [place] [address] 66078 PLATELET 225 x10EE3/UL Normal 150 - 450 [facility] Comment on above: Performed By: #### 2 23188 #### [facility],[address] [place] [address] 21440 Platelet mean volume (Bld) [Entitic vol] 7.9 fL Normal 6.6 - 10.5 [facility] Comment on above: Result Comment: AUTO MATED DIFFERENTIAL Performed By: #### 2 12624 #### [facility],[address] [place] [address] 21061 RBC 4.68 x 10EE6/UL Normal 4.10 - 5.30 [facility] Comment on above: Performed By: #### 2 52394 #### [facility],[address] [place] [address] 33410 WBC 3.3 x 10EE3/UL Low 4.5 - 10.[address] [facility] Comment on above: Performed By: #### 2 88358 #### [facility],[address] [place] [address] 99699 CMP with eGFR - DAILYon 09-0 AGE 70 years Normal [facility] Comment on above: Performed By: #### 2 80571 #### [facility],[address] [place] [address] 37882 Albumin [Mass/Vol] 3.1 g/dL Low 3.4 - 5.0 [facility] Comment on above: Performed By: #### 2 82425 #### [facility],[address] [place] [address] 92281 Albumin/Globulin [Mass ratio] 0.8 {ratio} Low 0.9 - 1.6 [facility] Comment on above: Performed By: #### 2 19132 #### [facility],[address] [place] [address] 87096 ALK PHOS 89 U/L Normal 46 - 116 [facility] Comment on above: Performed By: #### 2 39100 #### [facility],[address] [place] [address] 54086 ALT [Catalytic activity/Vol] 29 U/L Normal 14 - 59 [facility] Comment on above: Performed By: #### 2 62636 #### [facility],[address] [place] [address] 51085 Anion gap [Moles/Vol] 14 mmol/L Normal 10 - 20 [facility] Comment on above: Performed By: #### 2 87013 #### [facility],[address] [place] [address] 09483 AST [Catalytic activity/Vol] 23 U/L Normal 13 - 39 [facility] Comment on above: Performed By: #### 2 15213 #### [facility],[address] [place] [address] 34147 B/C RATIO 22 ratio Normal 0 - 30 [facility] Comment on above: Performed By: #### 2 41813 #### [facility],[address] [place] [address] 62712 Bilirubin [Mass/Vol] 0.7 mg/dL Normal 0.2 - 1.0 [facility] Comment on above: Performed By: #### 2 12544 #### [facility],[address] [place] [address] 25239 Calcium [Mass/Vol] 8.5 mg/dL Normal 8.5 - 10.1 [facility] Comment on above: Performed By: #### 2 23237 #### [facility],[address] [place] [address] 14550 Chloride [Moles/Vol] 100 mmol/L Normal 98 - 107 [facility] Comment on above: Performed By: #### 2 33519 #### [facility],[address] [place] [address] 26811 CMP with eGFR - DAILY Normal [facility] Comment on above: Result Comment: COMP REHENSIVE METABOLIC PANEL Performed By: #### 2 81432 #### [facility],[address] [place] [address] 66163 CO2 [Moles/Vol] 24.0 mmol/L Normal 21.0 - 32.0 [facility] Comment on above: Performed By: #### 2 37304 #### [facility],[address] [place], [place] [address] Creatinine [Mass/Vol] 0.88 mg/dL Normal 0.55 - 1.02 [facility] Comment on above: Performed By: #### 2 19297 #### [facility],[address] [place], [place] [address] GFR/1.73 sq M.predicted among non-blacks MDRD (S/P/Bld) [Vol rate/Area] mL/min/{1.73_m2} Normal 60 - 999 [facility] Comment on above: Performed By: #### 2 71415 #### [facility],[address] [place], [place] [address] Result Comment: ACCO RDING TO THE NATIONAL KIDNEY DISEASE EDUCATION PROGRAM(NKDE), A NORMAL eGFR IS A VALUE GREATER THAN OR EQUAL TO 60 ML/MIN/1.73 SQ METERS. CHRONIC KIDNEY DISEASE: <60mL/MIN/1.73 SQ METERS KIDNEY FAILURE: <15mL/MIN/1.73 SQ METERS Globulin (S) [Mass/Vol] 3.9 g/dL High 1.5 - 3.8 [facility] Comment on above: Performed By: #### 2 38619 #### [facility],[address] [place] [address] 52789 Glucose [Mass/Vol] 99 mg/dL Normal 74 - 106 [facility] Comment on above: Performed By: #### 2 65669 #### [facility],[address] [place] [address] 81277 Potassium [Moles/Vol] 3.6 mmol/L Normal 3.5 - 5.1 [facility] Comment on above: Performed By: #### 2 96974 #### [facility],[address] [place] [address] 81265 Protein [Mass/Vol] 7.0 g/dL Normal 6.4 - 8.2 [facility] Comment on above: Performed By: #### 2 66833 #### [facility],[address] [place] [address] 71570 Sodium [Moles/Vol] 134 mmol/L Low 136 - 145 [facility] Comment on above: Performed By: #### 2 10766 #### [facility],[address] [place] [address] 54055 Urea nitrogen [Mass/Vol] 19 mg/dL High 7 - 18 [facility] Comment on above: Performed By: #### 2 86013 #### [facility],[address] [place] [address] 18557 CPK - DAILYon 01-07-2021 CPK 31 U/L Normal 26 - 192 [facility] Comment on above: Performed By: #### 2 47414 #### [facility],[address] [place] [address] 16586 D-DIMER, QUANTITATIVE - JAISON Yon 01-07-2021 D-DIMER QUANT 271 ng/ml High 0 - 230 [facility] Comment on above: Performed By: #### 2 66048 #### [facility],[address] [place] [address] 60498 D-DIMER, QUANTITATIVE - DAILY Normal [facility] Comment on above: Result Comment: ISABEL T D-DIMER Performed By: #### 2 91640 #### [facility],[address] [place] [address] 56162 LDH - DAILYon 01-07-2021 LDH 308 U/L High 81 - 234 [facility] Comment on above: Performed By: #### 2 20316 #### [facility],[address] [place] [address] 59862 PT/INR DAILY PATIENT ON COUM ADINon 01-07-2021 INR Coag (PPP) [Relative time] 1.1 {INR} Normal 0.8 - 1.2 [facility] Comment on above: Result Comment: T HE HEMOSIL THROMBOPLASTIN REAGENT USED IN THE PROTHROMBIN TIME TEST INTERACTS WITH THE DRUG CUBICIN (DAPTOMYCIN) AND WILL RESULT IN FALSELY ELEVATED PT / INR RESULTS. INR INTERPRETATION INR INDICATION PREVENTION AND TREATMENT OF THROMBOEMBOLISM ASSOCIATED WITH: 2.0 - 3.0 ATRIAL FIBRILLATION, BIOPROSTHETIC HEART VALVES, PULMONARY EMBOLISM, VENOUS THROMBOSIS, SYSTEMIC EMBOLISM POST MYOCARDIAL INFARCTION 2.5 - 3.5 MECHANICAL HEART VALVES Performed By: #### 2 47352 #### [facility],[address] [place] [address] 72578 PT-COUMADIN 12.9 sec Normal 9.3 - 14.1 [facility] Comment on above: Performed By: #### 2 86681 #### [facility],[address] [place] [address] 23272 TROPONIN I, HIGH SENSITIVITY - DAILYon 01-07-2021 HS TROPONIN 7.4 pg/mL Normal 0.0 - 51.4 [facility] Comment on above: Performed By: #### 2 60293 #### [facility],[address] [place] [address] 20705 APTTon 01-06-2021 aPTT Coag (Bld) [Time] 25.0 s Low 25.4 - 38.4 [facility] Comment on above: Performed By: #### 2 71887 #### [facility],[address] [place] [address] 55839 APTT - DAILYon 01-06-2021 aPTT Coag (Bld) [Time] 24.5 s Low 25.4 - 38.4 [facility] Comment on above: Performed By: #### 2 54510 #### [facility],[address] [place] [address] 17901 C-REACTIVE PROTEINon CRP 5.70 mg/dl High 0.00 - 0.90 [facility] Comment on above: Performed By: #### 2 02979 #### [facility],[address] [place] [address] 83700 C-REACTIVE PROTEIN - DAILYon 01-06-2021 CRP 3.50 mg/dl High 0.00 - 0.90 [facility] Comment on above: Performed By: #### 2 42323 #### [facility],[address] [place] [address] 71600 CBC DAILYon 01-06-2021 Baso # 0.00 x10EE3/UL Normal 0.00 - 0.10 [facility] Comment on above: Performed By: #### 2 62693 #### [facility],[address] [place] [address] 87676 Basophils/100 WBC (Bld) 0.3 % Normal 0.0 - 2.0 [facility] Comment on above: Performed By: #### 2 66209 #### [facility],[address] [place] [address] 95343 EO # 0.00 x10EE3/UL Normal 0.00 - 0.50 [facility] Comment on above: Performed By: #### 2 63778 #### [address] [address] Eosinophils/100 WBC (Bld) 0.5 % Normal 0.0 - 7.0 [facility] Comment on above: Performed By: #### 2 65551 #### [facility],[address] [place] [address] Erythrocyte distribution width (RBC) [Ratio] 13.3 % Normal 12.0 - 15.6 [facility] Comment on above: Performed By: #### 2 59261 #### [facility],[address] [place] [address] Hematocrit (Bld) [Volume fraction] 40.0 % Normal 34.0 - 46.0 [facility] Comment on above: Performed By: #### 2 21357 #### [facility],[address] [place] [address] Hemoglobin (Bld) [Mass/Vol] 13.8 g/dL Normal 12.0 - 16.0 [facility] Comment on above: Performed By: #### 2 95769 #### [facility],[address] [place] [address] Lymph # 0.90 x10EE3/UL Normal 0.80 - 2.80 [facility] Comment on above: Performed By: #### 2 02766 #### [facility],[address] [place], [place] [address] Lymphocytes/100 WBC (Bld) 24.9 % Normal 20.0 - 45.0 [facility] Comment on above: Performed By: #### 2 10808 #### [facility],[address] [place], [place] [address] MANUAL DIFF N/A Normal [facility] Comment on above: Performed By: #### 2 66433 #### [facility],[address] [place], [place] [address] MCH (RBC) [Entitic mass] 31 pg Normal 27 - 33 [facility] Comment on above: Performed By: #### 2 17624 #### [facility],[address] [place], [place] [address] MCHC 35 X10 3 Normal 32 - 36 [facility] Comment on above: Performed By: #### 2 23674 #### [facility],[address] [place] [address] 66395 MCV (RBC) [Entitic vol] 89 fL Normal 80 - 99 [facility] Comment on above: Performed By: #### 2 32965 #### [facility],[address] [place] [address] 59737 [place] # 0.30 x10EE3/UL Normal 0.20 - 1.00 [facility] Comment on above: Performed By: #### 2 69432 #### [facility],[address] [place] [address] 91124 MONOS % 7.1 % Normal 0.0 - 10.0 [facility] Comment on above: Performed By: #### 2 73172 #### [facility],[address] [place] [address] 25607 Morphology Adalid (Bld) [Interp] N/A Normal [facility] Comment on above: Result Comment: {CD] Performed By: #### 2 53073 #### [facility],[address] [place] [address] 07147 Neut # 2.50 x10EE3/UL Normal 1.50 - 7.10 [facility] Comment on above: Performed By: #### 2 56605 #### [facility],[address] [place] [address] 19879 Neutrophils/100 WBC (Bld) 67.2 % Normal 46.0 - 76.0 [facility] Comment on above: Performed By: #### 2 97463 #### [facility],[address] [place] [address] 11047 PLATELET 172 x10EE3/UL Normal 150 - 450 [facility] Comment on above: Performed By: #### 2 08428 #### [facility],[address] [place] [address] 95921 Platelet mean volume (Bld) [Entitic vol] 8.0 fL Normal 6.6 - 10.5 [facility] Comment on above: Result Comment: AUTO MATED DIFFERENTIAL Performed By: #### 2 75644 #### [facility],[address] [place] [address] 73448 RBC 4.50 x 10EE6/UL Normal 4.10 - 5.30 [facility] Comment on above: Performed By: #### 2 17675 #### [facility],[address] [place] [address] 75866 WBC 3.7 x 10EE3/UL Low 4.5 - 10.[address] [facility] Comment on above: Performed By: #### 2 60346 #### [facility],[address] [place] [address] 02363 CMP with eGFRon 01-06-2021 AGE 70 years Normal [facility] Comment on above: Performed By: #### 2 90025 #### [facility],[address] [place] [address] 94646 Albumin [Mass/Vol] 3.3 g/dL Low 3.4 - 5.0 [facility] Comment on above: Performed By: #### 2 60352 #### [facility],[address] [place] [address] 94157 Albumin/Globulin [Mass ratio] 0.8 {ratio} Low 0.9 - 1.6 [facility] Comment on above: Performed By: #### 2 04587 #### [facility],[address] [place] [address] 18822 ALK PHOS 100 U/L Normal 46 - 116 [facility] Comment on above: Performed By: #### 2 10312 #### [facility],[address] [place] [address] 48358 ALT [Catalytic activity/Vol] 30 U/L Normal 14 - 59 [facility] Comment on above: Performed By: #### 2 73319 #### [facility],[address] [place] [address] 84171 Anion gap [Moles/Vol] 13 mmol/L Normal 10 - 20 [facility] Comment on above: Performed By: #### 2 59068 #### [facility],[address] [place] [address] 39809 AST [Catalytic activity/Vol] 31 U/L Normal 13 - 39 [facility] Comment on above: Performed By: #### 2 64447 #### [facility],[address] [place] [address] 99490 B/C RATIO 24 ratio Normal 0 - 30 [facility] Comment on above: Performed By: #### 2 57756 #### [facility],[address] [place] [address] 67661 Bilirubin [Mass/Vol] 0.7 mg/dL Normal 0.2 - 1.0 [facility] Comment on above: Performed By: #### 2 21521 #### [facility],[address] [place] [address] 81420 Calcium [Mass/Vol] 8.2 mg/dL Low 8.5 - 10.1 [facility] Comment on above: Performed By: #### 2 07749 #### [facility],[address] [place] [address] 11537 Chloride [Moles/Vol] 98 mmol/L Normal 98 - 107 [facility] Comment on above: Performed By: #### 2 53936 #### [facility],[address] [place] [address] 83451 CMP with eGFR Normal [facility] Comment on above: Result Comment: COMP REHENSIVE METABOLIC PANEL Performed By: #### 2 39624 #### [facility],[address] [place] [address] 78544 CO2 [Moles/Vol] 28.0 mmol/L Normal 21.0 - 32.0 [facility] Comment on above: Performed By: #### 2 52874 #### [facility],[address] [place] [address] 62170 Creatinine [Mass/Vol] 0.75 mg/dL Normal 0.55 - 1.02 [facility] Comment on above: Performed By: #### 2 84127 #### [facility],[address] [place] [address] 36246 GFR/1.73 sq M.predicted among non-blacks MDRD (S/P/Bld) [Vol rate/Area] mL/min/{1.73_m2} Normal 60 - 999 [facility] Comment on above: Performed By: #### 2 71321 #### [facility],[address] [place] [address] 52410 Result Comment: ACCO RDING TO THE NATIONAL KIDNEY DISEASE EDUCATION PROGRAM(NKDE), A NORMAL eGFR IS A VALUE GREATER THAN OR EQUAL TO 60 ML/MIN/1.73 SQ METERS. CHRONIC KIDNEY DISEASE: <60mL/MIN/1.73 SQ METERS KIDNEY FAILURE: <15mL/MIN/1.73 SQ METERS THIS TEST SHOULD ONLY BE USED FOR PATIENTS 18 YEARS OF AGE AND OLDER. Globulin (S) [Mass/Vol] 3.9 g/dL High 1.5 - 3.8 [facility] Comment on above: Performed By: #### 2 57057 #### [facility],[address] [place] [address] 23758 Glucose [Mass/Vol] 87 mg/dL Normal 74 - 106 [facility] Comment on above: Performed By: #### 2 73450 #### [facility],[address] [place] [address] 82681 Potassium [Moles/Vol] 3.4 mmol/L Low 3.5 - 5.1 [facility] Comment on above: Performed By: #### 2 09557 #### [facility],[address] [place] [address] 04340 Protein [Mass/Vol] 7.2 g/dL Normal 6.4 - 8.2 [facility] Comment on above: Performed By: #### 2 19835 #### [facility],[address] [place] [address] 92559 Sodium [Moles/Vol] 136 mmol/L Normal 136 - 145 [facility] Comment on above: Performed By: #### 2 25439 #### [facility],[address] [place] [address] 39247 Urea nitrogen [Mass/Vol] 18 mg/dL Normal 7 - 18 [facility] Comment on above: Performed By: #### 2 78279 #### [facility],[address] [place] [address] 89050 CMP with eGFR - DAILYon 09-0 AGE 70 years Normal [facility] Comment on above: Performed By: #### 2 01277 #### [facility],[address] [place] [address] 12962 Albumin [Mass/Vol] 2.9 g/dL Low 3.4 - 5.0 [facility] Comment on above: Performed By: #### 2 46523 #### [facility],[address] [place] [address] 10466 Albumin/Globulin [Mass ratio] 0.8 {ratio} Low 0.9 - 1.6 [facility] Comment on above: Performed By: #### 2 68433 #### [facility],[address] [place] [address] 90090 ALK PHOS 84 U/L Normal 46 - 116 [facility] Comment on above: Performed By: #### 2 72835 #### [facility],[address] [place] [address] 39816 ALT [Catalytic activity/Vol] 29 U/L Normal 14 - 59 [facility] Comment on above: Performed By: #### 2 42323 #### [facility],[address] [place] [address] 20882 Anion gap [Moles/Vol] 15 mmol/L Normal 10 - 20 [facility] Comment on above: Performed By: #### 2 66113 #### [facility],[address] [place] [address] 22174 AST [Catalytic activity/Vol] 30 U/L Normal 13 - 39 [facility] Comment on above: Performed By: #### 2 53547 #### [facility],[address] [place] [address] 61136 B/C RATIO 19 ratio Normal 0 - 30 [facility] Comment on above: Performed By: #### 2 30200 #### [facility],[address] [place] [address] 05669 Bilirubin [Mass/Vol] 0.5 mg/dL Normal 0.2 - 1.0 [facility] Comment on above: Performed By: #### 2 04648 #### [facility],[address] [place] [address] 03293 Calcium [Mass/Vol] 8.1 mg/dL Low 8.5 - 10.1 [facility] Comment on above: Performed By: #### 2 07407 #### [facility],[address] [place] [address] 19169 Chloride [Moles/Vol] 100 mmol/L Normal 98 - 107 [facility] Comment on above: Performed By: #### 2 50817 #### [facility],[address] [place] [address] 75262 CMP with eGFR - DAILY Normal [facility] Comment on above: Result Comment: COMP REHENSIVE METABOLIC PANEL Performed By: #### 2 14661 #### [facility],[address] [place] [address] 76650 CO2 [Moles/Vol] 25.3 mmol/L Normal 21.0 - 32.0 [facility] Comment on above: Performed By: #### 2 42686 #### [facility],[address] [place] [address] 13070 Creatinine [Mass/Vol] 0.79 mg/dL Normal 0.55 - 1.02 [facility] Comment on above: Performed By: #### 2 53336 #### [facility],[address] [place] [address] 34466 GFR/1.73 sq M.predicted among non-blacks MDRD (S/P/Bld) [Vol rate/Area] mL/min/{1.73_m2} Normal 60 - 999 [facility] Comment on above: Performed By: #### 2 69154 #### [facility],[address] [place] [address] 73080 Result Comment: ACCO RDING TO THE NATIONAL KIDNEY DISEASE EDUCATION PROGRAM(NKDE), A NORMAL eGFR IS A VALUE GREATER THAN OR EQUAL TO 60 ML/MIN/1.73 SQ METERS. CHRONIC KIDNEY DISEASE: <60mL/MIN/1.73 SQ METERS KIDNEY FAILURE: <15mL/MIN/1.73 SQ METERS Globulin (S) [Mass/Vol] 3.5 g/dL Normal 1.5 - 3.8 [facility] Comment on above: Performed By: #### 2 19930 #### [address] [address] Glucose [Mass/Vol] 86 mg/dL Normal 74 - 106 [facility] Comment on above: Performed By: #### 2 28607 #### [facility],[address] [place] [address] 82116 Potassium [Moles/Vol] 3.5 mmol/L Normal 3.5 - 5.1 [facility] Comment on above: Performed By: #### 2 11632 #### [facility],[address] [place] [address] 63800 Protein [Mass/Vol] 6.4 g/dL Normal 6.4 - 8.2 [facility] Comment on above: Performed By: #### 2 71220 #### [facility],[address] [place] [address] 97488 Sodium [Moles/Vol] 137 mmol/L Normal 136 - 145 [facility] Comment on above: Performed By: #### 2 32237 #### [address] 14038 Urea nitrogen [Mass/Vol] 15 mg/dL Normal 7 - 18 [facility] Comment on above: Performed By: #### 2 33321 #### [facility],[address] [place] [address] 22747 CORONAVIRUS PCR - [facility] 01-06-2021 SARS-CoV-2 (COVID-19) RNA SURJIT+probe Ql (Unsp spec) Positive Critically abnormal NORMAL: NEGATIVE [facility] Comment on above: Result Comment: { CA LLED TO FAXED TO IC [id number] { READ BACK BY IC Performed By: #### 2 46104 #### [facility],[address] [place] [address] 67705 SEND TO IC? YES Normal [facility] Comment on above: Result Comment: RESU LTS FAXED TO INFECTION CONTROL. SARS-CoV-2 THIS TEST IS BEING USED UNDER THE FDA EUA PROCEDURE. THIS ASSAY HAS BEEN VALIDATED IN THE [facility] FOR USE WITH NASOPHARYNGEAL SPECIMENS IN [facility]. INTERPRETIVE DATA LABORATORY TEST RESULTS SHOULD ALWAYS BE CONSIDERED IN THE CONTEXT OF CLINICAL OBSERVATIONS AND EPIDEMIOLOGICAL DATA IN MAKING FINAL DIAGNOSIS AND PATIENT MANAGEMENT DECISIONS. PATIENT MANAGEMENT SHOULD FOLLOW CURRENT CDC GUIDELINES. A POSITIVE TEST RESULT FOR COVID-19 INDICATES THAT RNA FROM SARS-CoV-2 WAS DETECTED, AND THE PATIENT IS INFECTED WITH THE VIRUS AND PRESUMED TO BE CONTAGIOUS. A NEGATIVE TEST RESULT FOR THIS TEST MEANS THAT SARS-CoV-2 RNA WAS NOT PRESENT IN THE SPECIMEN ABOVE THE LIMIT OF DETECTION. HOWEVER, A NEGATVIE RESULT DOES NOT RULE OUT COVID-19 AND SHOULD NOT BE USED THE SOLE BASIS FOR TREATMENT OR PATIENT MANAGEMENT DECISIONS. A NEGATIVE RESULT DOES NOT EXCLUDE THE POSSIBILITY OF COVID-19. WHEN DIAGNOSTIC TESTING IS NEGATIVE, THE POSSIBLILTY OF A FALSE NEGATIVE RESULT SHOULD BE CONSIDERED IN THE CONTEXT OF A PATIENT'S RECENT EXPOSURES AND THE PRESENCE OF CLINICAL SIGNS AND SYMPTOMS CONSISTENT WITH COVID-19. THE POSSIBILITY OF A FALSE NEGATIVE RESULT SHOULD ESPECIALLY BE CONSIDERED IF THE PATIENT'S RECENT EXPOSURES OR CLINICAL PRESENTATION INDICATE THAT COVID-19 IS LIKELY, AND DIAGNOSTIC TESTS FOR OTHER CAUSES OF ILLNESS (e.g., OTHER RESPIRATORY ILLNESS) ARE NEGATIVE. IF COVID-19 IS STILL SUSPECTED BASED ON EXPOSURE HISTORY TOGETHER WITH OTHER CLINICAL FINDINGS, RE-TESTED SHOULD BE CONSIDERED BY HEALTHCARE PROVIDERS IN CONSULTATION WITH PUBLIC HEALTH AUTHORITIES. Performed By: #### 2 86698 #### [facility],[address] [place] [address] 30697 CPK - DAILYon 01-06-2021 CPK 54 U/L Normal 26 - 192 [facility] Comment on above: Performed By: #### 2 59330 #### [facility],[address] [place] [address] 13661 D-DIMER, QUANTITATIVEon 09-0 D-DIMER QUANT 298 ng/ml High 0 - 230 [facility] Comment on above: Performed By: #### 2 25392 #### [facility],[address] [place] [address] 00804 D-DIMER, QUANTITATIVE Normal [facility] Comment on above: Result Comment: ISABEL T D-DIMER Performed By: #### 2 82988 #### [facility],[address] [place] [address] 70240 D-DIMER, QUANTITATIVE - JAISON Yon 01-06-2021 D-DIMER QUANT 301 ng/ml High 0 - 230 [facility] Comment on above: Performed By: #### 2 28239 #### [facility],[address] [place] [address] 25682 D-DIMER, QUANTITATIVE - DAILY Normal [facility] Comment on above: Result Comment: ISABEL T D-DIMER Performed By: #### 2 45180 #### [facility],[address] [place] [address] 25083 LDH - DAILYon 01-06-2021 LDH 329 U/L High 81 - 234 [facility] Comment on above: Performed By: #### 2 83373 #### [facility],[address] [place] [address] 09032 MAGNESIUMon 01-06-2021 Magnesium [Mass/Vol] 2.0 mg/dL Normal 1.8 - 2.4 [facility] Comment on above: Performed By: #### 2 03401 #### [facility],[address] [place] [address] NT-proBNPon 01-06-2021 Natriuretic peptide B (Bld) [Mass/Vol] 343 pg/mL High 0 - 125 [facility] Comment on above: Performed By: #### 2 56528 #### [facility],[address] [place], [place] [address] PROTHROMBIN TIME AND INRon 0 01-06-2021 INR Coag (PPP) [Relative time] 1.1 {INR} Normal 0.8 - 1.2 [facility] Comment on above: Result Comment: T HE HEMOSIL THROMBOPLASTIN REAGENT USED IN THE PROTHROMBIN TIME TEST INTERACTS WITH THE DRUG CUBICIN (DAPTOMYCIN) AND WILL RESULT IN FALSELY ELEVATED PT / INR RESULTS INR INTERPRETATION INR INDICATION PREVENTION AND TREATMENT OF THROMBOEMBOLISM ASSOCIATED WITH: 2.0 - 3.0 ATRIAL FIBRILLATION, BIOPROSTHETIC HEART VALVES, PULMONARY EMBOLISM, VENOUS THROMBOSIS, SYSTEMIC EMBOLISM POST MYOCARDIAL INFARCTION 2.5 - 3.5 MECHANICAL HEART VALVES Performed By: #### 2 43851 #### [facility],[address] [place], [place] [address] PROTHROMBIN TIME AND INR Normal [facility] Comment on above: Result Comment: PROT HROMBIN TIME AND INR Performed By: #### 2 20276 #### [facility],[address] [place], [place] [address] PT-COUMADIN 12.7 sec Normal 9.3 - 14.1 [facility] Comment on above: Performed By: #### 2 84642 #### [facility],[address] [place], [place] [address] PT/INR DAILY PATIENT ON COUM ADINon 01-06-2021 INR Coag (PPP) [Relative time] 1.1 {INR} Normal 0.8 - 1.2 [facility] Comment on above: Result Comment: T HE HEMOSIL THROMBOPLASTIN REAGENT USED IN THE PROTHROMBIN TIME TEST INTERACTS WITH THE DRUG CUBICIN (DAPTOMYCIN) AND WILL RESULT IN FALSELY ELEVATED PT / INR RESULTS. INR INTERPRETATION INR INDICATION PREVENTION AND TREATMENT OF THROMBOEMBOLISM ASSOCIATED WITH: 2.0 - 3.0 ATRIAL FIBRILLATION, BIOPROSTHETIC HEART VALVES, PULMONARY EMBOLISM, VENOUS THROMBOSIS, SYSTEMIC EMBOLISM POST MYOCARDIAL INFARCTION 2.5 - 3.5 MECHANICAL HEART VALVES Performed By: #### 2 56004 #### [facility],[address] [place] [address] 32620 PT-COUMADIN 12.4 sec Normal 9.3 - 14.1 [facility] Comment on above: Performed By: #### 2 70103 #### [facility],[address] [place] [address] TROPONINon 01-06-2021 HS TROPONIN 10.3 pg/mL Normal 0.0 - 51.4 [facility] Comment on above: Performed By: #### 2 48900 #### [facility],[address] [place] [address] TROPONIN I, HIGH SENSITIVITY - DAILYon 01-06-2021 HS TROPONIN 9.6 pg/mL Normal 0.0 - 51.4 [facility] Comment on above: Performed By: #### 2 93837 #### [facility],[address] [place] [address] 78169 C-REACTIVE PROTEINon 021 CRP 6.70 mg/dl High 0.00 - 0.90 [facility] Comment on above: Performed By: #### 2 59461 #### [facility],[address] [place] [address] 26684 CBC + DIFFon 01-05-2021 Baso # 0.00 x10EE3/UL Normal 0.00 - 0.10 [facility] Comment on above: Performed By: #### 2 19991 #### [facility],[address] [place] [address] 25896 Basophils/100 WBC (Bld) 0.5 % Normal 0.0 - 2.0 [facility] Comment on above: Performed By: #### 2 18696 #### [facility],[address] [place] [address] 66520 CBC + DIFF Normal [facility] Comment on above: Result Comment: CBC- COMPLETE BLOOD COUNT Performed By: #### 2 84210 #### [place] [address] EO # 0.00 x10EE3/UL Normal 0.00 - 0.50 [facility] Comment on above: Performed By: #### 2 93470 #### [facility],[address] [place] [address] Eosinophils/100 WBC (Bld) 0.1 % Normal 0.0 - 7.0 [facility] Comment on above: Performed By: #### 2 98154 #### [place] [address] Erythrocyte distribution width (RBC) [Ratio] 13.3 % Normal 12.0 - 15.6 [facility] Comment on above: Performed By: #### 2 68023 #### [place] [address] Hematocrit (Bld) [Volume fraction] 41.6 % Normal 34.0 - 46.0 [facility] Comment on above: Performed By: #### 2 35536 #### [place] [address] Hemoglobin (Bld) [Mass/Vol] 14.4 g/dL Normal 12.0 - 16.0 [facility] Comment on above: Performed By: #### 2 79392 #### [place] [address] Lymph # 0.80 x10EE3/UL Normal 0.80 - 2.80 [facility] Comment on above: Performed By: #### 2 30418 #### [place] [address] Lymphocytes/100 WBC (Bld) 30.7 % Normal 20.0 - 45.0 [facility] Comment on above: Performed By: #### 2 81566 #### [facility],[address] [place] [address] MANUAL DIFF N/A Normal [facility] Comment on above: Performed By: #### 2 55348 #### [facility],[address] [place] [address] MCH (RBC) [Entitic mass] 31 pg Normal 27 - 33 [facility] Comment on above: Performed By: #### 2 01063 #### [facility],[address] [place] [address] MCHC 35 X10 3 Normal 32 - 36 [facility] Comment on above: Performed By: #### 2 97470 #### [facility],[address] [place] [address] MCV (RBC) [Entitic vol] 88 fL Normal 80 - 99 [facility] Comment on above: Performed By: #### 2 83285 #### [facility],[address] [place] [address] [place] # 0.20 x10EE3/UL Normal 0.20 - 1.00 [facility] Comment on above: Performed By: #### 2 81767 #### [place] [address] MONOS % 8.7 % Normal 0.0 - 10.0 [facility] Comment on above: Performed By: #### 2 19229 #### [facility],[address] [place] [address] Morphology Adalid (Bld) [Interp] N/A Normal [facility] Comment on above: Result Comment: {CD] Performed By: #### 2 21654 #### [place] [address] Neut # 1.60 x10EE3/UL Normal 1.50 - 7.10 [facility] Comment on above: Performed By: #### 2 14992 #### [place] [address] Neutrophils/100 WBC (Bld) 60.0 % Normal 46.0 - 76.0 [facility] Comment on above: Performed By: #### 2 53135 #### [facility],[address] [place] [address] 85570 PLATELET 171 x10EE3/UL Normal 150 - 450 [facility] Comment on above: Performed By: #### 2 11170 #### [facility],[address] [place] [address] 74905 Platelet mean volume (Bld) [Entitic vol] 7.6 fL Normal 6.6 - 10.5 [facility] Comment on above: Result Comment: AUTO MATED DIFFERENTIAL Performed By: #### 2 01594 #### [facility],[address] [place] [address] 56094 RBC 4.73 x 10EE6/UL Normal 4.10 - 5.30 [facility] Comment on above: Performed By: #### 2 93095 #### [facility],[address] [place] [address] 63813 WBC 2.7 x 10EE3/UL Low 4.5 - 10.[address] [facility] Comment on above: Performed By: #### 2 19281 #### [facility],[address] [place] [address] 70258 Baso # 0.00 x10EE3/UL Normal 0.00 - 0.10 [facility] Comment on above: Performed By: #### 2 42563 #### [facility],[address] [place] [address] 22076 Basophils/100 WBC (Bld) 0.2 % Normal 0.0 - 2.0 [facility] Comment on above: Performed By: #### 2 46020 #### [facility],[address] [place] [address] 16195 CBC + DIFF Normal [facility] Comment on above: Result Comment: CBC- COMPLETE BLOOD COUNT Performed By: #### 2 07409 #### [facility],[address] [place] [address] 66117 EO # 0.00 x10EE3/UL Normal 0.00 - 0.50 [facility] Comment on above: Performed By: #### 2 84957 #### [facility],[address] [place] [address] 53531 Eosinophils/100 WBC (Bld) 0.0 % Normal 0.0 - 7.0 [facility] Comment on above: Performed By: #### 2 02355 #### [facility],[address] [place] [address] Erythrocyte distribution width (RBC) [Ratio] 13.2 % Normal 12.0 - 15.6 [facility] Comment on above: Performed By: #### 2 48842 #### [facility],[address] [place] [address] Hematocrit (Bld) [Volume fraction] 39.3 % Normal 34.0 - 46.0 [facility] Comment on above: Performed By: #### 2 04141 #### [facility],[address] [place] [address] Hemoglobin (Bld) [Mass/Vol] 13.8 g/dL Normal 12.0 - 16.0 [facility] Comment on above: Performed By: #### 2 33643 #### [facility],[address] [place] [address] 86376 Lymph # 0.50 x10EE3/UL Low 0.80 - 2.80 [facility] Comment on above: Performed By: #### 2 91144 #### [facility],[address] [place], [place] [address] Lymphocytes/100 WBC (Bld) 19.0 % Low 20.0 - 45.0 [facility] Comment on above: Performed By: #### 2 52903 #### [facility],[address] [place] [address] MANUAL DIFF N/A Normal [facility] Comment on above: Performed By: #### 2 00054 #### [facility],[address] [place] [address] MCH (RBC) [Entitic mass] 31 pg Normal 27 - 33 [facility] Comment on above: Performed By: #### 2 94526 #### [facility],[address] [place] [address] MCHC 35 X10 3 Normal 32 - 36 [facility] Comment on above: Performed By: #### 2 75446 #### [facility],[address] [place], [place] [address] MCV (RBC) [Entitic vol] 88 fL Normal 80 - 99 [facility] Comment on above: Performed By: #### 2 88508 #### [facility],[address] [place] [address] [place] # 0.30 x10EE3/UL Normal 0.20 - 1.00 [facility] Comment on above: Performed By: #### 2 67960 #### [facility],[address] [place] [address] MONOS % 10.2 % High 0.0 - 10.0 [facility] Comment on above: Performed By: #### 2 89966 #### [facility],[address] [place] [address] Morphology Adalid (Bld) [Interp] N/A Normal [facility] Comment on above: Result Comment: {CD] Performed By: #### 2 14971 #### [facility],[address] [place] [address] Neut # 2.00 x10EE3/UL Normal 1.50 - 7.10 [facility] Comment on above: Performed By: #### 2 86753 #### [facility],[address] [place] [address] Neutrophils/100 WBC (Bld) 70.6 % Normal 46.0 - 76.0 [facility] Comment on above: Performed By: #### 2 09250 #### [facility],[address] [place] [address] 12987 PLATELET 182 x10EE3/UL Normal 150 - 450 [facility] Comment on above: Performed By: #### 2 72817 #### [facility],[address] [place] [address] 57092 Platelet mean volume (Bld) [Entitic vol] 7.5 fL Normal 6.6 - 10.5 [facility] Comment on above: Result Comment: AUTO MATED DIFFERENTIAL Performed By: #### 2 79978 #### [facility],[address] [place] [address] 94152 RBC 4.46 x 10EE6/UL Normal 4.10 - 5.30 [facility] Comment on above: Performed By: #### 2 91628 #### [facility],[address] [place] [address] 74435 WBC 2.9 x 10EE3/UL Low 4.5 - 10.[address] [facility] Comment on above: Performed By: #### 2 60006 #### [facility],[address] [place] [address] 50046 CHEST 1 VIEWon 01-05-2021 CHEST 1 VIEW [place] [address] Patient: ILAN CANELA Phone#: : [phone] Age: 70 Gender: F Pt. Type: ER Account: [id number] Location: [id number] Ordering: ABHINAV DIETRICH Exam Date: 01/05/2021/16:18 Family Phys: Charge Code: [id number] Physician: Dare Order #: [id number] DLP Dose#: PROCEDURE: X-RAY CHEST 1 VIEW COMPARISON: None. INDICATIONS: Cough. FINDINGS: LUNGS: Bilateral ill-defined multifocal densities, consistent with multifocal infiltrates. VASCULATURE: Normal. Unremarkable pulmonary vasculature. CARDIAC: Cardiomegaly. Cardiac stent present. MEDIASTINUM: Aortic calcifications PLEURA: Normal. No effusion or pleural thickening. BONES: Normal. No fracture or visible bony lesion. OTHER: Negative. CONCLUSION: 1. Multifocal bilateral infiltrates 2. Cardiomegaly Dictated by: Alejandrina Orlando MD on 01/05/2021 at 17:07 Approved by: Alejandrina Orlando MD on 01/05/2021 at 17:09 Normal [facility] CMP with eGFRon 01-05-2021 AGE 70 years Normal [facility] Comment on above: Performed By: #### 2 92799 #### [facility],[address] [place] [address] 94630 Albumin [Mass/Vol] 3.2 g/dL Low 3.4 - 5.0 [facility] Comment on above: Performed By: #### 2 10223 #### [facility],[address] [place] [address] 80825 Albumin/Globulin [Mass ratio] 0.9 {ratio} Normal 0.9 - 1.6 [facility] Comment on above: Performed By: #### 2 23625 #### [address] [address] ALK PHOS 90 U/L Normal 46 - 116 [facility] Comment on above: Performed By: #### 2 52522 #### [facility],[address] [place] [address] 81137 ALT [Catalytic activity/Vol] 35 U/L Normal 14 - 59 [facility] Comment on above: Performed By: #### 2 42078 #### [facility],[address] [place] [address] 95060 Anion gap [Moles/Vol] 14 mmol/L Normal 10 - 20 [facility] Comment on above: Performed By: #### 2 62240 #### [facility],[address] [place] [address] 75778 AST [Catalytic activity/Vol] 29 U/L Normal 13 - 39 [facility] Comment on above: Performed By: #### 2 90004 #### [facility],[address] [place] [address] 24351 B/C RATIO 29 ratio Normal 0 - 30 [facility] Comment on above: Performed By: #### 2 93576 #### [facility],[address] [place] [address] 20162 Bilirubin [Mass/Vol] 0.7 mg/dL Normal 0.2 - 1.0 [facility] Comment on above: Performed By: #### 2 97602 #### [facility],[address] [place] [address] 27459 Calcium [Mass/Vol] 8.5 mg/dL Normal 8.5 - 10.1 [facility] Comment on above: Performed By: #### 2 04481 #### [facility],[address] [place] [address] 94373 Chloride [Moles/Vol] 97 mmol/L Low 98 - 107 [facility] Comment on above: Performed By: #### 2 25381 #### [facility],[address] [place] [address] 81872 CMP with eGFR Normal [facility] Comment on above: Result Comment: COMP REHENSIVE METABOLIC PANEL Performed By: #### 2 86394 #### [facility],[address] [place] [address] 58451 CO2 [Moles/Vol] 25.1 mmol/L Normal 21.0 - 32.0 [facility] Comment on above: Performed By: #### 2 73172 #### [facility],[address] [place] [address] 57280 Creatinine [Mass/Vol] 0.82 mg/dL Normal 0.55 - 1.02 [facility] Comment on above: Performed By: #### 2 49467 #### [facility],[address] [place] [address] 12292 GFR/1.73 sq M.predicted among non-blacks MDRD (S/P/Bld) [Vol rate/Area] mL/min/{1.73_m2} Normal 60 - 999 [facility] Comment on above: Performed By: #### 2 31420 #### [facility],[address] [place] [address] 40047 Result Comment: ACCO RDING TO THE NATIONAL KIDNEY DISEASE EDUCATION PROGRAM(NKDE), A NORMAL eGFR IS A VALUE GREATER THAN OR EQUAL TO 60 ML/MIN/1.73 SQ METERS. CHRONIC KIDNEY DISEASE: <60mL/MIN/1.73 SQ METERS KIDNEY FAILURE: <15mL/MIN/1.73 SQ METERS THIS TEST SHOULD ONLY BE USED FOR PATIENTS 18 YEARS OF AGE AND OLDER. Globulin (S) [Mass/Vol] 3.7 g/dL Normal 1.5 - 3.8 [facility] Comment on above: Performed By: #### 2 32662 #### [facility],[address] [place] [address] 13059 Glucose [Mass/Vol] 98 mg/dL Normal 74 - 106 [facility] Comment on above: Performed By: #### 2 86726 #### [facility],[address] [place] [address] 17003 Potassium [Moles/Vol] 3.7 mmol/L Normal 3.5 - 5.1 [facility] Comment on above: Performed By: #### 2 15640 #### [facility],[address] [place] [address] 99663 Protein [Mass/Vol] 6.9 g/dL Normal 6.4 - 8.2 [facility] Comment on above: Performed By: #### 2 58077 #### [facility],[address] [place] [address] 34424 Sodium [Moles/Vol] 132 mmol/L Low 136 - 145 [facility] Comment on above: Performed By: #### 2 24791 #### [facility],[address] [place] [address] 02487 Urea nitrogen [Mass/Vol] 24 mg/dL High 7 - 18 [facility] Comment on above: Performed By: #### 2 31677 #### [facility],[address] [place] [address] CHEST (PE PROTOCOL)on CT CHEST (PE PROTOCOL) [address] [address] Patient: ILAN CANELA Phone#: : 1950 Age: 70 Gender: F Pt. Type: ER Account: [id number] Location: 052 Ordering: ABHINAV DIETRICH Exam Date: 01/05/2021/18:01 Family Phys: Charge Code: [id number] Physician: Dare Order #: [id number] DLP Dose#: 4.4 mGy PROCEDURE: CT CHEST WITH CONTRAST FOR PE COMPARISON: None. INDICATIONS: Shortness of breath. TECHNIQUE: After obtaining the patient's consent, CT images were obtained with non-ionic intravenous contrast material. Multi-planar images were created to optimize visualization of vascular anatomy with MPR/MIPS and 3D imaging. All CT scans at this facility use dose modulation, iterative reconstruction, and/or weight based dosing when appropriate to reduce radiation dose to as low as reasonably achievable. IV CONTRAST: Omnipaque 350,100ml TOTAL DOSE: 4.4 CTDIvol(mGy) FINDINGS: VASCULATURE: No pulmonary embolism AORTA: No aortic aneurysm. There are atherosclerotic calcifications of the aorta and branch vessels LUNGS: There are multifocal bilateral ground-glass opacities predominantly peripheral and inferior. This is a commonly reported imaging finding in COVID-19 pneumonia. CASSIE: Normal. No mass or adenopathy. MEDIASTINUM: Normal. No mass or adenopathy. CARDIAC: There are coronary artery calcifications PLEURA: Normal. No mass or effusion. CHEST WALL: Normal. No mass or axillary adenopathy. LIMITED ABDOMEN: There is a cyst in the upper pole of the left kidney. BONES: Normal. No bony lesion or fracture. OTHER: Negative. CONCLUSION: Continued Report - Page 2 of 2 Patient: ILAN CANELA Phone#: : 1950 Age: 70 Gender: F Pt. Type: ER Account: [id number] Location: [facility] Ordering: ABHINAV DIETRICH Exam Date: 01/05/2021/18:01 Family Phys: Charge Code: [id number] Physician: Dare Order #: [id number] DLP Dose#: 4.4 mGy 1. No pulmonary embolism 2. Multifocal bilateral ground-glass infiltrates, this is a commonly reported imaging finding in COVID-19 pneumonia. Dictated by: Alejandrina Orlando MD on 01/05/2021 at 18:15 Approved by: Alejandrina Orlando MD on 01/05/2021 at 18:21 Normal [facility] LACTATE [i-STAT]on Lactate [Moles/Vol] 1.17 mmol/L Normal 0.90 - 1.70 [facility] Comment on above: Performed By: #### 2 09370 #### [facility],[address] [place] [address] NT-proBNPon 01-05-2021 Natriuretic peptide B (Bld) [Mass/Vol] 234 pg/mL High 0 - 125 [facility] Comment on above: Performed By: #### 2 97782 #### [facility],[address] [place] [address] 53558 URINALYSISon 01-05-2021 Amorphous NONE Normal [facility] Comment on above: Performed By: #### 2 26256 #### [facility],[address] [place] [address] 29818 Bacteria NONE Normal [facility] Comment on above: Performed By: #### 2 08177 #### [facility],[address] [place] [address] 42652 Bilirubin Ql (U) Negative Normal NORMAL: NEGATIVE [facility] Comment on above: Performed By: #### 2 70326 #### [facility],[address] [place] [address] 53876 Casts NONE Normal [facility] Comment on above: Performed By: #### 2 51091 #### [facility],[address] [place] [address] Clarity (U) clear Normal NORMAL: CLEAR [facility] Comment on above: Performed By: #### 2 62434 #### [facility],[address] [place], [place] [address] Color (U) yellow Normal NORMAL: YELLOW [facility] Comment on above: Performed By: #### 2 85404 #### [facility],[address] [place], [place] [address] Crystals LM Nom (Urine sed) NONE Normal [facility] Comment on above: Performed By: #### 2 99057 #### [facility],[address] [place], [place] [address] Epi Cells NONE Normal [facility] Comment on above: Performed By: #### 2 76251 #### [facility],[address] [place], [place] [address] Glucose Ql (U) NORM Normal NORMAL: NORMAL [facility] Comment on above: Performed By: #### 2 48194 #### [facility],[address] [place] [address] 16348 Hemoglobin Ql (U) 10 Abnormal NORMAL: NEGATIVE [facility] Comment on above: Performed By: #### 2 56765 #### [facility],[address] [place] [address] 55168 Ketone Negative Normal NORMAL: NEGATIVE [facility] Comment on above: Performed By: #### 2 67672 #### [facility],[address] [place] [address] 10065 Leukocytes Negative Normal NORMAL: NEGATIVE [facility] Comment on above: Performed By: #### 2 26770 #### [facility],[address] [place] [address] 78363 Mucous NONE Normal [facility] Comment on above: Performed By: #### 2 57475 #### [facility],[address] [place] [address] 59322 Nitrite Ql (U) Negative Normal NORMAL: NEGATIVE [facility] Comment on above: Performed By: #### 2 77206 #### [facility],[address] [place] [address] pH (U) 6 [pH] Normal NORMAL: 5.0-8.0 [facility] Comment on above: Performed By: #### 2 34078 #### [facility],[address] [place] [address] Protein Ql (U) 15 Abnormal NORMAL: NEGATIVE [facility] Comment on above: Performed By: #### 2 43227 #### [facility],[address] [place] [address] Rbc NONE Normal 0-3/hpf [facility] Comment on above: Performed By: #### 2 24889 #### [facility],[address] [place] [address] Sp [place] 1.015 Normal NORMAL: 1.010-1.03 0 [facility] Comment on above: Performed By: #### 2 76103 #### [facility],[address] [place] [address] Specimen Type Clean catch Normal [facility] Comment on above: Performed By: #### 2 21021 #### [facility],[address] [place] [address] Urinalysis dipstick W Reflex Microscopic panel (U) SEE BELOW Normal [facility] Comment on above: Result Comment: MICR OSCOPIC Performed By: #### 2 24872 #### [facility],[address] [place] [address] Urobilinog NORM Normal NORMAL: NORMAL [facility] Comment on above: Performed By: #### 2 81507 #### [facility],[address] [place] [address] Wbc NONE Normal 0-5/hpf [facility] Comment on above: Performed By: #### 2 07688 #### [facility],[address] [place], [place] [address] Yeast NONE Normal [facility] Comment on above: Performed By: #### 2 96133 #### [facility],[address] [place], [place] [address] US ELASTOGRAPHY LIVER W/ABD LTDon 11-12-2019 US ELASTOGRAPHY LIVER W/ABD LTD ORIGINAL Limited ultrasound of the abdomen and hepatic elastography HISTORY: Fatty liver. COMPARISON: None at our institution. FINDINGS: Visible portions of the pancreas are normal. The tail of the pancreas is limited secondary to overlying bowel gas. The gallbladder is surgically absent. No free fluid seen. The liver is normal in size and contour. There is demonstration of increased echogenicity on the basis of fatty liver infiltration versus other hepatocellular disease. No focal liver lesion is identified. No biliary dilatation seen. Common duct is normal in caliber status post cholecystectomy. Evaluation of the RIGHT kidney demonstrates a nonobstructive renal stone measuring 1.1 cm in size. There is an additional simple appearing renal cyst measuring 1.6 x 1.7 x 2.4 cm. Elastography: Median velocity: 0.86 m/s. (Values from 0.91 to 1.53 m/s typically indicate mild or no fibrosis, and values greater than 2.04 m/s are suggestive of cirrhosis.) IQR/median ratio: 0.08. (Value less than or equal to 0.3 should be seen to ensure exam adequacy.) IMPRESSION: 1. Fatty liver infiltration versus other hepatocellular disease. 2. No definite evidence for cirrhosis or fibrosis on this exam. Reference: Journal of Ultrasound in Medicine June 06, 2013 vol. 33 no. 2 197-203. Interpreted By: Tung Serna Preliminary Report By: Tung Serna Electronically Signed By: Tung Serna Dictated Date: 11/12/2019 9:50:25 AM Prelim Date: 11/12/2019 9:50:25 AM Sign Date: 11/12/2019 9:55:03 AM Ordering Provider:Zaynab Plascencia [facility] ([place]) Office Visit: UC: UTIon 12-0 Bilirubin Ql (U) Negative Invalid Interpretation Code [facility] Work Phone: blood in urine (hemoglobin) by dipstick 3+ Invalid Interpretation Code [facility] Work Phone: Documentation of current medications (procedure) Done Invalid Interpretation Code [facility] Work Phone: Fall risk assessment No Invalid Interpretation Code [facility] Work Phone: specific gravity, urine 1.010 Invalid Interpretation Code [facility] Work Phone: Tobacco smoking status NHIS Tobacco smoking status NHIS Invalid Interpretation Code [facility] Work Phone: Urine, appearance clear Invalid Interpretation Code [facility] Work Phone: Urine, color yellow Invalid Interpretation Code [facility] Work Phone: Urine, glucose presence Negative Invalid Interpretation Code [facility] Work Phone: Urine, ketones presence Negative Invalid Interpretation Code [facility] Work Phone: Urine, leukocyte esterase presence 2+ Invalid Interpretation Code [facility] Work Phone: Urine, nitrite presence Negative Invalid Interpretation Code [facility] Work Phone: Urine, pH 6.0 [pH] Invalid Interpretation Code [facility] Work Phone: Urine, protein Negative Invalid Interpretation Code [facility] Work Phone: Urine, urobilinogen presence Negative Invalid Interpretation Code [facility] Work Phone: Lab Report: Lipid Profileon 02-27-2017 Cholesterol in HDL mass conc 40 mg/dL Invalid Interpretation Code [facility] Work Phone: Cholesterol in LDL mass conc 77 mg/dL Invalid Interpretation Code 0-130 [facility] Work Phone: Cholesterol mass conc 143 mg/dL Invalid Interpretation Code 200 [facility] Work Phone: Lipoprotein.pre-beta mass conc 26 mg/dL Invalid Interpretation Code 5-40 [facility] Work Phone: Triglyceride mass conc 128 mg/dL Invalid Interpretation Code [facility] Work Phone: Lab Report: Liver Profileon 02-27-2017 Albumin mass conc 3.9 g/dL Invalid Interpretation Code 3.4-5.0 [facility] Work Phone: Alkaline phosphatase (ALP) 124 U/L High 45-117 [facility] Work Phone: ALP enzyme act/vol (Bld) 124 U/L High 45-117 [facility] Work Phone: ALT enzyme act/vol 46 U/L Invalid Interpretation Code 12-78 [facility] Work Phone: AST enzyme act/vol 25 U/L Invalid Interpretation Code 15-37 [facility] Work Phone: Bilirubin mass conc 0.80 mg/dL Invalid Interpretation Code 0.20-1.00 [facility] Work Phone: Bilirubin.direct mass conc 0.19 mg/dL Invalid Interpretation Code 0.00-0.30 [facility] Work Phone: Globulin Calculated mass conc (S) 3.7 g/dL Invalid Interpretation Code 2.2-4.2 [facility] Work Phone: Protein mass conc 7.6 g/dL Invalid Interpretation Code 6.4-8.2 [facility] Work Phone: Office Visiton 02-19-2017 Documentation of current medications (procedure) Done Invalid Interpretation Code [facility] Work Phone: Fall risk assessment No Invalid Interpretation Code [facility] Work Phone: Protein mass conc Done Invalid Interpretation Code [facility] Work Phone: Clinical Lists Updateon 07-05 Left ventricular Ejection fraction 65 % Invalid Interpretation Code [facility] Work Phone: Lab Report: Lipid Profileon 03-06-2016 Cholesterol 160 mg/dL Invalid Interpretation Code 200 [facility] Work Phone: HDL Cholesterol 38 mg/dL Low [facility] Work Phone: LDL Cholesterol 90 mg/dL Invalid Interpretation Code 0-130 [facility] Work Phone: Triglyceride 158 mg/dL Invalid Interpretation Code [facility] Work Phone: very low density lipoproteins 32 mg/dL Invalid Interpretation Code 5-40 [facility] Work Phone: Lab Report: Liver Profileon 03-06-2016 Alanine aminotransferase (ALT) 51 U/L Invalid Interpretation Code 12-78 [facility] Work Phone: Albumin 4.1 g/dL Invalid Interpretation Code 3.4-5.0 [facility] Work Phone: Alkaline phosphatase (ALP) 124 U/L Invalid Interpretation Code 50-136 [facility] Work Phone: Aspartate aminotransferase (AST) 24 U/L Invalid Interpretation Code 15-37 [facility] Work Phone: Bilirubin (direct) 0.13 mg/dL Invalid Interpretation Code 0.00-0.30 [facility] Work Phone: Bilirubin (total) 0.70 mg/dL Invalid Interpretation Code 0.20-1.00 [facility] Work Phone: Globulin 3.5 g/dL Invalid Interpretation Code 2.3-3.5 [facility] Work Phone: Protein 7.6 g/dL Invalid Interpretation Code 6.4-8.2 [facility] Work Phone: Clinical Lists Updateon 10-06 Calcium 8.7 mg/dL Invalid Interpretation Code [facility] Work Phone: Chloride 103 mmol/L Invalid Interpretation Code [facility] Work Phone: CO2 30.0 mmol/L Invalid Interpretation Code [facility] Work Phone: CO2 ppres (BldV) 30.0 mmol/L Invalid Interpretation Code [facility] Work Phone: Creatinine 0.88 mg/dL Invalid Interpretation Code [facility] Work Phone: Hematocrit (HCT) 40.7 % Invalid Interpretation Code [facility] Work Phone: Hemoglobin mass conc (Bld) 13.9 g/dL Invalid Interpretation Code [facility] Work Phone: Platelets 243 10*3/mm3 Invalid Interpretation Code [facility] Work Phone: Potassium molar conc 3.4 mmol/L Invalid Interpretation Code [facility] Work Phone: Sodium 139 mmol/L Invalid Interpretation Code [facility] Work Phone: Thyroid stimulating hormone (TSH) 0.76 u[iU]/mL Invalid Interpretation Code [facility] Work Phone: Urea nitrogen 17 mg/dL Invalid Interpretation Code [facility] Work Phone: WBC (Leukocytes) 4.4 10*3/uL Invalid Interpretation Code [facility] Work Phone: Office Visiton 06-28-2015 Tobacco smoking status NHIS Never smoker Invalid Interpretation Code [facility] Work Phone: Tobacco use CPHS Never smoker Invalid Interpretation Code [facility] Work Phone: HgA1C , Office ([id number])Ordere d By: Leonora Machado on 05-25-2015 HbA1c (Bld) [Mass fraction] 5.7 % Normal 4.6 - 7.1 [facility] Work Phone: HgA1C , Office ([id number])Ordere d By: Shikha Juan on 01-19-2015 HbA1c (Bld) [Mass fraction] 5.6 % Normal 4.6 - 7.1 [facility]; [facility] Work Phone: Office Visit: [facility] 12-14-19 15 Dietary management education, guidance, and counseling (procedure) yes Invalid Interpretation Code [facility] Work Phone: HgA1C , Office ([phone])Ordere d By: Rosalinda Roberts on 09-03-2014 HbA1c (Bld) [Mass fraction] 5.5 % Normal 4.6 - 7.1 [facility]; [facility] Work Phone: URINE PALOMA CULTURE (ISABEL COL COUNT) ([id number])Ordered By: Transaction Advisory Services Manager on 09-03-2014 Bacteria identified Cx Nom (U) Final report Normal [facility]; [facility] Work Phone: Comment on above: PATIENT NOT FASTINGP ERFORMED BY: [employer] [id number] [facility] [id number] Information: SRC: URINE; wnl Bacteria identified Cx Nom (U) MUG Normal [facility]; [facility] Work Phone: Comment on above: Mixed urogenital ryan ra1,000 Colonies/mL PATIENT NOT FASTINGP ERFORMED BY: [facility] [id number] [facility] [id number] Information: SRC: URINE; wnl Lab Report: CBC W/Diff, Auto matedon 08-21-2014 Absolute Neut 2.0 X10 3/UL Invalid Interpretation Code 2.0-7.7 [facility] Work Phone: Basophils/100 WBC Auto (Bld) 1.3 % High 0-1 [facility] Work Phone: Eosinophils/100 leukocytes 2.9 % Invalid Interpretation Code 0-5 [facility] Work Phone: Erythrocyte distribution width Auto Ratio (RBC) 0 % Invalid Interpretation Code 0.0-0.9 [facility] Work Phone: Erythrocytes (RBC) 4.52 10*6/uL Invalid Interpretation Code 4.2-5.4 [facility] Work Phone: Lymphocytes 1.27 X10 3/UL Invalid Interpretation Code 0.83-4.51 [facility] Work Phone: Lymphocytes/100 leukocytes 33.9 % Invalid Interpretation Code 19-41 [facility] Work Phone: MCH 30.1 pg Invalid Interpretation Code 27.0-32.0 [facility] Work Phone: MCHC mass conc (RBC) 33.2 G/GL Invalid Interpretation Code 32-36 [facility] Work Phone: MCV 90.7 fL Invalid Interpretation Code 81-99 [facility] Work Phone: Monocytes/100 leukocytes 8.8 % Invalid Interpretation Code 0-10 [facility] Work Phone: Neutrophils/100 WBC Auto (Bld) 53.1 % Invalid Interpretation Code 47-70 [facility] Work Phone: PMV by Joe 9.2 fL Invalid Interpretation Code 6.2-12.0 [facility] Work Phone: Lab Report: Comprehensive Ne tabolic Profilon 08-21-2014 Albumin/Globulin Ratio 1.1 {ratio} Invalid Interpretation Code 0.9-2.4 [facility] Work Phone: Anion gap 3 mmol/L Low 5-15 [facility] Work Phone: Anion gap 4 molar conc 3 Low 5-15 [facility] Work Phone: BUN/Creatinine Ratio 13.0 RATIO Invalid Interpretation Code - [facility] Work Phone: eGFR (non-black) 73 mL/min/{1.73_m2} Invalid Interpretation Code >60 [facility] Work Phone: eGFR (non-black) 60 mL/min/{1.73_m2} Invalid Interpretation Code >60 [facility] Work Phone: EST GFR - AA 73 mL/min Invalid Interpretation Code >60 [facility] Work Phone: Glucose mass conc 94 mg/dL Invalid Interpretation Code 70-110 [facility] Work Phone: Office Visiton 06-01-2014 cardiac risk group C Invalid Interpretation Code [facility] Work Phone: General cardiovascular disease 10Y risk [#] Graford.D'Agostino N/A Invalid Interpretation Code [facility] Work Phone: HgA1C , Office ([phone])Catherine monterroso By: Rosalinda Roberts on 05-25-2014 HbA1c (Bld) [Mass fraction] 5.4 % Normal 4.6 - 7.1 [facility]; [facility] Work Phone: Clinical Lists Update: Prelo director of food and nutrition services 05-15-2014 INR Coag RelTime (PPP) 1.0 {INR} Invalid Interpretation Code [facility] Work Phone: Prothrombin time (PT) Coag time (PPP) 12.8 s Invalid Interpretation Code [facility] Work Phone: HgA1C , Office ([phone])on HbA1c (Bld) [Mass fraction] 5.5 % Normal 4.6 - 7.1 [facility]; [facility] Work Phone: URINE PALOMA CULTURE (ISABEL COL COUNT) ([id number])Ordered By: Transaction Advisory Services Manager on 01-22-2014 Bacteria identified Cx Nom (U) Final report Normal [facility]; [facility] Work Phone: Comment on above: PATIENT NOT FASTINGP ERFORMED BY: [facility] [id number] Information: SRC:BRIGITTE [id number] Bacteria identified Cx Nom (U) MUG Normal [facility]; [facility] Work Phone: Comment on above: Mixed urogenital ryan ra25,000-50,000 colony forming units per mL PATIENT NOT FASTINGP ERFORMED BY: [employer] [place] [id number] Information: SRC:UR [id number] Urinalysis, Office ([id number])on 01-22-2014 Bilirubin Ql (U) Negative Normal Comprehe [facility]; [facility] Work Phone: Glucose Test strip (U) [Mass/Vol] Negative Normal [facility]; [facility] Work Phone: Hemoglobin Ql (U) Negative Normal Compreh ensive [facility]; [facility] Work Phone: Ketones Ql (U) Negative Normal Comprehens [facility]; [facility] Work Phone: Leukocyte esterase Test strip Ql (U) Small Normal [facility]; [facility] Work Phone: Nitrite Ql (U) Negative Normal Comprehens [facility]; [facility] Work Phone: pH (U) 6.0 [pH] Normal [facility]; [facility] Work Phone: Protein Ql (U) Negative Normal Comprehens [facility]; [facility] Work Phone: Specific gravity (U) [Rel density] 1.020 1 Normal [facility]; [facility] Work Phone: Urobilinogen (24H U) [Mass/Time] 2 mg/dL Normal [facility]; [facility] Work Phone: External Other: Preferred Me thod of Contacton 12-02-2013 methcontact phone Invalid Interpretation Code [facility] Work Phone: HgA1C , Office ([phone])Ordere d By: Rosalinda Roberts on 09-07-2013 HbA1c (Bld) [Mass fraction] 5.4 % Normal 4.6 - 7.1 [facility]; [facility] Work Phone: Lab Report: PTon 08-29-2013 PTP 12.5 SECONDS Normal 11.9-14.4 [facility] Work Phone: HgA1C , Office ([phone])Ordere d By: Shikha Fast on 06-08-2013 HbA1c (Bld) [Mass fraction] 5.6 % Normal 4.6 - 7.1 [facility]; [facility] Work Phone: Clinical Lists Update: Prelo director of food and nutrition services 05-19-2013 Albumin/Globulin Ratio 1.0 {ratio} Invalid Interpretation Code [facility] Work Phone: HgA1C , Office ([phone])Ordere d By: Rosalinda Roberts on 02-06-2013 HbA1c (Bld) [Mass fraction] 5.4 % Normal 4.6 - 7.1 [facility]; [facility] Work Phone: HgA1C , Office ([phone])Ordere d By: Shikha Fast on 10-31-2012 HbA1c (Bld) [Mass fraction] 5.2 % Normal 4.6 - 7.1 [facility]; [facility] Work Phone: DEPPL-[id number]-DWIOQ ([phone])Ordered By: Transaction Advisory Services Manager on 08-19-2012 AFP.tumor marker [Mass/Vol] 2.0 ng/mL Normal 0.0-8.3 [facility]; [facility] Work Phone: Comment on above: Nguyen ECLIA methodol ogy PATIENT NOT FASTINGP ERFORMED BY: [facility] SurgicalRunnells Specialized HospitalMusbnw1885 [facility] [id number] BY: [facility] [id number] PT (Prothrobim Time) (76542) Ordered By: Transaction Advisory Services Manager on 08-19-2012 INR Coag (PPP) [Relative time] 1.0 {INR} Normal 0.8-1.2 [facility]; [facility] Work Phone: Comment on above: Reference interval i s for non-anticoagulated patients. . Suggested INR therapeutic range for Vitamin K antagonist therapy: Standard Dose (moderate intensity therapeutic range): 2.0 - 3.0 Higher intensity therapeutic range 2.5 - 3.5 PATIENT NOT FASTINGP ERFORMED BY: [facility] SurgicalRunnells Specialized HospitalEfhuyk1592 [facility] [id number] BY: [facility] [id number] Information: A71206,2ND ORDER NO DRAW F EE PT Coag (PPP) [Time] 10.4 s Normal 9.1-12.0 [facility]; [facility] Work Phone: Comment on above: PATIENT NOT FASTINGP ERFORMED BY: [facility] SurgicalRunnells Specialized HospitalDuswxd4081 [facility] [id number] BY: [facility] [id number] Information: Y97045,2ND ORDER NO DRAW F EE PTT (Activated Partial Throm boplastin Time) (24155)Ordered By: Transaction Advisory Services Manager on 08-19-2012 aPTT Coag (PPP) [Time] 27 s Normal 24-33 [facility]; [facility] Work Phone: Comment on above: This test has not be en validated for monitoring unfractionated heparintherapy. aPTT-based therapeutic ranges for unfractionated heparintherapy have not been established. For general guidelines onHeparin monitoring, refer to the [facility] Directory of Services. PATIENT NOT FASTINGP ERFORMED BY: CHRYSTAL Trice MedicalHenry [facility]6[address] [facility] [id number] BY: [address] [id number] T3, FREE (TRIDOTHYRONINE) (8 4485)Ordered By: Transaction Advisory Services Manager on 08-19-2012 Free T3 [Mass/Vol] 2.6 pg/mL Normal 2.0-4.4 [facility]; [facility] Work Phone: Comment on above: PATIENT NOT FASTINGP ERFORMED BY: Trice MedicalHenry [facility] Hospital6[address] [facility] [id number] T4, FREE (THYROXINE) (66336) Ordered By: Transaction Advisory Services Manager on 08-19-2012 Free T4 [Mass/Vol] 1.64 ng/dL Normal 0.82-1.77 [facility]; [facility] Work Phone: Comment on above: PATIENT NOT FASTINGP ERFORMED BY: Tr[facility] MedicalHenry [facility]6[address] [facility] [id number] THYROGLOBULIN (24712)Ordered By: Transaction Advisory Services Manager on 08-19-2012 THYROGLOBULIN (62886) <0.5 Abnormal 0.5-55.0 [facility]; [facility] Work Phone: Comment on above: Premature Infants (2 7-31 wks gest): 1 day old: 107.0 - 395.0 3 day old: 49.0 - 163.0 30 day old: 17.0 - 63.0 Premature Infants (31-34 wks gest): 1 day old: 147.0 - 277.0 10 day old: 32.0 - 112.0 Term Infants: 1 day old: 6.0 - 93.0 10 day old: 9.0 - 148.0 30 day old: 19.0 - 51.0 7-12 years: 20.0 - 50.0 13-18 years: 9.0 - 27.0 Adult: 0.5 - 55.0 . Reference interval does not apply following thyroidectomy when levels should be <0.5 ng/mL or repeatedly low. The presence of antithyroid antibodies may cause decreased levels of measurable thyroglobulin due to competitive inhibition in this immunometric assay. . Siemens (DPC) ICMA Methodology PATIENT NOT FASTINGP ERFORMED BY: [facility] Tfsbpx9436 Lance RoadDublin [place] [id number] Information: [id number] THYROGLOBULIN (65713) <20 Normal 0-40 Com prehensive [facility]; [facility] Work Phone: Comment on above: Siemens (DPC) ICMA M ethodology PATIENT NOT FASTINGP ERFORMED BY: [facility] Nyqpiy0777 Lance RoadDublin [place] [id number] Information: [id number] TSH (19675)Ordered By: Tresa bansal Segmental Wall Installer on 08-19-2012 TSH Qn 0.448 {uIU/mL} Abnormal 0.450-4.50 0 [facility]; [facility] Work Phone: Comment on above: PATIENT NOT FASTINGP ERFORMED BY: [facility] Gnoydj1584 [address] [facility] Hospitalblin [place] [id number] TSI (THYROID STIMULATING IMM UNGLOBI) (59115)Ordered By: Transaction Advisory Services Manager on 08-19-2012 Thyroid stimulating immunoglobulins actual/normal (S) [Relative mass conc] 45 % Normal 0-139 Comprehensi ve Internal [facility]; [facility] Work Phone: Comment on above: PATIENT NOT FASTINGP ERFORMED BY: [facility] Ennnuw9851 [facility] Centerin [place] [id number] BY: LabCoShore Memorial HospitalIrankvnnnm0262 [facility] [id number] HgA1C , Office (59438)Ordere d By: Shikha Juan on 06-10-2012 HbA1c (Bld) [Mass fraction] 5.4 % Normal 4.6 - 7.1 [facility]; [facility] Work Phone: METABOLIC PANEL, COMPREHENSI VE ([phone])Ordered By: Transaction Advisory Services Manager on 06-10-2012 Albumin [Mass/Vol] 4.7 g/dL Normal 3.6-4.8 [facility]; [facility] Work Phone: Comment on above: PATIENT NOT FASTINGP ERFORMED BY: CHRYSTAL Roy63Sonal McfarlandUniversity of Missouri Children's Hospital [id number] Information: ADD [id number] AND DRAW FEE 99 6660 Albumin/Globulin [Mass ratio] 1.7 {ratio} Normal 1.1-2.5 [facility]; [facility] Work Phone: Comment on above: PATIENT NOT FASTINGP ERFORMED BY: CHRYSTAL LabRober LaneZvdgpw5591 [facility] [id number] Information: ADD [id number] AND DRAW FEE 99 6660 ALP [Catalytic activity/Vol] 121 U/L Normal 25-165 [facility]; [facility] Work Phone: Comment on above: PATIENT NOT FASTINGP ERFORMED BY: CHRYSTAL Roy6370 [facility] [id number] Information: ADD [id number] AND DRAW FEE 99 6660 ALT [Catalytic activity/Vol] 126 U/L Abnormal 0-32 [facility]; [facility] Work Phone: Comment on above: PATIENT NOT FASTINGP ERFORMED BY: CHRYSTAL Roy6370 [facility] [id number] Information: ADD [id number] AND DRAW FEE 99 6660 AST [Catalytic activity/Vol] 62 U/L Abnormal 0-40 [facility]; [facility] Work Phone: Comment on above: PATIENT NOT FASTINGP ERFORMED BY: CHRYSTAL LabChaparro Hdmcyh9784 [facility] [id number] Information: ADD R59553 AND DRAW FEE 99 6660 Bilirubin [Mass/Vol] 0.5 mg/dL Normal 0.0-1.2 [facility]; [facility] Work Phone: Comment on above: PATIENT NOT FASTINGP ERFORMED BY: CHRYSTAL LabCo Oyppbs3205 [facility] [id number] Information: ADD [id number] AND DRAW FEE 99 6660 Calcium [Mass/Vol] 9.7 mg/dL Normal 8.6-10.2 [facility]; [facility] Work Phone: Comment on above: PATIENT NOT FASTINGP ERFORMED BY: CB [facility] Pzrglx6959 [address] [facility] [id number] Information: ADD [id number] AND DRAW FEE 99 6660 Chloride [Moles/Vol] 102 mmol/L Normal 97-108 [facility]eren[facility]; [facility] Work Phone: Comment on above: PATIENT NOT FASTINGP ERFORMED BY: CB [facility] Rywvyl7611 [address] [facility] [id number] Information: ADD [id number] AND DRAW FEE 99 6660 CO2 [Moles/Vol] 25 mmol/L Normal 20-32 [facility]; [facility] Work Phone: Comment on above: PATIENT NOT FASTINGP ERFORMED BY: CB [facility] Wzuduh7715 [address] [facility] [id number] Information: ADD [id number] AND DRAW FEE 99 6660 Creatinine [Mass/Vol] 0.91 mg/dL Normal 0.57-1.00 [facility]; [facility] Work Phone: Comment on above: PATIENT NOT FASTINGP ERFORMED BY: CB [facility] Ayrmac7140 [facility] [id number] Information: ADD [id number] AND DRAW FEE 99 6660 GFR/1.73 sq M.predicted among blacks CKD-EPI (S/P/Bld) [Vol rate/Area] 79 mL/min/1.73 Normal [facility]; [facility] Work Phone: Comment on above: PATIENT NOT FASTINGP ERFORMED BY: CB [facility] Srymhm9441 [facility] [id number] Information: ADD Z41208 AND DRAW FEE 99 6660 GFR/1.73 sq M.predicted among non-blacks CKD-EPI (S/P/Bld) [Vol rate/Area] 69 mL/min/1.73 Normal [facility]; [facility] Work Phone: Comment on above: PATIENT NOT FASTINGP ERFORMED BY: CHRYSTAL McfarlandUniversity of Missouri Children's Hospital [id number] Information: ADD [id number] AND DRAW FEE 99 6660 Globulin (S) [Mass/Vol] 2.8 g/dL Normal 1.5-4.5 [facility]; [facility] Work Phone: Comment on above: PATIENT NOT FASTINGP ERFORMED BY: CHRYSTAL Roy6370 [facility] [id number] Information: ADD [id number] AND DRAW FEE 99 6660 Glucose [Mass/Vol] 92 mg/dL Normal 65-99 [facility]; [facility] Work Phone: Comment on above: PATIENT NOT FASTINGP ERFORMED BY: CHRYSTAL Roy6370 [facility] [id number] Information: ADD [id number] AND DRAW FEE 99 6660 Potassium [Moles/Vol] 4.4 mmol/L Normal 3.5-5.2 [facility]; [facility] Work Phone: Comment on above: PATIENT NOT FASTINGP ERFORMED BY: CHRYSTAL Roy6370 [facility] [id number] Information: ADD [id number] AND DRAW FEE 99 6660 Protein [Mass/Vol] 7.5 g/dL Normal 6.0-8.5 [facility]; [facility] Work Phone: Comment on above: PATIENT NOT FASTINGP ERFORMED BY: CHRYSTAL Cobian Qdkkdu0731 [facility] [id number] Information: ADD [id number] AND DRAW FEE 99 6660 Sodium [Moles/Vol] 140 mmol/L Normal 134-144 [facility]; [facility] Work Phone: Comment on above: PATIENT NOT FASTINGP ERFORMED BY: CHRYSTAL Cobian Miufxs6329 [facility] [id number] Information: ADD [id number] AND DRAW FEE 99 6660 Urea nitrogen [Mass/Vol] 14 mg/dL Normal 8-27 [facility]; [facility] Work Phone: Comment on above: PATIENT NOT FASTINGP ERFORMED BY: [facility] Idsfju0125 [address] BenesightSt. Luke[facility] Hospital [id number] Information: ADD [id number] AND DRAW FEE 99 6660 Urea nitrogen/Creatinine [Mass ratio] 15 mg/mg Normal 11- [facility]; [facility] Work Phone: Comment on above: PATIENT NOT FASTINGP ERFORMED BY: [facility] Vacjmk7783 Lance ENDOTRONIXC[facility] [id number] Information: ADD [id number] AND DRAW FEE 99 6660 Urinalysis, Office (14795)Or dered By: Zonia Vásquez on 06-10-2012 Bilirubin Ql (U) Negative Normal Comprehe nsive [facility] Medicine; [facility] Work Phone: Glucose Test strip (U) [Mass/Vol] Negative Normal [facility]; [facility] Work Phone: Hemoglobin Ql (U) Negative Normal Compreh ensive [facility]; [facility] Work Phone: Ketones Ql (U) Negative Normal Comprehens gayatri [facility]; [facility] Work Phone: Leukocyte esterase Test strip Ql (U) Trace Normal [facility]; [facility] Work Phone: Nitrite Ql (U) Negative Normal Comprehens [facility]; [facility] Work Phone: pH (U) 7.0 [pH] Normal [facility]; [facility] Work Phone: Protein Ql (U) Negative Normal Comprehens gayatri [facility]; [facility] Work Phone: Specific gravity (U) [Rel density] 1.010 1 Normal [facility]; [facility] Work Phone: Urobilinogen (24H U) [Mass/Time] Normal Normal [facility]; [facility] Work Phone: URINE PALOMA CULTURE (ISABEL COL COUNT) (63861)Ordered By: Transaction Advisory Services Manager on 05-28-2012 Bacteria identified Cx Nom (U) Final report Normal [facility]; [facility] Work Phone: Comment on above: PATIENT NOT FASTINGP ERFORMED BY: CHRYSTAL [employer] Pqiqnr6412 [address] ENDOTRONIXCape [facility] [id number] Information: SRC:UR S07440 Bacteria identified Cx Nom (U) Escherichia coli Normal [facility]; [facility] Work Phone: Comment on above: Greater than 100,000 colony forming units per mL PATIENT NOT FASTINGP ERFORMED BY: CHRYSTAL Rezzie6370 VerbalizeItCape [facility] [id number] Information: SRC:UR H11614 Other Antibiotic [Susc] MIHEAD Normal [facility]; [facility] Work Phone: Comment on above: S = Susceptibl e; I = Intermediate; R = Resistant P = Positive; N = Negative MICS are expressed in micrograms per mL Antibiotic RSLT#1 RSLT#2 RSLT#3 RSLT#4Amoxicillin/Clavulanic Acid SAmpicillin SCefazolin SCefepime SCeftriaxone SCefuroxime SCephalothin SCiprofloxacin SESBL NErtapenem SGentamicin SImipenem SLevofloxacin SNitrofurantoin SPiperacillin STetracycline STobramycin STrimethoprim/Sulfa S PATIENT NOT FASTINGP ERFORMED BY: CHRYSTAL LabPuentes Company Rmnfus6264 Neodesha BenesightSt. Luke[facility] Hospital [id number] Information: SRC:UR F43169 Urinalysis, Office (36767)Or dered By: Zonia Vásquez on 05-28-2012 Bilirubin Ql (U) Negative Normal Comprehe nsive Internal Medicine; [facility] Work Phone: Glucose Test strip (U) [Mass/Vol] Negative Normal [facility]; [facility] Work Phone: Hemoglobin Ql (U) Hemolyzed Moderate Normal [facility]; [facility] Work Phone: Ketones Ql (U) Negative Normal Comprehens gayatri [facility]; [facility] Work Phone: Leukocyte esterase Test strip Ql (U) Small Normal [facility]; [facility] Work Phone: Nitrite Ql (U) Positive Normal Comprehens gayatri [facility]; [facility] Work Phone: pH (U) 6.0 [pH] Normal [facility]; [facility] Work Phone: Protein Ql (U) Negative Normal Comprehens gayatri [facility]; [facility] Work Phone: Specific gravity (U) [Rel density] 1.005 1 Normal [facility]; [facility] Work Phone: Urobilinogen (24H U) [Mass/Time] Normal Normal [facility]; [facility] Work Phone: HEPATIC FUNCTION PANEL ([phone])Ordered By: Transaction Advisory Services Manager on 01-11-2012 Albumin [Mass/Vol] 4.8 g/dL Normal 3.6-4.8 [facility]; [facility] Work Phone: Comment on above: PATIENT NOT FASTINGP ERFORMED BY: CHRYSTAL [facility] Ioqite7054 Lance BenesightSt. Luke[facility] Hospital [id number] Information: [id number] ALP [Catalytic activity/Vol] 122 U/L Normal 25-165 [facility]; [facility] Work Phone: Comment on above: PATIENT NOT FASTINGP ERFORMED BY: CHRYSTAL [facility] Orxqaq9603 Neodesha BenesightSt. Luke[facility] Hospital [id number] Information: [id number] ALT [Catalytic activity/Vol] 74 U/L Abnormal 0-40 [facility]; [facility] Work Phone: Comment on above: PATIENT NOT FASTINGP ERFORMED BY: CHRYSTAL [facility] Zmqhrd1013 [facility] [id number] Information: [id number] AST [Catalytic activity/Vol] 45 U/L Abnormal 0-40 [facility]; [facility] Work Phone: Comment on above: PATIENT NOT FASTINGP ERFORMED BY: CB [facility] Dglrbe0121 [address] [facility] [id number] Information: [id number] Bilirubin [Mass/Vol] 0.6 mg/dL Normal 0.0-1.2 Comp [facility]; [facility] Work Phone: Comment on above: PATIENT NOT FASTINGP ERFORMED BY: CB [facility] Dauqjz1703 [address] [facility] [id number] Information: [id number] Bilirubin.direct [Mass/Vol] 0.15 mg/dL Normal 0.00-0.40 [facility]; [facility] Work Phone: Comment on above: PATIENT NOT FASTINGP ERFORMED BY: CB [facility] Kuwcpy5869 [facility] [id number] Information: [id number] Protein [Mass/Vol] 7.3 g/dL Normal 6.0-8.5 [facility]; [facility] Work Phone: Comment on above: PATIENT NOT FASTINGP ERFORMED BY: CB [facility] Zejixf2317 [facility] [id number] Information: [id number] HgA1C , Office (96054)Ordere d By: Rosalinda Roberts on 09-07-2011 HbA1c (Bld) [Mass fraction] 5.4 % Normal 4.6 - 7.1 [facility]; [facility] Work Phone: Blood Glucose , Office ([phone])Ordered By: Rosalinda Roberts on 04-23-2011 Glucose Glucometer (BldC) [Moles/Vol] 84 1 Normal [facility]; [facility] Work Phone: HgA1C , Office ([phone])Ordere d By: Shikha Juan on 04-23-2011 HbA1c (Bld) [Mass fraction] 5.4 % Normal 4.6 - 7.1 [facility]; [facility] Work Phone: HgA1C , Office ([phone])Ordere d By: Shikha Drake on 01-16-2011 HbA1c (Bld) [Mass fraction] 5.5 % Normal 4.6 - 7.1 [facility]; [facility] Work Phone: Urinalysis, Office (54263)Or dered By: Rosalinda Roberts on 09-12-2007 Bilirubin Ql (U) Negative Normal Comprehe nsive Internal Medicine; [facility] Work Phone: Glucose Test strip (U) [Mass/Vol] Negative Normal [facility]; [facility] Work Phone: Hemoglobin Ql (U) Negative Normal Compreh ensive [facility]; [facility] Work Phone: Ketones Ql (U) Negative Normal Comprehens gayatri [facility]; [facility] Work Phone: Leukocyte esterase Test strip Ql (U) Small Normal [facility]; [facility] Work Phone: Nitrite Ql (U) Negative Normal Comprehens gayatri [facility]; [facility] Work Phone: pH (U) 6.0 [pH] Normal [facility]; [facility] Work Phone: Protein Ql (U) Negative Normal Comprehens gayatri [facility]; [facility] Work Phone: Specific gravity (U) [Rel density] 1.025 1 Normal [facility]; [facility] Work Phone: Urobilinogen (24H U) [Mass/Time] Normal Normal [facility]; [facility] Work Phone: Urinalysis, Office ([phone])Or dered By: Rosalinda Roberts on 08-27-2007 Bilirubin Ql (U) Negative Normal Comprehe nsive Internal Medicine; [facility] Work Phone: Glucose Test strip (U) [Mass/Vol] Negative Normal [facility]; [facility] Work Phone: Hemoglobin Ql (U) Negative Normal Compreh ensive [facility]; [facility] Work Phone: Ketones Ql (U) Negative Normal Comprehens gayatri [facility]; [facility] Work Phone: Leukocyte esterase Test strip Ql (U) Trace Normal [facility]; [facility] Work Phone: Nitrite Ql (U) Negative Normal Comprehens gayatri [facility]; [facility] Work Phone: pH (U) 6.0 [pH] Normal [facility]; [facility] Work Phone: Protein Ql (U) Negative Normal Comprehens gayatri [facility]; [facility] Work Phone: Specific gravity (U) [Rel density] 1.025 1 Normal [facility]; [facility] Work Phone: Urobilinogen (24H U) [Mass/Time] Normal Normal [facility]; [facility] Work Phone: Urinalysis, Office ([phone])Or dered By: Rosalinda Roberts on 03-25-2007 Bilirubin Ql (U) Negative Normal Comprehe nsive Internal Medicine; [facility] Work Phone: Glucose Test strip (U) [Mass/Vol] Negative Normal [facility]; [facility] Work Phone: Hemoglobin Ql (U) Negative Normal Compreh ensive Internal Medicine; [facility] Work Phone: Ketones Ql (U) Negative Normal [facility]; [facility] Work Phone: Leukocyte esterase Test strip Ql (U) Negative Normal [facility]; [facility] Work Phone: Nitrite Ql (U) Negative Normal [facility]; [facility] Work Phone: Protein Ql (U) Negative Normal [facility]; [facility] Work Phone: Specific gravity (U) [Rel density] 1.025 1 Normal [facility]; [facility] Work Phone: Urobilinogen (24H U) [Mass/Time] Normal Normal [facility]; [facility] Work Phone: Urinalysis, Office ([id number])Or dered By: Mary Rod on 03-19-2007 Bilirubin Ql (U) Negative Normal [facility]; [facility] Work Phone: Glucose Test strip (U) [Mass/Vol] Negative Normal [facility]; [facility] Work Phone: Hemoglobin Ql (U) Non Hemolyzed Trace Normal [facility]; [facility] Work Phone: Ketones Ql (U) Negative Normal [facility]; [facility] Work Phone: Leukocyte esterase Test strip Ql (U) Large Normal [facility]; [facility] Work Phone: Comment on above: aw Nitrite Ql (U) Negative Normal [facility]; [facility] Work Phone: pH (U) 7.0 [pH] Normal [facility]; [facility] Work Phone: Protein Ql (U) Negative Normal [facility]; [facility] Work Phone: Specific gravity (U) [Rel density] 1.015 1 Normal [facility]; [facility] Work Phone: Urobilinogen (24H U) [Mass/Time] Normal Normal [facility]; [facility] Work Phone: Vital Signs Date Time Vital Sign Value Performing Clinician Facility 11-13-2022 10:31-0400 Body height 165.[address] Cece Aleman Work Phone: [facility] 11-13-2022 10:31-0400 Body mass index (BMI) [Ratio] 30.4 kg/m2 Dr. Cece Aleman Work Phone: [facility] 11-13-2022 10:31-0400 Body weight [address] Cece Aleman Work Phone: [facility] 11-13-2022 10:31-0400 Diastolic blood pressure 75 mm[Hg] Dr. Cece Aleman Work Phone: [facility] 11-13-2022 10:31-0400 Heart rate 84 /min Dr. Cece Aleman Work Phone: [facility] 11-13-2022 10:31-0400 Respiratory rate 16 /min Dr. Cece Aleman Work Phone: [facility] 11-13-2022 10:31-0400 Systolic blood pressure 129 mm[Hg] Dr. Cece Aleman Work Phone: [facility] 04-23-2022 08:26-0500 Body height 165.[address] Cece Aleman Work Phone: [facility] 04-23-2022 08:26-0500 Body mass index (BMI) [Ratio] 29.2 kg/m2 Dr. Cece Aleman Work Phone: [facility] 04-23-2022 08:26-0500 Body weight 79.[address] Cece Aleman Work Phone: [facility] 04-23-2022 08:26-0500 Diastolic blood pressure 77 mm[Hg] Dr. Cece Aleman Work Phone: [facility] 04-23-2022 08:26-0500 Respiratory rate 16 /min Dr. Cece Aleman Work Phone: [facility] 04-23-2022 08:26-0500 Systolic blood pressure 136 mm[Hg] Dr. Cece Aleman Work Phone: [facility] 04-16-2022 08:46-0500 Body height 165.[address] Cece Aleman Work Phone: [facility] Work Phone: 04-16-2022 08:46-0500 Body mass index (BMI) [Ratio] 29.7 kg/m2 Dr. Cece Aleman Work Phone: [facility] 04-16-2022 08:46-0500 Body weight 81.[address] Cece Aleman Work Phone: [facility] 04-16-2022 08:46-0500 Diastolic blood pressure 77 mm[Hg] Dr. Cece Aleman Work Phone: [facility] 04-16-2022 08:46-0500 Heart rate 80 /min Dr. Cece Aleman Work Phone: [facility] 04-16-2022 08:46-0500 Respiratory rate 18 /min Dr. Cece Aleman Work Phone: [facility] 04-16-2022 08:46-0500 SaO2% (BldA) [Mass fraction] 98 % Dr. Cece Aleman Work Phone: [facility] 04-16-2022 08:46-0500 Systolic blood pressure 133 mm[Hg] Dr. Cece Aleman Work Phone: [facility] 02-10-2022 11:45-0400 Body temperature 98.9 [degF] Dr. Cece Aleman Work Phone: [facility] 02-10-2022 11:45-0400 Diastolic blood pressure 70 mm[Hg] Dr. Cece Aleman Work Phone: [facility] 02-10-2022 11:45-0400 Heart rate 107 /min Dr. Cece Aleman Work Phone: [facility] 02-10-2022 11:45-0400 Respiratory rate 15 /min Dr. Cece Aleman Work Phone: [facility] 02-10-2022 11:45-0400 SaO2% (BldA) [Mass fraction] 96 % Dr. Cece Aleman Work Phone: [facility] 02-10-2022 11:45-0400 Systolic blood pressure 110 mm[Hg] Dr. Cece Aleman Work Phone: [facility] 02-05-2022 12:01-0400 Body temperature 98.9 [degF] Dr. Cece Aleman Work Phone: [facility] 02-05-2022 12:01-0400 Diastolic blood pressure 84 mm[Hg] Dr. Cece Aleman Work Phone: [facility] 02-05-2022 12:01-0400 Heart rate 114 /min Dr. Cece Aleman Work Phone: [facility] 02-05-2022 12:01-0400 Respiratory rate 16 /min Dr. Cece Aleman Work Phone: [facility] 02-05-2022 12:01-0400 SaO2% (BldA) [Mass fraction] 96 % Dr. Cece Aleman Work Phone: [facility] 02-05-2022 12:01-0400 Systolic blood pressure 146 mm[Hg] Dr. Cece Aleman Work Phone: [facility] 10-11-2021 10:18-0400 Body height 165.[address] Rao Delgado Work Phone: [facility] Work Phone: 10-11-2021 10:18-0400 Body mass index (BMI) [Ratio] 29.9 kg/m2 Dr. Rao Delgado Work Phone: [facility] Work Phone: 10-11-2021 10:18-0400 Body weight 81.[address] Rao Delgado Work Phone: [facility] Work Phone: 10-11-2021 10:18-0400 Diastolic blood pressure 76 mm[Hg] Dr. Rao Delgado Work Phone: [facility] Work Phone: 10-11-2021 10:18-0400 Heart rate 81 /min Dr. Rao Delgado Work Phone: [facility] Work Phone: 10-11-2021 10:18-0400 Respiratory rate 16 /min Dr. Rao Delgado Work Phone: [facility] Work Phone: 10-11-2021 10:18-0400 Systolic blood pressure 129 mm[Hg] Dr. Rao Delgado Work Phone: [facility] Work Phone: 04-05-2017 10:45-0500 BMI (Body Mass Index) 29.04 kg/m2 Tio BAEZ [facility] Work Phone: 04-05-2017 10:45-0500 Body Temperature 98.4 [degF] Tio BAEZ [facility] Work Phone: 04-05-2017 10:45-0500 BP Diastolic 76 mm[Hg] Tio BAEZ [facility] Work Phone: 04-05-2017 10:45-0500 BP Systolic 110 mm[Hg] Tio BAEZ [facility] Work Phone: 04-05-2017 10:45-0500 Height 166.37 cm Tio BAEZ [facility] Work Phone: 04-05-2017 10:45-0500 Pulse (Heart Rate) 88 /min Tio BAEZ [facility] Work Phone: 04-05-2017 10:45-0500 Respiratory Rate 13 /min Tio BAEZ [facility] Work Phone: 04-05-2017 10:45-0500 Weight 80.38 kg Tio BAEZ [facility] Work Phone: 02-19-2017 14:50-0400 BMI (Body Mass Index) 29.95 kg/m2 Rita Smith [facility] Work Phone: 02-19-2017 14:50-0400 BP Diastolic 68 mm[Hg] [facility] Work Phone: 02-19-2017 14:50-0400 BP Systolic 102 mm[Hg] [facility] Work Phone: 02-19-2017 14:50-0400 Height 165.1 cm [facility] Work Phone: 02-19-2017 14:50-0400 Pulse (Heart Rate) 80 /min [facility] Work Phone: 02-19-2017 14:50-0400 Respiratory Rate 16 /min [facility] Work Phone: 02-19-2017 14:50-0400 Weight 81.65 kg [facility] Work Phone: 01-31-2016 11:33-0400 BSA (Body Surface Area) 1.88 m2 [facility] Work Phone: 05-25-2015 08:01-0500 Body height 163.19 cm [facility]; [facility] Work Phone: 05-25-2015 08:01-0500 Body mass index (BMI) [Ratio] 32.53 kg/m2 [facility]; [facility] Work Phone: 05-25-2015 08:01-0500 Body surface area Derived from formula 1.92 m2 [facility]; [facility] Work Phone: 05-25-2015 08:01-0500 Body temperature 97.9 [degF] [facility]; [facility] Work Phone: Comment on above: Method: Oral 05-25-2015 08:01-0500 Body weight 86.64 kg [facility]; [facility] Work Phone: 05-25-2015 08:01-0500 Diastolic blood pressure 88 mm[Hg] Leonora Machado [facility]; [facility] Work Phone: Comment on above: Patient Position: Sitting; Cuff Location : Left Arm; Cuff Size: Standard 05-25-2015 08:01-0500 Heart rate 88 /min [facility]ora [employer] [place] [facility]; [facility] Work Phone: Comment on above: Pattern: Regular 05-25-2015 08:01-0500 Respiratory rate 16 /min Leonorajoshua [facility] [place] [facility]; [facility] Work Phone: Comment on above: Pattern: Unlabored 05-25-2015 08:01-0500 Systolic blood pressure 152 mm[Hg] Leonora [place] [place] [facility]; [facility] Work Phone: Comment on above: Patient Position: Sitting; Cuff Location : Left Arm; Cuff Size: Standard 01-19-2015 15:59-0400 Body height 163.19 cm Rosalinda Roberts [facility]; [facility] Work Phone: 01-19-2015 15:59-0400 Body mass index (BMI) [Ratio] 31.34 kg/m2 Rosalinda Roberts [facility]; [facility] Work Phone: 01-19-2015 15:59-0400 Body surface area Derived from formula 1.89 m2 Rosalinda Roberts [facility]; [facility] Work Phone: 01-19-2015 15:59-0400 Body temperature 98.7 [degF] Rosalinda Roberts [facility]; [facility] Work Phone: Comment on above: Method: Temporal 01-19-2015 15:59-0400 Body weight 83.46 kg Rosalinda Roberts [facility]; [facility] Work Phone: 01-19-2015 15:59-0400 Diastolic blood pressure 80 mm[Hg] Rosalinda Roberts [facility]; [facility] Work Phone: Comment on above: Patient Position: Sitting; Cuff Location : Left Arm; Cuff Size: Large 01-19-2015 15:59-0400 Heart rate 88 /min Rosalinda Alejandra [facility]; [facility] Work Phone: Comment on above: Pattern: Regular 01-19-2015 15:59-0400 Respiratory rate 16 /min Rosalinda Alejandra [facility]; [facility] Work Phone: Comment on above: Pattern: Unlabored 01-19-2015 15:59-0400 SaO2% (BldA) [Mass fraction] 97 % Rosalinda Alejandra [facility]; [facility] Work Phone: Comment on above: Room air 01-19-2015 15:59-0400 Systolic blood pressure 116 mm[Hg] Rosalinda Alejandra [facility]; [facility] Work Phone: Comment on above: Patient Position: Sitting; Cuff Location : Left Arm; Cuff Size: Large 09-03-2014 07:11-0400 Body height 163.19 cm Rosalinda [facility]; [facility] Work Phone: 09-03-2014 07:11-0400 Body mass index (BMI) [Ratio] 31.34 kg/m2 Rosalinda Roberts [facility]; [facility] Work Phone: 09-03-2014 07:11-0400 Body surface area Derived from formula 1.89 m2 Rosalinda Roberts [facility]; [facility] Work Phone: 09-03-2014 07:11-0400 Body temperature 96.2 [degF] Rosalinda Roberts [facility]; [facility] Work Phone: Comment on above: Method: Oral 09-03-2014 [id number] Body weight 83.46 kg Rosalinda Alejandra [facility]; [facility] Work Phone: 09-03-2014 07:11-0400 Diastolic blood pressure 72 mm[Hg] Rosalinda [facility]; [facility] Work Phone: Comment on above: Patient Position: Sitting; Cuff Location : Left Arm; Cuff Size: Large 09-03-2014 07:11-0400 Heart rate 88 /min Rosalinda Centenomo [facility]; [facility] Work Phone: Comment on above: Pattern: Regular 09-03-2014 07:11-0400 Respiratory rate 16 /min Rosalinda Centenomo [facility]; [facility] Work Phone: Comment on above: Pattern: Unlabored 09-03-2014 07:11-0400 Systolic blood pressure 112 mm[Hg] Rosalinda Centenomo [facility]; [facility] Work Phone: Comment on above: Patient Position: Sitting; Cuff Location : Left Arm; Cuff Size: Large 05-25-2014 08:09-0500 Body height 163.19 cm Shikha A Fast DO Work Phone: [facility]; [facility] Work Phone: 05-25-2014 08:09-0500 Body mass index (BMI) [Ratio] 31.17 kg/m2 Shikha A Fast DO Work Phone: [facility]; [facility] Work Phone: 05-25-2014 08:09-0500 Body surface area Derived from formula 1.89 m2 Shikha A Fast DO Work Phone: [facility]; [facility] Work Phone: 05-25-2014 08:09-0500 Body temperature 96.1 [degF] Shikha A Fast DO Work Phone: [facility]; [facility] Work Phone: Comment on above: Method: Oral 05-25-2014 08:09-0500 Body weight 83.01 kg Shikha A Fast DO Work Phone: [facility]; [facility] Work Phone: 05-25-2014 08:09-0500 Diastolic blood pressure 82 mm[Hg] Shikha A Fast DO Work Phone: [facility]; [facility] Work Phone: Comment on above: Patient Position: Sitting; Cuff Location : Left Arm; Cuff Size: Large 05-25-2014 08:09-0500 Heart rate 72 /min Shikha A Fast DO Work Phone: [facility]; [facility] Work Phone: Comment on above: Pattern: Regular 05-25-2014 08:09-0500 Respiratory rate 16 /min Shikha A Fast DO Work Phone: [facility]; [facility] Work Phone: Comment on above: Pattern: Unlabored 05-25-2014 08:09-0500 Systolic blood pressure 130 mm[Hg] Shikha A Fast DO Work Phone: [facility]; [facility] Work Phone: Comment on above: Patient Position: Sitting; Cuff Location : Left Arm; Cuff Size: Large 01-22-2014 07:50-0400 Diastolic blood pressure 98 mm[Hg] Shikha Fast DO Work Phone: [facility]; [facility] Work Phone: Comment on above: Patient Position: Sitting; Cuff Location : Left Arm; Cuff Size: Standard 01-22-2014 07:50-0400 Systolic blood pressure 132 mm[Hg] Shikha Fast DO Work Phone: [facility]; [facility] Work Phone: Comment on above: Patient Position: Sitting; Cuff Location : Left Arm; Cuff Size: Standard 01-22-2014 07:09-0400 Body height 163.19 cm Rosalinda [facility]; [facility] Work Phone: 01-22-2014 07:09-0400 Body mass index (BMI) [Ratio] 31.85 kg/m2 Rosalinda [facility]; [facility] Work Phone: 01-22-2014 07:09-0400 Body surface area Derived from formula 1.91 m2 Rosalinda [facility]; [facility] Work Phone: 01-22-2014 07:09-0400 Body temperature 97.6 [degF] Rosalinda [facility]; [facility] Work Phone: 01-22-2014 07:09-0400 Body weight 84.82 kg Rosalinda Alejandra [facility]; [facility] Work Phone: 01-22-2014 07:09-0400 Diastolic blood pressure 98 mm[Hg] Rosalinda Alejandra [facility]; [facility] Work Phone: Comment on above: Patient Position: Sitting; Cuff Location : Left Arm; Cuff Size: Large 01-22-2014 07:09-0400 Heart rate 77 /min Rosalinda Alejandra [facility]; [facility] Work Phone: Comment on above: Pattern: Regular 01-22-2014 07:09-0400 Respiratory rate 16 /min Rosalinda Alejandra [facility]; [facility] Work Phone: Comment on above: Pattern: Unlabored 01-22-2014 07:09-0400 Systolic blood pressure 132 mm[Hg] Rosalinda Alejandra [facility]; [facility] Work Phone: Comment on above: Patient Position: Sitting; Cuff Location : Left Arm; Cuff Size: Large 12-11-2013 07:50-0400 Body height 163.19 cm Rosalinda [facility]; [facility] Work Phone: 12-11-2013 07:50-0400 Body mass index (BMI) [Ratio] 31.34 kg/m2 Rosalinda [facility]; [facility] Work Phone: 12-11-2013 07:50-0400 Body surface area Derived from formula 1.89 m2 Rosalinda Roberts [facility]; [facility] Work Phone: 12-11-2013 07:50-0400 Body temperature 97.3 [degF] Rosalinda Robetrs [facility]; [facility] Work Phone: 12-11-2013 07:50-0400 Body weight 83.46 kg Rosalinda [facility]; [facility] Work Phone: 12-11-2013 07:50-0400 Diastolic blood pressure 80 mm[Hg] Rosalinda Roberts [facility]; [facility] Work Phone: Comment on above: Patient Position: Sitting; Cuff Location : Left Arm; Cuff Size: Large 12-11-2013 07:50-0400 Heart rate 82 /min Rosalinda Alejandra [facility]; [facility] Work Phone: Comment on above: Pattern: Regular 12-11-2013 07:50-0400 Respiratory rate 16 /min Rosalinda Roberts [facility]; [facility] Work Phone: Comment on above: Pattern: Unlabored 12-11-2013 07:50-0400 Systolic blood pressure 124 mm[Hg] Rosalinda Alejandra [facility]; [facility] Work Phone: Comment on above: Patient Position: Sitting; Cuff Location : Left Arm; Cuff Size: Large 11-11-2013 08:42-0400 Body height 163.19 cm Charlotte Mathur RN [facility]; [facility] Work Phone: 11-11-2013 08:42-0400 Body mass index (BMI) [Ratio] 31.34 kg/m2 Charlotte Mathur RN [facility]; [facility] Work Phone: 11-11-2013 08:42-0400 Body surface area Derived from formula 1.89 m2 Charlotte Mathur RN [facility]; [facility] Work Phone: 11-11-2013 08:42-0400 Body temperature 97.4 [degF] Charlotte Mathur RN [facility]; [facility] Work Phone: Comment on above: Method: Temporal 11-11-2013 08:42-0400 Body weight 83.46 kg Charlotte Mathur RN [facility]; [facility] Work Phone: 11-11-2013 08:42-0400 Diastolic blood pressure 88 mm[Hg] Charltote Mathur RN [facility]; [facility] Work Phone: Comment on above: Patient Position: Sitting; Cuff Location : Left Arm; Cuff Size: Standard 11-11-2013 08:42-0400 Heart rate 84 /min Charlotte Mathur RN [facility]; [facility] Work Phone: Comment on above: Pattern: Regular 11-11-2013 08:42-0400 Respiratory rate 16 /min Charlotte Mathur RN [facility]; [facility] Work Phone: Comment on above: Pattern: Unlabored 11-11-2013 08:42-0400 Systolic blood pressure 136 mm[Hg] Charlotte Mathur RN [facility]; [facility] Work Phone: Comment on above: Patient Position: Sitting; Cuff Location : Left Arm; Cuff Size: Standard 09-07-2013 16:57-0400 Body height 163.19 cm Rosalinda [facility]; [facility] Work Phone: 09-07-2013 16:57-0400 Body mass index (BMI) [Ratio] 31.34 kg/m2 Rosalinda Roberts [facility]; [facility] Work Phone: 09-07-2013 16:57-0400 Body surface area Derived from formula 1.89 m2 Rosalinda [facility]; [facility] Work Phone: 09-07-2013 16:57-0400 Body temperature 97.9 [degF] Rosalinda Roberts [facility]; [facility] Work Phone: 09-07-2013 16:57-0400 Body weight 83.46 kg Rosalinda [facility]; [facility] Work Phone: 09-07-2013 16:57-0400 Diastolic blood pressure 96 mm[Hg] Rosalinda [facility]; [facility] Work Phone: Comment on above: Patient Position: Sitting; Cuff Location : Left Arm; Cuff Size: Large 09-07-2013 16:57-0400 Heart rate 88 /min Rosalinda [facility]; [facility] Work Phone: Comment on above: Pattern: Regular 09-07-2013 16:57-0400 Respiratory rate 16 /min Rosalinda Roberts [facility]; [facility] Work Phone: Comment on above: Pattern: Unlabored 09-07-2013 16:57-0400 Systolic blood pressure 134 mm[Hg] Rosalinda Alejandra [facility]; [facility] Work Phone: Comment on above: Patient Position: Sitting; Cuff Location : Left Arm; Cuff Size: Large 07-17-2013 07:05-0400 Body height 163.19 cm PRICILA Lara LPN [facility]; [facility] Work Phone: 07-17-2013 07:05-0400 Body mass index (BMI) [Ratio] 31.34 kg/m2 PRICILA Lara LPN [facility]; [facility] Work Phone: 07-17-2013 07:05-0400 Body surface area Derived from formula 1.89 m2 PRICILA Lara LPN [facility]; [facility] Work Phone: 07-17-2013 07:05-0400 Body temperature 98.2 [degF] PRICILA Lara LPN [facility]; [facility] Work Phone: Comment on above: Method: Oral 07-17-2013 07:05-0400 Body weight 83.46 kg PRICILA Marco HOLGUIN [facility]; [facility] Work Phone: 07-17-2013 07:05-0400 Diastolic blood pressure 84 mm[Hg] PRICILA Lara LPN [facility]; [facility] Work Phone: Comment on above: Patient Position: Sitting; Cuff Location : Left Arm; Cuff Size: Standard 07-17-2013 07:05-0400 Heart rate 68 /min PRICILA Lara LPN [facility]; [facility] Work Phone: Comment on above: Pattern: Regular 07-17-2013 07:05-0400 Respiratory rate 18 /min PRICILA Lara LPN [facility]; [facility] Work Phone: Comment on above: Pattern: Unlabored 07-17-2013 07:05-0400 Systolic blood pressure 126 mm[Hg] PRICILA Lara LPN [facility]; [facility] Work Phone: Comment on above: Patient Position: Sitting; Cuff Location : Left Arm; Cuff Size: Standard 06-08-2013 16:52-0500 Body height 163.19 cm Rosalinda Roberts [facility]; [facility] Work Phone: 06-08-2013 16:52-0500 Body mass index (BMI) [Ratio] 31.34 kg/m2 Rosalinda Roberts [facility]; [facility] Work Phone: 06-08-2013 16:52-0500 Body surface area Derived from formula 1.89 m2 Rosalinda Roberts [facility]; [facility] Work Phone: 06-08-2013 16:52-0500 Body temperature 96 [degF] Rosalinda Roberts [facility]; [facility] Work Phone: 06-08-2013 16:52-0500 Body weight 83.46 kg Rosalinda Roberts [facility]; [facility] Work Phone: 06-08-2013 16:52-0500 Diastolic blood pressure 88 mm[Hg] Rosalinda Roberts [facility]; [facility] Work Phone: Comment on above: Patient Position: Sitting; Cuff Location : Left Arm; Cuff Size: Large 06-08-2013 16:52-0500 Heart rate 72 /min Rosalinda Roberts [facility]; [facility] Work Phone: Comment on above: Pattern: Regular 06-08-2013 16:52-0500 Respiratory rate 16 /min Rosalinda Roberts [facility]; [facility] Work Phone: Comment on above: Pattern: Unlabored 06-08-2013 16:52-0500 Systolic blood pressure 134 mm[Hg] Rosalinda Roberts [facility]; [facility] Work Phone: Comment on above: Patient Position: Sitting; Cuff Location : Left Arm; Cuff Size: Large 03-23-2013 15:40-0500 Body height 163.19 cm Rosalinda Roberts [facility]; [facility] Work Phone: 03-23-2013 15:40-0500 Body mass index (BMI) [Ratio] 31 kg/m2 Rosalinda Roberts [facility]; [facility] Work Phone: 03-23-2013 15:40-0500 Body surface area Derived from formula 1.88 m2 Rosalinda Roberts [facility]; [facility] Work Phone: 03-23-2013 15:40-0500 Body temperature 97.2 [degF] Rosalinda Roberts [facility]; [facility] Work Phone: 03-23-2013 15:40-0500 Body weight 82.56 kg Rosalinda Centenolingaletha [facility]; [facility] Work Phone: 03-23-2013 15:40-0500 Diastolic blood pressure 86 mm[Hg] Rosalinda Centenolingaletha [facility]; [facility] Work Phone: Comment on above: Patient Position: Sitting; Cuff Location : Left Arm; Cuff Size: Large 03-23-2013 15:40-0500 Heart rate 80 /min Rosalinda Centenomo [facility]; [facility] Work Phone: Comment on above: Pattern: Regular 03-23-2013 15:40-0500 Respiratory rate 18 /min Rosalinda Roberts [facility]; [facility] Work Phone: Comment on above: Pattern: Unlabored 03-23-2013 15:40-0500 Systolic blood pressure 124 mm[Hg] Rosalinda Centenomo [facility]; [facility] Work Phone: Comment on above: Patient Position: Sitting; Cuff Location : Left Arm; Cuff Size: Large 02-13-2013 07:39-0400 Body height 163.19 cm Torri Rodrigues [facility]; [facility] Work Phone: 02-13-2013 07:39-0400 Body mass index (BMI) [Ratio] 30.83 kg/m2 Torri Rodrigues [facility]; [facility] Work Phone: 02-13-2013 07:39-0400 Body surface area Derived from formula 1.88 m2 Torri Rodrigues [facility]; [facility] Work Phone: 02-13-2013 07:39-0400 Body temperature 97.8 [degF] Torri Rodrigues [facility]; [facility] Work Phone: Comment on above: Method: Oral 02-13-2013 07:39-0400 Body weight 82.1 kg Torri Rodrigues [facility]; [facility] Work Phone: 02-13-2013 07:39-0400 Diastolic blood pressure 88 mm[Hg] Torri Rodrigues [facility]; [facility] Work Phone: Comment on above: Patient Position: Sitting; Cuff Location : Left Arm; Cuff Size: Standard 02-13-2013 07:39-0400 Heart rate 81 /min Torri Rodrigues [facility]; [facility] Work Phone: Comment on above: Pattern: Regular 02-13-2013 07:39-0400 Respiratory rate 18 /min Torri Rodrigues [facility]; [facility] Work Phone: Comment on above: Pattern: Unlabored 02-13-2013 07:39-0400 SaO2% (BldA) [Mass fraction] 98 % Torri Rodrigues [facility]; [facility] Work Phone: Comment on above: Room air 02-13-2013 07:39-0400 Systolic blood pressure 124 mm[Hg] Torri Rodrigues [facility]; [facility] Work Phone: Comment on above: Patient Position: Sitting; Cuff Location : Left Arm; Cuff Size: Standard 02-06-2013 07:43-0400 Diastolic blood pressure 88 mm[Hg] Shikha A Fast DO Work Phone: [facility]; [facility] Work Phone: Comment on above: Patient Position: Sitting 02-06-2013 07:43-0400 Systolic blood pressure 136 mm[Hg] Shikha A Fast DO Work Phone: [facility]; [facility] Work Phone: Comment on above: Patient Position: Sitting 02-06-2013 07:11-0400 Body height 163.19 cm Rosalinda Alejandra [facility]; [facility] Work Phone: 02-06-2013 07:11-0400 Body mass index (BMI) [Ratio] 30.83 kg/m2 Rosalinda Alejandra [facility]; [facility] Work Phone: 02-06-2013 07:11-0400 Body surface area Derived from formula 1.88 m2 Rosalinda Alejandra [facility]; [facility] Work Phone: 02-06-2013 [id number] Body temperature 96.7 [degF] Rosalinda Alejandra [facility]; [facility] Work Phone: 02-06-2013 07:11-0400 Body weight 82.1 kg Rosalinda Alejandra [facility]; [facility] Work Phone: 02-06-2013 07:11-0400 Diastolic blood pressure 90 mm[Hg] Rosalinda Alejandra [facility]; [facility] Work Phone: Comment on above: Patient Position: Sitting; Cuff Location : Left Arm; Cuff Size: Large 02-06-2013 07:11-0400 Heart rate 80 /min Rosalinda Alejandra [facility]; [facility] Work Phone: Comment on above: Pattern: Regular 02-06-2013 07:11-0400 Respiratory rate 16 /min Rosalinda Roberts [facility]; [facility] Work Phone: Comment on above: Pattern: Unlabored 02-06-2013 07:11-0400 Systolic blood pressure 142 mm[Hg] Rosalinda Alejandra [facility]; [facility] Work Phone: Comment on above: Patient Position: Sitting; Cuff Location : Left Arm; Cuff Size: Large 10-31-2012 07:08-0400 Body height 163.19 cm Rosalinda Roberts [facility]; [facility] Work Phone: 10-31-2012 07:08-0400 Body mass index (BMI) [Ratio] 30.32 kg/m2 Rosalinda Roberts [facility]; [facility] Work Phone: 10-31-2012 07:08-0400 Body surface area Derived from formula 1.87 m2 Rosalinda Roberts [facility]; [facility] Work Phone: 10-31-2012 07:08-0400 Body temperature 96.9 [degF] Rosalinda oRberts [facility]; [facility] Work Phone: 10-31-2012 07:08-0400 Body weight 80.74 kg Rosalinda Roberts [facility]; [facility] Work Phone: 10-31-2012 07:08-0400 Diastolic blood pressure 70 mm[Hg] Rosalinda Roberts [facility]; [facility] Work Phone: Comment on above: Patient Position: Sitting; Cuff Location : Left Arm; Cuff Size: Large 10-31-2012 07:08-0400 Heart rate 82 /min Rosalinda Roberts [facility]; [facility] Work Phone: Comment on above: Pattern: Regular 10-31-2012 07:08-0400 Respiratory rate 16 /min Rosalinda Roberts [facility]; [facility] Work Phone: Comment on above: Pattern: Unlabored 10-31-2012 07:08-0400 Systolic blood pressure 118 mm[Hg] Rosalinda Roberts [facility]; [facility] Work Phone: Comment on above: Patient Position: Sitting; Cuff Location : Left Arm; Cuff Size: Large 09-30-2012 16:11-0400 Body height 163.19 cm [facility]; [facility] Work Phone: 09-30-2012 16:11-0400 Body mass index (BMI) [Ratio] 31.85 kg/m2 [facility]; [facility] Work Phone: 09-30-2012 16:11-0400 Body surface area Derived from formula 1.91 m2 Leonora Machado [facility]; [facility] Work Phone: 09-30-2012 16:11-0400 Body temperature 99 [degF] Leonora Machado [facility]; [facility] Work Phone: Comment on above: Method: Oral 09-30-2012 16:11-0400 Body weight 84.82 kg Leonora Machado [facility]; [facility] Work Phone: 09-30-2012 16:11-0400 Diastolic blood pressure 88 mm[Hg] Leonora Machado [facility]; [facility] Work Phone: Comment on above: Patient Position: Sitting; Cuff Location : Left Arm; Cuff Size: Standard 09-30-2012 16:11-0400 Heart rate 94 /min Leonora Machado [facility]; [facility] Work Phone: Comment on above: Pattern: Regular 09-30-2012 16:11-0400 SaO2% (BldA) [Mass fraction] 98 % Leonora Machado [facility]; [facility] Work Phone: Comment on above: Room air 09-30-2012 16:11-0400 Systolic blood pressure 130 mm[Hg] Lenoora Machado [facility]; [facility] Work Phone: Comment on above: Patient Position: Sitting; Cuff Location : Left Arm; Cuff Size: Standard 09-02-2012 15:33-0400 Body height 163.19 cm Arabella Jack [employer] [facility]; [facility] Work Phone: 09-02-2012 15:33-0400 Body mass index (BMI) [Ratio] 31.85 kg/m2 Arabella Jack [employer] [facility]; [facility] Work Phone: 09-02-2012 15:33-0400 Body surface area Derived from formula 1.91 m2 Arabella Jack [facility]; [facility] Work Phone: 09-02-2012 15:33-0400 Body temperature 98.6 [degF] Arabella Santiago LPN [facility]; [facility] Work Phone: Comment on above: Method: Oral 09-02-2012 15:33-0400 Body weight 84.82 kg Arabella Santiago LPN [facility]; [facility] Work Phone: 09-02-2012 15:33-0400 Diastolic blood pressure 84 mm[Hg] Arabella Santiago LPN [facility]; [facility] Work Phone: Comment on above: Patient Position: Sitting; Cuff Location : Left Arm; Cuff Size: Standard 09-02-2012 15:33-0400 Heart rate 100 /min Arabella Santiago CHELSIE [facility]; [facility] Work Phone: Comment on above: Pattern: Regular 09-02-2012 15:33-0400 Respiratory rate 16 /min Arabella Santiago CHEL[facility]E [facility]; [facility] Work Phone: 09-02-2012 15:33-0400 SaO2% (BldA) [Mass fraction] 97 % Arabella Santiago LPN [facility]; [facility] Work Phone: Comment on above: Room air 09-02-2012 15:33-0400 Systolic blood pressure 138 mm[Hg] Arabella Santiago LPN [facility]; [facility] Work Phone: Comment on above: Patient Position: Sitting; Cuff Location : Left Arm; Cuff Size: Standard 07-02-2012 16:49-0500 Body height 163.19 cm Charlotte Mathur RN [facility]; [facility] Work Phone: 07-02-2012 16:49-0500 Body mass index (BMI) [Ratio] 31.85 kg/m2 Charlotte Mathur RN [facility]; [facility] Work Phone: 07-02-2012 16:49-0500 Body surface area Derived from formula 1.91 m2 Charlotte Mathur RN [facility]; [facility] Work Phone: 07-02-2012 16:49-0500 Body temperature 96.5 [degF] Charlotte Mathur RN [facility]; [facility] Work Phone: Comment on above: Method: Temporal 07-02-2012 16:49-0500 Body weight 84.82 kg Charlotte Mathur RN [facility]; [facility] Work Phone: 07-02-2012 16:49-0500 Diastolic blood pressure 88 mm[Hg] Charlotte Mathur RN [facility]; [facility] Work Phone: Comment on above: Patient Position: Sitting; Cuff Location : Left Arm; Cuff Size: Standard 07-02-2012 16:49-0500 Heart rate 72 /min Charlotte Mathur RN [facility]; [facility] Work Phone: Comment on above: Pattern: Regular 07-02-2012 16:49-0500 Respiratory rate 16 /min Charlotte Mathur RN [facility]; [facility] Work Phone: Comment on above: Pattern: Unlabored 07-02-2012 16:49-0500 Systolic blood pressure 136 mm[Hg] Charlotte Mathur RN [facility]; [facility] Work Phone: Comment on above: Patient Position: Sitting; Cuff Location : Left Arm; Cuff Size: Standard 07-02-2012 16:41-0500 Body height 163.19 cm Charlotte Mathur RN [facility]; [facility] Work Phone: 07-02-2012 16:41-0500 Body mass index (BMI) [Ratio] 31.85 kg/m2 Charlotte Mathur RN [facility]; [facility] Work Phone: 07-02-2012 16:41-0500 Body surface area Derived from formula 1.91 m2 Charlotte Mathur RN [facility]; [facility] Work Phone: 07-02-2012 16:41-0500 Body weight 84.82 kg Charlotte Mathur RN [facility]; [facility] Work Phone: 06-10-2012 08:40-0500 Body height 163.19 cm Rosalinda Flinner [facility]; [facility] Work Phone: 06-10-2012 08:40-0500 Body mass index (BMI) [Ratio] 31.85 kg/m2 Rosalinda Alejandra [facility]; [facility] Work Phone: 06-10-2012 08:40-0500 Body surface area Derived from formula 1.91 m2 Rosalinda Roberts [facility]; [facility] Work Phone: 06-10-2012 08:40-0500 Body temperature 97.7 [degF] Rosalinda Alejandra [facility]; [facility] Work Phone: 06-10-2012 08:40-0500 Body weight 84.82 kg Rosalinda Alejandra [facility]; [facility] Work Phone: 06-10-2012 08:40-0500 Diastolic blood pressure 92 mm[Hg] Rosalinda Roberts [facility]; [facility] Work Phone: Comment on above: Patient Position: Sitting; Cuff Location : Left Arm; Cuff Size: Large 06-10-2012 08:40-0500 Heart rate 88 /min Rosalinda Roberts [facility]; [facility] Work Phone: Comment on above: Pattern: Regular 06-10-2012 08:40-0500 Respiratory rate 16 /min Rosalinda Roberts [facility]; [facility] Work Phone: Comment on above: Pattern: Unlabored 06-10-2012 08:40-0500 Systolic blood pressure 134 mm[Hg] Rosalinda Roberts [facility]; [facility] Work Phone: Comment on above: Patient Position: Sitting; Cuff Location : Left Arm; Cuff Size: Large 05-28-2012 07:51-0500 Body height 163.19 cm Charlotte Mathur RN [facility]; [facility] Work Phone: 05-28-2012 07:51-0500 Body mass index (BMI) [Ratio] 31.51 kg/m2 Charlotte Mathur RN [facility]; [facility] Work Phone: 05-28-2012 07:51-0500 Body surface area Derived from formula 1.9 m2 Charlotte Mathur RN [facility]; [facility] Work Phone: 05-28-2012 07:51-0500 Body temperature 98.5 [degF] Charlotte Mathur RN [facility]; [facility] Work Phone: Comment on above: Method: Oral 05-28-2012 07:51-0500 Body weight 83.92 kg Charlotte Mathur RN [facility]; [facility] Work Phone: 05-28-2012 07:51-0500 Diastolic blood pressure 74 mm[Hg] Charlotte Mathur RN [facility]; [facility] Work Phone: Comment on above: Patient Position: Sitting; Cuff Location : Left Arm; Cuff Size: Standard 05-28-2012 07:51-0500 Heart rate 72 /min Charlotte Mathur RN [facility]; [facility] Work Phone: Comment on above: Pattern: Regular 05-28-2012 07:51-0500 Respiratory rate 16 /min Charlotte Mathur RN [facility]; [facility] Work Phone: Comment on above: Pattern: Unlabored 05-28-2012 07:51-0500 Systolic blood pressure 122 mm[Hg] Charlotte Mathur RN [facility]; [facility] Work Phone: Comment on above: Patient Position: Sitting; Cuff Location : Left Arm; Cuff Size: Standard 02-06-2012 08:09-0400 Body height 163.19 cm Charlotte Mathur RN [facility]; [facility] Work Phone: 02-06-2012 08:09-0400 Body mass index (BMI) [Ratio] 31.51 kg/m2 Charlotte Mathur RN [facility]; [facility] Work Phone: 02-06-2012 08:09-0400 Body surface area Derived from formula 1.9 m2 Charlotte Mathur RN [facility]; [facility] Work Phone: 02-06-2012 08:09-0400 Body temperature 98.6 [degF] Charlotte Mathur RN [facility]; [facility] Work Phone: Comment on above: Method: Oral 02-06-2012 08:09-0400 Body weight 83.92 kg Charlotte Mathur RN [facility]; [facility] Work Phone: 02-06-2012 08:09-0400 Diastolic blood pressure 72 mm[Hg] Charlotte Mathur RN [facility]; [facility] Work Phone: Comment on above: Patient Position: Sitting; Cuff Location : Left Arm; Cuff Size: Standard 02-06-2012 08:09-0400 Heart rate 72 /min Charlotte Mathur RN [facility]; [facility] Work Phone: Comment on above: Pattern: Regular 02-06-2012 08:09-0400 Respiratory rate 16 /min Charlotte Mathur RN [facility]; [facility] Work Phone: Comment on above: Pattern: Unlabored 02-06-2012 08:09-0400 Systolic blood pressure 124 mm[Hg] Charlotte Mathur RN [facility]; [facility] Work Phone: Comment on above: Patient Position: Sitting; Cuff Location : Left Arm; Cuff Size: Standard 01-11-2012 07:30-0400 Body height 163.19 cm Rosalinda [facility]; [facility] Work Phone: 01-11-2012 07:30-0400 Body mass index (BMI) [Ratio] 31.51 kg/m2 Rosalinda [facility]; [facility] Work Phone: 01-11-2012 07:30-0400 Body surface area Derived from formula 1.9 m2 Rosalinda [facility]; [facility] Work Phone: 01-11-2012 07:30-0400 Body temperature 96.9 [degF] Rosalinda [facility]; [facility] Work Phone: 01-11-2012 07:30-0400 Body weight 83.92 kg Rosalinda [facility]; [facility] Work Phone: 01-11-2012 07:30-0400 Diastolic blood pressure 72 mm[Hg] Rosalinda Alejandra [facility]; [facility] Work Phone: Comment on above: Patient Position: Sitting; Cuff Location : Left Arm; Cuff Size: Large 01-11-2012 07:30-0400 Heart rate 88 /min Rosalinda Alejandra [facility]; [facility] Work Phone: Comment on above: Pattern: Regular 01-11-2012 07:30-0400 Respiratory rate 16 /min Rosalinda Alejandra [facility]; [facility] Work Phone: Comment on above: Pattern: Unlabored 01-11-2012 07:30-0400 Systolic blood pressure 126 mm[Hg] Rosalinda Alejandra [facility]; [facility] Work Phone: Comment on above: Patient Position: Sitting; Cuff Location : Left Arm; Cuff Size: Large 09-27-2011 06:58-0400 Body height 163.19 cm Mary Grace Woody RN [facility]; [facility] Work Phone: 09-27-2011 06:58-0400 Body mass index (BMI) [Ratio] 31.17 kg/m2 Mary Grace Woody RN [facility]; [facility] Work Phone: 09-27-2011 06:58-0400 Body surface area Derived from formula 1.89 m2 Mary Grace Woody RN [facility]; [facility] Work Phone: 09-27-2011 06:58-0400 Body weight 83.01 kg Mary Grace Woody RN [facility]; [facility] Work Phone: 09-27-2011 06:58-0400 Diastolic blood pressure 82 mm[Hg] Mary Grace Woody RN [facility]; [facility] Work Phone: Comment on above: Patient Position: Sitting; Cuff Location : Left Arm; Cuff Size: Large 09-27-2011 06:58-0400 Heart rate 68 /min Mary Grace Woody RN [facility]; [facility] Work Phone: Comment on above: Pattern: Regular 09-27-2011 06:58-0400 Respiratory rate 18 /min Mary Grace Woody RN [facility]; [facility] Work Phone: Comment on above: Pattern: Unlabored 09-27-2011 06:58-0400 Systolic blood pressure 120 mm[Hg] Mary Grace Woody RN [facility]; [facility] Work Phone: Comment on above: Patient Position: Sitting; Cuff Location : Left Arm; Cuff Size: Large 09-07-2011 07:01-0400 Body height 163.19 cm Rosalinda [facility]; [facility] Work Phone: 09-07-2011 07:01-0400 Body mass index (BMI) [Ratio] 31 kg/m2 Rosalinda Roberts [facility]; [facility] Work Phone: 09-07-2011 07:01-0400 Body surface area Derived from formula 1.88 m2 Rosalinda Roberts [facility]; [facility] Work Phone: 09-07-2011 07:01-0400 Body temperature 96.3 [degF] Rosalinda Roberts [facility]; [facility] Work Phone: 09-07-2011 07:01-0400 Body weight 82.56 kg Rosalinda Roberts [facility]; [facility] Work Phone: 09-07-2011 07:01-0400 Diastolic blood pressure 80 mm[Hg] Rosalinda Roberts [facility]; [facility] Work Phone: Comment on above: Patient Position: Sitting; Cuff Location : Left Arm; Cuff Size: Large 09-07-2011 07:01-0400 Heart rate 88 /min Rosalinda [facility]; [facility] Work Phone: Comment on above: Pattern: Regular 09-07-2011 07:01-0400 Respiratory rate 16 /min Rosalinda Roberts [facility]; [facility] Work Phone: Comment on above: Pattern: Unlabored 09-07-2011 07:01-0400 Systolic blood pressure 118 mm[Hg] Rosalinda Roberts [facility]; [facility] Work Phone: Comment on above: Patient Position: Sitting; Cuff Location : Left Arm; Cuff Size: Large 09-03-2011 14:28-0400 Body height 163.19 cm Mary Grace Woody RN [facility]; [facility] Work Phone: 09-03-2011 14:28-0400 Body mass index (BMI) [Ratio] 31.23 kg/m2 Mary Grace Woody RN [facility]; [facility] Work Phone: 09-03-2011 14:28-0400 Body surface area Derived from formula 1.89 m2 Mary Grace Woody RN [facility]; [facility] Work Phone: 09-03-2011 14:28-0400 Body weight 83.18 kg Mary Grace Woody RN [facility]; [facility] Work Phone: 09-03-2011 14:28-0400 Diastolic blood pressure 90 mm[Hg] Mary Grace Woody RN [facility]; [facility] Work Phone: Comment on above: Patient Position: Sitting; Cuff Location : Left Arm; Cuff Size: Large 09-03-2011 14:28-0400 Heart rate 64 /min Mary Grace Woody RN [facility]; [facility] Work Phone: Comment on above: Pattern: Regular 09-03-2011 14:28-0400 Respiratory rate 18 /min Mary Grace Woody RN [facility]; [facility] Work Phone: Comment on above: Pattern: Unlabored 09-03-2011 14:28-0400 Systolic blood pressure 142 mm[Hg] Mary Grace Woody RN [facility]; [facility] Work Phone: Comment on above: Patient Position: Sitting; Cuff Location : Left Arm; Cuff Size: Large 04-23-2011 16:52-0500 Body height 163.19 cm Rosalinda Roberts [facility]; [facility] Work Phone: 04-23-2011 16:52-0500 Body mass index (BMI) [Ratio] 30.66 kg/m2 Rosalinda Roberts [facility]; [facility] Work Phone: 04-23-2011 16:52-0500 Body surface area Derived from formula 1.88 m2 Rosalinda Alejandra [facility]; [facility] Work Phone: 04-23-2011 16:52-0500 Body temperature 97.7 [degF] Rosalinda Centenomo [facility]; [facility] Work Phone: 04-23-2011 16:52-0500 Body weight 81.65 kg Rosalinda Centenomo [facility]; [facility] Work Phone: 04-23-2011 16:52-0500 Diastolic blood pressure 90 mm[Hg] Rosalinda Alejandra [facility]; [facility] Work Phone: Comment on above: Patient Position: Sitting; Cuff Location : Left Arm; Cuff Size: Large 04-23-2011 16:52-0500 Heart rate 88 /min Rosalinda Alejandra [facility]; [facility] Work Phone: Comment on above: Pattern: Regular 04-23-2011 16:52-0500 Respiratory rate 16 /min Rosalinda Centenomo [facility]; [facility] Work Phone: Comment on above: Pattern: Unlabored 04-23-2011 16:52-0500 Systolic blood pressure 132 mm[Hg] Rosalinda Centenomo [facility]; [facility] Work Phone: Comment on above: Patient Position: Sitting; Cuff Location : Left Arm; Cuff Size: Large 03-21-2011 13:37-0500 Body height 163.19 cm Arabella Santiago LPN [facility]; [facility] Work Phone: 03-21-2011 13:37-0500 Body mass index (BMI) [Ratio] 30.28 kg/m2 Arabella Santiago LPN [facility]; [facility] Work Phone: 03-21-2011 13:37-0500 Body surface area Derived from formula 1.87 m2 Arabella Santiago LPN [facility]; [facility] Work Phone: 03-21-2011 13:37-0500 Body temperature 98.5 [degF] Arabella Santiago CHELSIE [facility]; [facility] Work Phone: Comment on above: Method: Oral 03-21-2011 13:37-0500 Body weight 80.65 kg Arabella Santiago LPN [facility]; [facility] Work Phone: 03-21-2011 13:37-0500 Diastolic blood pressure 82 mm[Hg] Arabella Santiago CHELSIE [facility]; [facility] Work Phone: Comment on above: Patient Position: Sitting; Cuff Location : Left Arm; Cuff Size: Standard 03-21-2011 13:37-0500 Heart rate 92 /min Arabella Santiago CHELSIE [facility]; [facility] Work Phone: Comment on above: Pattern: Regular 03-21-2011 13:37-0500 Respiratory rate 15 /min Arabella Santiago CHELSIE [facility]; [facility] Work Phone: 03-21-2011 13:37-0500 Systolic blood pressure 142 mm[Hg] Arabella Santiago [employer] [facility]; [facility] Work Phone: Comment on above: Patient Position: Sitting; Cuff Location : Left Arm; Cuff Size: Standard 01-16-2011 07:58-0400 Body height 163.19 cm Charlotte Mathur RN [facility]; [facility] Work Phone: 01-16-2011 07:58-0400 Body mass index (BMI) [Ratio] 30.28 kg/m2 Charlotte Mathur RN [facility]; [facility] Work Phone: 01-16-2011 07:58-0400 Body surface area Derived from formula 1.87 m2 Charlotte Mathur RN [facility]; [facility] Work Phone: 01-16-2011 07:58-0400 Body temperature 97.9 [degF] Charlotte Mathur RN [facility]; [facility] Work Phone: Comment on above: Method: Oral 01-16-2011 07:58-0400 Body weight 80.65 kg Charlotte Mathur RN [facility]; [facility] Work Phone: 01-16-2011 07:58-0400 Diastolic blood pressure 66 mm[Hg] Charlotte Mathur RN [facility]; [facility] Work Phone: Comment on above: Patient Position: Sitting; Cuff Location : Left Arm; Cuff Size: Standard 01-16-2011 07:58-0400 Heart rate 62 /min Charlotte Mathur RN [facility]; [facility] Work Phone: Comment on above: Pattern: Regular 01-16-2011 07:58-0400 Respiratory rate 12 /min Charlotte Mathur RN [facility]; [facility] Work Phone: Comment on above: Pattern: Unlabored 01-16-2011 07:58-0400 Systolic blood pressure 108 mm[Hg] Charlotte Mathur RN [facility]; [facility] Work Phone: Comment on above: Patient Position: Sitting; Cuff Location : Left Arm; Cuff Size: Standard 01-01-2011 16:25-0400 Body height 163.19 cm Arabella Santiago LPN [facility]; [facility] Work Phone: 01-01-2011 16:25-0400 Body mass index (BMI) [Ratio] 29.63 kg/m2 Arabella Santiago LPN [facility]; [facility] Work Phone: 01-01-2011 16:25-0400 Body surface area Derived from formula 1.85 m2 Arabella Santiago LPN [facility]; [facility] Work Phone: 01-01-2011 16:25-0400 Body temperature 98.9 [degF] Arabella Santiago LPN [facility]; [facility] Work Phone: Comment on above: Method: Oral 01-01-2011 16:25-0400 Body weight 78.93 kg Arabella Santiago LPN [facility]; [facility] Work Phone: 01-01-2011 16:25-0400 Diastolic blood pressure 78 mm[Hg] Arabella Santiago LPN [facility]; [facility] Work Phone: Comment on above: Patient Position: Sitting; Cuff Location : Left Arm; Cuff Size: Standard 01-01-2011 16:25-0400 Heart rate 82 /min Arabella Santiago CHELSIE [facility]; [facility] Work Phone: Comment on above: Pattern: Regular 01-01-2011 16:25-0400 Respiratory rate 15 /min Arabella Santiago CHELSIE [facility]; [facility] Work Phone: 01-01-2011 16:25-0400 Systolic blood pressure 108 mm[Hg] Arabella Santiago CHELSIE [facility]; [facility] Work Phone: Comment on above: Patient Position: Sitting; Cuff Location : Left Arm; Cuff Size: Standard 10-09-2010 16:26-0400 Body height 163.19 cm Rosalinda Roberts [facility]; [facility] Work Phone: 10-09-2010 16:26-0400 Body mass index (BMI) [Ratio] 29.63 kg/m2 Rosalinda Roberts [facility]; [facility] Work Phone: 10-09-2010 16:26-0400 Body surface area Derived from formula 1.85 m2 Rosalinda Roberts [facility]; [facility] Work Phone: 10-09-2010 16:26-0400 Body temperature 97.3 [degF] Rosalinda Roberts [facility]; [facility] Work Phone: 10-09-2010 16:26-0400 Body weight 78.93 kg Rosalinda Roberts [facility]; [facility] Work Phone: 10-09-2010 16:26-0400 Diastolic blood pressure 70 mm[Hg] Rosalinda Roberts [facility]; [facility] Work Phone: Comment on above: Patient Position: Sitting; Cuff Location : Left Arm; Cuff Size: Large 10-09-2010 16:26-0400 Heart rate 88 /min Rosalinda Roberts [facility]; [facility] Work Phone: Comment on above: Pattern: Regular 10-09-2010 16:26-0400 Respiratory rate 16 /min Rosalinda Roberts [facility]; [facility] Work Phone: Comment on above: Pattern: Unlabored 10-09-2010 16:26-0400 Systolic blood pressure 114 mm[Hg] Rosalinda Roberts [facility]; [facility] Work Phone: Comment on above: Patient Position: Sitting; Cuff Location : Left Arm; Cuff Size: Large 06-12-2010 08:42-0500 Body temperature 97.2 [degF] Rosalinda Roberts [facility]; [facility] Work Phone: 06-12-2010 08:42-0500 Body weight 74.39 kg Rosalinda Roberts [facility]; [facility] Work Phone: 06-12-2010 08:42-0500 Diastolic blood pressure 72 mm[Hg] Rosalinda Roberts [facility]; [facility] Work Phone: Comment on above: Patient Position: Sitting; Cuff Location : Left Arm; Cuff Size: Large 06-12-2010 08:42-0500 Heart rate 88 /min Rosalinda Roberts [facility]; [facility] Work Phone: Comment on above: Pattern: Regular 06-12-2010 08:42-0500 Respiratory rate 16 /min Rosalinda Roberts [facility]; [facility] Work Phone: Comment on above: Pattern: Unlabored 06-12-2010 08:42-0500 Systolic blood pressure 116 mm[Hg] Rosalinda Roberts [facility]; [facility] Work Phone: Comment on above: Patient Position: Sitting; Cuff Location : Left Arm; Cuff Size: Large 11-21-2009 15:43-0400 Body height 163.19 cm Rosalinda Roberts [facility]; [facility] Work Phone: 11-21-2009 15:43-0400 Body mass index (BMI) [Ratio] 27.08 kg/m2 Rosalinda Roberts [facility]; [facility] Work Phone: 11-21-2009 15:43-0400 Body surface area Derived from formula 1.78 m2 Rosalinda Alejandra [facility]; [facility] Work Phone: 11-21-2009 15:43-0400 Body weight 72.12 kg Rosalinda Alejandra [facility]; [facility] Work Phone: 11-21-2009 15:43-0400 Diastolic blood pressure 76 mm[Hg] Rosalinda Alejandra [facility]; [facility] Work Phone: Comment on above: Patient Position: Sitting; Cuff Location : Left Arm; Cuff Size: Standard 11-21-2009 15:43-0400 Heart rate 76 /min Rosalinda Alejandra [facility]; [facility] Work Phone: Comment on above: Pattern: Regular 11-21-2009 15:43-0400 Respiratory rate 18 /min Rosalinda Alejandra [facility]; [facility] Work Phone: Comment on above: Pattern: Unlabored 11-21-2009 15:43-0400 Systolic blood pressure 120 mm[Hg] Rosalinda Alejandra [facility]; [facility] Work Phone: Comment on above: Patient Position: Sitting; Cuff Location : Left Arm; Cuff Size: Standard 07-04-2009 16:19-0500 Body temperature 96.2 [degF] Rosalinda Roberts [facility]; [facility] Work Phone: 07-04-2009 16:19-0500 Body weight 78.47 kg Rosalinda Alejandra [facility]; [facility] Work Phone: 07-04-2009 16:19-0500 Diastolic blood pressure 80 mm[Hg] Rosalinda Alejandra [facility]; [facility] Work Phone: Comment on above: Patient Position: Sitting; Cuff Location : Left Arm; Cuff Size: Large 07-04-2009 16:19-0500 Heart rate 92 /min Rosalinda Roberts [facility]; [facility] Work Phone: Comment on above: Pattern: Regular 07-04-2009 16:19-0500 Respiratory rate 16 /min Rosalinda Centenomo [facility]; [facility] Work Phone: Comment on above: Pattern: Unlabored 07-04-2009 16:19-0500 Systolic blood pressure 138 mm[Hg] Rosalinda Centenomo [facility]; [facility] Work Phone: Comment on above: Patient Position: Sitting; Cuff Location : Left Arm; Cuff Size: Large 02-14-2009 17:08-0400 Body height 0 cm Rosalinda Alejandra [facility]; [facility] Work Phone: 02-14-2009 17:08-0400 Body temperature 95.7 [degF] Rosalinda Centenomo [facility]; [facility] Work Phone: Comment on above: Method: Undefined 02-14-2009 17:08-0400 Body weight 78.02 kg Rosalinda Alejandra [facility]; [facility] Work Phone: 02-14-2009 17:08-0400 Diastolic blood pressure 84 mm[Hg] Rosalinda Alejandra [facility]; [facility] Work Phone: Comment on above: Patient Position: Sitting; Cuff Location : Left Arm; Cuff Size: Standard 02-14-2009 17:08-0400 Head Occipital-frontal circumference 0 cm Rosalinda Alejandra [facility]; [facility] Work Phone: 02-14-2009 17:08-0400 Heart rate 84 /min Rosalinda Alejandra [facility]; [facility] Work Phone: Comment on above: Pattern: Regular 02-14-2009 17:08-0400 Respiratory rate 16 /min Rosalinda Alejandra [facility]; [facility] Work Phone: Comment on above: Pattern: Undefined 02-14-2009 17:08-0400 Systolic blood pressure 134 mm[Hg] Rosalinda Alejandra [facility]; [facility] Work Phone: Comment on above: Patient Position: Sitting; Cuff Location : Left Arm; Cuff Size: Standard 11-11-2008 12:38-0400 Body height 165.1 cm Mary Grace Woody RN [facility]; [facility] Work Phone: 11-11-2008 12:38-0400 Body mass index (BMI) [Ratio] 26.97 kg/m2 Mary Grace Woody RN [facility]; [facility] Work Phone: 11-11-2008 12:38-0400 Body surface area Derived from formula 1.81 m2 Mary Grace Woody RN [facility]; [facility] Work Phone: 11-11-2008 12:38-0400 Body temperature 98.2 [degF] Mary Grace Woody RN [facility]; [facility] Work Phone: Comment on above: Method: Oral 11-11-2008 12:38-0400 Body weight 73.51 kg Mary Grace Woody RN [facility]; [facility] Work Phone: 11-11-2008 12:38-0400 Diastolic blood pressure 84 mm[Hg] Mary Grace Woody RN [facility]; [facility] Work Phone: Comment on above: Patient Position: Sitting; Cuff Location : Left Arm; Cuff Size: Standard 11-11-2008 12:38-0400 Head Occipital-frontal circumference 0 cm Mary Grace Woody RN [facility]; [facility] Work Phone: 11-11-2008 12:38-0400 Heart rate 80 /min Mary Grace Woody RN [facility]; [facility] Work Phone: Comment on above: Pattern: Regular 11-11-2008 12:38-0400 Respiratory rate 20 /min Mary Grace Woody RN [facility]; [facility] Work Phone: Comment on above: Pattern: Unlabored 11-11-2008 12:38-0400 Systolic blood pressure 110 mm[Hg] Mary Grace Woody RN [facility]; [facility] Work Phone: Comment on above: Patient Position: Sitting; Cuff Location : Left Arm; Cuff Size: Standard 10-12-2008 08:17-0400 Body height 165.1 cm Mary Grace Woody RN [facility]; [facility] Work Phone: Comment on above: 124/80 after sitting 10-12-2008 08:17-0400 Body mass index (BMI) [Ratio] 26.97 kg/m2 Mary Grace Woody RN [facility]; [facility] Work Phone: Comment on above: 124/80 after sitting 10-12-2008 08:17-0400 Body surface area Derived from formula 1.81 m2 Mary Grace Woody RN [facility]; [facility] Work Phone: Comment on above: 124/80 after sitting 10-12-2008 08:17-0400 Body temperature 97.3 [degF] Mary Grace Woody RN [facility]; [facility] Work Phone: Comment on above: Method: Oral 124/80 after sitting 10-12-2008 08:17-0400 Body weight 73.51 kg Mary Grace Woody RN [facility]; [facility] Work Phone: Comment on above: 124/80 after sitting 10-12-2008 08:17-0400 Diastolic blood pressure 78 mm[Hg] Mary Grace Woody RN [facility]; [facility] Work Phone: Comment on above: Patient Position: Sitting; Cuff Location : Left Arm; Cuff Size: Large 124/80 after sitting 10-12-2008 08:17-0400 Head Occipital-frontal circumference 0 cm Mary Grace Woody RN [facility]; [facility] Work Phone: Comment on above: 124/80 after sitting 10-12-2008 08:17-0400 Heart rate 72 /min Mary Grace Woody RN [facility]; [facility] Work Phone: Comment on above: Pattern: Regular 124/80 after sitting 10-12-2008 08:17-0400 Respiratory rate 20 /min Mary Grace Woody RN [facility]; [facility] Work Phone: Comment on above: Pattern: Unlabored 124/80 after sitting 10-12-2008 08:17-0400 Systolic blood pressure 136 mm[Hg] Mary Grace Woody RN [facility]; [facility] Work Phone: Comment on above: Patient Position: Sitting; Cuff Location : Left Arm; Cuff Size: Large 124/80 after sitting 07-06-2008 08:26-0500 Body height 0 cm [facility]; [facility] Work Phone: 07-06-2008 08:26-0500 Body temperature 97.8 [degF] [facility]; [facility] Work Phone: Comment on above: Method: Oral 07-06-2008 08:26-0500 Body weight 80.43 kg [facility]; [facility] Work Phone: 07-06-2008 08:26-0500 Diastolic blood pressure 78 mm[Hg] [facility]; [facility] Work Phone: Comment on above: Patient Position: Sitting; Cuff Location : Right Arm; Cuff Size: Standard 07-06-2008 08:26-0500 Head Occipital-frontal circumference 0 cm [facility]; [facility] Work Phone: 07-06-2008 08:26-0500 Heart rate 64 /min [facility]; [facility] Work Phone: Comment on above: Pattern: Regular 07-06-2008 08:26-0500 Respiratory rate 18 /min [facility]; [facility] Work Phone: Comment on above: Pattern: Unlabored 07-06-2008 08:26-0500 Systolic blood pressure 124 mm[Hg] [facility]; [facility] Work Phone: Comment on above: Patient Position: Sitting; Cuff Location : Right Arm; Cuff Size: Standard 04-14-2008 11:55-0500 Body height 0 cm Rosalinda Roberts [facility]; [facility] Work Phone: 04-14-2008 11:55-0500 Body temperature 98.3 [degF] Rosalinda Roberts [facility]; [facility] Work Phone: Comment on above: Method: Undefined 04-14-2008 11:55-0500 Body weight 0 kg Rosalinda Roberts [facility]; [facility] Work Phone: 04-14-2008 11:55-0500 Diastolic blood pressure 82 mm[Hg] Rosalinda Alejandra [facility]; [facility] Work Phone: Comment on above: Patient Position: Sitting; Cuff Location : Right Arm; Cuff Size: Standard 04-14-2008 11:55-0500 Head Occipital-frontal circumference 0 cm Rosalinda Alejandra [facility]; [facility] Work Phone: 04-14-2008 11:55-0500 Heart rate 96 /min Rosalinda Alejandra [facility]; [facility] Work Phone: Comment on above: Pattern: Regular 04-14-2008 11:55-0500 Respiratory rate 16 /min Rosalinda Alejandra [facility]; [facility] Work Phone: Comment on above: Pattern: Undefined 04-14-2008 11:55-0500 Systolic blood pressure 120 mm[Hg] Rosalinda Alejandra [facility]; [facility] Work Phone: Comment on above: Patient Position: Sitting; Cuff Location : Right Arm; Cuff Size: Standard 04-07-2008 08:19-0500 Body height 0 cm Rosalinda Alejandra [facility]; [facility] Work Phone: 04-07-2008 08:19-0500 Body temperature 97.8 [degF] Rosalinda Centenomo [facility]; [facility] Work Phone: Comment on above: Method: Undefined 04-07-2008 08:19-0500 Body weight 80.29 kg Rosalinda Alejandra [facility]; [facility] Work Phone: 04-07-2008 08:19-0500 Diastolic blood pressure 68 mm[Hg] Rosalinda Alejandra [facility]; [facility] Work Phone: Comment on above: Patient Position: Sitting; Cuff Location : Right Arm; Cuff Size: Large 04-07-2008 08:19-0500 Head Occipital-frontal circumference 0 cm Rosalinda [facility]; [facility] Work Phone: 04-07-2008 08:19-0500 Heart rate 88 /min Rosalinda Roberts [facility]; [facility] Work Phone: Comment on above: Pattern: Regular 04-07-2008 08:19-0500 Respiratory rate 16 /min Rosalinda Roberts [facility]; [facility] Work Phone: Comment on above: Pattern: Undefined 04-07-2008 08:19-0500 Systolic blood pressure 90 mm[Hg] Rosalinda Roberts [facility]; [facility] Work Phone: Comment on above: Patient Position: Sitting; Cuff Location : Right Arm; Cuff Size: Large 01-29-2008 14:40-0400 Body height 0 cm Khushi Penalozaa Work Phone: [facility]; [facility] Work Phone: 01-29-2008 14:40-0400 Body weight 0 kg Khushi Penalozaa Work Phone: [facility]; [facility] Work Phone: 01-29-2008 14:40-0400 Diastolic blood pressure 100 mm[Hg] Khushi Penalozaa Work Phone: [facility]; [facility] Work Phone: Comment on above: Patient Position: Supine; Cuff Location: Right Arm; Cuff Size: Standard 01-29-2008 14:40-0400 Head Occipital-frontal circumference 0 cm Khushi Penalozaa Work Phone: [facility]; [facility] Work Phone: 01-29-2008 14:40-0400 Systolic blood pressure 142 mm[Hg] Khushi Benavidesesa Work Phone: [facility]; [facility] Work Phone: Comment on above: Patient Position: Supine; Cuff Location: Right Arm; Cuff Size: Standard 01-29-2008 13:59-0400 Body height 0 cm Khushi Penalozaa Work Phone: [facility]; [facility] Work Phone: 01-29-2008 13:59-0400 Body temperature 98 [degF] Khushi Joseph Work Phone: [facility]; [facility] Work Phone: Comment on above: Method: Oral 01-29-2008 13:59-0400 Body weight 78.47 kg Khushi Joseph Work Phone: [facility]; [facility] Work Phone: 01-29-2008 13:59-0400 Diastolic blood pressure 82 mm[Hg] Khushi Joseph Work Phone: [facility]; [facility] Work Phone: Comment on above: Patient Position: Sitting; Cuff Location : Right Arm; Cuff Size: Standard 01-29-2008 13:59-0400 Head Occipital-frontal circumference 0 cm Khushi Joseph Work Phone: [facility]; [facility] Work Phone: 01-29-2008 13:59-0400 Heart rate 88 /min Khushi Joseph Work Phone: [facility]; [facility] Work Phone: Comment on above: Pattern: Regular 01-29-2008 13:59-0400 Respiratory rate 16 /min Khushi Joseph Work Phone: [facility]; [facility] Work Phone: Comment on above: Pattern: Unlabored 01-29-2008 13:59-0400 Systolic blood pressure 128 mm[Hg] Khushi Joseph Work Phone: [facility]; [facility] Work Phone: Comment on above: Patient Position: Sitting; Cuff Location : Right Arm; Cuff Size: Standard 01-02-2008 08:42-0400 Body height 0 cm Rosalinda Roberts [facility]; [facility] Work Phone: 01-02-2008 08:42-0400 Body temperature 97.8 [degF] Rosalinda Roberts [facility]; [facility] Work Phone: Comment on above: Method: Undefined 01-02-2008 08:42-0400 Body weight 77.57 kg Rosalinda Roberts [facility]; [facility] Work Phone: 01-02-2008 08:42-0400 Diastolic blood pressure 82 mm[Hg] Rosalinda Roberts [facility]; [facility] Work Phone: Comment on above: Patient Position: Sitting; Cuff Location : Right Arm; Cuff Size: Standard 01-02-2008 08:42-0400 Head Occipital-frontal circumference 0 cm Rosalinda Centenomo [facility]; [facility] Work Phone: 01-02-2008 08:42-0400 Heart rate 88 /min Rosalinda Centenolingaletha [facility]; [facility] Work Phone: Comment on above: Pattern: Regular 01-02-2008 08:42-0400 Respiratory rate 16 /min Rosalinda Centenomo [facility]; [facility] Work Phone: Comment on above: Pattern: Undefined 01-02-2008 08:42-0400 Systolic blood pressure 134 mm[Hg] Rosalinda Centenomo [facility]; [facility] Work Phone: Comment on above: Patient Position: Sitting; Cuff Location : Right Arm; Cuff Size: Standard 09-12-2007 10:25-0400 Body height 0 cm Rosalinda Centenomo [facility]; [facility] Work Phone: 09-12-2007 10:25-0400 Body temperature 98.1 [degF] Rosalinda Centenomo [facility]; [facility] Work Phone: Comment on above: Method: Undefined 09-12-2007 10:25-0400 Body weight 79.83 kg Roslainda Alejandra [facility]; [facility] Work Phone: 09-12-2007 10:25-0400 Diastolic blood pressure 88 mm[Hg] Rosalinda Centenomo [facility]; [facility] Work Phone: Comment on above: Patient Position: Sitting; Cuff Location : Right Arm; Cuff Size: Standard 09-12-2007 10:25-0400 Head Occipital-frontal circumference 0 cm Rosalinda Centenomo [facility]; [facility] Work Phone: 09-12-2007 10:25-0400 Heart rate 88 /min Rosalinda Centenolingaletha [facility]; [facility] Work Phone: Comment on above: Pattern: Regular 09-12-2007 10:25-0400 Respiratory rate 16 /min Rosalinda Centenomo [facility]; [facility] Work Phone: Comment on above: Pattern: Undefined 09-12-2007 10:25-0400 Systolic blood pressure 126 mm[Hg] Rosalinda Centenomo [facility]; [facility] Work Phone: Comment on above: Patient Position: Sitting; Cuff Location : Right Arm; Cuff Size: Standard 08-27-2007 10:29-0400 Body height 165.1 cm Rosalinda Flmo [facility]; [facility] Work Phone: 08-27-2007 10:29-0400 Body mass index (BMI) [Ratio] 29.29 kg/m2 Rosalinda Centenomo [facility]; [facility] Work Phone: 08-27-2007 10:29-0400 Body surface area Derived from formula 1.87 m2 Rosalinda Flmo [facility]; [facility] Work Phone: 08-27-2007 10:29-0400 Body weight 79.83 kg Rosalinda Flmo [facility]; [facility] Work Phone: 08-27-2007 10:29-0400 Diastolic blood pressure 86 mm[Hg] Rosalinda Centenomo [facility]; [facility] Work Phone: Comment on above: Patient Position: Sitting; Cuff Location : Left Arm; Cuff Size: Large 08-27-2007 10:29-0400 Head Occipital-frontal circumference 0 cm Rosalinda Centenomo [facility]; [facility] Work Phone: 08-27-2007 10:29-0400 Heart rate 84 /min Rosalinda Alejandra [facility]; [facility] Work Phone: Comment on above: Pattern: Regular 08-27-2007 10:29-0400 Respiratory rate 16 /min Rosalinda Alejandra [facility]; [facility] Work Phone: Comment on above: Pattern: Undefined 08-27-2007 10:29-0400 Systolic blood pressure 120 mm[Hg] Rosalinda Alejandra [facility]; [facility] Work Phone: Comment on above: Patient Position: Sitting; Cuff Location : Left Arm; Cuff Size: Large 03-25-2007 08:02-0500 Body height 165.1 cm Rosalinda Alejandra [facility]; [facility] Work Phone: 03-25-2007 08:02-0500 Body mass index (BMI) [Ratio] 29.68 kg/m2 Rosalinda Alejandra [facility]; [facility] Work Phone: 03-25-2007 08:02-0500 Body surface area Derived from formula 1.88 m2 Rosalinda Roberts [facility]; [facility] Work Phone: 03-25-2007 08:02-0500 Body temperature 97.7 [degF] Rosalinda Alejandra [facility]; [facility] Work Phone: Comment on above: Method: Oral 03-25-2007 08:02-0500 Body weight 80.91 kg Rosalinda Alejandra [facility]; [facility] Work Phone: 03-25-2007 08:02-0500 Diastolic blood pressure 82 mm[Hg] Rosalinda Alejandra [facility]; [facility] Work Phone: Comment on above: Patient Position: Sitting; Cuff Location : Right Arm; Cuff Size: Standard 03-25-2007 08:02-0500 Head Occipital-frontal circumference 0 cm Rosalinda Roberts [facility]; [facility] Work Phone: 03-25-2007 08:02-0500 Heart rate 96 /min Rosalinda Roberst [facility]; [facility] Work Phone: Comment on above: Pattern: Regular 03-25-2007 08:02-0500 Respiratory rate 16 /min Rosalinda Roberts [facility]; [facility] Work Phone: Comment on above: Pattern: Unlabored 03-25-2007 08:02-0500 Systolic blood pressure 116 mm[Hg] Rosalinda Roberts [facility]; [facility] Work Phone: Comment on above: Patient Position: Sitting; Cuff Location : Right Arm; Cuff Size: Standard 03-19-2007 11:53-0500 Body height 165.1 cm [facility]; [facility] Work Phone: 03-19-2007 11:53-0500 Body mass index (BMI) [Ratio] 28.85 kg/m2 [facility]; [facility] Work Phone: 03-19-2007 11:53-0500 Body surface area Derived from formula 1.86 m2 [facility]; [facility] Work Phone: 03-19-2007 11:53-0500 Body temperature 97.6 [degF] [facility]; [facility] Work Phone: Comment on above: Method: Oral 03-19-2007 11:53-0500 Body weight 78.64 kg [facility]; [facility] Work Phone: 03-19-2007 11:53-0500 Diastolic blood pressure 90 mm[Hg] [facility]; [facility] Work Phone: Comment on above: Patient Position: Sitting; Cuff Location : Left Arm; Cuff Size: Standard 03-19-2007 11:53-0500 Head Occipital-frontal circumference 0 cm [facility]; [facility] Work Phone: 03-19-2007 11:53-0500 Heart rate 88 /min [facility]; [facility] Work Phone: Comment on above: Pattern: Regular 03-19-2007 11:53-0500 Respiratory rate 18 /min [facility]; [facility] Work Phone: Comment on above: Pattern: Unlabored 03-19-2007 11:53-0500 Systolic blood pressure 144 mm[Hg] [facility]; [facility] Work Phone: Comment on above: Patient Position: Sitting; Cuff Location : Left Arm; Cuff Size: Standard 09-19-2006 09:27-0400 Body height 165.1 cm Laury Sosa [facility]; [facility] Work Phone: 09-19-2006 09:27-0400 Body mass index (BMI) [Ratio] 28.85 kg/m2 Laury Sosa [facility]; [facility] Work Phone: 09-19-2006 09:27-0400 Body surface area Derived from formula 1.86 m2 Laury Sosa [facility]; [facility] Work Phone: 09-19-2006 09:27-0400 Body weight 78.64 kg Laury Sosa [facility]; [facility] Work Phone: 09-19-2006 09:27-0400 Diastolic blood pressure 64 mm[Hg] Laury Sosa [facility]; [facility] Work Phone: Comment on above: Patient Position: Sitting; Cuff Location : Left Arm; Cuff Size: Standard 09-19-2006 09:27-0400 Head Occipital-frontal circumference 0 cm Laury Sosa [facility]; [facility] Work Phone: 09-19-2006 09:27-0400 Heart rate 80 /min Laury Sosa [facility]; [facility] Work Phone: Comment on above: Pattern: Regular 09-19-2006 09:27-0400 Respiratory rate 16 /min Laury Sosa [facility]; [facility] Work Phone: Comment on above: Pattern: Unlabored 09-19-2006 09:27-0400 Systolic blood pressure 118 mm[Hg] [facility]; [facility] Work Phone: Comment on above: Patient Position: Sitting; Cuff Location : Left Arm; Cuff Size: Standard 06-26-2006 08:05-0500 Body height 165.1 cm Rosalinda Roberts [facility]; [facility] Work Phone: 06-26-2006 08:05-0500 Body mass index (BMI) [Ratio] 28.02 kg/m2 Rosalinda Centenolingaletha [facility]; [facility] Work Phone: 06-26-2006 08:05-0500 Body surface area Derived from formula 1.84 m2 Rosalinda Centenomo [facility]; [facility] Work Phone: 06-26-2006 08:05-0500 Body temperature 98.4 [degF] Rosalinda Centenolingaletha [facility]; [facility] Work Phone: Comment on above: Method: Oral 06-26-2006 08:05-0500 Body weight 76.37 kg Rosalinda Centenolingaletha [facility]; [facility] Work Phone: 06-26-2006 08:05-0500 Diastolic blood pressure 82 mm[Hg] Rosalinda Alejandra [facility]; [facility] Work Phone: Comment on above: Patient Position: Sitting; Cuff Location : Left Arm; Cuff Size: Standard 06-26-2006 08:05-0500 Head Occipital-frontal circumference 0 cm Rosalinda Centenomo [facility]; [facility] Work Phone: 06-26-2006 08:05-0500 Heart rate 96 /min Rosalinda Centenomo [facility]; [facility] Work Phone: Comment on above: Pattern: Regular 06-26-2006 08:05-0500 Respiratory rate 16 /min Rosalinda Centenomo [facility]; [facility] Work Phone: Comment on above: Pattern: Unlabored 06-26-2006 08:05-0500 Systolic blood pressure 120 mm[Hg] Rosalinda Centenomo [facility]; [facility] Work Phone: Comment on above: Patient Position: Sitting; Cuff Location : Left Arm; Cuff Size: Standard 03-20-2006 09:44-0500 Body height 165.1 cm Arabella Santiago LPN [facility]; [facility] Work Phone: 03-20-2006 09:44-0500 Body mass index (BMI) [Ratio] 26.97 kg/m2 Arabella Santiago CHELSIE [facility]; [facility] Work Phone: 03-20-2006 09:44-0500 Body surface area Derived from formula 1.81 m2 Arabella Santiago CHELSIE [facility]; [facility] Work Phone: 03-20-2006 09:44-0500 Body temperature 97.6 [degF] Arabella Santiago CHELSIE [facility]; [facility] Work Phone: Comment on above: Method: Oral 03-20-2006 09:44-0500 Body weight 73.51 kg Arabella Santiago CHELSIE [facility]; [facility] Work Phone: 03-20-2006 09:44-0500 Diastolic blood pressure 82 mm[Hg] Arabella Santiago CHELSIE [facility]; [facility] Work Phone: Comment on above: Patient Position: Sitting; Cuff Location : Left Arm; Cuff Size: Standard 03-20-2006 09:44-0500 Head Occipital-frontal circumference 0 cm Arabella Santiago CHELSIE [facility]; [facility] Work Phone: 03-20-2006 09:44-0500 Heart rate 64 /min Arabella Santiago CHELSIE [facility]; [facility] Work Phone: Comment on above: Pattern: Regular 03-20-2006 09:44-0500 Respiratory rate 16 /min Arabella Gatesmaggie HOLGUIN [facility]; [facility] Work Phone: Comment on above: Pattern: Unlabored 03-20-2006 09:44-0500 Systolic blood pressure 118 mm[Hg] Arabella Santiago CHELSIE [facility]; [facility] Work Phone: Comment on above: Patient Position: Sitting; Cuff Location : Left Arm; Cuff Size: Standard Encounters Encounter Date Encounter Type Care Provider Facility Start: 12-23-2024 ambulatory Cece Aleman Facility: [facility] Start: 12-04-2024 End: 12-04-[address] Cece Aleman MD Work Phone: -[facility]atory [facility] Start: 12-04-2024 End: 12-04-[address] Cece Aleman MD -Laboratory [facility] Start: 12-04-2024 End: 12-04-2024 ambulatory Cece Aleman Facility:[facility] Start: 07-18-2024 End: 07-18-2024 ambulatory [place] Smart Facility:[facility] Start: 06-23-2024 End: 06-23-2024 ambulatory Cece Love Facility:[facility] Start: 06-05-2024 End: 06-05-2024 ambulatory Cece Love Facility:[facility] Start: 04-10-2024 End: 04-10-2024 ambulatory Ashley Kenyonhn Facility:[facility] Start: 02-28-2024 ambulatory [facility] Start: 02-28-2024 End: 02-28-2024 ambulatory [facility] Facility:[facility] Start: 04-23-2023 Non-patient / Non-visit Dr. Cece Aleman Work Phone: [facility] Start: 04-23-2023 End: 04-23-[address] Cece Aleman Work Phone: [facility] Work Phone: Start: 04-23-2023 End: 04-23-[address] Cece Aleman Work Phone: [facility]-Cardiovascular Services Work Phone: Start: 03-20-2023 End: 03-20-2023 ambulatory [facility] Work Phone: Start: 03-20-2023 End: 03-20-2023 Patient encounter procedure [facility] Work Phone: Start: 12-18-2022 End: 12-18-[address] Cece Aleman Work Phone: [facility] Work Phone: Start: 12-18-2022 End: 12-18-[address] Cece Aleman Work Phone: [facility]-Outpatient Breast Imaging Work Phone: Start: 12-17-2022 End: 12-17-[address] Cece Aleman Work Phone: [facility] Work Phone: Start: 12-17-2022 End: 12-17-[address] Cece Aleman Work Phone: [facility]-Ultrasound, [facility] Work Phone: Start: 11-29-2022 End: 11-29-[address] Cece Aleman Work Phone: [facility], [facility] Start: 11-23-2022 Non-patient / Non-visit Dr. Cece Aleman Work Phone: [facility] Work Phone: Start: 11-23-2022 Non-patient / Non-visit Dr. Cece Aleman Work Phone: [facility] Start: 11-23-2022 End: 11-23-[address] Cece Aleman Work Phone: [facility]Cardiovascular [facility] Work Phone: Start: 11-13-2022 End: 11-13-[address] Cece Aleman Work Phone: [facility] Work Phone: Start: 11-05-2022 End: 11-05-2022 ambulatory [facility] Work Phone: Start: 11-05-2022 End: 11-05-2022 [facility] Start: 05-21-2022 End: 05-21-[address] Cece Aleman Work Phone: [facility] Work Phone: Start: 05-21-2022 End: 05-21-[address] Cece Aleman Work Phone: [facility]Labor[facility] Start: 04-23-2022 End: 04-23-[address] Cece Aleman Work Phone: [facility] Start: 04-16-2022 End: 04-16-[address] Cece Aleman Work Phone: [facility] Start: 04-10-2022 End: 04-10-[address] Cece Aleman Work Phone: [facility] Work Phone: Start: 04-10-2022 End: 04-10-[address] Cece Aleman Work Phone: [facility]Labor[facility] Start: 04-06-2022 End: 04-06-[address] Cece Aleman Work Phone: [facility] Work Phone: Start: 04-06-2022 End: 04-06-[address] Cece Aleman Work Phone: [facility]Cardi[facility] Start: 04-06-2022 Non-patient / Non-visit Dr. Cece Aleman Work Phone: [facility] Start: 02-10-2022 End: 02-10-[address] Cece Aleman Work Phone: [facility] Start: 02-05-2022 End: 02-05-[address] Cece Aleman Work Phone: [facility] Start: 12-15-2021 End: 12-15-[address] Cece Aleman Work Phone: [facility]Outpatient Breast [facility] Start: 11-28-2021 End: 11-28-[address] Rao Delgado Work Phone: [facility] Start: 10-11-2021 End: 10-11-[address] Rao Delgado Work Phone: [facility] Start: 10-05-2021 End: 10-05-[address] Christ Galindo Work Phone: [facility] Start: 06-13-2021 End: 06-13-[address] Christ Galindo Work Phone: [facility] Start: 01-05-2021 End: 01-09-2021 [facility] Start: 05-25-2015 End: 05-26-2015 Office outpatient visit 25 minutes Shihka Fast DO Work Phone: [facility] Start: 01-19-2015 End: 01-20-2015 Office outpatient visit 25 minutes Shikha Fast DO Work Phone: [facility] Start: 09-03-2014 End: 09-05-2014 Office outpatient visit 25 minutes Shikha Fast DO Work Phone: [facility] Start: 06-04-2014 End: 06-04-2014 Phone Encounter Shikha Fast DO Work Phone: [facility] Start: 05-25-2014 End: 05-25-2014 Office outpatient visit 25 minutes Shikha Fast DO Work Phone: [facility] Start: 01-22-2014 End: 01-22-2014 Office outpatient visit 25 minutes Shikha Fast DO Work Phone: [facility] Start: 12-11-2013 End: 12-11-2013 Office outpatient visit 15 minutes Shikha Fast DO Work Phone: [facility] Start: 11-11-2013 End: 11-16-2013 Patient encounter procedure Shikha Fast DO Work Phone: [facility] Start: 09-07-2013 End: 09-07-2013 Patient encounter procedure Shikha Fast DO Work Phone: [facility] Start: 07-17-2013 End: 07-17-2013 Patient encounter procedure Shikha Fast DO Work Phone: [facility] Start: 06-08-2013 End: 06-08-2013 Patient encounter procedure Shikha Fast DO Work Phone: [facility] Start: 03-23-2013 End: 03-23-2013 Patient encounter procedure Shikha Fast DO Work Phone: [facility] Start: 02-13-2013 End: 02-13-2013 Patient encounter procedure Shikha Fast DO Work Phone: [facility] Start: 02-06-2013 End: 02-08-2013 Patient encounter procedure Shikha Fast DO Work Phone: [facility] Start: 10-31-2012 End: 10-31-2012 Patient encounter procedure Shikha Fast DO Work Phone: [facility] Start: 09-30-2012 End: 09-30-2012 Patient encounter procedure Shikha Fast DO Work Phone: [facility] Start: 09-02-2012 End: 09-02-2012 Office outpatient visit 15 minutes Shikha Fast DO Work Phone: [facility] Start: 08-06-2012 End: 08-06-2012 Phone Encounter Shikha Fast DO Work Phone: [facility] Start: 07-02-2012 End: 07-03-2012 Patient encounter procedure Shikha Fast DO Work Phone: [facility] Start: 06-24-2012 End: 06-24-2012 Lab Order Shikha Fast DO Work Phone: [facility] Start: 06-10-2012 End: 06-10-2012 Patient encounter procedure Shikha Fast DO Work Phone: [facility] Start: 05-28-2012 End: 05-28-2012 Patient encounter procedure Shikha Fast DO Work Phone: [facility] Start: 02-11-2012 End: 02-13-2012 Patient encounter procedure Shikha Fast DO Work Phone: [facility] Start: 02-06-2012 End: 02-06-2012 Patient encounter procedure Shikha Fast DO Work Phone: [facility] Start: 01-11-2012 End: 01-11-2012 Patient encounter procedure Shikha Fast DO Work Phone: [facility] Start: 09-27-2011 End: 09-27-2011 Patient encounter procedure Shikha Fast DO Work Phone: [facility] Start: 09-07-2011 End: 09-07-2011 Patient encounter procedure Shikha Fast DO Work Phone: [facility] Start: 09-03-2011 End: 09-03-2011 Patient encounter procedure Shikha Fast DO Work Phone: [facility] Start: 04-23-2011 End: 04-23-2011 Patient encounter procedure Shikha Fast DO Work Phone: [facility] Start: 03-21-2011 End: 03-21-2011 Patient encounter procedure Shikha Fast DO Work Phone: [facility] Start: 01-16-2011 End: 01-16-2011 Patient encounter procedure Shikha Fast DO Work Phone: [facility] Start: 01-01-2011 End: 01-01-2011 Office outpatient visit 15 minutes Shikha Fast DO Work Phone: [facility] Start: 10-12-2010 End: 10-12-2010 Annotation/Addendum Shikha Fast DO Work Phone: [facility] Start: 10-09-2010 End: 10-09-2010 Patient encounter procedure Shikha Fast DO Work Phone: [facility] Start: 06-12-2010 End: 06-12-2010 Patient encounter procedure Shikha Fast DO Work Phone: [facility] Start: 11-21-2009 End: 11-21-2009 Patient encounter procedure Shikha Fast DO Work Phone: [facility] Start: 07-04-2009 End: 07-04-2009 Patient encounter procedure Shikha Fast DO Work Phone: [facility] Start: 05-24-2009 End: 05-24-2009 Phone Encounter Shikha Fast DO Work Phone: [facility] Start: 02-14-2009 End: 02-15-2009 Patient encounter procedure Shikha Fast DO Work Phone: [facility] Start: 12-10-2008 End: 12-10-2008 Phone Encounter Shikha Fast DO Work Phone: [facility] Start: 11-11-2008 End: 11-11-2008 Patient encounter procedure Shikha Fast DO Work Phone: [facility] Start: 10-12-2008 End: 10-12-2008 Patient encounter procedure Fernanda Chiu [facility] Start: 07-06-2008 End: 07-06-2008 Patient encounter procedure Shikha Fast DO Work Phone: [facility] Start: 07-05-2008 End: 07-05-2008 Historical Summary Shikha Fast DO Work Phone: [facility] Start: 06-21-2008 End: 06-21-2008 Historical Summary Shikha Fast DO Work Phone: [facility] Start: 04-14-2008 End: 04-15-2008 Patient encounter procedure Shikha Fast DO Work Phone: [facility] Start: 04-07-2008 End: 04-07-2008 Patient encounter procedure Shikha Fast DO Work Phone: [facility] Start: 01-30-2008 End: 01-30-2008 Historical Summary Shikha Fast DO Work Phone: [facility] Start: 01-29-2008 End: 01-29-2008 Patient encounter procedure Shikha Fast DO Work Phone: [facility] Start: 01-02-2008 End: 01-05-2008 Patient encounter procedure Shikha Fast DO Work Phone: [facility] Start: 09-12-2007 End: 09-12-2007 Patient encounter procedure Shikha Fast DO Work Phone: [facility] Start: 08-27-2007 End: 08-27-2007 Patient encounter procedure Shikha Fast DO Work Phone: [facility] Start: 03-25-2007 End: 03-25-2007 Patient encounter procedure Shikha Fast DO Work Phone: [facility] Start: 03-19-2007 End: 03-19-2007 Office outpatient visit 10 minutes Shikha Fast DO Work Phone: [facility] Start: 09-19-2006 End: 09-19-2006 Patient encounter procedure Shikha Fast DO Work Phone: [facility] Start: 06-26-2006 End: 06-26-2006 Patient encounter procedure Shikha Fast DO Work Phone: [facility] Start: 06-20-2006 End: 06-20-2006 Historical Summary Shikha Fast DO Work Phone: [facility] Start: 03-20-2006 End: 03-20-2006 Patient encounter procedure Shikha Fast DO Work Phone: [facility] Start: 03-20-2006 End: 03-20-2006 Nursing evaluation of patient and report Shikha Fast DO Work Phone: [facility] Start: 11-21-2005 End: 11-21-2005 Historical Summary Shikha Fast DO Work Phone: [facility] Procedures Date Procedure Procedure Detail Performing Clinician Start: 12-18-2022 Screening mammography Uvaldo Aleman Work Phone: Start: 12-17-2022 Ultrasound elastogra phy of liver Dr. Cece Aleman Work Phone: Start: 11-23-2022 Cardiovascular stres s test using pharmacologic stress agent Dr. Cece Aleman Work Phone: Start: 12-15-2021 Screening mammography Uvaldo Aleman Work Phone: Start: 01-05-2021 Urinalysis ERIC AMBROSE Comment on above: Result Comment: URIN ALYSIS Performed By: #### 2 [id number] #### [facility],[address] [place] [address] Start: 05-12-2020 History of placement of stent for coronary artery disease History of coronary artery stent placement Dr. Christ Galindo Work Phone: Comment on above: LLB-Ihtmek-Jwi and P scarlett LCx w/ 3.0 x 9 mm and 3.0 x 15 mm S760 Stents 03/01/2000; QNN-Jjxssb-Lhn and Prox RCA w/ 3.0 x 24 mm, 3.0 x 9 mm and 3.0 x 9 mm S760 Stents 02/27/2000; PCI-MARIO-Mid LAD w/ 3.0 x 16 mm Synergy Stent and Prox LAD w/ 3.0 x 12 mm Synergy Stent 05/12/2020 Start: 04-05-2017 End: 04-05-2017 Urnls dip stick/tablet rgnt non-auto w/o micrscp Tio BAEZ Work Phone: Start: 02-25-2017 End: 03-01-2017 *Hepatic Function Panel Klaus Monterroso Start: 02-25-2017 End: 03-01-2017 Lipid 1996 panel - Serum or Plasma Kodi Nance MD Start: 02-19-2017 End: 02-23-2017 Follow Up Appt 6 months Klaus Monterroso Start: 02-19-2017 End: 02-23-2017 MMM Kodi Nance MD Start: 09-03-2016 End: 02-19-2017 *Hepatic Function Panel Klaus Monterroso Start: 09-03-2016 End: 02-19-2017 Lipid 1996 panel - Serum or Plasma Kodi Nance MD Start: 07-31-2016 End: 07-31-2016 REGISTERED PUBLIC HEALTH NURSE Tyra Sears PA-C Work Phone: Start: 07-31-2016 End: 07-31-2016 Follow Up Appt 6 months Tyra Sears PA-C Work Phone: Start: 01-31-2016 End: 03-06-2016 *Hepatic Function Panel Klaus Monterroso Start: 01-31-2016 End: 01-31-2016 Follow Up Appt 6 months Klaus Monterroso Start: 01-31-2016 End: 03-06-2016 Lipid 1996 panel - Serum or Plasma Kodi Nance MD Start: 01-31-2016 End: 01-31-2016 MM Kodi Nance MD Start: 06-28-2015 End: 06-28-2015 Follow Up Appt 6 months Klaus Monterroso Start: 06-28-2015 End: 06-28-2015 MMKlaus Nance MD Start: 03-02-2015 End: 03-02-2015 Carotid Duplex Ultrasound Comments: See Note; NOTES: [facility] Cardiovascular Services [address] [place] [address] Carotid Duplex Ultrasound 03/01/15 0854 MR#: [id number] Acct: [id number] Name: ILAN CANELA Jackeline Rep #: [id number] : 1950 64 From: Stan Mortensen MD Attending Dr: Shikha Juan DO Status: REG CLI Ordering Dr: Shikha Juan DO Date: 03/01/15 Location: BI Sex: F C Admitted: Rt. Velocities/BP Lt. Velocities/BP Prox CCA 60.4/17 cm/sec. Prox CCA 80.3/27.6 cm/sec. Mid CCA 57.5/17.6 cm/sec. Mid CCA 86.8/28.7 cm/sec. Dist CCA 56.9/17.6 cm/sec. Dist CCA 89.7/28.1 cm/sec. Prox ICA 86.2/27 cm/sec. Prox ICA 95.6/29.3 cm/sec. Mid ICA 62.1/17.6 cm/sec. Mid ICA 74.5/27 cm/sec. Dist ICA 66.8/21.7 cm/sec. Dist ICA 78/31.7 cm/sec. Rt. ICA/CCA = 1.5. Lt. ICA/CCA = 1.1. Prox ECA 73.9/13.5 cm/sec. Prox ECA 66.8/17 cm/sec. Rt. Vert. 45.1/17.6 cm/sec. Lt. Vert. 33.4/10.6 cm/sec. Right Extracranial There is homogeneous, smooth atherosclerotic plaque noted in the right common carotid artery. There is heterogeneous, irregular atherosclerotic plaque noted in the right internal carotid artery. The atherosclerotic plaque causes acoustic shadowing. There is intimal thickening but no significant atherosclerotic plaque noted in the right external carotid artery. Antegrade flow is noted in the right vertebral artery. Left Extracranial There is homogeneous, smooth atherosclerotic plaque noted in the left common carotid artery. There is heterogeneous, irregular atherosclerotic plaque noted in the left internal carotid artery. There is heterogeneous, smooth atherosclerotic plaque noted in the left external carotid artery. Antegrade flow is noted in the left vertebral artery. There is heterogeneous, irregular atherosclerotic plaque noted in the left bulb. Procedure Carotid Duplex 16586. The exam was diagnostic. Exam performed in department. Interpretation Summary Mild (<50%) stenosis right extracranial internal carotid. Mild (<50%) stenosis left extracranial internal carotid. Flow within the vertebral arteries is antegrade bilaterally. Ordering Physician: Shikha Juan Performed By: GERMAN Dave 03/02/15 1100 Date Stan Mortensen MD CC: Shikha Juan DO Date Dictated: 03/01/15 0854 Date Transcribed: 03/02/15 1100 Automated Manufacturing Instructor: Signed Shikha Juan DO Work Phone: Start: 03-01-2015 End: 03-01-2015 Bilat Scrn Digital AND CAD Comments: See Note; NOTES: [facility] Imaging Services [address] [place] [address] Verdana 4d Bilat Scrn Digital AND CAD MR#: [id number] Acct: [id number] Name: HILTONILAN Jackeline Rep #: [id number] : 1950 F 64 From: Moshe Gaffney MD PCP: Shikha Juan DO Status: REG CLI Study: Bilat Scrn Digital AND CAD Date of Exam: 03/01/15 Exam# [id number] Ordering Dr: Shikha Juan DO MAMMOGRAPHY - BILATERAL SCREENING REASON FOR EXAM: Female, 64 years old. Routine annual screening examination. PERTINENT HISTORY: Non-contributory. TECHNIQUE: Digital examination. Mediolateral oblique (MLO) and craniocaudad (CC) views of both breasts were obtained. CAD: CAD was performed on this study. COMPARISON: Comparison is made with prior study dated January 06, 2014 and January 01, 2013. FINDINGS: Breast Composition: There are scattered areas of fibroglandular density. The previously seen nodular density in the medial aspect of the left breast has decreased in size. It presently measures 3.8 mm. No other significant abnormalities are identified. IMPRESSION: Stable bilateral screening mammogram. Yearly follow-up recommended. (A) ASSESSMENT CATEGORY: BIRADS Category 2: Benign. A letter regarding these results will be sent to the patient by the facility within 30 days. Approximately 10% of breast cancers are not detected by mammography. A normal mammogram should not delay biopsy of a clinically suspicious abnormality. Electronically Signed: Moshe Gaffney MD at 9:52 EDT Tel [phone], Service support [phone], CC: Shikha Juan DO Automated Manufacturing Instructor: Signed Shikha Juan DO Work Phone: Start: 02-23-2015 End: 07-23-2016 *Hepatic Function Panel Klaus Monterroso Start: 02-23-2015 End: 07-23-2016 Lipid 1996 panel - Serum or Plasma Kodi Nance MD Start: 12-27-2014 End: 12-27-2014 Nuclear Stress Test - Chemical Comments: See Note; NOTES: [facility] Imaging Services [address] [place] [address] STRESS TEST REPORT 12/27/14 0901 MR#: [id number] Acct: [id number] Name: ILAN CANELA Jackeline Rep #: [id number] : 1950 64 From: Kodi Nance MD Primary Care: Shikha Juan DO Status: REG CLI Ordering Dr: Tyra Joseph Service Date: 12/27/14 Order Date: 12/27/14 Sex: F C DATE OF SERVICE: 12/27/2014 REASON FOR EVALUATION: The patient with a history of known coronary artery disease, left bundle branch block, status post angioplasty and stenting. MEDICATIONS: Metoprolol 25 mg, Ramipril, Crestor, amlodipine, levothyroxine, aspirin. Resting EKG demonstrates a normal sinus rhythm with a rate of 81 beats per minute. A left bundle branch block is noted. The resting blood pressure was 164/96. 0.4 mg of regadenoson was infused per usual protocol followed by rapid intravenous saline flush injection. Continuous EKG monitoring was performed. The patient maintained sinus rhythm throughout the recording. The resting heart rate of 76 beats per minute. The maximum heart rate was 110 beats per minute, which was 70% of maximum predicted heart rate. The resting blood pressure was 169/96. Final blood pressure was 142/84. There were no ST changes noted to suggest abnormal flow reserve due to left bundle branch block. MYOCARDIAL PERFUSION PROTOCOL: 11.7 mCi of sestamibi was injected at rest. 0.4 mg of regadenoson was infused per usual protocol. At peak infusion, 36.0 mCi of sestamibi was injected. Stress images were obtained. Stress and rest images were reconstructed and compared in the short axis, vertical long and horizontal long axes. Gated images were also obtained. PERFUSION SPECT ANALYSIS: Review of the images demonstrate normal uptake of tracer noted in all areas of the myocardium. The resting images similarly demonstrated normal uptake of tracer noted in all areas of the myocardium. No areas of reversibility are noted to suggest ischemia. GATED SPECT ANALYSIS: The gated ejection fraction is noted to be 66%. CONCLUSION: 1. Normal pharmacologic myocardial perfusion stress test. 2. Preserved ejection fraction. Kodi Nance MD T: NTS JOB: [id number] 12/27/14 1322 <Electronically signed by Kodi Nance MD> Date Kodi Nance MD CC: Shikha Juan DO; Tyra Joseph Date Dictated: 12/27/14900 Date Transcribed: 12/27/14900 Automated Manufacturing Instructor: Signed Shikha Juan DO Work Phone: Start: 12-13-2014 End: 12-13-2014 Dietary management education, guidance, and counseling Kdoi Nance MD Start: 12-13-2014 End: 12-13-2014 EVANGELINA Sears PA-C Work Phone: Start: 12-13-2014 End: 12-14-2014 Documentation of current medications Tyra Sears PA-C Work Phone: Start: 12-13-2014 End: 12-13-2014 Follow Up Appt 6 months Tyra Sears PA-C Work Phone: Start: 12-13-2014 End: 12-27-2014 Nuclear stress test -Lexiscan Tyra Sears PA-C Work Phone: Start: 09-16-2014 End: 09-16-2014 Echocardiogram Complete Comments: See Note; NOTES: [facility] Cardiovascular Services [address] [place] [address] Echo Complete 09/16/14 0916 MR#: [id number] Acct: [id number] Name: ILAN CANELA Rep #: [id number] : 1950 64 From: Kodi Nance MD Attending Dr: Shikha Juan DO Status: REG CLI Ordering Dr: Shikha Juan DO Date: 09/16/14 Location: [facility] Sex: F C Admitted: Procedure This was a 2D Doppler, Color Flow transthoracic echocardiogram. Exam performed in department. Left Ventricle Normal LV size. Left ventricular systolic function is normal. The estimated ejection fraction is 65 %. No regional wall motion abnormalities noted. Right Ventricle Normal RV size. Normal systolic function. Atria Normal left atrium. Normal right atrium. Mitral Valve Normal mitral valve. Trivial eccentric mitral valve insufficiency. Tricuspid Valve Normal tricuspid valve. Aortic Valve Normal aortic valve. Pulmonic Valve Normal pulmonic valve. Great Vessels Normal aortic root. The pulmonary artery is normal size. Normal inferior vena cava. Pericardium/Pleural No pericardial effusion. MMode/2D Measurements AND Calculations LVIDd: 4.5 cm IVSd: 1.1 cm Ao root diam: 3.0 cm LAV(MOD-bp): 22.2 ml LVIDs: 3.3 cm LVPWd: 1.2 cm Ao root area: 7.1 cm2 LAV(MOD-bp) Indexed: 11.7 ml /m2 RVDd: 2.4 cm FS: 27.8 % LA dimension: 3.6 cm LAV(MOD-sp2): 17.9 ml LAV(MOD-sp4): 26.6 ml LA A4 area: 11.6 cm2 RA A4 area: 10.3 cm2 Doppler Measurements AND Calculations MV E max michaela: Lat Peak E' Michaela: Med Peak E' Michaela: Ao V2 max: 70.2 cm/sec 6.9 cm/sec 6.4 cm/sec 108.8 cm/sec MV A max michaela: Ao max P.7 mmHg 80.7 cm/sec MV E/A: 0.87 LV V1 max: 60.5 cm/sec PA V2 max: 69.5 cm/sec E/E' lat: 10.1 E/E' med: 10.9 LV V1 max P.5 mmHg PA max P.9 mmHg Interpretation Summary Normal LV size. Left ventricular systolic function is normal. The estimated ejection fraction is 65 %. Trivial eccentric mitral valve insufficiency. Ordering Physician: Shikha Juan Performed By: Ruby Greco RDCS 09/16/14 1326 Date Kodi Nance MD CC: Shikha Juan DO Date Dictated: 09/16/14 0916 Date Transcribed: 09/16/14 1326 Automated Manufacturing Instructor: Signed Shikha A Drake CASTILLO Work Phone: Start: 08-16-2014 End: 08-24-2014 *Hepatic Function Panel Klaus Monterroso Start: 08-16-2014 End: 08-24-2014 Lipid 1996 panel - Serum or Plasma Kodi Nance MD Start: 06-01-2014 End: 06-02-2014 Documentation of current medications Kodi Nance MD Start: 06-01-2014 End: 12-01-2014 Follow Up Appt 6 months Klaus Monterroso Start: 06-01-2014 End: 12-01-2014 MMM Kodi Nance MD Start: 02-18-2014 End: 02-18-2014 Carotid Duplex Ultrasound Comments: See Note; NOTES: [facility] Cardiovascular Services [address] [place] [address] Carotid Duplex Ultrasound 02/11/14 0818 MR#: [id number] Acct: [id number] Name: HILTONILAN E Rep #: [id number] : 1950 63 From: Stan Mortensen MD Attending Dr: Shikha Juan DO Status: REG CLI Ordering Dr: Shikha Juan DO Date: 02/11/14 Location: [place] Sex: F C Admitted: Rt. Velocities/BP Lt. Velocities/BP Prox CCA 51/17.6 cm/sec. Prox CCA 54.2/ 12.2 cm/sec. Mid CCA 49.8/18.8 cm/sec. Mid CCA 64/21.6 cm/sec. Dist CCA 51/14.1 cm/sec. Dist CCA 64.8/24 cm/sec. Prox ICA 52/16.9 cm/sec. Prox ICA 92.7/33 cm/sec. Mid ICA 76.2/22.3 cm/sec. Mid ICA 73.1/26.7 cm/sec. Dist ICA 53.4/16.5 cm/sec. Dist ICA 69.9/ 26.7 cm/sec. Rt. ICA/CCA = 1.5. Lt. ICA/CCA = 1.4. Prox ECA 43.2/10.2 cm/sec. Prox ECA 54.2/7 cm/sec. Rt. Vert. 37.3/13.7 cm/sec. Lt. Vert. 43.4/ 12.3 cm/sec. Right Extracranial There is intimal thickening but no significant atherosclerotic plaque noted in the right common carotid artery. There is heterogeneous, irregular atherosclerotic plaque noted in the right internal carotid artery. The atherosclerotic plaque causes acoustic shadowing. There is intimal thickening but no significant atherosclerotic plaque noted in the right external carotid artery. Antegrade flow is noted in the right vertebral artery. Left Extracranial There is homogeneous, smooth atherosclerotic plaque noted in the left common carotid artery. There is heterogeneous, irregular atherosclerotic plaque noted in the left internal carotid artery. There is heterogeneous, smooth atherosclerotic plaque noted in the left external carotid artery. Antegrade flow is noted in the left vertebral artery. Procedure Carotid Duplex 29529. The exam was diagnostic. Exam performed in department. Interpretation Summary Mild (<50%) stenosis right extracranial internal carotid. Mild (<50%) stenosis left extracranial internal carotid. Flow within the vertebral arteries is antegrade bilaterally. Ordering Physician: Shikha Juan Referring Physician: Kodi Nance Performed By: GERMAN Dave 02/15/14 0711 Date Stan Mortensen MD CC: Shikha Juan DO Date Dictated: 02/11/1418 Date Transcribed: 02/15/14710 Automated Manufacturing Instructor: Signed Shikha Juan DO Work Phone: Start: 02-11-2014 End: 02-12-2014 Head/Neck Soft Tissue Comments: See Note; NOTES: [facility] Imaging Services [address] [place] [address] Ultrasound Report MR#: [id number] Acct: [id number] Name: ILAN CANELA Rep #: [id number] : 1950 F 63 From: Moshe Gaffney MD PCP: Shikha Juan DO Status: REG CLI Study: Head/Neck Soft Tissue Date of Exam: 02/11/14 Exam# [id number] Ordering Dr: Shikha Juan DO STUDY: THYROID ULTRASOUND REASON FOR EXAM: Female, 63 years old. History of thyroid malignancy. The patient is status post thyroidectomy. TECHNIQUE: Ultrasound evaluation of the thyroid was performed with real-time and static lucia-scale imaging. COMPARISON: None. FINDINGS: The patient is status post thyroidectomy. No mass lesion is seen. The regional lymph nodes are normal. IMPRESSION: The patient is status post thyroidectomy. No mass lesion is seen. Electronically Signed: Moshe Gaffney MD at 9:06 EDT Tel [phone], Service support [phone], CC: Shikha Juan DO Automated Manufacturing Instructor: Signed Shikha Juan DO Work Phone: Start: 02-03-2014 End: 02-11-2014 *Hepatic Function Panel Klaus Monterroso Start: 02-03-2014 End: 02-11-2014 Lipid 1996 panel - Serum or Plasma Kodi Nance MD Start: 01-11-2014 End: 01-11-2014 Breast Unilateral Comments: See Note; NOTES: [facility] Imaging Services [address] [place] [address] Ultrasound Report MR#: [id number] Acct: [id number] Name: ILAN CANELA Rep #: [id number] : 1950 F 63 From: Moshe Gaffney MD PCP: Shikha Juan DO Status: REG CLI Study: Breast Unilateral Date of Exam: 01/11/14 Exam# [id number] Ordering Dr: Shikha Juan DO STUDY: ULTRASOUND BREAST(S) - LEFT REASON FOR EXAM: Female, 63 years old. Abnormal screening mammogram. TECHNIQUE: Axial and longitudinal images of the LEFT breast were performed with a high resolution ultrasound transducer. COMPARISON: Comparison is made with prior mammogram dated January 06, 2014 and January 11, 2014. FINDINGS: LEFT BREAST: The medial aspect of the left breast was examined. There is a 7 mm x 6 mm x 3 mm cyst at the 9:00 position the breast at 4 cm from the nipple. IMPRESSION: The mammographic abnormality corresponds to a 7 mm x 6 mm x 3 mm cyst. ASSESSMENT CATEGORY: BIRADS Category 2: Benign finding(s). Electronically Signed: Moshe Gaffney MD at 15:13 EDT Tel [phone], Service support [phone], CC: Shikha Juan DO Automated Manufacturing Instructor: Signed Shikha Juan DO Work Phone: Start: 01-11-2014 End: 01-11-2014 Unilat Lt Diag Digital & CAD Comments: See Note; NOTES: [facility] Imaging Services [address] [place] [address] Breast Imaging Report MR#: [id number] Acct: [id number] Name: ILAN CANELA Rep #: [id number] : 1950 F 63 From: Moshe Gaffney MD PCP: Shikha Juan DO Status: REG CLI Exam# [id number] Ordering Dr: Shikha Juan DO MAMMOGRAPHY - UNILATERAL DIAGNOSTIC: LEFT BREAST REASON FOR EXAM: Female, 63 years old. The patient was recalled for additional views of the left breast. PERTINENT HISTORY: Non-contributory. TECHNIQUE: Digital examination. No lateral and medial views of the left breast as well as compression spot views were obtained. CAD: CAD was performed on this study. COMPARISON: Comparison is made with prior study dated January 06, 2014. FINDINGS: Breast Composition: The breasts are heterogeneously dense, which may obscure small masses. There is a persistent 7 mm well-defined nodular density in the medial aspect of the breast. Correlation with ultrasound is recommended. No other significant abnormalities are identified. IMPRESSION: Persistent 7 mm nodule in the medial aspect of the left breast as described. Correlation with ultrasound is recommended. ASSESSMENT CATEGORY: BIRADS Category 0: Incomplete. Need additional imaging evaluation. A letter regarding these results will be sent to the patient by the facility within 30 days. Approximately 10% of breast cancers are not detected by mammography. A normal mammogram should not delay biopsy of a clinically suspicious abnormality. Electronically Signed: Moshe Gaffney MD at 15:11 EDT Tel [phone], Service support [phone], CC: Shikha Juan DO Automated Manufacturing Instructor: Signed Shikha Juan DO Work Phone: Start: 01-06-2014 End: 01-08-2014 Dorothea Maldonado Digital & CAD Comments: See Note; NOTES: [facility] Imaging Services [address] [place] [address] Breast Imaging Report MR#: [id number] Acct: [id number] Name: ILAN CANELA Rep #: [id number] : 1950 F 63 From: Jerod Rudolph MD PCP: Shikha Juan DO Status: REG CLI Exam# [id number] Ordering Dr: Shikha Juan DO MAMMOGRAPHY - BILATERAL SCREENING REASON FOR EXAM: Female, 63 years old. Routine annual screening examination. PERTINENT HISTORY: Non-contributory. TECHNIQUE: Digital examination. Mediolateral oblique (MLO) and craniocaudad (CC) views of both breasts were obtained. CAD: CAD was performed on this study. COMPARISON: January 01, 2013 and January 01, 2012 FINDINGS: Breast Composition: The breasts are heterogeneously dense, which may obscure small masses. There is a well-circumscribed round density in the medial aspect of the left breast was not present on the previous study measures 7 mm it wasn't present on the previous study for which further evaluation by spot compression views and ultrasound would be recommended. There are no dominant masses or suspicious calcifications. No other significant abnormalities are identified. IMPRESSION: Further imaging evaluation recommended, as described above. (E) ASSESSMENT CATEGORY: BIRADS Category 0: Incomplete. Need additional imaging evaluation. A letter regarding these results will be sent to the patient by the facility within 30 days. Approximately 10% of breast cancers are not detected by mammography. A normal mammogram should not delay biopsy of a clinically suspicious abnormality. Electronically Signed: Buck Rudolph MD at 7:50 EDT Tel , Service support [phone], CC: Shikha Juan DO Automated Manufacturing Instructor: Signed Shikha Juan DO Work Phone: Start: 01-06-2014 End: 01-12-2014 Dexa Bone Density Study (HP) Comments: See Note; NOTES: [facility] Imaging Services [address] [place] [address] Bone Density Report MR#: [id number] Acct: [id number] Name: ILAN CANELA Rep #: [id number] : 1950 F 63 From: Moshe Gaffney MD PCP: Shikha Juan DO Status: REG CLI Study: Dexa Bone Density Study (HP) Date of Exam: 01/06/14 Exam# [id number] Ordering Dr: Shikha Juan DO STUDY: DUAL ENERGY X-RAY ABSORPTIOMETRY / DXA REASON FOR EXAM: Female, 63 years old. Surgical menopause. TECHNIQUE: Bone Mineral Density (BMD) measurements of lumbar spine and bilateral hips were obtained. COMPARISON: Comparison is made with prior examination dated January 01, 2012. FINDINGS: Lumbar Spine (L1-L4): g/cm2 (1.034) / T-score (-1.1) / Z-score (0.3) Findings are suggestive of normal bone density with a low fracture risk. Left Femur Total: g/cm2 (1.086) / T-score (0.6) / Z-score (1.7) Left Femoral Neck: g/cm2 (0.925) / T-score (-0.8) / Z-score (0.5) Right Femur Total: g/cm2 (1.054) / T-score (0.4) / Z-score (1.4) Right Femoral Neck: g/cm2 (0.963) / T-score (-0.5) / Z-score (0.8) The T-Scores on the most recent prior examination were: Lumbar Spine (L1-L4): There has been improvement of bone density since the previous examination. Left Femur Total: which represents a worsening of 0.5%. Right Femur Total: which represents a worsening of 0.4%. IMPRESSION: The patient is considered normal as outlined below according to World Wallace Organization (WHO) criteria with a low fracture risk. There has been worsening of bone density since the previous examination. Reference Information: The T-score is the number of standard deviations above or below the standard which is normal for young adults at their peak bone mineral density. The World Health Organization (WHO) interprets the T-scores as follows: Above -1 Normal bone density Between -1 and -2.5 Osteopenia Equal to / or below -2.5 Osteoporosis As a practical clinical guideline, osteopenia may be graded as follows: Mild -1 through -1.5 Moderate -1.6 through -2.0 Severe -2.1 through -2.4 The Z-score is the number of standard deviations above or below age-matched controls. A Z-score of less than -1.5 would be considered abnormal. References: 1. NIH Osteoporosis and Related Bone Diseases http://www.osteo.org 2. International Society for Clinical Densitometry http://www.iscd.org 3. National Osteoporosis Foundation http://www.nof.org Electronically Signed: Moshe Gaffney MD at 9:39 EDT Tel [phone], Service support [phone], CC: Shikha Juan DO Automated Manufacturing Instructor: Signed Shikha Juan DO Work Phone: Start: 12-02-2013 End: 12-02-2013 REGISTERED PUBLIC HEALTH NURSE Tyra Sears PA-C Work Phone: Start: 12-02-2013 End: 12-02-2013 Follow Up Appt 6 months Tyra Sears PA-C Work Phone: Start: 06-02-2013 End: 09-08-2013 *Hepatic Function Panel Klaus Monterroso Start: 06-02-2013 End: 06-02-2013 Follow Up Appt 6 months Klaus Monterroso Start: 06-02-2013 End: 09-01-2013 Lipid 1996 panel - Serum or Plasma Kodi Nance MD Start: 06-02-2013 End: 06-02-2013 MMM Kodi Nance MD Start: 10-28-2012 End: 11-16-2013 REGISTERED PUBLIC HEALTH NURSE Tyra Sears PA-C Work Phone: Start: 10-28-2012 End: 11-16-2013 Follow Up Appt 6 months Tyra Sears PA-C Work Phone: Start: 05-02-2012 End: 05-02-2012 Follow Up Appt 6 months Klaus Monterroso Start: 09-11-2011 End: 09-11-2011 Follow Up Appt 6 months Klaus Monterroso Jazmin herrera [employer] Comment on above: 2012 Plan of Treatment Date Care Activity Detail Author Start: 08-28-2017 End: 03-01-2017 *Hepatic Function Panel *Hepatic Function Panel [facility] Work Phone: Start: 08-28-2017 End: 03-01-2017 Lipid panel [AGGREGATE] *Lipid Profile CC PCP [facility] Work Phone: Start: 08-22-2017 End: 08-22-2017 Appointment Appointment [facility] Work Phone: Start: 04-05-2017 End: 04-05-2017 Appointment Appointment [facility] Work Phone: Start: 02-25-2017 End: 03-01-2017 *Hepatic Function Panel *Hepatic Function Panel [facility] Work Phone: Start: 02-25-2017 End: 03-01-2017 Lipid panel [AGGREGATE] *Lipid Profile CC PCP [facility] Work Phone: Start: 02-19-2017 End: 02-23-2017 Follow Up Appt 6 months Follow Up Appt 6 months [facility] Work Phone: Start: 02-19-2017 End: 02-23-2017 MMM MMM [facility] Work Phone: Start: 09-03-2016 End: 02-19-2017 *Hepatic Function Panel *Hepatic Function Panel [facility] Work Phone: Start: 09-03-2016 End: 02-19-2017 Lipid panel [AGGREGATE] *Lipid Profile CC PCP [facility] Work Phone: Start: 07-31-2016 End: 07-31-2016 REGISTERED PUBLIC HEALTH NURSE REGISTERED PUBLIC HEALTH NURSE [facility] Work Phone: Start: 07-31-2016 End: 07-31-2016 Follow Up Appt 6 months Follow Up Appt 6 months [facility] Work Phone: Start: 01-31-2016 End: 03-06-2016 *Hepatic Function Panel *Hepatic Function Panel [facility] Work Phone: Start: 01-31-2016 End: 01-31-2016 Follow Up Appt 6 months Follow Up Appt 6 months [facility] Work Phone: Start: 01-31-2016 End: 03-06-2016 Lipid panel [AGGREGATE] *Lipid Profile CC PCP [facility] Work Phone: Start: 01-31-2016 End: 01-31-2016 MMM MMM [facility] Work Phone: Start: 06-28-2015 End: 06-28-2015 Follow Up Appt 6 months Follow Up Appt 6 months [facility] Work Phone: Start: 06-28-2015 End: 06-28-2015 MMM MMM [facility] Work Phone: Start: 05-25-2015 Patient Education Hemoglobin A1c Test *: a1c test [facility] Work Phone: Start: 05-25-2015 Procedure Education Eprescribed prescriptions (G8553) [facility] Work Phone: Start: 05-06-2015 Assay of thyroid stimulating hormone tsh TSH (89111) [facility]; [facility] Work Phone: Start: 05-06-2015 Lipid panel LIPID PANEL (17252) [facility]; [facility] Work Phone: Start: 05-06-2015 Comprehensive metabolic panel METABOLIC PANEL, COMPREHENSIVE (26920) [facility]; [facility] Work Phone: Start: 05-06-2015 Blood count complete auto&auto difrntl wbc CBC W/AUTO DIFF WBC (29967) [facility]; [facility] Work Phone: Start: 05-06-2015 Urine albumin quantitative MICROALBUMIN: CREATININE RATIO (46212) AND (82193) [facility]; [facility] Work Phone: Start: 02-23-2015 End: 07-23-2016 *Hepatic Function Panel *Hepatic Function Panel [facility] Work Phone: Start: 02-23-2015 End: 07-23-2016 Lipid panel [AGGREGATE] *Lipid Profile CC PCP [facility] Work Phone: Start: 01-19-2015 Assay of thyroid stimulating hormone tsh TSH (09332) [facility]; [facility] Work Phone: Start: 01-19-2015 25 hydroxy includes fractions if performed Vitamin D Hydroxy (15461) [facility]; [facility] Work Phone: Start: 01-19-2015 Procedure Education Eprescribed prescriptions (G8553) [facility]; [facility] Work Phone: Start: 12-13-2014 End: 12-13-2014 REGISTERED PUBLIC HEALTH NURSE REGISTERED PUBLIC HEALTH NURSE [facility] Work Phone: Start: 12-13-2014 End: 12-13-2014 Follow Up Appt 6 months Follow Up Appt 6 months [facility] Work Phone: Start: 12-13-2014 End: 12-13-2014 Nuclear stress test -Lexiscan Nuclear stress test -Lexiscan [facility] Work Phone: Start: 09-03-2014 Assay of thyroid stimulating hormone tsh TSH (16798) [facility]; [facility] Work Phone: Start: 09-03-2014 Blood count complete auto&auto difrntl wbc CBC W/AUTO DIFF WBC (86269) [facility]; [facility] Work Phone: Start: 09-03-2014 Lipid panel LIPID PANEL (63685) [facility]; [facility] Work Phone: Start: 09-03-2014 Comprehensive metabolic panel METABOLIC PANEL, COMPREHENSIVE (57601) [facility]; [facility] Work Phone: Start: 09-03-2014 Alpha-fetoprotein serum [id number] (17380) [facility]; [facility] Work Phone: Start: 08-16-2014 End: 08-24-2014 *Hepatic Function Panel *Hepatic Function Panel [facility] Work Phone: Start: 08-16-2014 End: 08-24-2014 Lipid panel [AGGREGATE] *Lipid Profile CC PCP [facility] Work Phone: Start: 06-01-2014 End: 12-01-2014 Follow Up Appt 6 months Follow Up Appt 6 months [facility] Work Phone: Start: 06-01-2014 End: 12-01-2014 MMM MMM [facility] Work Phone: Start: 05-25-2014 Procedure Education Eprescribed prescriptions (G8553) [facility]; [facility] Work Phone: Start: 05-25-2014 Assay of thyroid stimulating hormone tsh TSH (91315) [facility]; [facility] Work Phone: Start: 05-25-2014 Lipid panel LIPID PANEL (77308) [facility]; [facility] Work Phone: Start: 05-25-2014 Blood count complete auto&auto difrntl wbc CBC W/AUTO DIFF WBC (02790) [facility]; [facility] Work Phone: Start: 05-25-2014 Comprehensive metabolic panel METABOLIC PANEL, COMPREHENSIVE (27671) [facility]; [facility] Work Phone: Start: 02-03-2014 End: 02-11-2014 *Hepatic Function Panel *Hepatic Function Panel [facility] Work Phone: Start: 02-03-2014 End: 02-11-2014 Lipid panel [AGGREGATE] *Lipid Profile CC PCP [facility] Work Phone: Start: 01-22-2014 Provider Instructions for Treatment Diet, Exercise, and Wt loss [facility]; [facility] Work Phone: Start: 01-22-2014 Blood count complete auto&auto difrntl wbc CBC W/AUTO DIFF WBC (48125) [facility]; [facility] Work Phone: Start: 01-22-2014 Comprehensive metabolic panel METABOLIC PANEL, COMPREHENSIVE (54210) [facility]; [facility] Work Phone: Start: 01-22-2014 Assay of thyroid stimulating hormone tsh TSH (73031) [facility]; [facility] Work Phone: Start: 01-22-2014 Lipid panel LIPID PANEL (71672) [facility]; [facility] Work Phone: Start: 01-22-2014 Alpha-fetoprotein serum [id number] (41653) [facility]; [facility] Work Phone: Start: 01-22-2014 Thromboplastin time partial plasma/whole blood PTT (Activated Partial Thromboplastin Time) (55003) [facility]; [facility] Work Phone: Start: 01-22-2014 Prothrombin time PT (Prothrobim Time) (64029) [facility]; [facility] Work Phone: Start: 12-11-2013 Procedure Education Eprescribed prescriptions (G8553) [facility]; [facility] Work Phone: Start: 12-02-2013 End: 12-02-2013 REGISTERED PUBLIC HEALTH NURSE REGISTERED PUBLIC HEALTH NURSE [facility] Work Phone: Start: 12-02-2013 End: 12-02-2013 Follow Up Appt 6 months Follow Up Appt 6 months [facility] Work Phone: Start: 11-11-2013 Procedure Education Eprescribed prescriptions (G8553) [facility]; [facility] Work Phone: Start: 09-07-2013 Urine albumin quantitative MICROALBUMIN: CREATININE RATIO (16784) AND (86903) [facility]; [facility] Work Phone: Start: 09-07-2013 Comprehensive metabolic panel METABOLIC PANEL, COMPREHENSIVE (74489) [facility]; [facility] Work Phone: Start: 09-07-2013 Lipid panel LIPID PANEL (88891) [facility]; [facility] Work Phone: Start: 09-07-2013 25 hydroxy includes fractions if performed Vitamin D Hydroxy (02719) [facility]; [facility] Work Phone: Start: 06-08-2013 Assay of thyroglobulin THYROGLOBULIN (01946) [facility] Work Phone: Start: 06-08-2013 Assay of thyroid stimulating hormone tsh TSH (86938) [facility]; [facility] Work Phone: Start: 06-08-2013 Blood count manual cell count each CBC WITH MANUAL DIFF (82296) [facility]; [facility] Work Phone: Start: 06-08-2013 Comprehensive metabolic panel METABOLIC PANEL, COMPREHENSIVE (94926) [facility]; [facility] Work Phone: Start: 06-08-2013 Alpha-fetoprotein serum [id number] (37102) [facility]; [facility] Work Phone: Start: 06-08-2013 Thromboplastin time partial plasma/whole blood PTT (Activated Partial Thromboplastin Time) (72253) [facility]; [facility] Work Phone: Start: 06-08-2013 Prothrombin time PT (Prothrobim Time) (32486) [facility]; [facility] Work Phone: Start: 06-08-2013 Lipid panel LIPID PANEL (36137) [facility]; [facility] Work Phone: Start: 06-08-2013 Provider Instructions for Treatment Diet, Exercise, and Wt loss [facility]; [facility] Work Phone: Start: 06-02-2013 End: 09-08-2013 *Hepatic Function Panel *Hepatic Function Panel [facility] Work Phone: Start: 06-02-2013 End: 06-02-2013 Follow Up Appt 6 months Follow Up Appt 6 months [facility] Work Phone: Start: 06-02-2013 End: 09-01-2013 Lipid panel [AGGREGATE] *Lipid Profile CC PCP [facility] Work Phone: Start: 06-02-2013 End: 06-02-2013 MMM MMM [facility] Work Phone: Start: 05-06-2013 Comprehensive metabolic panel METABOLIC PANEL, COMPREHENSIVE (61310) [facility]; [facility] Work Phone: Start: 04-05-2013 Lipid panel LIPID PANEL (82159) [facility]; [facility] Work Phone: Start: 02-06-2013 Alpha-fetoprotein serum [id number] (50570) [facility]; [facility] Work Phone: Start: 02-06-2013 Thromboplastin time partial plasma/whole blood PTT (Activated Partial Thromboplastin Time) (69398) [facility]; [facility] Work Phone: Start: 02-06-2013 Prothrombin time PT (Prothrobim Time) (35240) [facility]; [facility] Work Phone: Start: 02-06-2013 Hepatic function panel HEPATIC FUNCTION PANEL (24540) [facility]; [facility] Work Phone: Start: 02-06-2013 Acute hepatitis panel HEPATITIS PANEL (79908) [facility]; [facility] Work Phone: Start: 02-06-2013 Immunoassay analyte qual/semiqual multiple step ANTIMITOCHONDRIAL ANTIBODY (49953) [facility]; [facility] Work Phone: Start: 02-06-2013 Assay of [id number] TRANSFERRIN (71658) [facility]; [facility] Work Phone: Start: 02-06-2013 Assay of ferritin FERRITIN (87062) [facility]; [facility] Work Phone: Start: 02-06-2013 Microsomal antibodies each ANTI-LIVER/KIDNEY MICROSOMAL ANTIBODY (00327) [facility]; [facility] Work Phone: Start: 02-06-2013 Fluorescent nonnfct agt antb screen ea antibody ASM (ANTI SMOOTH MUSCLE ANTIBODY) (70122) [facility]; [facility] Work Phone: Start: 02-06-2013 Ceruloplasmin CERULOPLASMIN (04312) [facility] Work Phone: Start: 01-04-2013 Lipid panel LIPID PANEL (46538) [facility]; [facility] Work Phone: Start: 01-04-2013 Urine albumin quantitative MICROALBUMIN: CREATININE RATIO (56157) AND (88237) [facility]; [facility] Work Phone: Start: 01-04-2013 Blood count manual cell count each CBC WITH MANUAL DIFF (00600) [facility]; [facility] Work Phone: Start: 01-04-2013 Comprehensive metabolic panel METABOLIC PANEL, COMPREHENSIVE (07200) [facility]; [facility] Work Phone: Start: 10-31-2012 Comprehensive metabolic panel METABOLIC PANEL, COMPREHENSIVE (61024) [facility]; [facility] Work Phone: Start: 10-28-2012 End: 11-16-2013 REGISTERED PUBLIC HEALTH NURSE REGISTERED PUBLIC HEALTH NURSE [facility] Work Phone: Start: 10-28-2012 End: 11-16-2013 Follow Up Appt 6 months Follow Up Appt 6 months [facility] Work Phone: Start: 10-04-2012 25 hydroxy includes fractions if performed Vitamin D Hydroxy (68221) [facility]; [facility] Work Phone: Start: 10-04-2012 Lipid panel LIPID PANEL (55078) [facility]; [facility] Work Phone: Start: 10-04-2012 Assay of thyroid stimulating hormone tsh TSH (42668) [facility]; [facility] Work Phone: Start: 10-04-2012 Blood count manual cell count each CBC WITH MANUAL DIFF (78801) [facility]; [facility] Work Phone: Start: 10-04-2012 Comprehensive metabolic panel METABOLIC PANEL, COMPREHENSIVE (95545) [facility]; [facility] Work Phone: Start: 09-30-2012 Patient Education Allergies: Controlling Your Environment: allergen [facility]; [facility] Work Phone: Start: 09-02-2012 Provider Instructions for Treatment [facility]; [facility] Work Phone: Start: 07-02-2012 Comprehensive metabolic panel METABOLIC PANEL, COMPREHENSIVE (10830) [facility]; [facility] Work Phone: Start: 07-02-2012 Lipid panel LIPID PANEL (01531) [facility]; [facility] Work Phone: Start: 06-10-2012 Patient Education Osteoporosis in Women *: bone thinning [facility]; [facility] Work Phone: Start: 06-10-2012 Provider Instructions for Treatment follow up for recheck urine 1 week after complete antibiotic [facility]; [facility] Work Phone: Start: 05-28-2012 Provider Instructions for Treatment *UTI treatment [facility]; [facility] Work Phone: Start: 05-12-2012 Blood count manual cell count each CBC WITH MANUAL DIFF (43449) [facility]; [facility] Work Phone: Start: 05-12-2012 Lipid panel LIPID PANEL (23824) [facility]; [facility] Work Phone: Start: 05-12-2012 Comprehensive metabolic panel METABOLIC PANEL, COMPREHENSIVE (87326) [facility]; [facility] Work Phone: Start: 05-02-2012 End: 05-02-2012 Follow Up Appt 6 months Follow Up Appt 6 months [facility] Work Phone: Start: 02-06-2012 Provider Instructions for Treatment Skin Infection - Signs and Symptoms [facility]; [facility] Work Phone: Start: 01-11-2012 Patient Education High Blood Pressure (Essential Hypertension) *: blood pressure [facility]; [facility] Work Phone: Start: 01-11-2012 Hemoglobin glycosylated a1c HgA1C , Office (58979) [facility]; [facility] Work Phone: Start: 09-27-2011 Patient Education Arthritis Overview *: inflammation [facility]; [facility] Work Phone: Start: 09-27-2011 Provider Instructions for Treatment Reviewed Diagnostic Tests [facility]; [facility] Work Phone: Start: 09-11-2011 End: 09-11-2011 Follow Up Appt 6 months Follow Up Appt 6 months [facility] Work Phone: Start: 09-07-2011 Lipid panel LIPID PANEL (59815) [facility]; [facility] Work Phone: Start: 09-07-2011 Blood count manual cell count each CBC WITH MANUAL DIFF (29497) [facility]; [facility] Work Phone: Start: 09-07-2011 Comprehensive metabolic panel METABOLIC PANEL, COMPREHENSIVE (97079) [facility]; [facility] Work Phone: Start: 04-23-2011 Blood count manual cell count each CBC WITH MANUAL DIFF (89922) [facility]; [facility] Work Phone: Start: 04-23-2011 25 hydroxy includes fractions if performed Vitamin D Hydroxy (25485) [facility]; [facility] Work Phone: Start: 04-23-2011 Comprehensive metabolic panel METABOLIC PANEL, COMPREHENSIVE (72229) [facility]; [facility] Work Phone: Start: 04-23-2011 Lipid panel LIPID PANEL (51228) [facility]; [facility] Work Phone: Start: 03-21-2011 Provider Instructions for Treatment [facility]; [facility] Work Phone: Start: 01-16-2011 25 hydroxy includes fractions if performed Vitamin D Hydroxy (52988) [facility]; [facility] Work Phone: Start: 01-16-2011 Urine albumin quantitative MICROALBUMIN: CREATININE RATIO (49630) AND (15866) [facility]; [facility] Work Phone: Start: 01-16-2011 Comprehensive metabolic panel METABOLIC PANEL, COMPREHENSIVE (31506) [facility]; [facility] Work Phone: Start: 01-16-2011 Thromboplastin time partial plasma/whole blood PTT (Activated Partial Thromboplastin Time) (41029) [facility]; [facility] Work Phone: Start: 01-16-2011 Prothrombin time PT (Prothrobim Time) (22647) [facility]; [facility] Work Phone: Start: 01-16-2011 Alpha-fetoprotein serum [id number] (52986) [facility]; [facility] Work Phone: Start: 01-16-2011 Lipid panel LIPID PANEL (14659) [facility]; [facility] Work Phone: Start: 01-01-2011 Provider Instructions for Treatment Follow up as needed [facility]; [facility] Work Phone: Start: 10-09-2010 Assay of thyroid stimulating hormone tsh TSH (02859) [facility]; [facility] Work Phone: Start: 10-09-2010 25 hydroxy includes fractions if performed Vitamin D Hydroxy (45894) [facility]; [facility] Work Phone: Start: 10-09-2010 Comprehensive metabolic panel METABOLIC PANEL, COMPREHENSIVE (71450) [facility]; [facility] Work Phone: Start: 10-09-2010 Lipid panel LIPID PANEL (59099) [facility]; [facility] Work Phone: Start: 10-09-2010 Provider Instructions for Treatment Diet, Exercise, and Wt loss [facility]; [facility] Work Phone: Start: 06-12-2010 Provider Instructions for Treatment Diet, Exercise, and Wt loss [facility]; [facility] Work Phone: Start: 06-12-2010 Blood count manual cell count each CBC WITH MANUAL DIFF (59878) [facility]; [facility] Work Phone: Start: 06-12-2010 Comprehensive metabolic panel METABOLIC PANEL, COMPREHENSIVE (25014) [facility]; [facility] Work Phone: Start: 06-12-2010 Lipid panel LIPID PANEL (32145) [facility]; [facility] Work Phone: Start: 06-12-2010 Thromboplastin time partial plasma/whole blood PTT (Activated Partial Thromboplastin Time) (31115) [facility]; [facility] Work Phone: Start: 06-12-2010 Prothrombin time PT (Prothrobim Time) (51849) [facility]; [facility] Work Phone: Start: 06-12-2010 Alpha-fetoprotein serum [id number] (95531) [facility]; [facility] Work Phone: Start: 11-21-2009 Blood count manual cell count each CBC WITH MANUAL DIFF (09231) [facility]; [facility] Work Phone: Start: 11-21-2009 Lipid panel LIPID PANEL (20834) [facility]; [facility] Work Phone: Start: 11-21-2009 Comprehensive metabolic panel METABOLIC PANEL, COMPREHENSIVE (11021) [facility]; [facility] Work Phone: Start: 07-04-2009 Thromboplastin time partial plasma/whole blood PTT (Activated Partial Thromboplastin Time) (84843) [facility]; [facility] Work Phone: Start: 07-04-2009 Prothrombin time PT (Prothrobim Time) (80762) [facility]; [facility] Work Phone: Start: 07-04-2009 Hepatic function panel HEPATIC FUNCTION PANEL (12143) [facility]; [facility] Work Phone: Start: 07-04-2009 Lipid panel LIPID PANEL (98371) [facility] Work Phone: Start: 02-14-2009 Lipid panel LIPID PANEL (82008) [facility] Work Phone: Start: 02-14-2009 Comprehensive metabolic panel METABOLIC PANEL, COMPREHENSIVE (47006) [facility]; [facility] Work Phone: Start: 10-12-2008 25 hydroxy includes fractions if performed Vitamin D Hydroxy (61656) [facility]; [facility] Work Phone: Start: 10-12-2008 Lipid panel LIPID PANEL (93711) [facility] Work Phone: Start: 10-12-2008 Comprehensive metabolic panel METABOLIC PANEL, COMPREHENSIVE (36216) [facility]; [facility] Work Phone: Start: 10-12-2008 Blood count manual cell count each CBC WITH MANUAL DIFF (92113) [facility]; [facility] Work Phone: Start: 07-06-2008 Comprehensive metabolic panel METABOLIC PANEL, COMPREHENSIVE (69099) [facility]; [facility] Work Phone: Start: 07-06-2008 Blood count manual cell count each CBC WITH MANUAL DIFF (90526) [facility]; [facility] Work Phone: Start: 07-06-2008 Hepatic function panel HEPATIC FUNCTION PANEL (36840) [facility]; [facility] Work Phone: Start: 07-06-2008 Lipid panel LIPID PANEL (05942) [facility] Work Phone: Start: 04-07-2008 Hepatic function panel HEPATIC FUNCTION PANEL (23025) [facility]; [facility] Work Phone: Start: 04-07-2008 Lipid panel LIPID PANEL (61018) [facility] Work Phone: Start: 01-29-2008 C-reactive protein C-Reactive Protein (76126) [facility]; [facility] Work Phone: Start: 01-29-2008 Creatine kinase isoenzymes CPK TOTAL & ISOENZYMES (01943) [facility]; [facility] Work Phone: Start: 01-05-2008 Provider Instructions for Treatment Cholesterol - Medication Side Effects [facility]; [facility] Work Phone: Start: 01-02-2008 Immunoassay analyte qual/semiqual multiple step ANTIMITOCHONDRIAL ANTIBODY (93577) [facility]; [facility] Work Phone: Start: 01-02-2008 Assay of [id number] TRANSFERRIN (02037) [facility]; [facility] Work Phone: Start: 01-02-2008 Hepatitis b core antibody hbcab total HEPATITIS A, B & C PANELS [facility]; [facility] Work Phone: Start: 01-02-2008 Assay of ferritin FERRITIN (09407) [facility] Work Phone: Start: 01-02-2008 Ceruloplasmin CERULOPLASMIN (73768) [facility] Work Phone: Start: 01-02-2008 Fluorescent nonnfct agt antb screen ea antibody ASM (ANTI SMOOTH MUSCLE ANTIBODY) (83391) [facility]; [facility] Work Phone: Start: 01-02-2008 Microsomal antibodies each ANTI-LIVER/KIDNEY MICROSOMAL ANTIBODY (07450) [facility]; [facility] Work Phone: Start: 09-12-2007 Culture bct isol&prsmptv id isolate ea urine URINE PALOMA CULTURE-IDENTIFICATN (20729) [facility]; [facility] Work Phone: Start: 09-12-2007 Lipid panel LIPID PANEL (58647) [facility] Work Phone: Start: 09-12-2007 Blood count manual cell count each CBC WITH MANUAL DIFF (29808) [facility]; [facility] Work Phone: Start: 09-12-2007 Hepatic function panel HEPATIC FUNCTION PANEL (31460) [facility]; [facility] Work Phone: Start: 08-27-2007 Provider Instructions for Treatment Antibiotic Usage Education - Female [facility]; [facility] Work Phone: Start: 08-27-2007 1 25 dihydroxy includes fractions if performed VITAMIN D, 1, 25-DIHYDROXY (28644) [facility]; [facility] Work Phone: Start: 08-27-2007 Assay of parathormone PARATHORMONE (14735) [facility] Work Phone: Start: 08-27-2007 Assay of phosphorus inorganic PHOSPHORUS (97285) [facility]; [facility] Work Phone: Start: 08-27-2007 Sedimentation rate rbc non-automated SED RATE ERYTHROCYTE (59158) [facility]; [facility] Work Phone: Start: 08-27-2007 Protein electrophoretic fractj&quantj serum [facility]; [facility] Work Phone: Start: 08-27-2007 Culture bacterial quanttative colony count urine URINE PALOMA CULTURE (ISABEL COL COUNT) (15868) [facility]; [facility] Work Phone: Start: 03-25-2007 Hepatic function panel HEPATIC FUNCTION PANEL (74644) [facility]; [facility] Work Phone: Start: 03-25-2007 Assay of glutamyltrase gamma GGT (Gamma Glutamyl Transferase) (95644) [facility]; [facility] Work Phone: Start: 03-19-2007 Provider Instructions for Treatment Antibiotic Usage Education - Female [facility]; [facility] Work Phone: Start: 03-19-2007 Culture bacterial quanttative colony count urine URINE PALOMA CULTURE (ISABEL COL COUNT) (84639) [facility]; [facility] Work Phone: Start: 09-19-2006 Provider Instructions for Treatment FOLLOW UP IN 3 MONTHS [facility]; [facility] Work Phone: Start: 09-19-2006 Comprehensive metabolic panel METABOLIC PANEL, COMPREHENSIVE (90210) [facility]; [facility] Work Phone: Start: 09-19-2006 Lipid panel LIPID PANEL (92365) [facility]; [facility] Work Phone: Start: 09-19-2006 Hepatic function panel HEPATIC FUNCTION PANEL (62465) [facility]; [facility] Work Phone: Start: 06-26-2006 Provider Instructions for Treatment FOLLOW UP IN 3 MONTHS [facility]; [facility] Work Phone: Start: 06-26-2006 Lipid panel LIPID PANEL (88020) [facility]; [facility] Work Phone: Start: 06-26-2006 Urnls dip stick/tablet rgnt auto w/o microscopy URINALYSIS W/O MICRO (22736) [facility]; [facility] Work Phone: Start: 06-26-2006 Assay of thyroid stimulating hormone tsh TSH (43173) [facility]; [facility] Work Phone: Start: 06-26-2006 Comprehensive metabolic panel METABOLIC PANEL, COMPREHENSIVE (30768) [facility]; [facility] Work Phone: Start: 06-26-2006 Blood count manual cell count each CBC WITH MANUAL DIFF (65913) [facility]; [facility] Work Phone: Start: 03-20-2006 Provider Instructions for Treatment [facility]; [facility] Work Phone: Start: 03-20-2006 Cytp cerv/vag auto thin layer prep mnl screen Thin prep Pap (01940) [facility]; [facility] Work Phone: Patient Education [facility] [employer] Work Phone: US Carotid arteries [facility] Work Phone[facility] Work Phone: [facility] Work Phone: [facility] Work Phone: [facility] Work Phone: [facility] Work Phone: [facility] Work Phone: [facility] Work Phone: [facility] Work Phone: [facility] Work Phone: [facility] Work Phone: [facility] Work Phone: [facility] Work Phone: [facility] Work Phone: [facility] Work Phone: [facility] Work Phone: [facility] Work Phone: [facility] Work Phone: [facility] Work Phone: [facility] Work Phone: [facility] Work Phone: [facility] Work Phone: [facility] Work Phone: [facility] Work Phone: [facility] Work Phone: [facility] Work Phone: [facility] Work Phone: [facility] Work Phone: [facility] Work Phone: [facility] Work Phone: [facility] Work Phone: [facility] Work Phone: [facility] Work Phone: [facility] Work Phone: [facility] Work Phone: [facility] Work Phone: Immunizations Immunization Date Immunization Notes Care Provider [facility] 05-13-2020 influenza, injectabl e, quadrivalent, preservative free [facility] 05-13-2020 influenza, seasonal, injectable Dr. Christ Galindo Work Phone: [facility] Payers Date Payer Category Payer Self-pay [id number] 2024 Unknown [id number] 2016 Medicare [id number] 1950 Unknown [id number] Unknown Unknown [id number] [id number] [id number] Unknown [id number] [id number] [id number] Unknown [id number] [id number] [id number] Unknown [id number] 2.16.8 [id number] Unknown [id number] [id number] [id number] Unknown [id number] [id number] [id number] Unknown [id number] [id number] [id number] Unknown [id number] [id number] [id number] Social History Date Type Detail Facility Alcohol Use Alcohol Use [facility] Work Phone: Comment on above: Wine QD 1 cola QD walking 2 times a we ek Tobacco use: Tobacco use: [facility]; [facility] Work Phone: Comment on above: 09/27/11 Start: 06-13-2021 End: 11-13-2022 Tobacco smoking status SDIS Unknown if ever smoked [facility] Start: 1950 Sex Assigned At Female [facility] Start: 07-08-2023 Tobacco smoking status NHIS Never smoked tobacco (finding) [facility] Evaluation note 05-12-2020 Note Date & Type Note Facility 05-12-2020 Evaluation note Diagnosis Onset Date Ischemic cardiomyopathy acut e Essential (primary) hypertension chronic Hyperlipidemia chronic Left bundle branch block chr onic History of coronary artery stent placement May 12, 2020 resolved [facility] Work Phone: Evaluation note 05-12-2020 Note Date & Type Note Facility 05-12-2020 Evaluation note Diagnosis Onset Date Ischemic cardiomyopathy acut e Essential (primary) hypertension chronic Hyperlipidemia chronic History of coronary artery stent placement May 12, 2020 resolved [facility] Work Phone: Evaluation note Note Date & Type Note Facility Evaluation note Diagnosis Onset Date Carotid stenosis, left acute [facility] Work Phone: Evaluation note Note Date & Type Note Facility Evaluation note Diagnosis Onset Date Acute maxillary sinusitis, unspecified acute Contact with and (suspected) exposure to other viral communicable diseases acute Cough acute [facility] Work Phone: Evaluation note Note Date & Type Note Facility Evaluation note Diagnosis Onset Date Acute maxillary sinusitis, unspecified acute Contact with and (suspected) exposure to other viral communicable diseases acute Cough acute Ischemic cardiomyopathy acut e Essential (primary) hypertension chronic Fatigue chronic Hyperlipidemia chronic Left bundle branch block chr onic History of coronary artery stent placement May 12, 2020 resolved [facility] Work Phone: Evaluation note Note Date & Type Note Facility Evaluation note Diagnosis Onset Date Acute maxillary sinusitis, unspecified acute Contact with and (suspected) exposure to other viral communicable diseases acute Cough acute Ischemic cardiomyopathy acut e Essential (primary) hypertension chronic Fatigue chronic Hyperlipidemia chronic Left bundle branch block chr onic History of coronary artery stent placement May 12, 2020 resolved Carotid stenosis, left acute [facility] Work Phone: Evaluation note Note Date & Type Note Facility Evaluation note No assessment information availa ble [facility] Work Phone: Instructions Note Date & Type Note Facility Instructions Name How to access health information online Indication:Acquired hypothyroidism Start:25-May-19 Instruction Type:Patient Education How to access health information online - Detail Indication:Acquired hypothyroidism Start:25-May-19 Instruction Type:Patient Education Patient Instructions Indication:Acquired hypothyroidism Start:25-May-19 Instruction Type:Provider Instructions for Treatment How to access health information online Indication:Impaired fasting glucose (Renamed from Elevated fasting blood sugar) Start:20-Jan-20 Instruction Type:Patient Education How to access health information online - Detail Indication:Impaired fasting glucose (Renamed from Elevated fasting blood sugar) Start:20-Jan-20 Instruction Type:Patient Education Patient Instructions Indication:Impaired fasting glucose (Renamed from Elevated fasting blood sugar) Start:20-Jan-20 Instruction Type:Provider Instructions for Treatment Patient Instructions Indication:Impaired fasting glucose (Renamed from Elevated fasting blood sugar) Start: Instruction Type:Provider Instructions for Treatment Patient Instructions Indication:Impaired fasting glucose (Renamed from Elevated fasting blood sugar) Start:25-May-19 15 Instruction Type:Provider Instructions for Treatment Patient Instructions Indication:Impaired fasting glucose (Renamed from Elevated fasting blood sugar) Start:23-Jan-20 14 Instruction Type:Provider Instructions for Treatment Patient Instructions Indication:Headache Start: 4 Instruction Type:Provider Instructions for Treatment How to access health information online Indication:Acute Sinusitis (Renamed from Acute infection of nasal sinus) Start:16-Nov-19 14 Instruction Type:Patient Education How to access health information online - Detail Indication:Acute Sinusitis (Renamed from Acute infection of nasal sinus) Start:16-Nov-19 14 Instruction Type:Patient Education Patient Instructions Indication:Acute Sinusitis (Renamed from Acute infection of nasal sinus) Start: 4 Instruction Type:Provider Instructions for Treatment Patient Instructions Indication:Impaired fasting glucose (Renamed from Elevated fasting blood sugar) Start: 4 Instruction Type:Provider Instructions for Treatment Patient Instructions Indication:Conjunctivitis Start:18-Jul-19 14 Instruction Type:Provider Instructions for Treatment Patient Instructions Indication:Impaired fasting glucose (Renamed from Elevated fasting blood sugar) Start: 4 Instruction Type:Provider Instructions for Treatment Patient Instructions Indication:Essential hypertension Start:23-Mar-20 13 Instruction Type:Provider Instructions for Treatment Patient Instructions Indication:Essential hypertension Start:14-Feb-20 13 Instruction Type:Provider Instructions for Treatment Patient Instructions Indication:Impaired fasting glucose (Renamed from Elevated fasting blood sugar) Start: 3 Instruction Type:Provider Instructions for Treatment Patient Instructions Indication:Impaired fasting glucose (Renamed from Elevated fasting blood sugar) Start:01-Nov-19 13 Instruction Type:Provider Instructions for Treatment Patient Instructions Indication:Cough Start:01-Oct-19 13 Instruction Type:Provider Instructions for Treatment Patient Instructions Indication:Gallstones (Renamed from Calculus of gallbladder) Start:02-Jul-19 13 Instruction Type:Provider Instructions for Treatment Patient Instructions Indication:Osteopenia Start: 3 Instruction Type:Provider Instructions for Treatment Patient Instructions Indication:Sebaceous cyst Start: 2 Instruction Type:Provider Instructions for Treatment Patient Instructions Indication:Essential hypertension Start: 2 Instruction Type:Provider Instructions for Treatment [facility]; [facility] Work Phone: Reason for referral (narrative) Note Date & Type Note Facility Reason for referral (narrative) No reason for referral information available [facility] Work Phone: Summary Purpose Family History No Family History Records FoundUnknown Family Member Name Dates Details Brother 1 Comments:2- CABG'S-PROSTATE CA Status:Active Father Comments:-AR [id number] Status:Active First Degree Relatives Comments:NIECE AGE 30- BOWEL CANCER Status:Active Mother Comments:-CABG ON OPERATING TABLE/HTN/?BOWEL CA Status:Active Sister 1 Comments:THYROID DISEASE Status:Active Relationship Condition Age at Onset Recorded Date/T willie Not Specified Cerebrovascular accident (CVA) Unknown brother Coronary artery disease Unknown sister Coronary artery disease Unknown father Coronary artery disease Unknown mother Coronary artery disease Unknown Relationship Condition Age at Onset Recorded Date/T willie Not Specified Cerebrovascular accident (CVA) Unknown brother Coronary artery disease Unknown sister Coronary artery disease Unknown Malignant neoplasm Unknown father Coronary artery disease Unknown mother Coronary artery disease Unknown Advance Directives No Advanced Directives Records Found Advance Directive Response Recorded Date/ Time Advance Directives Yes May 12, 2020 8:03am Living Will Yes May 18 2:36pm Power of Embossing Tool Setter Yes May 18, 2020 2:36pm Advance Directive Response Recorded Date/ Time Advance Directives Yes May 12, 2020 7:03am Living Will Yes May 18 1:36pm Power of Embossing Tool Setter Yes May 18, 2020 1:36pm Advance Directive Response Recorded Date/ Time Advance Directives Yes May 12, 2020 8:03am Chief Complaint and Reason for Visit Chief Complaint YEARLY CAROTID US 2/ 4 [facility] INT LABS Reason for Visit Carotid stenosis, le ft Chief Complaint INT LABS 6 M FU Reason for Visit Ischemic cardiomyopa thy Essential (primary) hypertension Hyperlipidemia Left bundle branch block History of coronary artery stent placement Chief Complaint SCREENING COUGH/CONGESTION COUGHING/WAS SEEN SATURDAY BILAT CS E ORDERS Reason for Visit Acute maxillary sinu sitis, unspecified Contact with and (suspected) exposure to other viral communicable diseases Cough Chief Complaint COUGH/CONGESTION COUGHING/WAS SEEN SATURDAY BILAT CS E ORDERS 6 M FU Reason for Visit Acute maxillary sinu sitis, unspecified Contact with and (suspected) exposure to other viral communicable diseases Cough Ischemic cardiomyopathy Essential (primary) hypertension Fatigue Hyperlipidemia Left bundle branch block History of coronary artery stent placement Chief Complaint COUGH/CONGESTION COUGHING/WAS SEEN SATURDAY BILAT CS E ORDERS 6 M FU CAROTID F/U U.S 04/06 Reason for Visit Acute maxillary sinu sitis, unspecified Contact with and (suspected) exposure to other viral communicable diseases Cough Ischemic cardiomyopathy Essential (primary) hypertension Fatigue Hyperlipidemia Left bundle branch block History of coronary artery stent placement Carotid stenosis, left Chief Complaint EORDERS Chief Complaint EORDERS 1 Y FU OLD MYOCARDIAL INFARCTION, CAD/ASHD Amb Documentation FATTY LIVER SCREENING Reason for Visit Ischemic cardiomyopa thy Essential (primary) hypertension Hyperlipidemia History of coronary artery stent placement Chief Complaint FATTY LIVER SCREENING Chief Complaint OCCLUSION AND STENOS IS OF LEFT CAROTID ARTERY Additional Source Comments INFORMATION SOURCE (unrecogn ized section and content) DATE CREATED AUTHOR 11/26/2019 [facility] DATE CREATED AUTHOR AUTHOR'S ORGANIZ ATION 01/27/2021 [facility] DATE CREATED AUTHOR AUTHOR'S ORGANIZ ATION 12/22/2024 [facility] Goals (unrecognized section and content) Goals may be documented in a n alternate sectionGoals may be documented in an alternate sectionGoals may be documented in an alternate sectionGoals may be documented in an alternate sectionGoals may be documented in an alternate sectionGoals may be documented in an alternate sectionGoals may be documented in an alternate sectionGoals may be documented in an alternate sectionGoals may be documented in an alternate sectionGoals may be documented in an alternate sectionGoals may be documented in an alternate section Care Teams (unrecognized sec tion and content) Team Status: Active Member Role Status Dates Dr. Rao Delgado MD Family Provider Active Dr. Cece Aleman MD Primary Care Provider Active Team Status: Inactive Member Role Status Dates Dr. Cece Aleman MD Primary Care Provider, Referrin g Provider Active Benjamin Marie CELL CLEANER, CELL CLEANER-C Attending Provider Active Team Status: Inactive Member Role Status Dates Dr. Cece Aleman MD Primary Care Provider, Referrin g Provider Active Daniel Mtz PA, PA Attending Provider Active Team Status: Active Member Role Status Dates Dr. Cece Aleman MD Primary Care Provider Active Dr. Christ Galindo MD Attending Provider, Referring Provider Active Team Status: Inactive Member Role Status Dates Dr. Cece Aleman MD Primary Care Provider, Referrin g Provider Active Dr. Christ Galindo MD Attending Provider Active Team Status: Inactive Member Role Status Dates Dr. Cece Aleman MD Primary Care Provider Active Dr. Christ Galindo MD Attending Provider, Referring Provider Active Team Status: Inactive Member Role Status Dates Dr. Cece Aleman MD Primary Care Provider Active Benjamin Marie CELL CLEANER, CELL CLEANER-C Attending Provider, Referring Pro vider Active Team Status: Inactive Member Role Status Dates Dr. Cece Aleman MD Primary Care Provider, Attendin g Provider Active Team Status: Inactive Member Role Status Dates Dr. Cece Aleman MD Primary Care Provider, Referrin g Provider Active Dr. Kodi Nance MD Attending Provider Active Team Status: Active Member Role Status Dates Dr. Cece Aleman MD Primary Care Provider Active Dr. Kodi Nance MD Attending Provider, Referring Pro vider Active Team Status: Active Member Role Status Dates Dr. Cece Aleman MD Primary Care Provider Active Mary Grace Barber CELL CLEANER, CELL CLEANER-C Attending Provider Active Team Status: Inactive Member Role Status Dates Dr. Cece Aleman MD Primary Care Provider Active Dr. Kodi Nance MD Attending Provider, Referring Pro vider Active Team Status: Active Member Role Status Dates Dr. Cece Aleman MD Primary Care Prov ider, Attending Provider, Referring Provider Active Team Status: Inactive Member Role Status Dates Dr. Cece Aleman MD Primary Care Prov ider, Attending Provider, Referring Provider Active Team Status: Active Member Role Status Dates Dr. Cece Aleman MD Primary Care Provider Active Dr. Christ Galindo MD Attending Provider Active Team Status: Inactive Member Role Status Dates Dr. Cece Aleman MD Primary Care Provider Active Dr. Christ Galindo MD Attending Provider, Referring Provider Active Dr. Kodi Nance MD Other Provider Active Team Status: Active Member Role/Relationship Status Dates Dr. Cece Aleman MD Primary Care Provider Active Team Status: Inactive Member Role/Relationship Status Dates Dr. Cece Aleman MD Primary Care Provider Active Start: December 04, 2024 End: December 04, 2024 Dr. Cece Aleman MD Attending Provider Active Start: December 04, 2024 End: December 04, 2024 FOR RECORDS PERTAINING TO PATIENTS WHO ARE OR HAVE BEEN ENROLLED IN A CHEMICAL DEPENDENCY/SUBSTANCEABUSE PROGRAM, SOME INFORMATION MAY BE OMITTED. This clinical summary was aggregated from multiple sources. Caution should be exercised in using it in the provision of clinical care. This summary normalizes information from multiple sources, and as a consequence, information in this document may materially change the coding, format and clinical context of patient data. In addition, data may be omitted in some cases. CLINICAL DECISIONS SHOULD BE BASED ON THE PRIMARY CLINICAL RECORDS. [facility]. provides no warranty or guarantee of the accuracy or completeness of information in this document.
== END | disposition home or self-care (01) ==
LOC: OPBI 07:05
PROVIDERS: PCP Family Medicine; Referring Provider Family Medicine; Visit Provider Family Medicine
DX: Z12.31 Encounter for screening mammogram for malignant neoplasm of breast (principal)
CPT/HCPCS: 77063; 77067

== ENCOUNTER → 2025-03-03 | Outpatient (CLI) | payer MEDICARE, OTHER, SELFPAY ==
[2020-07-15 07:26] VITALS: BMI 29.1
--- NOTE | 2025-03-03 07:48 | CDU_ITS ---
Reason For Study VL/Carotid Duplex Ultrasound
== END | disposition home or self-care (01) ==
LOC: CVS 07:48
PROVIDERS: PCP Family Medicine; Referring Provider Nurse Practitioner Gerontology; Visit Provider Nurse Practitioner Gerontology
DX: I65.22 Occlusion and stenosis of left carotid artery (principal)
CPT/HCPCS: 93880